=== PATIENT | male | born 1955 | race Caucasian/White ===

== ENCOUNTER → 2018-05-10 00:38 | Outpatient (CLI) | payer BC, SELFPAY ==
[2018-05-10 07:35] LABS: Abs Immature Grans 0.06 k/cumm (0.0-0.09); Absolute Basophil Count 0.02 k/cumm (0.0-0.2); Absolute Eosinophil Count 0.17 k/cumm (0.0-0.7); Basophils % 0.3; Eosinophils % 2.6; HCT 32.6 % (40.0-50.0); HGB 9.6 g/dL (13.5-17.5); Immature Grans % 0.9; Lymphocytes % 9.2; Mean Corp. HGB Concentration 29.4 g/dL (32.0-36.0); Mean Corpuscular Hemoglobin 27.4 pg (27.0-33.0); Mean Corpuscular Volume 92.9 fL (80-95); Mean Platelet Volume 8.2 fL (8.0-11.0); Monocytes % 7.6; Neutrophils % 79.4; Platelet Count 242 x1000/uL (130-400); RBC 3.51 m/cumm (4.50-6.00); RBC Distribution Width 19.6 % (11.8-14.1); White Blood Cell Count 6.55 k/cumm (4.4-10.8)
== END ==
PROVIDERS: PCP Nurse Practitioner; Visit Provider Nurse Practitioner
DX: D46.9 Myelodysplastic syndrome, unspecified (principal); D64.9 Anemia, unspecified; Z94.81 Bone marrow transplant status; Z51.81 Encounter for therapeutic drug level monitoring
CPT/HCPCS: 36415; 80053; 80195; 85025

== ENCOUNTER 2018-06-28 00:59 | Outpatient (CLI) | payer BC, SELFPAY ==
[2018-06-28 07:17] LABS: Abs Immature Grans 0.03 k/cumm (0.0-0.09); Absolute Basophil Count 0.03 k/cumm (0.0-0.2); Absolute Lymphocyte Count 0.87 k/cumm (1.2-3.4); Absolute Monocyte Count 0.65 k/cumm (0.11-0.7); Absolute Neutrophil Count 1.01 k/cumm (1.2-6.7); Basophils % 1.1; Eosinophils % 7.2; HCT 33.5 % (40.0-50.0); HGB 10.2 g/dL (13.5-17.5); Immature Grans % 1.1; Lymphocytes % 31.2; Mean Corp. HGB Concentration 30.4 g/dL (32.0-36.0); Mean Corpuscular Hemoglobin 28.3 pg (27.0-33.0); Mean Corpuscular Volume 92.8 fL (80-95); Monocytes % 23.3; Neutrophils % 36.1; Platelet Count 212 x1000/uL (130-400); RBC 3.61 m/cumm (4.50-6.00); RBC Distribution Width 16.7 % (11.8-14.1); White Blood Cell Count 2.79 k/cumm (4.4-10.8)
[2018-06-28 08:46] LABS: Cholesterol 280 mg/dL (50-200); HDL Cholesterol 51 mg/dL (40-60); LDL CHOLESTEROL 183 mg/dL (<100); TSH (W/Ref FT4) 5.08 uIU/mL (0.358-3.74); Triglyceride 211 mg/dL (30-150)
[2018-06-28 09:06] LABS: FREE T4 0.74 ng/dL (0.76-1.46)
== END 2018-06-28 01:19 ==
PROVIDERS: PCP Nurse Practitioner; Visit Provider Nurse Practitioner
DX: D46.9 Myelodysplastic syndrome, unspecified (principal); D64.9 Anemia, unspecified; Z94.81 Bone marrow transplant status; M06.9 Rheumatoid arthritis, unspecified; D46.C Myelodysplastic syndrome with isolated del(5q) chromosomal abnormality
CPT/HCPCS: 36415; 80061; 83721; 84439; 84443; 85025

== ENCOUNTER 2018-08-02 02:19 | Outpatient (CLI) | payer BC, SELFPAY ==
[2018-08-02 07:12] LABS: Abs Immature Grans 0.04 k/cumm (0.0-0.09); Absolute Basophil Count 0.04 k/cumm (0.0-0.2); Absolute Eosinophil Count 0.23 k/cumm (0.0-0.7); Absolute Lymphocyte Count 0.76 k/cumm (1.2-3.4); Absolute Monocyte Count 0.64 k/cumm (0.11-0.7); Absolute Neutrophil Count 3.63 k/cumm (1.2-6.7); Basophils % 0.7; Eosinophils % 4.3; HCT 36.9 % (40.0-50.0); HGB 11.4 g/dL (13.5-17.5); Immature Grans % 0.7; Lymphocytes % 14.2; Mean Corp. HGB Concentration 30.9 g/dL (32.0-36.0); Mean Corpuscular Volume 93.9 fL (80-95); Mean Platelet Volume 8.6 fL (8.0-11.0); Neutrophils % 68.1; Platelet Count 208 x1000/uL (130-400); RBC 3.93 m/cumm (4.50-6.00); RBC Distribution Width 15.6 % (11.8-14.1); White Blood Cell Count 5.34 k/cumm (4.4-10.8)
== END 2018-08-02 02:39 ==
PROVIDERS: PCP Nurse Practitioner; Visit Provider Nurse Practitioner
DX: D46.9 Myelodysplastic syndrome, unspecified (principal); D64.9 Anemia, unspecified; Z94.81 Bone marrow transplant status
CPT/HCPCS: 36415; 80195; 85025

== ENCOUNTER 2018-08-30 01:16 | Outpatient (CLI) | payer BC, SELFPAY ==
[2018-08-30 08:12] LABS: Abs Immature Grans 0.02 k/cumm (0.0-0.09); Absolute Basophil Count 0.02 k/cumm (0.0-0.2); Absolute Eosinophil Count 0.27 k/cumm (0.0-0.7); Absolute Lymphocyte Count 0.71 k/cumm (1.2-3.4); Absolute Monocyte Count 0.69 k/cumm (0.11-0.7); Absolute Neutrophil Count 4.12 k/cumm (1.2-6.7); Basophils % 0.3; Eosinophils % 4.6; HCT 40.7 % (40.0-50.0); HGB 12.5 g/dL (13.5-17.5); Immature Grans % 0.3; Lymphocytes % 12.2; Mean Corp. HGB Concentration 30.7 g/dL (32.0-36.0); Mean Corpuscular Hemoglobin 28.9 pg (27.0-33.0); Mean Corpuscular Volume 94.2 fL (80-95); Mean Platelet Volume 8.5 fL (8.0-11.0); Monocytes % 11.8; Neutrophils % 70.8; Platelet Count 213 x1000/uL (130-400); RBC 4.32 m/cumm (4.50-6.00); RBC Distribution Width 15.8 % (11.8-14.1); White Blood Cell Count 5.83 k/cumm (4.4-10.8)
== END 2018-08-30 01:36 ==
PROVIDERS: PCP Nurse Practitioner; Visit Provider Nurse Practitioner
DX: D46.9 Myelodysplastic syndrome, unspecified (principal); D64.9 Anemia, unspecified; Z94.81 Bone marrow transplant status
CPT/HCPCS: 36415; 85025

== ENCOUNTER 2018-09-27 06:52 | Outpatient (CLI) | payer BC, SELFPAY ==
[2018-09-27 07:29] LABS: Abs Immature Grans 0.01 k/cumm (0.0-0.09); Absolute Basophil Count 0.02 k/cumm (0.0-0.2); Absolute Eosinophil Count 0.26 k/cumm (0.0-0.7); Absolute Lymphocyte Count 0.61 k/cumm (1.2-3.4); Absolute Monocyte Count 0.43 k/cumm (0.11-0.7); Absolute Neutrophil Count 2.52 k/cumm (1.2-6.7); Basophils % 0.5; Eosinophils % 6.8; HCT 36.6 % (40.0-50.0); HGB 11.7 g/dL (13.5-17.5); Immature Grans % 0.3; Lymphocytes % 15.8; Mean Corpuscular Volume 90.8 fL (80-95); Monocytes % 11.2; Neutrophils % 65.4; Platelet Count 210 x1000/uL (130-400); RBC 4.03 m/cumm (4.50-6.00); RBC Distribution Width 14.8 % (11.8-14.1); White Blood Cell Count 3.85 k/cumm (4.4-10.8)
== END 2018-09-27 07:12 ==
PROVIDERS: PCP Nurse Practitioner; Visit Provider Internal Medicine
DX: D46.9 Myelodysplastic syndrome, unspecified (principal); D64.9 Anemia, unspecified; Z94.81 Bone marrow transplant status
CPT/HCPCS: 36415; 85025

== ENCOUNTER 2018-10-07 06:53 | Emergency (ER) | payer BC, SELFPAY ==
[2018-10-07 06:59] VITALS: BP 125/79; PULSE 84; RESP 14; TEMP 36.9; O2SAT 94
--- NOTE | 2018-10-07 07:36 | ED.GENADUL_ITS ---
Discharge Plan Disposition Patient Disposition: HOME Discharge Details Chief Complaint: RespSymp Clinical Impression: Influenza, Pneumonia Primary Care Provider: Berta Pritchard ED Provider: Roxanne Thomas Home Meds and New Rx's Prescriptions: Continued montelukast [Singulair] 4 MG tablet,chewable 4 mg PO HS RF: 0 sulfamethoxazole-trimethoprim [Bactrim DS] 1 EACH tablet 1 tab-cap PO as directed RF: 0 Flovent HFA 10.6 GM HFA aerosol inhaler 1 puff Inhalation BID RF: 0 omeprazole 20 MG capsule,delayed release(DR/EC) 20 mg PO DAILY RF: 0 sirolimus 1 MG tablet 1 mg PO BID RF: 0 prednisone 10 mg tablet 2.5 mg PO DAILY RF: 0 No Action azithromycin 250 mg Tablet 250 mg PO DIRECTED RF: 0 albuterol sulfate 90 mcg/actuation Hfa Aerosol Inhaler 2 puff Inhalation Q6H PRN PRN (Reason: Shortness Of Breath) RF: 0 Discharge Instructions Instructions: Influenza (ED), Pneumonia (ED) Additional Instructions: Please return immediately to the emergency department if you develop any new or worsening symptoms or if you become otherwise concerned. It is extremely important that you make an appointment to be seen in follow-up for this visit by your primary care doctor within 1 week and also by your oncologist as scheduled. Referrals: Berta Pritchard, [employer] [Primary Care Provider] - Discharge Data Discharge Date/Time-TO BE ENTERED AT DEPARTURE: 10/07/18 15:40 Medical Decision Making Patrice Bro is a 63-year-old man with a history of myelodysplastic syndrome with stem cell transplant in 2017 chronically taking Bactrim, erythromycin, prednisone, and sirolimus presenting to the emergency department with 4-5 days of cough, dyspnea on exertion, and decreased appetite. On exam patient is well and nontoxic appearing. He does have frequent dry cough. Breath sounds are coarse throughout with expiratory wheeze. There is no peripheral edema or posterior calf tenderness. Concern for pneumonia, opportunistic pulmonary infection, influenza,, mild dehydration, doubt ACS/PE. Exam/history not cons istent with sepsis, acute aortic pathology, meningitis, other non-pulmonary infection. Plan for EKG, chest x-ray, screening labs, IV fluid hydration, DuoNeb. Will monitor and reassess. Pt reports feeling much better after the event. Lungs clear to auscultation on repeat examination. Patient walking about emergency department without issue. Influenza positive. D-dimer elevated, chest x-ray negative. Doubt PE at this time, however I do have concern for occult pneumonia given patient is immunosuppressed. Plan for CT chest. CT chest per radiology shows small multifocal infiltrates that could be pneumonia. I discussed patient presentation and results with Dr. Lennon of infectious disease at [facility]. He reviewed patient's medical records at [facility]. Patient is taking azithromycin and Bactrim 3 times a week at baseline. Dr. Lennon recommends no further antibiotic treatment at this time, continue azithromycin and Bactrim as it is currently prescribed, and add Tamiflu. On reassessment after IV fluids, patient reports that he feels very well and essentially at baseline. On reexamination his lungs remain clear to auscultation bilaterally. He has normal work of breathing. His O2 saturations and other vital signs are normal . He would like to go home. I had a lengthy discussion with the patient regarding return to emergency department precautions and importance of outpatient follow-up with his PCP and his oncologist. He verbalizes understanding of the plan and is amenable. Medical Records Medical records reviewed: Yes I reviewed the patient's medical records. Imaging Data Radiologic Study: Attestation: I personally reviewed and interpreted this imaging study as follows: Radiologist's impression: PA AND LATERAL CHEST: Comparison is made with [id number]. The heart size is normal. The aorta is tortuous. There are mild fibrotic changes. No superimposed acute infiltrate, effusion or pulmonary edema is seen. There are mild to moderate mid thoracic compression fractures. IMPRESSION: No acute abnormality. CHEST CT FOR PULMONARY EMBOLISM: CT angiography was performed with multi slice acquisition and multi planar and 3D reconstruction. The exam is limited by respiratory motion. No pulmonary artery filling defects or aortic dissection is seen. There are scattered patchy densities in both upper and lower lobes, as well as in the right middle lobe, which could represent multifocal pneumonitis. There is no evidence of consolidation, pleural or pericardial effusions. There are moderate compression fractures of T6 and T8. Scoliosis is also present. IMPRESSION: Exam is limited by respiratory motion. No pulmonary emboli are identified. There are patchy areas of airspace density, which could represent a multifocal pneumonitis. Lab Data Lab results reviewed: Yes I reviewed the patient's lab results. ECG Data Attestation: I personally reviewed and interpreted this ECG (s) as follows: Interpretation: EKG shows normal sinus rhythm at 79 with right bundle branch block and left anterior fascicular block seen on prior, no acute ischemic changes, no STEMI. Nondiagnostic EKG HPI General Mode of arrival: ambulatory . Date/Time Provider Initiated Documentation: 10/07/18 06:55 . Limitations to Documentation: no limitations . Information obtained by: patient, RN notes reviewed and old records reviewed . HPI Narrative: Patrice Bro is a 63-year-old man with history of myelodysplastic syndrome status post stem cell transplant 2017 presenting to the emergency department with several days of cough. Patient reports that he has had nasal congestion and mild cough for approximately 1 month. He had improvement for several days approximately 1 week ago, and then 4-5 days ago developed severe cough. He has also had shortness of breath during exertion over the past few days. No shortness of breath at rest. He has had no pain. He reports some decreased appetite, and has lost 7 pounds since 10/01. No swelling of his lower extremities. No recent travel. Patient takes erythromycin, Bactrim, and prednisone along with sirolimus chronically. Related Data Home Medications Medication Instructions Recorded Confirmed Flovent HFA 1 puff INHALATION BID inhaler 11/02/17 10/12/18 montelukast [Singulair] 4 mg PO HS tab.chew 11/02/17 10/12/18 omeprazole 20 mg PO DAILY tab-cap 11/02/17 10/12/18 sulfamethoxazole-trimethoprim 1 tab-cap PO as directed tab-cap 11/02/17 10/12/18 [Bactrim DS] sirolimus 1 mg PO BID 03/01/18 10/12/18 prednisone 10 mg tablet 2.5 mg PO DAILY tab-cap 09/24/18 10/13/18 albuterol sulfate 2 puff INHALATION Q6H PRN PRN 10/12/18 10/12/18 azithromycin 250 mg PO DIRECTED 10/12/18 10/12/18 Allergies Allergy/AdvReac Type Severity Reaction Status Date / Time methotrexate AdvReac Severe Myelodysplastic Unverified 10/07/18 07:13 Syndrome General Stated Complaint: RespSymp AFIA: 3 Review of Systems Review of Systems Constitutional: denies fevers Eyes: denies eye pain ENT: denies facial pain, dental pain, sore throat Cardiovascular: denies chest pain, edema Respiratory: reports SOB with exertion, cough, denies SOB at rest GI: denies abdominal pain, vomiting, reports one day of diarrhea 3 days ago : denies flank pain MSK: denies back pain, neck pain, arthralgias, myalgias Skin: denies rash Neuro: denies headaches, lightheadedness, focal weakness, reports mild generalized weakness [facility] Social History Smoking/Tobacco Use Status: Former Tobacco Use Exam Narrative Exam Narrative: Constitutional: well and [id number], pleasant, conversing normally HENT: head atraumatic, normocephalic normal inspection, mucous membranes moist Eyes: conjunctiva normal, sclera normal, pupils 3mm b/l Neck: no stridor, normal ROM, trachea midline Chest: normal inspection Resp: normal work of breathing, coarse breath sounds throughout, mild exp wheeze throughout, frequent dry cough Cardio: normal rate, normal rhythm, no murmur appreciated GI: abdomen soft, non-tender, non-distended Back: normal inspection, no rash Skin: warm, dry, normal color, no rash Neuro: alert, not altered, grossly non-focal, normal tone Ext: no edema, no post calf TTP Psych: normal mood, normal affect, normal behavior Course Vital Signs Temperature 36.9 C 10/07/18 06:59 Pulse 84 10/07/18 06:59 Respiratory Rate 14 10/07/18 06:59 Blood Pressure 125/79 10/07/18 06:59 Pulse Oximetry 94 L 10/07/18 06:59 Temperature 36.9 C 10/07/18 06:59 Temperature Source Temporal Artery Scan 10/07/18 06:59 Pulse 84 10/07/18 06:59 Respiratory Rate 14 10/07/18 06:59 Respiratory Effort Non-Labored 10/07/18 07:11 Respiratory Depth Normal 10/07/18 07:11 Blood Pressure 125/79 10/07/18 06:59 Blood Pressure Position Sitting 10/07/18 06:59 Pulse Oximetry 94 L 10/07/18 06:59 Oxygen Delivery Method Room Air 10/07/18 06:59 Oxygen Flow Rate 0 12/31/18 06:59 Pain Level 0 10/07/18 06:59
--- NOTE | 2018-10-07 07:45 | DI.RAD_ITS ---
SYMPTOMS/DIAGNOSIS: COUGH PA AND LATERAL CHEST: Comparison is made with [id number]. The heart size is normal. The aorta is tortuous. There are mild fibrotic changes. No superimposed acute infiltrate, effusion or pulmonary edema is seen. There are mild to moderate mid thoracic compression fractures. IMPRESSION: No acute abnormality.
[2018-10-07 08:01] VITALS: PULSE 84; RESP 14; RESP 4; O2SAT 94
[2018-10-07] MEDS: Albuterol/Ipratropium 3 ML UPD VIAL UPD (08:01)
[2018-10-07] MEDS: Normal Saline 500 ML IV (08:01)
[2018-10-07 08:10] LABS: Lactate-non-spesis 2.2 mmol/L (0.6-1.4)
[2018-10-07 08:18] LABS: Absolute Basophil Count 0.01 k/cumm (0.0-0.2); Absolute Lymphocyte Count 0.34 k/cumm (1.2-3.4); Absolute Monocyte Count 0.34 k/cumm (0.11-0.7); Absolute Neutrophil Count 2.62 k/cumm (1.2-6.7); Basophils % 0.3; HCT 39.7 % (40.0-50.0); HGB 12.8 g/dL (13.5-17.5); Lymphocytes % 10.3; Mean Corp. HGB Concentration 32.2 g/dL (32.0-36.0); Mean Corpuscular Volume 89.8 fL (80-95); Mean Platelet Volume 9.3 fL (8.0-11.0); Monocytes % 10.3; Neutrophils % 79.1; Platelet Count 135 x1000/uL (130-400); RBC 4.42 m/cumm (4.50-6.00); RBC Distribution Width 14.8 % (11.8-14.1); White Blood Cell Count 3.31 k/cumm (4.4-10.8)
[2018-10-07 08:29] LABS: ALT 54 U/L (12-78); AST 45 U/L (15-37); Albumin 3.8 g/dL (3.4-5.0); Alkaline Phosphatase 94 U/L (46-116); Anion Gap 11.7 mmol/L (3-11); BUN 22 mg/dL (7-18); Bilirubin, Total 0.2 mg/dL (0.2-1.0); CO2 26.3 mmol/L (21.0-32.0); CREATININE 1.13 mg/dL (0.70-1.30); Calcium 8.4 mg/dL (8.5-10.1); Chloride 103 mmol/L (98-107); Glucose 120 mg/dL (70-100); Potassium 3.5 mmol/L (3.5-5.1); Sodium 141 mmol/L (136-145); Troponin I 0.02 ng/mL (0.00-0.06)
[2018-10-07 08:54] LABS: D-Dimer 759 ng/mlFEU (<500)
[2018-10-07] MEDS: Normal Saline 1,000 ML 1000 ML IV (10:16)
--- NOTE | 2018-10-07 11:43 | NUR.NOTE ---
Nursing Note: On ambulation patients SPO2 was between 93 and 95 % on RA. He didn't report any increased SOB that increased with exertion.
--- NOTE | 2018-10-07 12:04 | DI.CT_ITS ---
SYMPTOMS/DIAGNOSIS: SHORTNESS OF BREATH, COUGH, IMMUNOSUPPRESSED, H/O MDS, FLU CHEST CT FOR PULMONARY EMBOLISM: CT angiography was performed with multi slice acquisition and multi planar and 3D reconstruction. The exam is limited by respiratory motion. No pulmonary artery filling defects or aortic dissection is seen. There are scattered patchy densities in both upper and lower lobes, as well as in the right middle lobe, which could represent multifocal pneumonitis. There is no evidence of consolidation, pleural or pericardial effusions. There are moderate compression fractures of T6 and T8. Scoliosis is also present. IMPRESSION: Exam is limited by respiratory motion. No pulmonary emboli are identified. There are patchy areas of airspace density, which could represent a multifocal pneumonitis.
[2018-10-07] MEDS: Omnipaque 350 MG/ML 100 ML BTL IJ (13:35)
[2018-10-07 14:18] VITALS: BP 120/79; PULSE 75; RESP 14; O2SAT 95
[2018-10-07] MEDS: Oseltamivir 75 MG CAP PO (14:57)
[2018-10-07 15:02] VITALS: BP 120/79; PULSE 75; RESP 14; TEMP 36.8; O2SAT 95
== END 2018-10-07 15:40 | disposition home or self-care (01) ==
PROVIDERS: Emergency Provider Student in an Organized Health Care Education/Training Program; PCP Nurse Practitioner
DX: J10.1 Influenza due to other identified influenza virus with other respiratory manifestations (principal); D46.9 Myelodysplastic syndrome, unspecified; Z79.2 Long term (current) use of antibiotics; Z79.52 Long term (current) use of systemic steroids
CPT/HCPCS: 36415; 71275; 80053; 87449; 93005; 94640; 96360; 96361; 99285; 71046; 83605; 84484; 85025; 85379; 93010; 99284; J3490; J7620

== ENCOUNTER 2018-10-12 10:37 | Inpatient (IN) | payer BC, SELFPAY ==
[2018-10-12] VITALS (8 sets, daily range): BP systolic 112–132; BP diastolic 57–81; PULSE 63–95; RESP 16–26; TEMP 36.7–37; O2SAT 89–96
--- NOTE | 2018-10-12 11:14 | ED.GENADUL_ITS ---
Discharge Plan Disposition Patient Disposition: [facility] INPATIENT Condition: Stable Discharge Details Chief Complaint: RespSymp Clinical Impression: Influenza, Pneumonia, Hypoxemia Primary Care Provider: Berta Pritchard ED Provider: Inder Alcantara Home Meds and New Rx's Prescriptions: No Action naproxen sodium [Aleve] 220 MG capsule 220 mg PO PRN PRNRF: 0 montelukast [Singulair] 4 MG tablet,chewable 4 mg PO HS RF: 0 sulfamethoxazole-trimethoprim [Bactrim DS] 1 EACH tablet PO as directed RF: 0 Flovent HFA 10.6 GM HFA aerosol inhaler 44 mcg Inhalation BID RF: 0 omeprazole 20 MG capsule,delayed release(DR/EC) 20 mg PO DAILY RF: 0 Loratadine 10 MG TAB.RAPDIS 10 mg PO DAILY RF: 0 sirolimus 1 MG tablet 1 mg PO BID RF: 0 Aranesp (in polysorbate) 500 MCG/1 ML syringe 400 mcg Sub-Q as directed RF: 0 prednisone 10 mg tablet 2.5 mg PO DAILY RF: 0 Medical Decision Making This is a 63-year-old male who is a stem cell transplant recipient due to a history of myelodysplastic syndromechronically taking Bactrim, erythromycin, prednisone, and sirolimus. He had a CT angiogram last week which showed evidence of pneumonitis, he tested influenza A positive, and was started on Tamiflu. Since then he has had consistent chills, myalgias, congestion however starting last night he demonstrated notable difficulty breathing, with associated exertional fatigue, and some mild chest pressure. Physical exam demonstrates notable rhonchi and wheezes in his right lung estes as well as his left. He is mildly hypoxic at 89% on room air, tachypneic and tachycardic. He has no history of lung disease and does not normally use oxygen. I have concern for a superimposed bacterial pneumonia. With the patient's chronic immunosuppression, I do feel that he is at high risk for this, and would benefit from inpatient admission. 12:18 PM The patient is 87% on room air. Chest x-ray is notably worse than previous and shows worsening pneumonia. We will start the patient on broad-spectrum antibiotics of vancomycin and Zosyn. I will add doxycycline for atypical coverage secondary to his slightly prolonged QT. With his hypoxemia, and immunosuppression in spite of outpatient therapy I do feel that he would benefit from admission. 12:30 PM I discussed the case with the hospitalist Dr. Rice, and she has requested we contact [facility] for potential transfer as she is not able to get an acute sirolimus. I contacted [facility] and they have no beds whatsoever. I contacted at [facility], and they do not feel that this patient is sick enough for appropriate for transfer at this time. Additionally they do not have any beds available the [facility]. They think that they may have an open bed in the next 2-3 days ago. I also did discuss this with the patient in [facility] and he would prefer to stay here and very drip then be transferred. 1:[address] Rice again and discussed the case with her including the modifying factors of [facility] and [facility] being currently for. She agrees with the current assessment and plan and does agree to accept the patient for admission. I have extensively reviewed the treatment plan with the patient. I have addressed all patient concerns at this time. I have also discussed the plan with the admitting physician and they agree with the current assessment and plan and have agreed to assume responsibility for the patient. All parties demonstrate verbal understanding and agreement with our assessment and plan at this time. EKG 11: 07 Rate 90, MT 154, QTc 489, QRS 139, right bundle branch block with no significant ST elevations or depressions. Findings are consistent with prior EKG from 10/07/18 [facility] General Date/Time Provider Initiated Documentation: 10/12/18 10:52 . [facility] Narrative: Patrice Bro is a 63-year-old man with a history of myelodysplastic syndrome with stem cell transplant in 2017 chronically taking Bactrim, erythromycin, prednisone, and sirolimus. The patient was here 1 week ago seen and assessed. He was flu positive at that time, he had a CT angiogram which showed evidence of pneumonitis but no PE. His vital signs were stable and reassuring, he was discharged home on Tamiflu. Since then the patient has noticed continued cough, chills, productive white sputum, muscle achiness throughout, and no improvement of his symptoms. Concerningly, last night the patient noticed significant shortness of breath with some associated mild chest pressure. Pain is worse with coughing. Patient has noticed that since then including today he has had notable shortness of breath with exertion, as well as worsening symptoms of fatigue. He feels that he is notably worsened in his symptomatology. Patient denies any aggravating or modifying factors. He has no history of COPD. He does not use home oxygen. He has not smoked since 1985. He denies any recent surgeries except for stem cell transplant. He denies any IV or illicit drug use or pertinent family history. Related Data Home Medications Medication Instructions Recorded Confirmed naproxen sodium [Aleve] 220 mg PO PRN PRN 01/12/15 10/12/18 Flovent HFA 44 mcg INHALATION BID inhaler 11/02/17 10/12/18 Loratadine 10 mg PO DAILY tab-cap 11/02/17 10/12/18 montelukast [Singulair] 4 mg PO HS tab.chew 11/02/17 10/12/18 omeprazole 20 mg PO DAILY tab-cap 11/02/17 10/12/18 sulfamethoxazole-trimethoprim 0 tab-cap PO as directed tab-cap 11/02/17 10/12/18 [Bactrim DS] sirolimus 1 mg PO BID 03/01/18 10/12/18 Aranesp (in polysorbate) 400 mcg SUB-Q as directed 05/24/18 10/12/18 prednisone 10 mg tablet 2.5 mg PO DAILY tab-cap 09/24/18 10/12/18 Allergies Allergy/AdvReac Type Severity Reaction Status Date / Time methotrexate AdvReac Severe Myelodysplastic Unverified 10/07/18 07:13 Syndrome General Stated Complaint: RespSymp AFIA: 3 Review of Systems Review of Systems All systems reviewed & are unremarkable except as noted in HPI and below PFSH Surgical History Stem Cell Transplant (10/18/16) Social History Smoking/Tobacco Use Status: Former Tobacco Use Exam Narrative Exam Narrative: 1.Const: Well-nourished, Well-developed, appearing stated age 2.Eyes: PERRL, no conjunctival injection, and symmetrical lids. 3.ENT: Atraumatic external nose and ears. Moist MM. Neck: Symmetric, trachea midline, No thyromegaly. Patient demonstrates good movement of cervical neck. There is no nuchal rigidity, no nuchal tenderness. Patient is able to flex the neck without any difficulty or significant pain. Negative Kernig's and Brudzinski sign. 4.CVS: +S1/S2, No murmurs or gallops. Peripheral pulses 2+ and equal in all extremities. Brisk capillary refill in all extremities. Radial pulses +2 bilaterally 5.RESP: Mild tachypnea. Notable crackles and wheezes in the right lung estes. Mild rhonchi. 6.GI: Soft, Nontender/Nondistended, No hepatosplenomegaly. No guarding or rebound. 7.MSK: Normocephalic/Atraumatic, Extremities w/o deformity or ttp No cyanosis or clubbing, Normal movement of all extremities 8.Skin: Warm, Dry. No rashes or lesions. 9.Neuro: clinical nurse leader II-XII grossly intact. Sensation grossly intact, no focal neurologic deficits. 10.Psych: (AAO) x3. Appropriate mood and affect Course Vital Signs Temperature 36.7 C 10/12/18 10:51 Pulse 95 H 10/12/18 10:51 Respiratory Rate 16 10/12/18 10:51 Blood Pressure 132/77 10/12/18 10:51 Pulse Oximetry 89 L 10/12/18 10:51 Temperature 36.7 C 10/12/18 10:51 Temperature Source Temporal Artery Scan 10/12/18 10:51 Pulse 90 10/12/18 11:08 Respiratory Rate 26 H 10/12/18 11:08 Respiratory Effort Non-Labored 10/12/18 11:02 Blood Pressure 132/77 10/12/18 10:51 Blood Pressure Position Sitting 10/12/18 10:51 Pulse Oximetry 94 L 10/12/18 11:08 Oxygen Delivery Method Nasal Cannula 10/12/18 11:08 Oxygen Flow Rate 2 10/12/18 11:08 Pain Level 0 10/12/18 10:51 Lab/Test Results Lab/Test Results: 10/12/18 11:06 Blood Blood Culture - Pending 10/12/18 11:06 Blood Blood Culture - Pending
[2018-10-12] MEDS: Albuterol/Ipratropium 3 ML UPD VIAL UPD (11:22)
[2018-10-12 11:28] LABS: Lactate-non-spesis 1.6 mmol/L (0.6-1.4)
[2018-10-12 11:30] LABS: Abs Immature Grans 0.03 k/cumm (0.0-0.09); Absolute Basophil Count 0.01 k/cumm (0.0-0.2); Absolute Eosinophil Count 0.08 k/cumm (0.0-0.7); Absolute Lymphocyte Count 0.37 k/cumm (1.2-3.4); Absolute Monocyte Count 0.57 k/cumm (0.11-0.7); Absolute Neutrophil Count 5.94 k/cumm (1.2-6.7); Basophils % 0.1; Eosinophils % 1.1; HCT 37.3 % (40.0-50.0); HGB 12.2 g/dL (13.5-17.5); Immature Grans % 0.4; Lymphocytes % 5.3; Mean Corp. HGB Concentration 32.7 g/dL (32.0-36.0); Mean Corpuscular Hemoglobin 29.2 pg (27.0-33.0); Mean Corpuscular Volume 89.2 fL (80-95); Mean Platelet Volume 9.4 fL (8.0-11.0); Monocytes % 8.1; Platelet Count 189 x1000/uL (130-400); RBC 4.18 m/cumm (4.50-6.00); RBC Distribution Width 14.5 % (11.8-14.1)
[2018-10-12 11:48] LABS: ALT 35 U/L (12-78); AST 27 U/L (15-37); Albumin 3.2 g/dL (3.4-5.0); Alkaline Phosphatase 84 U/L (46-116); BUN 20 mg/dL (7-18); Bilirubin, Total 0.4 mg/dL (0.2-1.0); CREATININE 1.51 mg/dL (0.70-1.30); Calcium 8.7 mg/dL (8.5-10.1); Chloride 101 mmol/L (98-107); Estimated GFR 46.76 (mL/min/1.73m2); Glucose 190 mg/dL (70-100); Potassium 3.7 mmol/L (3.5-5.1); Sodium 139 mmol/L (136-145); Total Protein 7.4 g/dL (6.4-8.2)
[2018-10-12 11:52] LABS: Troponin I < 0.02 ng/mL (0.00-0.06)
--- NOTE | 2018-10-12 12:10 | DI.RAD_ITS ---
SYMPTOM/DIAGNOSIS: COUGH, ? PNEUMONIA FRONTAL AND LATERAL CHEST: Comparison is made with 10/07/18. Heart size and pulmonary vasculature are within normal limits. There is a new infiltrate in the left perihilar region suspicious for pneumonia. Scarring is seen in the lungs which appear unchanged. No other infiltrates, effusions or pneumothoraces are identified. The bones are intact. There are old compression deformities seen in the thoracic spine. IMPRESSION: New left perihilar infiltrate suspicious for pneumonia.
[2018-10-12] MEDS: Normal Saline 1,000 ML 1000 ML IV (12:15)
[2018-10-12] MEDS: PIPERACILLIN/TAZO 3.375 GM in Normal Saline 50 ML IVPB ×3 (12:16→23:40)
--- NOTE | 2018-10-12 12:35 | DI.VRAD_ITS ---
EXAM: XR Chest, 2 Views EXAM DATE/TIME: 10/12/2018 12:12 PM CLINICAL HISTORY: 63 years old, male; Signs and symptoms; Cough TECHNIQUE: XR of the chest, 2 views. COMPARISON: CR XR CHEST 2V PA LATERAL 10/07/2018 8:18 AM FINDINGS: Lungs: New left perihilar patchy opacity, worrisome for pneumonia. Recommend followup to resolution. Right lung remains clear. Pleural space: Unremarkable. No pleural effusion. No pneumothorax. Heart/Mediastinum: Unremarkable. No cardiomegaly. Bones/joints: Unremarkable. IMPRESSION: New left perihilar patchy opacity, worrisome for pneumonia. Recommend followup to resolution. Dictated and Authenticated by: Rhiannon Craft MD. Ordering:SANTY Loving MD
[2018-10-12] MEDS: VANCOMYCIN 2,000 MG in Normal Saline 500 ML 250 MG IVPB (12:36)
[2018-10-12] MEDS: DOXYCYCLINE 100 MG in Normal Saline 100 ML IVPB (12:59)
--- NOTE | 2018-10-12 13:40 | NUR.NOTE ---
Nursing Note: Awaiting bed placement. resting in bed, no acute changes. 94-95% on 2L NC.
[2018-10-12] MEDS: Enoxaparin 40 MG/0.4 ML SYR SC (15:41)
[2018-10-12] MEDS: Normal Saline Flush 10 ML SYR IVP (15:42)
[2018-10-12] MEDS: methylPREDNISolone SUCC 125 MG VIAL 60 MG IVP ×2 (15:42→22:18)
[2018-10-12] MEDS: Normal Saline 1,000 ML 125 ML IV (15:43)
--- NOTE | 2018-10-12 19:43 | HPE_ITS ---
Date of service: 10/12/18 Time of Service: 17:00 Assessment and Plan (1) CAP (community acquired pneumonia): Current visit: Yes Status: Acute With a component of bronchospasm, Likely post-inluenza. Continue doxycycline, vancomycin, zosyn initiated in ED as the patient is on immunosuppression. Will contact transplant ID for recommendations re tayloring therapy. Sputum sample obtained. Finish treatment for the flu tonight. Patient was initiated on IV steroids. (2) Myelodysplastic syndrome with 5q deletion: Current visit: No Status: Chronic Continue sirolimus. Monitoring levels becomes difficult at a community hospital level. Will discuss with transplant ID. 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 Continue immunosuppression. (4) Rheumatoid arthritis: Current visit: No Status: Chronic Continue steroids. (5) Renal insufficiency: Current visit: No Status: Chronic Monitor Cr. History of Present Illness Chief Complaint: It was hard to breathe Narrative: Mr Bro is a 63 year old male with PMHx of MDS s/p bone marrow transplant, on sirolimus and prednisone therapy, RA, recent diagnosis of influenza A, as well as h/o qkatt-ol-jwsd disease who presented to [facility] today complaining of shortness of breath. He was taking his tamiflu at home as prescribed, but felt very short of breath this morning. He also felt a lot of muscular chest wall pressure from coughing. His cough has been productive of white sputum. He denies fevers at home. In the ER, he was found to be hypoxic to 87% on RA in the ED and required 2 L of O2 to saturate in low 90's. He was felt to be quite wheezy on the exam as well. His ER workup revealed a new superimposed L perihilar opacity concerning for pneumonia. He was initiated on vancomycin, zosyn, and doxycycline, and we were asked to admit the patient for further care. While the preference would have been for the patient to be at a facility with transplant ID available, [facility] [place], and neither did [facility]. The patient follows evette Man (?sp) [place] [facility] [place]. Review of Systems Review of Systems 12 systems reviewed. Pertinent positives and negatives are as per HPI. [facility] Medical History Influenza A (Acute) CKD (chronic kidney disease) (Chronic) Dlsfd-mfsmwj-ffhq disease (Chronic) Hyperlipidemia (Chronic) MDS (myelodysplastic syndrome) (Chronic) Osteoporosis (Chronic) Rheumatoid arthritis (Chronic) Surgical History History of bone marrow transplant (Chronic) History of tonsillectomy (Chronic) S/P emergency tracheotomy for assistance in breathing (Resolved) Stem Cell Transplant (10/18/16) Family History Maternal Grandfather Stroke Mother Diabetes Colon cancer Father Diabetes Social History Smoking/Tobacco Use Status: Former Tobacco Use Meds Home Medications Medication Instructions Recorded Confirmed Type Flovent HFA 44 mcg INHALATION BID inhaler 11/02/17 10/12/18 History montelukast [Singulair] 4 mg PO HS tab.chew 11/02/17 10/12/18 History omeprazole 20 mg PO DAILY tab-cap 11/02/17 10/12/18 History sulfamethoxazole-trimethoprim 0 tab-cap PO as directed tab-cap 11/02/17 10/12/18 History [Bactrim DS] sirolimus 1 mg PO BID 03/01/18 10/12/18 History prednisone 10 mg tablet 2.5 mg PO DAILY tab-cap 09/24/18 10/12/18 History albuterol sulfate 2 puff INHALATION Q6H PRN PRN 10/12/18 10/12/18 History azithromycin 250 mg PO DIRECTED 10/12/18 10/12/18 History Allergies Allergy/AdvReac Type Severity Reaction Status Date / Time methotrexate AdvReac Severe Myelodysplastic Unverified 10/07/18 07:13 Syndrome Exam Narrative Exam Narrative: General: A&Ox3, very pleasant, sitting up in bed, not in acute distress HEENT: EOMI, MMM Heart: RRR, no m/r/g Lungs; Wheezing bilaterally on expiration GI: abdomen soft, nontender, nondistended Extremities: no edema, clubbing, or cyanosis. Results Imaging Additional studies: CXR: New left perihilar patchy opacity, worrisome for pneumonia. Recommend followup to resolution. EKG: HR 90, RBBB (Old) Labs : 10/12/18 11:20 10/12/18 11:20 Laboratory Results - last 24 hr 10/12/18 10/12/18 10/12/18 11:20 11:20 11:20 WBC 7.00 RBC 4.18 L Hgb 12.2 L Hct 37.3 L MCV 89.2 MCH 29.2 MCHC 32.7 RDW 14.5 H Plt Count 189 MPV 9.4 Immature Gran % 0.4 Neutrophils % 85.0 Lymphocytes % 5.3 Monocytes % 8.1 Eosinophils % 1.1 Basophils % 0.1 Absolute Neutrophils 5.94 Absolute Lymphocytes 0.37 L Absolute Monocytes 0.57 Absolute Eosinophils 0.08 Absolute Basophils 0.01 Sodium 139 Potassium 3.7 Chloride 101 Carbon Dioxide 27.0 Anion Gap 11.0 BUN 20 H Creatinine 1.51 H Estimated GFR/1.73 m2 46.76 Glucose 190 H Lactate 1.6 H Calcium 8.7 Total Bilirubin 0.4 AST 27 ALT 35 Alkaline Phosphatase 84 Troponin I < 0.02 Total Protein 7.4 Albumin 3.2 L Last Vital Signs Temp 36.9 C 10/12/18 16:07 Pulse 79 10/12/18 16:07 Resp 20 10/12/18 16:07 BP 125/76 10/12/18 16:07 Pulse Ox 94 L 10/12/18 16:07
[2018-10-12] MEDS: Oseltamivir 75 MG CAP PO (20:27)
[2018-10-13] VITALS (7 sets, daily range): BP systolic 113–131; BP diastolic 68–82; PULSE 61–80; RESP 16–20; TEMP 36.5–37.3; O2SAT 93–95
[2018-10-13] MEDS: Normal Saline 1,000 ML 125 ML IV ×2 (00:40→10:25)
[2018-10-13] MEDS: VANCOMYCIN 1,000 MG in Normal Saline 250 ML 250 MG IV ×2 (00:44→12:12)
[2018-10-13] MEDS: DOXYCYCLINE 100 MG in Normal Saline 100 ML IVPB ×2 (02:29→14:53)
[2018-10-13] MEDS: PIPERACILLIN/TAZO 3.375 GM in Normal Saline 50 ML IVPB ×2 (06:02→11:33)
[2018-10-13] MEDS: methylPREDNISolone SUCC 125 MG VIAL 60 MG IVP ×3 (06:03→22:43)
[2018-10-13 06:12] LABS: Abs Immature Grans 0.01 k/cumm (0.0-0.09); Absolute Basophil Count 0.01 k/cumm (0.0-0.2); Absolute Lymphocyte Count 0.25 k/cumm (1.2-3.4); Absolute Monocyte Count 0.08 k/cumm (0.11-0.7); Absolute Neutrophil Count 3.87 k/cumm (1.2-6.7); Basophils % 0.2; HCT 33.3 % (40.0-50.0); HGB 10.8 g/dL (13.5-17.5); Immature Grans % 0.2; Lymphocytes % 5.9; Mean Corp. HGB Concentration 32.4 g/dL (32.0-36.0); Mean Corpuscular Volume 89.5 fL (80-95); Monocytes % 1.9; Neutrophils % 91.8; Platelet Count 175 x1000/uL (130-400); RBC 3.72 m/cumm (4.50-6.00); RBC Distribution Width 14.5 % (11.8-14.1); White Blood Cell Count 4.22 k/cumm (4.4-10.8)
[2018-10-13 06:24] LABS: Anion Gap 12.9 mmol/L (3-11); BUN 12 mg/dL (7-18); CO2 23.1 mmol/L (21.0-32.0); CREATININE 1.22 mg/dL (0.70-1.30); Calcium 7.8 mg/dL (8.5-10.1); Chloride 103 mmol/L (98-107); Glucose 163 mg/dL (70-100); Magnesium 1.8 mg/dL (1.8-2.4); Sodium 139 mmol/L (136-145)
[2018-10-13] MEDS: Benzonatate 100 MG CAP PO ×3 (08:43→19:55)
[2018-10-13] MEDS: Pantoprazole 40 MG TABCR PO (08:43)
[2018-10-13] MEDS: guaiFENesin 600 MG TABCR PO ×2 (08:43→19:55)
[2018-10-13] MEDS: Mometasone 220 MCG 14 DOSE INHALER 1 PUFF IH (10:13)
[2018-10-13] MEDS: Normal Saline Flush 10 ML SYR IVP ×5 (10:24→22:43)
[2018-10-13 10:40] LABS: Lactate-non-spesis 1.6 mmol/L (0.6-1.4)
[2018-10-13] MEDS: Enoxaparin 40 MG/0.4 ML SYR SC (14:53)
--- NOTE | 2018-10-13 15:24 | PDOC.CMIN ---
- If Service Date Differs Date of service: 10/13/18 Time of Service: 15:24 Care Management Initial Assess REASON FOR HOSPITALIZATION:: CAP with Hypoxia PAST MEDICAL HISTORY/PAST SURGICAL HISTORY:: Influenza A (Acute). CKD (chronic kidney disease) (Chronic). Xqgnu-meekvm-iaiy disease (Chronic). Hyperlipidemia (Chronic). MDS (myelodysplastic syndrome) (Chronic). Osteoporosis (Chronic). Rheumatoid arthritis (Chronic). History of bone marrow transplant (Chronic). History of tonsillectomy (Chronic). S/P emergency tracheotomy for assistance in breathing (Resolved). Stem Cell Transplant (10/18/16) PREVIOUS FUNCTIONAL STATUS/SOCIAL/FAMILY SUPPORTS:: Patrice resides with his Elaine in [place]. He states that they have been for 23 years, and reports that he has two step children whom are supportive. 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 Patrice is independent at baseline, he drives, and manages ADL's CURRENT FUNCTIONAL STATUS:: Sitting up in bed, pleasant and receptive to discussion. ADVANCE DIRECTIVES:: None on file Has patient been provided with information about the portal?: Yes Did the patient sign up for the portal?: No (already signed up) CODE STATUS:: Full Code INSURANCE COVERAGE / FINANCIAL ISSUES:: [employer]BS CURRENT HOME/COMMUNITY SERVICES/EQUIPMENT:: currently Patrice has no services or medical equipment in the community. PRIMARY CARE PHYSICIAN:: Berta Pritchard POTENTIAL DISCHARGE NEEDS:: F/U appointment with PCP PATIENT/FAMILY EDUCATION NEEDS:: Review DC instructions, any limitations, and ongoing DC planning discussion. Discuss 'Ask Me Three' ANTICIPATED BARRIERS TO DISCHARGE:: None identified at this time. TRANSPORTATION:: Via private vehicle with Elaine PLAN:: Patrice will return home with no anticipated services. He will F/U with PCP and plan of care as prescribed. Patrice's Elaine to transport when ready.
--- NOTE | 2018-10-13 16:42 | W.PM.PROGNOT ---
Date of Service Date of service: 10/13/18 Time of Service: 16:42 Assessment and Plan (1) CAP (community acquired pneumonia): Current visit: Yes Status: Acute With a component of bronchospasm, Likely post-inluenza. Improving. Discussed with ID (Dr Tellez) at [facility] [place] she recommends to d/c prophylactic azythromycin. Continue doxycycline. D/C vancomycin/zosyn, start rocephin, continue prophylactic bactrim. Discussed with Dr Currie of hemotology at [facility] [place] - recommends a lengthy steroid taper and continuing sirolimus at home dose. He recognizes we can't measure levels here with rapid turn around and that the patient likely missed a couple of doses as the hospital doesn't carry the medication. He also warned us that the patient has a history of hzrpd-bp-yrgy in his lung, so if the patient is having a protracted respiratory course/not getting better, this needs to be considered. (2) Myelodysplastic syndrome with 5q deletion: Current visit: No Status: Chronic Continue sirolimus and higher dose of steroids. (3) Lolij-xutaht-plqt disease: Current visit: No Status: Chronic Monitor for signs thereof. Continue immunosuppression. (4) Rheumatoid arthritis: Current visit: No Status: Chronic Continue steroids. (5) Renal insufficiency: Current visit: No Status: Chronic Monitor Cr. Subjective Interval history since last seen: Denies dizziness, chest pain, nausea,vomiting. Had a couple of coughing spells, but overall feels better. Exam Narrative Exam Narrative: General: A&Ox3, very pleasant, sitting up in bed, not in acute distress HEENT: EOMI, MMM Heart: RRR, no m/r/g Lungs; Wheezing bilaterally on expiration, quiet rales also heard GI: abdomen soft, nontender, nondistended Extremities: no edema, clubbing, or cyanosis. Objective Objective Clinical Data: Abnormal lab results 10/13/18 10/13/18 10/13/18 Range/Units 06:00 06:00 10:32 WBC 4.22 L D (4.4-10.8) k/cumm RBC 3.72 L (4.50-6.00) m/cumm Hgb 10.8 L (13.5-17.5) g/dL Hct 33.3 L (40.0-50.0) % RDW 14.5 H (11.8-14.1) % Absolute Lymphocytes 0.25 L (1.2-3.4) k/cumm Absolute Monocytes 0.08 L (0.11-0.7) k/cumm Anion Gap 12.9 H (3-11) mmol/L Glucose 163 H (70-100) mg/dL Lactate 1.6 H (0.6-1.4) mmol/L Calcium 7.8 L (8.5-10.1) mg/dL Vital Signs Temperature 37.3 C 10/13/18 15:32 Temperature Source Tympanic 10/13/18 15:32 Pulse 77 10/13/18 15:32 Pulse Rhythm Regular 10/12/18 19:40 Respiratory Rate 20 10/13/18 15:32 Respiratory Effort Non-Labored 10/12/18 19:40 Respiratory Depth Normal 10/12/18 19:40 Respiratory Pattern Normal 10/12/18 19:40 Blood Pressure 131/82 10/13/18 15:32 Blood Pressure Position Sitting 10/12/18 10:51 Pulse Oximetry 95 10/13/18 15:32 Oxygen Delivery Method Nasal Cannula 10/13/18 15:32 Oxygen Flow Rate 2 10/13/18 15:32 Pain Level 0 10/13/18 07:44 Comment 10/12/18 14:33 Intake & Output 10/12/18 10/13/18 10/13/18 23:59 11:59 23:59 Intake Total 2981.25 / 3750.00 3520.417 / 4389.167 868.75 / 4389.167 Output Total 600 / 600 1500 / 2200 700 / 2200 Balance 2381.25 / 3150.00 2020.417 / 2189.167 168.75 / 2189.167 Weight 78.471 kg Intake: IV 1951.25 / 2720.00 2370.417 / 2689.167 318.75 / 2689.167 Oral 1030 / 1030 1150 / 1700 550 / 1700 Output: Urine 600 / 600 1500 / 2200 700 / 2200 Other: Urine Color Straw Yellow Yellow Urine Appearance Clear Clear Clear Urine Odor None Normal Normal Comment Void x1 in the toilet. Void x1 in the toilet. Void x1 in the toilet. Stool Size Moderate Stool Characteristics Soft Voiding Methods Toilet Toilet Toilet Laboratory Results WBC 4.22 k/cumm (4.4-10.8) L D 10/13/18 06:00 RBC 3.72 m/cumm (4.50-6.00) L 10/13/18 06:00 Hgb 10.8 g/dL (13.5-17.5) L 10/13/18 06:00 Hct 33.3 % (40.0-50.0) L 10/13/18 06:00 MCV 89.5 fL (80-95) 10/13/18 06:00 MCH 29.0 pg (27.0-33.0) 10/13/18 06:00 MCHC 32.4 g/dL (32.0-36.0) 10/13/18 06:00 RDW 14.5 % (11.8-14.1) H 10/13/18 06:00 Plt Count 175 x1000/uL (130-400) 10/13/18 06:00 MPV 9.0 fL (8.0-11.0) 10/13/18 06:00 Immature Gran % 0.2 10/13/18 06:00 Neutrophils % 91.8 10/13/18 06:00 Lymphocytes % 5.9 10/13/18 06:00 Monocytes % 1.9 10/13/18 06:00 Eosinophils % 0.0 10/13/18 06:00 Basophils % 0.2 10/13/18 06:00 Absolute Neutrophils 3.87 k/cumm (1.2-6.7) 10/13/18 06:00 Absolute Lymphocytes 0.25 k/cumm (1.2-3.4) L 10/13/18 06:00 Absolute Monocytes 0.08 k/cumm (0.11-0.7) L 10/13/18 06:00 Absolute Eosinophils 0.00 k/cumm (0.0-0.7) 10/13/18 06:00 Absolute Basophils 0.01 k/cumm (0.0-0.2) 10/13/18 06:00 Sodium 139 mmol/L (136-145) 10/13/18 06:00 Potassium 4.0 mmol/L (3.5-5.1) 10/13/18 06:00 Chloride 103 mmol/L (98-107) 10/13/18 06:00 Carbon Dioxide 23.1 mmol/L (21.0-32.0) 10/13/18 06:00 Anion Gap 12.9 mmol/L (3-11) H 10/13/18 06:00 BUN 12 mg/dL (7-18) D 10/13/18 06:00 Creatinine 1.22 mg/dL (0.70-1.30) 10/13/18 06:00 Estimated GFR/1.73 m2 59.80 (mL/min/1.73m2) 10/13/18 06:00 Glucose 163 mg/dL (70-100) H 10/13/18 06:00 Lactate 1.6 mmol/L (0.6-1.4) H 10/13/18 10:32 Calcium 7.8 mg/dL (8.5-10.1) L 10/13/18 06:00 Magnesium 1.8 mg/dL (1.8-2.4) 10/13/18 06:00 Total Bilirubin 0.4 mg/dL (0.2-1.0) 10/12/18 11:20 AST 27 U/L (15-37) 10/12/18 11:20 ALT 35 U/L (12-78) 10/12/18 11:20 Alkaline Phosphatase 84 U/L (46-116) 10/12/18 11:20 Troponin I < 0.02 ng/mL (0.00-0.06) 10/12/18 11:20 Total Protein 7.4 g/dL (6.4-8.2) 10/12/18 11:20 Albumin 3.2 g/dL (3.4-5.0) L 10/12/18 11:20
--- NOTE | 2018-10-13 16:45 | PGE_ITS ---
Date of Service Date of service: 10/13/18 Time of Service: 16:42 Assessment and Plan (1) CAP (community acquired pneumonia): Current visit: Yes Status: Acute With a component of bronchospasm, Likely post-inluenza. Improving. Discussed with ID (Dr Tellez) [place] [facility] [place] she recommends to d/c prophylactic azythromycin. Continue doxycycline. D/C vancomycin/zosyn, start rocephin, continue prophylactic bactrim. Discussed with Dr Currie of hemotology at [facility] [place] - recommends a lengthy steroid taper and continuing sirolimus at home dose. He recognizes we can't measure levels here with rapid turn around and that the patient likely missed a couple of doses as the hospital doesn't carry the medication. He also warned us that the patient has a history of hhneh-sw-rhgb in his lung, so if the patient is having a protracted respiratory course/not getting better, this needs to be considered. (2) Myelodysplastic syndrome with 5q deletion: Current visit: No Status: Chronic Continue sirolimus and higher dose of steroids. (3) Xgdgg-mgayda-qsve disease: Current visit: No Status: Chronic Monitor for signs thereof. Continue immunosuppression. (4) Rheumatoid arthritis: Current visit: No Status: Chronic Continue steroids. (5) Renal insufficiency: Current visit: No Status: Chronic Monitor Cr. Subjective Interval history since last seen: Denies dizziness, chest pain, nausea,vomiting. Had a couple of coughing spells, but overall feels better. Exam Narrative Exam Narrative: General: A&Ox3, very pleasant, sitting up in bed, not in acute distress HEENT: EOMI, MMM Heart: RRR, no m/r/g Lungs; Wheezing bilaterally on expiration, quiet rales also heard GI: abdomen soft, nontender, nondistended Extremities: no edema, clubbing, or cyanosis. Objective Objective Clinical Data: Abnormal lab results 10/13/18 10/13/18 10/13/18 Range/Units 06:00 06:00 10:32 WBC 4.22 L D (4.4-10.8) k/cumm RBC 3.72 L (4.50-6.00) m/cumm Hgb 10.8 L (13.5-17.5) g/dL Hct 33.3 L (40.0-50.0) % RDW 14.5 H (11.8-14.1) % Absolute Lymphocytes 0.25 L (1.2-3.4) k/cumm Absolute Monocytes 0.08 L (0.11-0.7) k/cumm Anion Gap 12.9 H (3-11) mmol/L Glucose 163 H (70-100) mg/dL Lactate 1.6 H (0.6-1.4) mmol/L Calcium 7.8 L (8.5-10.1) mg/dL Vital Signs Temperature 37.3 C 10/13/18 15:32 Temperature Source Tympanic 10/13/18 15:32 Pulse 77 10/13/18 15:32 Pulse Rhythm Regular 10/12/18 19:40 Respiratory Rate 20 10/13/18 15:32 Respiratory Effort Non-Labored 10/12/18 19:40 Respiratory Depth Normal 10/12/18 19:40 Respiratory Pattern Normal 10/12/18 19:40 Blood Pressure 131/82 10/13/18 15:32 Blood Pressure Position Sitting 10/12/18 10:51 Pulse Oximetry 95 10/13/18 15:32 Oxygen Delivery Method Nasal Cannula 10/13/18 15:32 Oxygen Flow Rate 2 10/13/18 15:32 Pain Level 0 10/13/18 07:44 Comment 10/12/18 14:33 Intake & Output 10/12/18 10/13/18 10/13/18 23:59 11:59 23:59 Intake Total 2981.25 / 3750.00 3520.417 / 4389.167 868.75 / 4389.167 Output Total 600 / 600 1500 / 2200 700 / 2200 Balance 2381.25 / 3150.00 2020.417 / 2189.167 168.75 / 2189.167 Weight 78.471 kg Intake: IV 1951.25 / 2720.00 2370.417 / 2689.167 318.75 / 2689.167 Oral 1030 / 1030 1150 / 1700 550 / 1700 Output: Urine 600 / 600 1500 / 2200 700 / 2200 Other: Urine Color Straw Yellow Yellow Urine Appearance Clear Clear Clear Urine Odor None Normal Normal Comment Void x1 in the toilet. Void x1 in the toilet. Void x1 in the toilet. Stool Size Moderate Stool Characteristics Soft Voiding Methods Toilet Toilet Toilet Laboratory Results WBC 4.22 k/cumm (4.4-10.8) L D 10/13/18 06:00 RBC 3.72 m/cumm (4.50-6.00) L 10/13/18 06:00 Hgb 10.8 g/dL (13.5-17.5) L 10/13/18 06:00 Hct 33.3 % (40.0-50.0) L 10/13/18 06:00 MCV 89.5 fL (80-95) 10/13/18 06:00 MCH 29.0 pg (27.0-33.0) 10/13/18 06:00 MCHC 32.4 g/dL (32.0-36.0) 10/13/18 06:00 RDW 14.5 % (11.8-14.1) H 10/13/18 06:00 Plt Count 175 x1000/uL (130-400) 10/13/18 06:00 MPV 9.0 fL (8.0-11.0) 10/13/18 06:00 Immature Gran % 0.2 10/13/18 06:00 Neutrophils % 91.8 10/13/18 06:00 Lymphocytes % 5.9 10/13/18 06:00 Monocytes % 1.9 10/13/18 06:00 Eosinophils % 0.0 10/13/18 06:00 Basophils % 0.2 10/13/18 06:00 Absolute Neutrophils 3.87 k/cumm (1.2-6.7) 10/13/18 06:00 Absolute Lymphocytes 0.25 k/cumm (1.2-3.4) L 10/13/18 06:00 Absolute Monocytes 0.08 k/cumm (0.11-0.7) L 10/13/18 06:00 Absolute Eosinophils 0.00 k/cumm (0.0-0.7) 10/13/18 06:00 Absolute Basophils 0.01 k/cumm (0.0-0.2) 10/13/18 06:00 Sodium 139 mmol/L (136-145) 10/13/18 06:00 Potassium 4.0 mmol/L (3.5-5.1) 10/13/18 06:00 Chloride 103 mmol/L (98-107) 10/13/18 06:00 Carbon Dioxide 23.1 mmol/L (21.0-32.0) 10/13/18 06:00 Anion Gap 12.9 mmol/L (3-11) H 10/13/18 06:00 BUN 12 mg/dL (7-18) D 10/13/18 06:00 Creatinine 1.22 mg/dL (0.70-1.30) 10/13/18 06:00 Estimated GFR/1.73 m2 59.80 (mL/min/1.73m2) 10/13/18 06:00 Glucose 163 mg/dL (70-100) H 10/13/18 06:00 Lactate 1.6 mmol/L (0.6-1.4) H 10/13/18 10:32 Calcium 7.8 mg/dL (8.5-10.1) L 10/13/18 06:00 Magnesium 1.8 mg/dL (1.8-2.4) 10/13/18 06:00 Total Bilirubin 0.4 mg/dL (0.2-1.0) 10/12/18 11:20 AST 27 U/L (15-37) 10/12/18 11:20 ALT 35 U/L (12-78) 10/12/18 11:20 Alkaline Phosphatase 84 U/L (46-116) 10/12/18 11:20 Troponin I < 0.02 ng/mL (0.00-0.06) 10/12/18 11:20 Total Protein 7.4 g/dL (6.4-8.2) 10/12/18 11:20 Albumin 3.2 g/dL (3.4-5.0) L 10/12/18 11:20
[2018-10-13] MEDS: Furosemide 20 MG/2 ML VIAL IVP (17:44)
[2018-10-14] MEDS: Normal Saline 500 ML 100 ML IV (02:11)
[2018-10-14] MEDS: DOXYCYCLINE 100 MG in Normal Saline 100 ML IVPB ×2 (02:12→14:17)
[2018-10-14 03:36] VITALS: BP 119/71; PULSE 82; RESP 17; TEMP 36.4; O2SAT 94
[2018-10-14] MEDS: methylPREDNISolone SUCC 125 MG VIAL 60 MG IVP ×2 (07:00→14:19)
[2018-10-14] MEDS: Normal Saline Flush 10 ML SYR IVP ×4 (07:00→22:46)
[2018-10-14 07:17] LABS: Abs Immature Grans 0.02 k/cumm (0.0-0.09); Absolute Lymphocyte Count 0.34 k/cumm (1.2-3.4); Absolute Monocyte Count 0.27 k/cumm (0.11-0.7); HGB 10.1 g/dL (13.5-17.5); Immature Grans % 0.2; Lymphocytes % 3.4; Mean Corp. HGB Concentration 31.6 g/dL (32.0-36.0); Mean Corpuscular Hemoglobin 28.4 pg (27.0-33.0); Mean Corpuscular Volume 89.9 fL (80-95); Mean Platelet Volume 9.9 fL (8.0-11.0); Monocytes % 2.7; Neutrophils % 93.7; Platelet Count 186 x1000/uL (130-400); RBC 3.56 m/cumm (4.50-6.00); RBC Distribution Width 14.2 % (11.8-14.1); White Blood Cell Count 9.89 k/cumm (4.4-10.8)
[2018-10-14 07:18] LABS: Absolute Neutrophil Count 9.27 k/cumm (1.2-6.7)
[2018-10-14 07:27] LABS: Anion Gap 10.1 mmol/L (3-11); BUN 17 mg/dL (7-18); CO2 25.9 mmol/L (21.0-32.0); CREATININE 1.06 mg/dL (0.70-1.30); Calcium 7.8 mg/dL (8.5-10.1); Chloride 105 mmol/L (98-107); Glucose 157 mg/dL (70-100); Magnesium 1.9 mg/dL (1.8-2.4); Potassium 3.7 mmol/L (3.5-5.1); Sodium 141 mmol/L (136-145)
[2018-10-14 07:40] VITALS: BP 128/76; PULSE 75; RESP 18; TEMP 37.8; O2SAT 94
[2018-10-14] MEDS: guaiFENesin 600 MG TABCR PO ×2 (08:15→20:43)
[2018-10-14] MEDS: Benzonatate 100 MG CAP PO ×3 (08:15→20:43)
[2018-10-14] MEDS: Pantoprazole 40 MG TABCR PO (08:16)
[2018-10-14] MEDS: Sulfameth/Trimeth DS TAB 1 TAB PO (08:16)
--- NOTE | 2018-10-14 10:09 | PDOC.CMPRO ---
- If Service Date Differs Date of service: 10/14/18 Time of Service: 10:09 Care Management Progress Note S/O: Patrice is doing well this morning, he is up sitting in his chair. Patrice will have a chest xray today, as well as a chest CT. Patrice remains on oxygen at this time, as well as IV antibiotics. Reviewed CM role and DC plan. A: 63 y/o male admitted 10/12/18 for CAP with Hypoxia P: Patrice will return home with no anticipated services. He will F/U with PCP and plan of care as prescribed. Patrice's Elaine will transport when ready.
[2018-10-14 11:20] VITALS: BP 117/71; PULSE 80; RESP 18; TEMP 36.5; O2SAT 92
[2018-10-14 11:48] LABS: Vancomycin, Trough 7.2 ug/mL (10.0-20.0)
--- NOTE | 2018-10-14 12:00 | DI.RAD_ITS ---
SYMPTOMS/DIAGNOSIS: CAP WITH HYPOXIA, F/U PNEUMONIA CHEST X-RAY, PORTABLE AP: Comparison is 10/12/18. There is a persistent left perihilar infiltrate, grossly unchanged compared to the prior examination. No new infiltrates, effusions or pneumothoraces are identified. The heart size is within normal limits. The pulmonary vasculature is stable. IMPRESSION: Persistent left perihilar pneumonia.
--- NOTE | 2018-10-14 12:50 | DI.CT_ITS ---
SYMPTOMS/DIAGNOSIS: CAP WITH HYPOXIA, H/O [id number] DISEASE, ? RECURRENCE CT SCAN OF THE CHEST: CT scan of the chest was performed without intravenous contrast material. There are no priors for comparison. The thoracic aorta shows atherosclerosis. No aneurysmal dilatation. Heart size is within normal limits. No significant pericardial effusion is seen. No significant thoracic adenopathy is present. Scattered, predominantly peripheral ground-glass opacities are seen in the lungs. A reticulonodular infiltrate is seen in the left upper lobe and lingula. The tracheobronchial tree is unremarkable. No pneumothorax is seen. There is pleural thickening seen in the left lung. No gross effusions are seen. There is patient motion artifact. Old compression deformities are again seen in the thoracic spine. No acute fractures are present. IMPRESSION: Bilateral ground-glass opacities. Reticulonodular infiltrate involving the left upper and left lingula. The findings are suspicious for an infectious process. Inflammatory process, pulmonary edema or hemorrhage should also be considered.
[2018-10-14] MEDS: Acetaminophen 325 MG TAB PO (13:03)
[2018-10-14] MEDS: Enoxaparin 40 MG/0.4 ML SYR SC (14:17)
[2018-10-14 16:53] VITALS: BP 132/84; PULSE 80; RESP 18; TEMP 36.6; O2SAT 95
--- NOTE | 2018-10-14 17:00 | PHARADMIT ---
Admission Pharmacy Clinical Review CAP with hypoxia Code Status Full Code Current Weight 80.1 kg Renally Cleared and Narrow Therapeutic Index Meds Crcl ~79.00 mL/min current meds okay QTc Value / Action Taken QTc 489 BP Control, Fever BP 132/84 afebrile Electrolytes reviewed within normal limits DVT Prophylaxis enoxaparin Opiate Usage / Scheduled Bowel Regimen Ordered no/prn Plt/SCr for Heparin / Enoxaparin plt 186 SCr 1.06 INR for Warfarin n/a H/H stable, WBC/Bands h/h 10.1/32.0 wbc 9.89 Antibiotic appropriateness doxycycline, bactrim DS, ceftriaxone per [facility] [place] recommendations Cultures and Sensitivities blood cultures no growth @ 48 hours one sputum culture grew normal berta, the other is pending Surgical ABX d/c within 24 hr n/a DM control / Insulin Dosing BG 157 none Heart Failure (Check EF%) (DOMENIC's, B-Block, Diuretics) none IV to PO Switch n/a Home Meds Reviewed yes Home Meds Not Ordered azithromycin(has other abx ordered), fluticasone(has mometasone ordered) montelukast, omeprazole(has pantoprazole ordered), prednisone(has IV steroid ordered) Comments 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
[2018-10-14] MEDS: Furosemide 20 MG/2 ML VIAL IVP (18:24)
--- NOTE | 2018-10-14 20:11 | W.PM.PROGNOT ---
Date of Service Date of service: 10/14/18 Time of Service: 16:15 Assessment and Plan (1) CAP (community acquired pneumonia): Current visit: Yes Status: Acute With a component of bronchospasm, Likely post-inluenza. Improving clinically. CT of the chest images have now been pushed [place] [facility] [place] for review. 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 (5) Renal insufficiency: Current visit: No Status: Chronic Monitor Cr. (6) Discharge planning issues: Current visit: Yes Status: Acute Full code (7) DVT prophylaxis: Current visit: Yes Status: Acute lovenox Subjective Interval history since last seen: Mr Bro states he feels a little bit better today. He states the cough is minimally productive, and the sputum is clear. Denies dizziness, chest pain, shortness of breath, nausea, vomiting. Case was discussed with patient's outpatient relay assembler (Dr Bennett), who recommended we obtain a noncontrast CT of the chest to rule out [id number] recurrence. Exam Narrative Exam Narrative: General: A&Ox3, very pleasant, sitting up, not in acute distress HEENT: EOMI, MMM Heart: RRR, no m/r/g Lungs; Wheezing bilaterally on expiration, quiet rales, both improving GI: abdomen soft, nontender, nondistended Extremities: no edema, clubbing, or cyanosis. Objective Objective Clinical Data: Abnormal lab results 10/14/18 10/14/18 10/14/18 Range/Units 06:05 06:05 11:05 RBC 3.56 L (4.50-6.00) m/cumm Hgb 10.1 L (13.5-17.5) g/dL Hct 32.0 L (40.0-50.0) % MCHC 31.6 L (32.0-36.0) g/dL RDW 14.2 H (11.8-14.1) % Absolute Neutrophils 9.27 H (1.2-6.7) k/cumm Absolute Lymphocytes 0.34 L (1.2-3.4) k/cumm Glucose 157 H (70-100) mg/dL Calcium 7.8 L (8.5-10.1) mg/dL Vancomycin Trough 7.2 L (10.0-20.0) ug/mL Vital Signs Temperature 36.6 C 10/14/18 16:53 Temperature Source Tympanic 10/14/18 16:53 Pulse 80 10/14/18 16:53 Pulse Rhythm Regular 10/14/18 15:30 Respiratory Rate 18 10/14/18 16:53 Respiratory Effort 10/14/18 15:30 Respiratory Depth Normal 10/14/18 15:30 Respiratory Pattern Normal 10/14/18 15:30 Blood Pressure 132/84 10/14/18 16:53 Blood Pressure Position Sitting 10/12/18 10:51 Pulse Oximetry 95 10/14/18 16:53 Oxygen Delivery Method Nasal Cannula 10/14/18 11:20 Oxygen Flow Rate 2 10/14/18 11:20 Fraction of Inspired Oxygen (FIO2) 2 10/14/18 07:40 Pain Level 5 10/14/18 13:03 Comment 10/12/18 14:33 Intake & Output 10/13/18 10/14/18 10/14/18 23:59 11:59 23:59 Intake Total 2090.834 / 5611.251 798.333 / 1278.333 480 / 1278.333 Output Total 2200 / 3700 300 / 1000 700 / 1000 Balance -109.166 / 1911.251 498.333 / 278.333 -220 / 278.333 Weight 80.1 kg Intake: IV 820.834 / 3191.251 133.333 / 133.333 Oral 1270 / 2420 665 / 1145 480 / 1145 Output: Urine 2200 / 3700 300 / 1000 700 / 1000 Other: Urine Color Yellow Yellow Yellow Urine Appearance Clear Clear Clear Urine Odor Normal Comment Void x1 in the toilet. Stool Size Moderate Small Stool Characteristics Soft Soft Liquid Liquid Brown Voiding Methods Toilet Toilet Toilet Laboratory Results WBC 9.89 k/cumm (4.4-10.8) D 10/14/18 06:05 RBC 3.56 m/cumm (4.50-6.00) L 10/14/18 06:05 Hgb 10.1 g/dL (13.5-17.5) L 10/14/18 06:05 Hct 32.0 % (40.0-50.0) L 10/14/18 06:05 MCV 89.9 fL (80-95) 10/14/18 06:05 MCH 28.4 pg (27.0-33.0) 10/14/18 06:05 MCHC 31.6 g/dL (32.0-36.0) L 10/14/18 06:05 RDW 14.2 % (11.8-14.1) H 10/14/18 06:05 Plt Count 186 x1000/uL (130-400) 10/14/18 06:05 MPV 9.9 fL (8.0-11.0) 10/14/18 06:05 Immature Gran % 0.2 10/14/18 06:05 Neutrophils % 93.7 10/14/18 06:05 Lymphocytes % 3.4 10/14/18 06:05 Monocytes % 2.7 10/14/18 06:05 Eosinophils % 0.0 10/14/18 06:05 Basophils % 0.0 10/14/18 06:05 Absolute Neutrophils 9.27 k/cumm (1.2-6.7) H 10/14/18 06:05 Absolute Lymphocytes 0.34 k/cumm (1.2-3.4) L 10/14/18 06:05 Absolute Monocytes 0.27 k/cumm (0.11-0.7) 10/14/18 06:05 Absolute Eosinophils 0.00 k/cumm (0.0-0.7) 10/14/18 06:05 Absolute Basophils 0.00 k/cumm (0.0-0.2) 10/14/18 06:05 Sodium 141 mmol/L (136-145) 10/14/18 06:05 Potassium 3.7 mmol/L (3.5-5.1) 10/14/18 06:05 Chloride 105 mmol/L (98-107) 10/14/18 06:05 Carbon Dioxide 25.9 mmol/L (21.0-32.0) 10/14/18 06:05 Anion Gap 10.1 mmol/L (3-11) 10/14/18 06:05 BUN 17 mg/dL (7-18) 10/14/18 06:05 Creatinine 1.06 mg/dL (0.70-1.30) 10/14/18 06:05 Estimated GFR/1.73 m2 >= 60.00 (mL/min/1.73m2) 10/14/18 06:05 Glucose 157 mg/dL (70-100) H 10/14/18 06:05 Lactate 1.6 mmol/L (0.6-1.4) H 10/13/18 10:32 Calcium 7.8 mg/dL (8.5-10.1) L 10/14/18 06:05 Magnesium 1.9 mg/dL (1.8-2.4) 10/14/18 06:05 Total Bilirubin 0.4 mg/dL (0.2-1.0) 10/12/18 11:20 AST 27 U/L (15-37) 10/12/18 11:20 ALT 35 U/L (12-78) 10/12/18 11:20 Alkaline Phosphatase 84 U/L (46-116) 10/12/18 11:20 Troponin I < 0.02 ng/mL (0.00-0.06) 10/12/18 11:20 Total Protein 7.4 g/dL (6.4-8.2) 10/12/18 11:20 Albumin 3.2 g/dL (3.4-5.0) L 10/12/18 11:20 Vancomycin Trough 7.2 ug/mL (10.0-20.0) L 10/14/18 11:05 CXR: Persistent left perihilar pneumonia. CT chest without contrast: Bilateral ground-glass opacities. Reticulonodular infiltrate involving the left upper and left lingula. The findings are suspicious for an infectious process. Inflammatory process, pulmonary edema or hemorrhage should also be considered.
--- NOTE | 2018-10-14 20:18 | PGE_ITS ---
Date of Service Date of service: 10/14/18 Time of Service: 16:15 Assessment and Plan (1) CAP (community acquired pneumonia): Current visit: Yes Status: Acute With a component of bronchospasm, Likely post-inluenza. Improving clinically. CT of the chest images have now been pushed to [facility] [place] for [place]. Continue doxycycline, rocephin, prophylactic bactrim, per ID at [facility] Continue sirolimus, ok to start tapering steroids (2) Myelodysplastic syndrome with 5q deletion: Current visit: No Status: Chronic Continue sirolimus; steroids will require a long taper (3) Yhuuh-zgjprd-nczz disease: Current visit: No Status: Chronic CT chest obtained - images to be reviewed by hemotology at [facility] (4) Rheumatoid arthritis: Current visit: No Status: Chronic Continue steroids. (5) Renal insufficiency: Current visit: No Status: Chronic Monitor Cr. (6) Discharge planning issues: Current visit: Yes Status: Acute Full code (7) DVT prophylaxis: Current visit: Yes Status: Acute lovenox Subjective Interval history since last seen: Mr Bro states he feels a little bit better today. He states the cough is minimally productive, and the sputum is clear. Denies dizziness, chest pain, shortness of breath, nausea, vomiting. Case was discussed with patient's outpatient locomotive lubricating systems clerk (Dr Bennett), who recommended we obtain a noncontrast CT of the chest to rule out [id number] recurrence. Exam Narrative Exam Narrative: General: A&Ox3, very pleasant, sitting up, not in acute distress HEENT: EOMI, MMM Heart: RRR, no m/r/g Lungs; Wheezing bilaterally on expiration, quiet rales, both improving GI: abdomen soft, nontender, nondistended Extremities: no edema, clubbing, or cyanosis. Objective Objective Clinical Data: Abnormal lab results 10/14/18 10/14/18 10/14/18 Range/Units 06:05 06:05 11:05 RBC 3.56 L (4.50-6.00) m/cumm Hgb 10.1 L (13.5-17.5) g/dL Hct 32.0 L (40.0-50.0) % MCHC 31.6 L (32.0-36.0) g/dL RDW 14.2 H (11.8-14.1) % Absolute Neutrophils 9.27 H (1.2-6.7) k/cumm Absolute Lymphocytes 0.34 L (1.2-3.4) k/cumm Glucose 157 H (70-100) mg/dL Calcium 7.8 L (8.5-10.1) mg/dL Vancomycin Trough 7.2 L (10.0-20.0) ug/mL Vital Signs Temperature 36.6 C 10/14/18 16:53 Temperature Source Tympanic 10/14/18 16:53 Pulse 80 10/14/18 16:53 Pulse Rhythm Regular 10/14/18 15:30 Respiratory Rate 18 10/14/18 16:53 Respiratory Effort 10/14/18 15:30 Respiratory Depth Normal 10/14/18 15:30 Respiratory Pattern Normal 10/14/18 15:30 Blood Pressure 132/84 10/14/18 16:53 Blood Pressure Position Sitting 10/12/18 10:51 Pulse Oximetry 95 10/14/18 16:53 Oxygen Delivery Method Nasal Cannula 10/14/18 11:20 Oxygen Flow Rate 2 10/14/18 11:20 Fraction of Inspired Oxygen (FIO2) 2 10/14/18 07:40 Pain Level 5 10/14/18 13:03 Comment 10/12/18 14:33 Intake & Output 10/13/18 10/14/18 10/14/18 23:59 11:59 23:59 Intake Total 2090.834 / 5611.251 798.333 / 1278.333 480 / 1278.333 Output Total 2200 / 3700 300 / 1000 700 / 1000 Balance -109.166 / 1911.251 498.333 / 278.333 -220 / 278.333 Weight 80.1 kg Intake: IV 820.834 / 3191.251 133.333 / 133.333 Oral 1270 / 2420 665 / 1145 480 / 1145 Output: Urine 2200 / 3700 300 / 1000 700 / 1000 Other: Urine Color Yellow Yellow Yellow Urine Appearance Clear Clear Clear Urine Odor Normal Comment Void x1 in the toilet. Stool Size Moderate Small Stool Characteristics Soft Soft Liquid Liquid Brown Voiding Methods Toilet Toilet Toilet Laboratory Results WBC 9.89 k/cumm (4.4-10.8) D 10/14/18 06:05 RBC 3.56 m/cumm (4.50-6.00) L 10/14/18 06:05 Hgb 10.1 g/dL (13.5-17.5) L 10/14/18 06:05 Hct 32.0 % (40.0-50.0) L 10/14/18 06:05 MCV 89.9 fL (80-95) 10/14/18 06:05 MCH 28.4 pg (27.0-33.0) 10/14/18 06:05 MCHC 31.6 g/dL (32.0-36.0) L 10/14/18 06:05 RDW 14.2 % (11.8-14.1) H 10/14/18 06:05 Plt Count 186 x1000/uL (130-400) 10/14/18 06:05 MPV 9.9 fL (8.0-11.0) 10/14/18 06:05 Immature Gran % 0.2 10/14/18 06:05 Neutrophils % 93.7 10/14/18 06:05 Lymphocytes % 3.4 10/14/18 06:05 Monocytes % 2.7 10/14/18 06:05 Eosinophils % 0.0 10/14/18 06:05 Basophils % 0.0 10/14/18 06:05 Absolute Neutrophils 9.27 k/cumm (1.2-6.7) H 10/14/18 06:05 Absolute Lymphocytes 0.34 k/cumm (1.2-3.4) L 10/14/18 06:05 Absolute Monocytes 0.27 k/cumm (0.11-0.7) 10/14/18 06:05 Absolute Eosinophils 0.00 k/cumm (0.0-0.7) 10/14/18 06:05 Absolute Basophils 0.00 k/cumm (0.0-0.2) 10/14/18 06:05 Sodium 141 mmol/L (136-145) 10/14/18 06:05 Potassium 3.7 mmol/L (3.5-5.1) 10/14/18 06:05 Chloride 105 mmol/L (98-107) 10/14/18 06:05 Carbon Dioxide 25.9 mmol/L (21.0-32.0) 10/14/18 06:05 Anion Gap 10.1 mmol/L (3-11) 10/14/18 06:05 BUN 17 mg/dL (7-18) 10/14/18 06:05 Creatinine 1.06 mg/dL (0.70-1.30) 10/14/18 06:05 Estimated GFR/1.73 m2 >= 60.00 (mL/min/1.73m2) 10/14/18 06:05 Glucose 157 mg/dL (70-100) H 10/14/18 06:05 Lactate 1.6 mmol/L (0.6-1.4) H 10/13/18 10:32 Calcium 7.8 mg/dL (8.5-10.1) L 10/14/18 06:05 Magnesium 1.9 mg/dL (1.8-2.4) 10/14/18 06:05 Total Bilirubin 0.4 mg/dL (0.2-1.0) 10/12/18 11:20 AST 27 U/L (15-37) 10/12/18 11:20 ALT 35 U/L (12-78) 10/12/18 11:20 Alkaline Phosphatase 84 U/L (46-116) 10/12/18 11:20 Troponin I < 0.02 ng/mL (0.00-0.06) 10/12/18 11:20 Total Protein 7.4 g/dL (6.4-8.2) 10/12/18 11:20 Albumin 3.2 g/dL (3.4-5.0) L 10/12/18 11:20 Vancomycin Trough 7.2 ug/mL (10.0-20.0) L 10/14/18 11:05 CXR: Persistent left perihilar pneumonia. CT chest without contrast: Bilateral ground-glass opacities. Reticulonodular infiltrate involving the left upper and left lingula. The findings are suspicious for an infectious process. Inflammatory process, pulmonary edema or hemorrhage should also be considered.
[2018-10-14] MEDS: Mometasone 220 MCG 14 DOSE INHALER 1 PUFF IH (20:44)
[2018-10-14 21:22] VITALS: BP 128/77; PULSE 82; RESP 18; TEMP 36.3; O2SAT 94
[2018-10-14] MEDS: methylPREDNISolone SUCC 125 MG VIAL 40 MG IVP (22:45)
[2018-10-14 23:35] VITALS: BP 97/57; PULSE 60; RESP 18; TEMP 36.7; O2SAT 95
[2018-10-15] VITALS (7 sets, daily range): BP systolic 118–139; BP diastolic 72–85; PULSE 70–79; RESP 16–18; TEMP 36.3–36.8; O2SAT 88–97
[2018-10-15] MEDS: Normal Saline Flush 10 ML SYR IVP ×5 (01:17→22:18)
[2018-10-15] MEDS: DOXYCYCLINE 100 MG in Normal Saline 100 ML IVPB ×2 (01:19→15:03)
[2018-10-15] MEDS: Acetaminophen 325 MG TAB PO ×2 (02:49→22:17)
[2018-10-15] MEDS: methylPREDNISolone SUCC 125 MG VIAL 40 MG IVP ×3 (06:41→22:16)
[2018-10-15 07:21] LABS: Abs Immature Grans 0.02 k/cumm (0.0-0.09); Absolute Lymphocyte Count 0.34 k/cumm (1.2-3.4); Absolute Neutrophil Count 9.93 k/cumm (1.2-6.7); HCT 32.7 % (40.0-50.0); HGB 10.5 g/dL (13.5-17.5); Immature Grans % 0.2; Lymphocytes % 3.2; Mean Corp. HGB Concentration 32.1 g/dL (32.0-36.0); Mean Corpuscular Hemoglobin 28.8 pg (27.0-33.0); Mean Corpuscular Volume 89.8 fL (80-95); Mean Platelet Volume 9.2 fL (8.0-11.0); Monocytes % 2.8; Neutrophils % 93.8; Platelet Count 198 x1000/uL (130-400); RBC 3.64 m/cumm (4.50-6.00); RBC Distribution Width 14.2 % (11.8-14.1); White Blood Cell Count 10.59 k/cumm (4.4-10.8)
[2018-10-15 07:37] LABS: Anion Gap 10.4 mmol/L (3-11); BUN 28 mg/dL (7-18); CO2 26.6 mmol/L (21.0-32.0); CREATININE 1.21 mg/dL (0.70-1.30); Calcium 7.9 mg/dL (8.5-10.1); Chloride 104 mmol/L (98-107); Glucose 148 mg/dL (70-100); Potassium 3.9 mmol/L (3.5-5.1); Sodium 141 mmol/L (136-145)
[2018-10-15] MEDS: Pantoprazole 40 MG TABCR PO (08:36)
[2018-10-15] MEDS: Benzonatate 100 MG CAP PO ×3 (08:36→21:09)
[2018-10-15] MEDS: guaiFENesin 600 MG TABCR PO ×2 (08:36→21:09)
[2018-10-15] MEDS: Enoxaparin 40 MG/0.4 ML SYR SC (15:01)
--- NOTE | 2018-10-15 15:10 | CHAPLAIN ---
Patrice was sitting up in his chair when I visited. He was pleasant and easily engaged in a coversation, telling me about his transplant in [facility], with cells from his brother,two years ago. He had graph-host disease a few months later, but has been doing ok for the most part. He is waiting for a call from [facility] to see if he needs to be transferred there. Patrice is closely followed by [facility]. He works at [employer] for [employer] and has been there many years. He said his employer has been very understanding through all this. 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 His visits after work, and a nephew is planning on visiting [facility], Patrice said.
--- NOTE | 2018-10-15 17:16 | PDOC.CMPRO ---
Care Management Progress Note S/O: Patrice is lying in bed when CM meets with him. He is fully engaged in conversation and forthcoming with information. He reports anticipating direct acute transfer to [facility] at this time. He speaks in length about his support system, current illness and PPE he uses in the community to avoid becoming sick. He reports his employer is quite supportive during this time of illness as well. He reports going out to eat and not wearing his mask and questions if this is when he became sick. He reports wearing his mask around his three grand kids. Patrice questions having an AD document at [facility]. CM searched on [facility] without result. Patrice remains on oxygen at this time, as well as IV antibiotics. CM will continue to follow and support discharge planning considerations. A: 63 y/o male admitted 10/12/18 for CAP with Hypoxia P: Patrice will transfer to [id number] with no anticipated services. Transportation TBD by disposition.
--- NOTE | 2018-10-15 17:41 | CMPROGNOTE_ITS ---
Care Management Progress Note S/O: Patrice is lying in bed when CM meets with him. He is fully engaged in conversation and forthcoming with information. He reports anticipating direct acute transfer [place] [facility] at this time. He speaks in length about his support system, current illness and PPE he uses in the community to avoid becoming sick. He reports his employer is quite supportive during this time of illness as well. He reports going out to eat and not wearing his mask and questions if this is when he became sick. He reports wearing his mask around his three grand kids. Patrice questions having an AD document at [facility]. CM searched on [facility] without result. Patrice remains on oxygen at this time, as well as IV antibiotics. CM will continue to follow and support discharge planning considerations. A: 63 y/o male admitted 10/12/18 for CAP with Hypoxia P: Patrice will transfer to [id number] with no anticipated services. Transportation TBD by disposition.
--- NOTE | 2018-10-15 19:09 | W.PM.PROGNOT ---
Date of Service Date of service: 10/15/18 Time of Service: 16:50 Assessment and Plan (1) CAP (community acquired pneumonia): Current visit: Yes Status: Acute With a component of bronchospasm, Likely post-inluenza. Improving steadily CT of the chest reviewed with [facility] Dr Bennett (hem/onc following patient post bone-marrow). He felt that the images were not consistent with [id number] but, rather, reflected pneumonia. Continue doxycycline, rocephin, prophylactic bactrim, per ID at [facility] Continue sirolimus. Continue steroid taper. 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 (4) Rheumatoid arthritis: Current visit: No Status: Chronic Continue steroids. (5) Renal insufficiency: Current visit: No Status: Chronic Monitor Cr. (6) Discharge planning issues: Current visit: Yes Status: Acute Full code (7) DVT prophylaxis: Current visit: Yes Status: Acute lovenox Subjective Interval history since last seen: Feels better. Denies dizziness, chest pain, shortness of breath, nausea, vomiting. Wondering when he can get off of oxygen. Exam Narrative Exam Narrative: General: A&Ox3, very pleasant, seen walking in the hallway in no distress and then comfortably conversing fluently HEENT: EOMI, MMM Heart: RRR, no m/r/g Lungs: very minimal rhonchi today GI: abdomen soft, nontender, nondistended Extremities: no edema, clubbing, or cyanosis. Objective Objective Clinical Data: Abnormal lab results 10/15/18 10/15/18 Range/Units 06:18 06:18 RBC 3.64 L (4.50-6.00) m/cumm Hgb 10.5 L (13.5-17.5) g/dL Hct 32.7 L (40.0-50.0) % RDW 14.2 H (11.8-14.1) % Absolute Neutrophils 9.93 H (1.2-6.7) k/cumm Absolute Lymphocytes 0.34 L (1.2-3.4) k/cumm BUN 28 H D (7-18) mg/dL Glucose 148 H (70-100) mg/dL Calcium 7.9 L (8.5-10.1) mg/dL Vital Signs Temperature 36.4 C L 10/15/18 15:25 Temperature Source Tympanic 10/15/18 15:25 Pulse 77 10/15/18 15:25 Pulse Rhythm Regular 10/15/18 08:20 Respiratory Rate 18 10/15/18 15:25 Respiratory Effort 10/15/18 08:20 Respiratory Depth Normal 10/15/18 08:20 Respiratory Pattern Normal 10/15/18 08:20 Blood Pressure 135/85 10/15/18 15:25 Blood Pressure Position Sitting 10/12/18 10:51 Pulse Oximetry 95 10/15/18 15:25 Oxygen Delivery Method Nasal Cannula 10/15/18 15:25 Oxygen Flow Rate 2 10/15/18 15:25 Fraction of Inspired Oxygen (FIO2) 2 10/14/18 07:40 Pain Level 2 10/15/18 03:49 Comment 10/12/18 14:33 Intake & Output 10/14/18 10/15/18 10/15/18 23:59 11:59 23:59 Intake Total 630 / 1428.333 383.333 / 383.333 Output Total 1900 / 2200 Balance -1270 / -771.667 383.333 / 383.333 Weight 82 kg Intake: IV 150 / 283.333 133.333 / 133.333 Oral 480 / 1145 250 / 250 Output: Urine 1900 / 2200 Other: Urine Color Yellow Urine Appearance Clear Clear Urine Odor Normal Comment Paitent voides independently Voiding Methods Urinal Toilet Laboratory Results WBC 10.59 k/cumm (4.4-10.8) 10/15/18 06:18 RBC 3.64 m/cumm (4.50-6.00) L 10/15/18 06:18 Hgb 10.5 g/dL (13.5-17.5) L 10/15/18 06:18 Hct 32.7 % (40.0-50.0) L 10/15/18 06:18 MCV 89.8 fL (80-95) 10/15/18 06:18 MCH 28.8 pg (27.0-33.0) 10/15/18 06:18 MCHC 32.1 g/dL (32.0-36.0) 10/15/18 06:18 RDW 14.2 % (11.8-14.1) H 10/15/18 06:18 Plt Count 198 x1000/uL (130-400) 10/15/18 06:18 MPV 9.2 fL (8.0-11.0) 10/15/18 06:18 Immature Gran % 0.2 10/15/18 06:18 Neutrophils % 93.8 10/15/18 06:18 Lymphocytes % 3.2 10/15/18 06:18 Monocytes % 2.8 10/15/18 06:18 Eosinophils % 0.0 10/15/18 06:18 Basophils % 0.0 10/15/18 06:18 Absolute Neutrophils 9.93 k/cumm (1.2-6.7) H 10/15/18 06:18 Absolute Lymphocytes 0.34 k/cumm (1.2-3.4) L 10/15/18 06:18 Absolute Monocytes 0.30 k/cumm (0.11-0.7) 10/15/18 06:18 Absolute Eosinophils 0.00 k/cumm (0.0-0.7) 10/15/18 06:18 Absolute Basophils 0.00 k/cumm (0.0-0.2) 10/15/18 06:18 Sodium 141 mmol/L (136-145) 10/15/18 06:18 Potassium 3.9 mmol/L (3.5-5.1) 10/15/18 06:18 Chloride 104 mmol/L (98-107) 10/15/18 06:18 Carbon Dioxide 26.6 mmol/L (21.0-32.0) 10/15/18 06:18 Anion Gap 10.4 mmol/L (3-11) 10/15/18 06:18 BUN 28 mg/dL (7-18) H D 10/15/18 06:18 Creatinine 1.21 mg/dL (0.70-1.30) 10/15/18 06:18 Estimated GFR/1.73 m2 >= 60.00 (mL/min/1.73m2) 10/15/18 06:18 Glucose 148 mg/dL (70-100) H 10/15/18 06:18 Lactate 1.6 mmol/L (0.6-1.4) H 10/13/18 10:32 Calcium 7.9 mg/dL (8.5-10.1) L 10/15/18 06:18 Magnesium 1.9 mg/dL (1.8-2.4) 10/14/18 06:05 Total Bilirubin 0.4 mg/dL (0.2-1.0) 10/12/18 11:20 AST 27 U/L (15-37) 10/12/18 11:20 ALT 35 U/L (12-78) 10/12/18 11:20 Alkaline Phosphatase 84 U/L (46-116) 10/12/18 11:20 Troponin I < 0.02 ng/mL (0.00-0.06) 10/12/18 11:20 Total Protein 7.4 g/dL (6.4-8.2) 10/12/18 11:20 Albumin 3.2 g/dL (3.4-5.0) L 10/12/18 11:20 Vancomycin Trough 7.2 ug/mL (10.0-20.0) L 10/14/18 11:05
--- NOTE | 2018-10-15 19:15 | PGE_ITS ---
Date of Service Date of service: 10/15/18 Time of Service: 16:50 Assessment and Plan (1) CAP (community acquired pneumonia): Current visit: Yes Status: Acute With a component of bronchospasm, Likely post-inluenza. Improving steadily CT of the chest reviewed with [facility] Dr Bennett (hem/onc following patient post bone-marrow). He felt that the images were not consistent with vbyqs-b-rinv but, rather, reflected pneumonia. Continue doxycycline, rocephin, prophylactic bactrim, per ID at [facility] Continue sirolimus. Continue steroid taper. (2) Myelodysplastic syndrome with 5q deletion: Current visit: No Status: Chronic Continue sirolimus; steroids will require a long taper (3) Gvfhv-wrkfdu-qbmd disease: Current visit: No Status: Chronic No evidence thereof at this time. (4) Rheumatoid arthritis: Current visit: No Status: Chronic Continue steroids. (5) Renal insufficiency: Current visit: No Status: Chronic Monitor Cr. (6) Discharge planning issues: Current visit: Yes Status: Acute Full code (7) DVT prophylaxis: Current visit: Yes Status: Acute lovenox Subjective Interval history since last seen: Feels better. Denies dizziness, chest pain, s hortness of breath, nausea, vomiting. Wondering when he can get off of oxygen. Exam Narrative Exam Narrative: General: A&Ox3, very pleasant, seen walking in the hallway in no distress and then comfortably conversing fluently HEENT: EOMI, MMM Heart: RRR, no m/r/g Lungs: very minimal rhonchi today GI: abdomen soft, nontender, nondistended Extremities: no edema, clubbing, or cyanosis. Objective Objective Clinical Data: Abnormal lab results 10/15/18 10/15/18 Range/Units 06:18 06:18 RBC 3.64 L (4.50-6.00) m/cumm Hgb 10.5 L (13.5-17.5) g/dL Hct 32.7 L (40.0-50.0) % RDW 14.2 H (11.8-14.1) % Absolute Neutrophils 9.93 H (1.2-6.7) k/cumm Absolute Lymphocytes 0.34 L (1.2-3.4) k/cumm BUN 28 H D (7-18) mg/dL Glucose 148 H (70-100) mg/dL Calcium 7.9 L (8.5-10.1) mg/dL Vital Signs Temperature 36.4 C L 10/15/18 15:25 Temperature Source Tympanic 10/15/18 15:25 Pulse 77 10/15/18 15:25 Pulse Rhythm Regular 10/15/18 08:20 Respiratory Rate 18 10/15/18 15:25 Respiratory Effort 10/15/18 08:20 Respiratory Depth Normal 10/15/18 08:20 Respiratory Pattern Normal 10/15/18 08:20 Blood Pressure 135/85 10/15/18 15:25 Blood Pressure Position Sitting 10/12/18 10:51 Pulse Oximetry 95 10/15/18 15:25 Oxygen Delivery Method Nasal Cannula 10/15/18 15:25 Oxygen Flow Rate 2 10/15/18 15:25 Fraction of Inspired Oxygen (FIO2) 2 10/14/18 07:40 Pain Level 2 10/15/18 03:49 Comment 10/12/18 14:33 Intake & Output 10/14/18 10/15/18 10/15/18 23:59 11:59 23:59 Intake Total 630 / 1428.333 383.333 / 383.333 Output Total 1900 / 2200 Balance -1270 / -771.667 383.333 / 383.333 Weight 82 kg Intake: IV 150 / 283.333 133.333 / 133.333 Oral 480 / 1145 250 / 250 Output: Urine 1900 / 2200 Other: Urine Color Yellow Urine Appearance Clear Clear Urine Odor Normal Comment Paitent voides independently Voiding Methods Urinal Toilet Laboratory Results WBC 10.59 k/cumm (4.4-10.8) 10/15/18 06:18 RBC 3.64 m/cumm (4.50-6.00) L 10/15/18 06:18 Hgb 10.5 g/dL (13.5-17.5) L 10/15/18 06:18 Hct 32.7 % (40.0-50.0) L 10/15/18 06:18 MCV 89.8 fL (80-95) 10/15/18 06:18 MCH 28.8 pg (27.0-33.0) 10/15/18 06:18 MCHC 32.1 g/dL (32.0-36.0) 10/15/18 06:18 RDW 14.2 % (11.8-14.1) H 10/15/18 06:18 Plt Count 198 x1000/uL (130-400) 10/15/18 06:18 MPV 9.2 fL (8.0-11.0) 10/15/18 06:18 Immature Gran % 0.2 10/15/18 06:18 Neutrophils % 93.8 10/15/18 06:18 Lymphocytes % 3.2 10/15/18 06:18 Monocytes % 2.8 10/15/18 06:18 Eosinophils % 0.0 10/15/18 06:18 Basophils % 0.0 10/15/18 06:18 Absolute Neutrophils 9.93 k/cumm (1.2-6.7) H 10/15/18 06:18 Absolute Lymphocytes 0.34 k/cumm (1.2-3.4) L 10/15/18 06:18 Absolute Monocytes 0.30 k/cumm (0.11-0.7) 10/15/18 06:18 Absolute Eosinophils 0.00 k/cumm (0.0-0.7) 10/15/18 06:18 Absolute Basophils 0.00 k/cumm (0.0-0.2) 10/15/18 06:18 Sodium 141 mmol/L (136-145) 10/15/18 06:18 Potassium 3.9 mmol/L (3.5-5.1) 10/15/18 06:18 Chloride 104 mmol/L (98-107) 10/15/18 06:18 Carbon Dioxide 26.6 mmol/L (21.0-32.0) 10/15/18 06:18 Anion Gap 10.4 mmol/L (3-11) 10/15/18 06:18 BUN 28 mg/dL (7-18) H D 10/15/18 06:18 Creatinine 1.21 mg/dL (0.70-1.30) 10/15/18 06:18 Estimated GFR/1.73 m2 >= 60.00 (mL/min/1.73m2) 10/15/18 06:18 Glucose 148 mg/dL (70-100) H 10/15/18 06:18 Lactate 1.6 mmol/L (0.6-1.4) H 10/13/18 10:32 Calcium 7.9 mg/dL (8.5-10.1) L 10/15/18 06:18 Magnesium 1.9 mg/dL (1.8-2.4) 10/14/18 06:05 Total Bilirubin 0.4 mg/dL (0.2-1.0) 10/12/18 11:20 AST 27 U/L (15-37) 10/12/18 11:20 ALT 35 U/L (12-78) 10/12/18 11:20 Alkaline Phosphatase 84 U/L (46-116) 10/12/18 11:20 Troponin I < 0.02 ng/mL (0.00-0.06) 10/12/18 11:20 Total Protein 7.4 g/dL (6.4-8.2) 10/12/18 11:20 Albumin 3.2 g/dL (3.4-5.0) L 10/12/18 11:20 Vancomycin Trough 7.2 ug/mL (10.0-20.0) L 10/14/18 11:05
[2018-10-15] MEDS: Mometasone 220 MCG 14 DOSE INHALER 1 PUFF IH (21:09)
[2018-10-16] MEDS: Normal Saline Flush 10 ML SYR IVP ×2 (02:08→10:23)
[2018-10-16] MEDS: DOXYCYCLINE 100 MG in Normal Saline 100 ML IVPB (02:09)
[2018-10-16] MEDS: Normal Saline 500 ML 100 ML IV (02:09)
[2018-10-16 02:45] VITALS: BP 111/61; PULSE 56; RESP 17; TEMP 36.1; O2SAT 97
[2018-10-16 07:13] LABS: Abs Immature Grans 0.04 k/cumm (0.0-0.09); Absolute Lymphocyte Count 0.43 k/cumm (1.2-3.4); Absolute Monocyte Count 0.32 k/cumm (0.11-0.7); Absolute Neutrophil Count 6.81 k/cumm (1.2-6.7); HCT 34.4 % (40.0-50.0); HGB 11.1 g/dL (13.5-17.5); Immature Grans % 0.5; Lymphocytes % 5.7; Mean Corp. HGB Concentration 32.3 g/dL (32.0-36.0); Mean Corpuscular Hemoglobin 28.7 pg (27.0-33.0); Mean Corpuscular Volume 88.9 fL (80-95); Mean Platelet Volume 9.6 fL (8.0-11.0); Monocytes % 4.2; Neutrophils % 89.6; Platelet Count 208 x1000/uL (130-400); RBC 3.87 m/cumm (4.50-6.00); RBC Distribution Width 14.2 % (11.8-14.1)
[2018-10-16 07:22] LABS: Anion Gap 10.7 mmol/L (3-11); BUN 29 mg/dL (7-18); CO2 26.3 mmol/L (21.0-32.0); CREATININE 1.06 mg/dL (0.70-1.30); Calcium 7.9 mg/dL (8.5-10.1); Chloride 103 mmol/L (98-107); Glucose 129 mg/dL (70-100); Magnesium 2.2 mg/dL (1.8-2.4); Potassium 3.7 mmol/L (3.5-5.1); Sodium 140 mmol/L (136-145)
[2018-10-16] MEDS: Acetaminophen 325 MG TAB PO (07:29)
[2018-10-16 08:10] VITALS: BP 134/85; PULSE 72; RESP 18; TEMP 35.6; O2SAT 93
[2018-10-16] MEDS: Pantoprazole 40 MG TABCR PO (08:15)
[2018-10-16] MEDS: Benzonatate 100 MG CAP PO (08:15)
[2018-10-16] MEDS: guaiFENesin 600 MG TABCR PO (08:15)
[2018-10-16] MEDS: Sulfameth/Trimeth DS TAB 1 TAB PO (08:15)
[2018-10-16 10:20] VITALS: O2SAT 93
[2018-10-16] MEDS: methylPREDNISolone SUCC 125 MG VIAL 40 MG IVP (10:22)
[2018-10-16 10:58] VITALS: O2SAT 93
--- NOTE | 2018-10-16 11:41 | PDOC.CMDIS ---
- If Service Date Differs Date of service: 10/16/18 Time of Service: 11:41 LACE Index Scoring Tool - Questions: Length of Stay (in days): 4 - 6 Acuity (Admit via E.D.?): Yes Comorbidities: Liver or Renal Disease E.D. Visits: 4 - Answers: Total Score: 16 Risk of Readmission: High Risk Care Management Discharge Reason for Hospitalization: CAP with Hypoxia Discharge Plan: Patrice will return home today with no services. He will F/U with PCP and plan of care as prescribed. Patrice's Elaine will transport home when ready. Patrice is in need of a refill of his Sirolimus prescription, which MCKAY spoke with Celestine [employer] in [place] about. Celestine Ramírez, states that Rice copay for the prescription will be greater than $800 for a months supply. CM spoke with Patrice and explained that he has not met his deductible for 2018 which is why he has a copay. Patrice has contacted his as well as his dental financial coordinator in regards to the copay and will have them connect with [employer] in regards to the cost of the prescription. Patient/Family Education Needs: Review DC instructions, any limitations and discuss Ask Me Three
--- NOTE | 2018-10-16 12:46 | CMDISCH_ITS ---
- If Service Date Differs Date of service: 10/16/18 Time of Service: 11:41 LACE Index Scoring Tool - Questions: Length of Stay (in days): 4 - 6 Acuity (Admit via E.D.?): Yes Comorbidities: Liver or Renal Disease E.D. Visits: 4 - Answers: Total Score: 16 Risk of Readmission: High Risk Care Management Discharge Reason for Hospitalization: CAP with Hypoxia Discharge Plan: Patrice will return home today with no services. He will F/U with PCP and plan of care as prescribed. Patrice's Elaine will transport home when ready. Patrice is in need of a refill of his Sirolimus prescription, which MCKAY spoke with Celestine [employer] in [place] about. Celestine Ramírez, states that Rice copay for the prescription will be greater than $800 for a months supply. CM spoke with Patrice and explained that he has not met his deductible for 2018 which is why he has a copay. Patrice has contacted his as well as his international guest coordinator in regards to the copay and will have them connect with [employer] in regards to the cost of the prescription. Patient/Family Education Needs: Review DC instructions, any limitations and discuss Ask Me Three
[2018-10-16 12:58] LABS: Sirolimus 7.4 ng/mL
[2018-10-16 13:00] VITALS: PULSE 101; PULSE 103; PULSE 108; RESP 20; RESP 24; O2SAT 91; O2SAT 92; O2SAT 95
[2018-10-16 13:45] VITALS: BP 133/81; PULSE 96; RESP 22; TEMP 36.7; O2SAT 92
--- NOTE | 2018-10-16 14:09 | W.PM.DS.N ---
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 (3) Fsbjn-zpuwqf-wxjb disease: Status: Chronic (4) Rheumatoid arthritis: Status: Chronic (5) Renal insufficiency: Status: Chronic (6) Bronchospasm: Status: Acute Discharge Plan Disposition Patient Disposition: HOME Condition: Stable Discharge Details Reason For Visit: CAP WITH HYPOXIA Admit Date/Time: 10/12/18 13:14 Admit Provider: Deedee Rice Attending Provider: Deedee Rice Primary Care Provider: Berta Pritchard Hospital Course Hospital Course: Mr Bro is a 63 year old male with PMHx of MDS s/p bone marrow transplant who was admitted to [facility] on 10/12/18 for a community acquired pneumonia which likely occured on top of the background influenza A infection for which he was getting treated as outpatient. He presented with significant bronchospasm and desaturating to 87% on room air, requiring supplemental oxygen. He was admitted to medical surgical floor, treated with the guidance of both [facility] [place] [place] [facility] and his bone marrow transplant doctor, Dr Bennett. The recommended antibiotics per [facility] [place] [place] [facility] were doxycycline and rocephin. He was recommended to remain on bactrim prophylactically, but his azithromycin prophylaxis was recommended to be held. He also required high dose systemic steroids to treat his bronchospasm in addition to nebulizer treatments. His blood cultures done on admission remain negative to date; his sputum culture grew Lashell Albicans and otherwise normal berta. It is felt that it is unlikely that Lashell was a true pathogen in this patient as he improved clinically without antifungal coverage. As the patient has a history of zjftj-xo-xmyj disease in the lung, CT scan of the chest was obtained, images forwarded to [facility] [place] [place] for review for any possibility of recurrence of the [id number]. Dr Bennett felt that likely the CT represented a pneumonia, not [id number]-[id number], and so we maintained the same therapeutic course with significant clinical improvement. On hospital day 5, the patient no longer requires oxygen, saturating in the 90's while walking on room air. He will need to complete a lengthy steroid taper as well as a total of 10 days of antibiotics for his pneumonia. He will need to follow up with his PCP and Dr Bennett's team at [facility] [place] [place]. We appreciate the help of our [facility] [place] [place] colleagues in managing this patient and wish him well. Home Meds and New Rx's Prescriptions: New benzonatate 100 mg Capsule 100 mg PO TID Qty: 30 RF: 0 pantoprazole 40 mg Tablet,Delayed Release (Dr/Ec) 40 mg PO DAILY@0730 Qty: 30 RF: 0 guaifenesin [Mucinex] 600 mg Tablet Extended Release 12hr 600 mg PO BID PRN PRN (Reason: cough) Qty: 30 RF: 0 doxycycline hyclate 100 mg capsule 100 mg PO BID Qty: 10 RF: 0 cefuroxime axetil 250 mg tablet 250 mg PO Q12H 5 Days Qty: 10 RF: 0 prednisone 20 mg tablet See Rx Instructions .ROUTE .COMPLEX Qty: 28 RF: 0 Continued montelukast [Singulair] 4 MG tablet,chewable 4 mg PO HS RF: 0 sulfamethoxazole-trimethoprim [Bactrim DS] 1 EACH tablet 1 tab-cap PO as directed RF: 0 Flovent HFA 10.6 GM HFA aerosol inhaler 1 puff Inhalation BID RF: 0 sirolimus 1 MG tablet 1 mg PO BID RF: 0 albuterol sulfate 90 mcg/actuation Hfa Aerosol Inhaler 2 puff Inhalation Q6H PRN PRN (Reason: Shortness Of Breath) RF: 0 Discontinued omeprazole 20 MG capsule,delayed release(DR/EC) 20 mg PO DAILY RF: 0 prednisone 10 mg tablet 2.5 mg PO DAILY RF: 0 azithromycin 250 mg Tablet 250 mg PO DIRECTED RF: 0 Discharge Instructions Instructions: Cefuroxime (By mouth), Doxycycline (By mouth), Prednisone (By mouth), Bacterial Pneumonia (DC) Additional Instructions: Finish your antibiotics and prednisone taper as prescribed. Resume your outpatient prednisone dose upon completion of the taper. Return to the hospital if you feel worse, develop a fever, bleeding, chest pain, or shortness of breath. Follow up with your PCP and transplant doctor in 1-2 weeks. Referrals: Berta Pritchard NP [Primary Care Provider] - Activity:: Activity as Tolerated Equipment/Supplies:: No Equipment Needed Diet:: As Tolerated Discharge Orders Discharge Orders: Discharge Order (Routine); Ordered 10/16/18 Ordered By: Deedee Rice Exam Narrative Exam Narrative: General: A&Ox3, very pleasant, seen walking in the hallway in no distress and then comfortably conversing fluently HEENT: EOMI, MMM Heart: RRR, no m/r/g Lungs: very minimal rhonchi today GI: abdomen soft, nontender, nondistended Extremities: no edema, clubbing, or cyanosis. DS: Data Vitals/I&O Vitals and I&O: Vital Signs Temperature 36.7 C 10/16/18 13:45 Temperature Source Tympanic 10/16/18 13:45 Pulse 96 H 10/16/18 13:45 Pulse Rhythm Regular 10/16/18 10:00 Respiratory Rate 22 10/16/18 13:45 Respiratory Effort Non-Labored 10/16/18 10:00 Respiratory Depth Normal 10/16/18 10:00 Respiratory Pattern Normal 10/16/18 10:00 Blood Pressure 133/81 10/16/18 13:45 Blood Pressure Position Sitting 10/12/18 10:51 Pulse Oximetry 92 L 10/16/18 13:45 Oxygen Delivery Method Room Air 10/16/18 13:45 Oxygen Flow Rate 0 10/16/18 13:45 Fraction of Inspired Oxygen (FIO2) 2 10/14/18 07:40 Pain Level 0 10/16/18 08:10 Comment 10/15/18 20:06 Intake & Output 10/15/18 10/16/18 10/16/18 23:59 11:59 23:59 Intake Total 1160 / 1543.333 408.334 / 408.334 Output Total 1000 / 1000 950 / 950 Balance 160 / 543.333 -541.666 / -541.666 Weight 82.1 kg Intake: IV 150 / 283.333 108.334 / 108.334 Oral 1010 / 1260 300 / 300 Output: Urine 1000 / 1000 950 / 950 Other: Urine Color Yellow Yellow Urine Appearance Clear Clear Urine Odor Normal None Comment Paitent voides independently Stool Size Moderate Stool Characteristics Soft Voiding Methods Toilet Toilet Completed studies during hospitalization [Text1]: CXR 10/12/18: New left perihilar infiltrate suspicious for pneumonia. CXR 10/14/18: Persistent left perihilar pneumonia. CT chest without contrast 10/14/18: Bilateral ground-glass opacities. Reticulonodular infiltrate involving the left upper and left lingula. The findings are suspicious for an infectious process. Inflammatory process, pulmonary edema or hemorrhage should also be considered. Labs on day of discharge: Labs from last 24 hours 10/16/18 10/16/18 06:25 06:25 WBC 7.60 RBC 3.87 L Hgb 11.1 L Hct 34.4 L MCV 88.9 MCH 28.7 MCHC 32.3 RDW 14.2 H Plt Count 208 MPV 9.6 Immature Gran % 0.5 Neutrophils % 89.6 Lymphocytes % 5.7 Monocytes % 4.2 Eosinophils % 0.0 Basophils % 0.0 Absolute Neutrophils 6.81 H Absolute Lymphocytes 0.43 L Absolute Monocytes 0.32 Absolute Eosinophils 0.00 Absolute Basophils 0.00 Sodium 140 Potassium 3.7 Chloride 103 Carbon Dioxide 26.3 Anion Gap 10.7 BUN 29 H Creatinine 1.06 Estimated GFR/1.73 m2 >= 60.00 Glucose 129 H Calcium 7.9 L Magnesium 2.2 Preliminary micro results at discharge 10/12/18 11:55 Blood Culture - Preliminary Blood NO GROWTH 96 HOURS 10/12/18 11:20 Blood Culture - Preliminary Blood NO GROWTH 96 HOURS 10/14/18 12:22 Sputum Culture - Preliminary Sputum Lashell Albicans Normal Berta [facility] Medical History Influenza A (Acute) CKD (chronic kidney disease) (Chronic) Dplex-nmoffi-yvlb disease (Chronic) Hyperlipidemia (Chronic) MDS (myelodysplastic syndrome) (Chronic) Osteoporosis (Chronic) Rheumatoid arthritis (Chronic) Surgical History History of bone marrow transplant (Chronic) History of tonsillectomy (Chronic) S/P emergency tracheotomy for assistance in breathing (Resolved) Stem Cell Transplant (10/18/16) Family History Maternal Grandfather Stroke Mother Diabetes Colon cancer Father Diabetes Social History Smoking/Tobacco Use Status: Former Tobacco Use
--- NOTE | 2018-10-16 14:20 | DSE_ITS ---
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 (3) Ypqot-sgurwa-cxre disease: Status: Chronic (4) Rheumatoid arthritis: Status: Chronic (5) Renal insufficiency: Status: Chronic (6) Bronchospasm: Status: Acute Discharge Plan Disposition Patient Disposition: HOME Condition: Stable Discharge Details Reason For Visit: CAP WITH HYPOXIA Admit Date/Time: 10/12/18 13:14 Admit Provider: Deedee Rice Attending Provider: Deedee Rice Primary Care Provider: Berta Pritchard Hospital Course Hospital Course: Mr Bro is a 63 year old male with PMHx of MDS s/p bone marrow transplant who was admitted to [facility] on 10/12/18 for a community acquired pneumonia which likely occured on top of the background influenza A infection for which he was getting treated as outpatient. He presented with significant bronchospasm and desaturating to 87% on room air, requiring supplemental oxygen. He was admitted to medical surgical floor, treated with the guidance of both [facility] and his [facility] marrow transplant doctor, Dr Bennett. The recommended antibiotics per [facility] were doxycycline and rocephin. He was recommended to remain on bactrim prophylactically, but his azithromycin prophylaxis was recommended to be held. He also required high dose systemic steroids to treat his bronchospasm in addition to nebulizer treatments. His blood cultures done on admission remain negative to date; his sputum culture grew Lashell Albicans and otherwise normal berta. It is felt that it is unlikely that Lashell was a true pathogen in this patient as he improved clinically without antifungal coverage. As the patient has a history of sznoz-eo-lafs disease in the lung, CT scan of the chest was obtained, images forwarded to [facility] for review for any possibility of recurrence of the [id number]. Dr Bennett felt that likely the CT represented a pneumonia, not mlomc-[id number], and so we maintained the same therapeutic course with significant clinical improvement. On hospital day 5, the patient no longer requires oxygen, saturating in the 90's while walking on room air. He will need to complete a lengthy steroid taper as well as a total of 10 days of antibiotics for his pneumonia. He will need to follow up with his PCP and Dr Bennett's team at [facility]. We appreciate the help of our [facility] colleagues in managing this patient and wish him well. Home Meds and New Rx's Prescriptions: New benzonatate 100 mg Capsule 100 mg PO TID Qty: 30 RF: 0 pantoprazole 40 mg Tablet,Delayed Release (Dr/Ec) 40 mg PO DAILY@0730 Qty: 30 RF: 0 guaifenesin [Mucinex] 600 mg Tablet Extended Release 12hr 600 mg PO BID PRN PRN (Reason: cough) Qty: 30 RF: 0 doxycycline hyclate 100 mg capsule 100 mg PO BID Qty: 10 RF: 0 cefuroxime axetil 250 mg tablet 250 mg PO Q12H 5 Days Qty: 10 RF: 0 prednisone 20 mg tablet See Rx Instructions .ROUTE .COMPLEX Qty: 28 RF: 0 Continued montelukast [Singulair] 4 MG tablet,chewable 4 mg PO HS RF: 0 sulfamethoxazole-trimethoprim [Bactrim DS] 1 EACH tablet 1 tab-cap PO as directed RF: 0 Flovent HFA 10.6 GM HFA aerosol inhaler 1 puff Inhalation BID RF: 0 sirolimus 1 MG tablet 1 mg PO BID RF: 0 albuterol sulfate 90 mcg/actuation Hfa Aerosol Inhaler 2 puff Inhalation Q6H PRN PRN (Reason: Shortness Of Breath) RF: 0 Discontinued omeprazole 20 MG capsule,delayed release(DR/EC) 20 mg PO DAILY RF: 0 prednisone 10 mg tablet 2.5 mg PO DAILY RF: 0 azithromycin 250 mg Tablet 250 mg PO DIRECTED RF: 0 Discharge Instructions Instructions: Cefuroxime (By mouth), Doxycycline (By mouth), Prednisone (By mouth), Bacterial Pneumonia (DC) Additional Instructions: Finish your antibiotics and prednisone taper as prescribed. Resume your outpatient prednisone dose upon completion of the taper. Return to the hospital if you feel worse, develop a fever, bleeding, chest pain, or shortness of breath. Follow up with your PCP and transplant doctor in 1-2 weeks. Referrals: Berta Pritchard NP [Primary Care Provider] - Activity:: Activity as Tolerated Equipment/Supplies:: No Equipment Needed Diet:: As Tolerated Discharge Orders Discharge Orders: Discharge Order (Routine); Ordered 10/16/18 Ordered By: Deedee Rice Exam Narrative Exam Narrative: General: A&Ox3, very pleasant, seen walking in the hallway in no distress and then comfortably conversing fluently HEENT: EOMI, MMM Heart: RRR, no m/r/g Lungs: very minimal rhonchi today GI: abdomen soft, nontender, nondistended Extremities: no edema, clubbing, or cyanosis. DS: Data Vitals/I&O Vitals and I&O: Vital Signs Temperature 36.7 C 10/16/18 13:45 Temperature Source Tympanic 10/16/18 13:45 Pulse 96 H 10/16/18 13:45 Pulse Rhythm Regular 10/16/18 10:00 Respiratory Rate 22 10/16/18 13:45 Respiratory Effort Non-Labored 10/16/18 10:00 Respiratory Depth Normal 10/16/18 10:00 Respiratory Pattern Normal 10/16/18 10:00 Blood Pressure 133/81 10/16/18 13:45 Blood Pressure Position Sitting 10/12/18 10:51 Pulse Oximetry 92 L 10/16/18 13:45 Oxygen Delivery Method Room Air 10/16/18 13:45 Oxygen Flow Rate 0 10/16/18 13:45 Fraction of Inspired Oxygen (FIO2) 2 10/14/18 07:40 Pain Level 0 10/16/18 08:10 Comment 10/15/18 20:06 Intake & Output 10/15/18 10/16/18 10/16/18 23:59 11:59 23:59 Intake Total 1160 / 1543.333 408.334 / 408.334 Output Total 1000 / 1000 950 / 950 Balance 160 / 543.333 -541.666 / -541.666 Weight 82.1 kg Intake: IV 150 / 283.333 108.334 / 108.334 Oral 1010 / 1260 300 / 300 Output: Urine 1000 / 1000 950 / 950 Other: Urine Color Yellow Yellow Urine Appearance Clear Clear Urine Odor Normal None Comment Paitent voides independently Stool Size Moderate Stool Characteristics Soft Voiding Methods Toilet Toilet Completed studies during hospitalization [Text1]: CXR 10/12/18: New left perihilar infiltrate suspicious for pneumonia. CXR 10/14/18: Persistent left perihilar pneumonia. CT chest without contrast 10/14/18: Bilateral ground-glass opacities. Reticulonodular infiltrate involving the left upper and left lingula. The fin dings are suspicious for an infectious process. Inflammatory process, pulmonary edema or hemorrhage should also be considered. Labs on day of discharge: Labs from last 24 hours 10/16/18 10/16/18 06:25 06:25 WBC 7.60 RBC 3.87 L Hgb 11.1 L Hct 34.4 L MCV 88.9 MCH 28.7 MCHC 32.3 RDW 14.2 H Plt Count 208 MPV 9.6 Immature Gran % 0.5 Neutrophils % 89.6 Lymphocytes % 5.7 Monocytes % 4.2 Eosinophils % 0.0 Basophils % 0.0 Absolute Neutrophils 6.81 H Absolute Lymphocytes 0.43 L Absolute Monocytes 0.32 Absolute Eosinophils 0.00 Absolute Basophils 0.00 Sodium 140 Potassium 3.7 Chloride 103 Carbon Dioxide 26.3 Anion Gap 10.7 BUN 29 H Creatinine 1.06 Estimated GFR/1.73 m2 >= 60.00 Glucose 129 H Calcium 7.9 L Magnesium 2.2 Preliminary micro results at discharge 10/12/18 11:55 Blood Culture - Preliminary Blood NO GROWTH 96 HOURS 10/12/18 11:20 Blood Culture - Preliminary Blood NO GROWTH 96 HOURS 10/14/18 12:22 Sputum Culture - Preliminary Sputum Lashell Albicans Normal Berta [facility] Medical History Influenza A (Acute) CKD (chronic kidney disease) (Chronic) Lqfgi-qrcigf-lglj disease (Chronic) Hyperlipidemia (Chronic) MDS (myelodysplastic syndrome) (Chronic) Osteoporosis (Chronic) Rheumatoid arthritis (Chronic) Surgical History History of bone marrow transplant (Chronic) History of tonsillectomy (Chronic) S/P emergency tracheotomy for assistance in breathing (Resolved) Stem Cell Transplant (10/18/16) Family History Maternal Grandfather Stroke Mother Diabetes Colon cancer Father Diabetes Social History Smoking/Tobacco Use Status: Former Tobacco Use
== END 2018-10-16 15:53 | disposition home or self-care (01) | DRG 194 ==
LOC: ER 13:49 → MS 14:25
PROVIDERS: Admitting Provider Internal Medicine; Emergency Provider Student in an Organized Health Care Education/Training Program; PCP Nurse Practitioner; Visit Provider Internal Medicine
DX: J18.9 Pneumonia, unspecified organism (principal); D46.C Myelodysplastic syndrome with isolated del(5q) chromosomal abnormality; Z94.81 Bone marrow transplant status; R09.02 Hypoxemia; J98.01 Acute bronchospasm; Z86.2 Personal history of diseases of the blood and blood-forming organs and certain disorders involving the immune mechanism; M06.9 Rheumatoid arthritis, unspecified; Z79.52 Long term (current) use of systemic steroids; N18.9 Chronic kidney disease, unspecified; Z79.899 Other long term (current) drug therapy
CPT/HCPCS: 36415; 71250; 80048; 80053; 87040; 87077; 93005; 94618; 94640; 96361; 96365; 96367; 96368; 99223; 99232; 99233; 99239; 99285; J1650; 71045; 71046; 80195; 80202; 83605; 83735; 84484; 85025; 87070; 87205; 93010; J0696; J1941; J2543; J2930; J7620

== ENCOUNTER 2018-11-01 01:09 | Outpatient (CLI) | payer BC, SELFPAY ==
[2018-11-01 07:38] LABS: Abs Immature Grans 0.04 k/cumm (0.0-0.09); Absolute Basophil Count 0.01 k/cumm (0.0-0.2); Absolute Eosinophil Count 0.15 k/cumm (0.0-0.7); Absolute Lymphocyte Count 0.63 k/cumm (1.2-3.4); Absolute Monocyte Count 0.53 k/cumm (0.11-0.7); Basophils % 0.2; Eosinophils % 2.7; HCT 33.2 % (40.0-50.0); HGB 10.3 g/dL (13.5-17.5); Immature Grans % 0.7; Lymphocytes % 11.1; Mean Corpuscular Hemoglobin 29.1 pg (27.0-33.0); Mean Corpuscular Volume 93.8 fL (80-95); Mean Platelet Volume 9.1 fL (8.0-11.0); Monocytes % 9.4; Neutrophils % 75.9; Platelet Count 149 x1000/uL (130-400); RBC 3.54 m/cumm (4.50-6.00); RBC Distribution Width 16.1 % (11.8-14.1); White Blood Cell Count 5.66 k/cumm (4.4-10.8)
== END 2018-11-01 01:29 ==
PROVIDERS: PCP Nurse Practitioner; Visit Provider Nurse Practitioner
DX: D46.9 Myelodysplastic syndrome, unspecified (principal)
CPT/HCPCS: 36415; 85025

== ENCOUNTER 2018-11-29 01:09 | Outpatient (CLI) | payer BC, SELFPAY ==
[2018-11-29 07:49] LABS: Abs Immature Grans 0.01 k/cumm (0.0-0.09); Absolute Basophil Count 0.01 k/cumm (0.0-0.2); Absolute Eosinophil Count 0.04 k/cumm (0.0-0.7); Absolute Lymphocyte Count 0.54 k/cumm (1.2-3.4); Absolute Monocyte Count 0.64 k/cumm (0.11-0.7); Absolute Neutrophil Count 1.57 k/cumm (1.2-6.7); Basophils % 0.4; Eosinophils % 1.4; HCT 34.6 % (40.0-50.0); Immature Grans % 0.4; Lymphocytes % 19.2; Mean Corp. HGB Concentration 31.8 g/dL (32.0-36.0); Mean Corpuscular Hemoglobin 29.4 pg (27.0-33.0); Mean Corpuscular Volume 92.5 fL (80-95); Mean Platelet Volume 9.1 fL (8.0-11.0); Monocytes % 22.8; Neutrophils % 55.8; Platelet Count 171 x1000/uL (130-400); RBC 3.74 m/cumm (4.50-6.00); RBC Distribution Width 16.4 % (11.8-14.1); White Blood Cell Count 2.81 k/cumm (4.4-10.8)
== END 2018-11-29 01:29 ==
PROVIDERS: PCP Nurse Practitioner; Visit Provider Nurse Practitioner
DX: D46.9 Myelodysplastic syndrome, unspecified (principal)
CPT/HCPCS: 36415; 85025

== ENCOUNTER 2018-12-04 00:30 | Outpatient (RCR) | payer BC, SELFPAY ==
[2018-11-20] VITALS (7 sets, daily range): BP systolic 109–144; BP diastolic 63–81; PULSE 65–93; RESP 18–20; TEMP 36.4–36.6; O2SAT 95–98
[2018-11-20] MEDS: methylPREDNISolone SUCC 125 MG VIAL 100 MG IVP (07:18)
[2018-11-20] MEDS: diphenhydrAMINE 25 MG CAP PO (07:19)
[2018-11-20] MEDS: Normal Saline Flush 10 ML SYR IVP (07:19)
[2018-12-04 07:17] VITALS: BP 111/67; PULSE 71; RESP 18; TEMP 36; O2SAT 98
[2018-12-04] MEDS: diphenhydrAMINE 25 MG CAP PO (07:22)
[2018-12-04] MEDS: Normal Saline Flush 10 ML SYR IVP (07:44)
[2018-12-04 07:45] VITALS: BP 103/68; PULSE 71; RESP 18; TEMP 36.5; O2SAT 99
[2018-12-04 08:15] VITALS: BP 126/71; PULSE 66; RESP 18; TEMP 36.3; O2SAT 95
[2018-12-04 08:48] VITALS: BP 107/67; PULSE 60; RESP 18; TEMP 36; O2SAT 98
[2018-12-04 09:15] VITALS: BP 119/71; PULSE 65; RESP 18; TEMP 36.5; O2SAT 99
== END 2018-12-05 23:59 | disposition home or self-care (01) ==
LOC: INF 00:30
PROVIDERS: PCP Nurse Practitioner; Visit Provider Family Medicine
DX: M06.9 Rheumatoid arthritis, unspecified (principal)
CPT/HCPCS: 96365; 96366; J2930; J9310

== ENCOUNTER 2019-01-03 01:56 | Outpatient (CLI) | payer BC, SELFPAY ==
[2019-01-03 07:33] LABS: Abs Immature Grans 0.01 k/cumm (0.0-0.09); Absolute Basophil Count 0.02 k/cumm (0.0-0.2); Absolute Eosinophil Count 0.19 k/cumm (0.0-0.7); Absolute Lymphocyte Count 0.68 k/cumm (1.2-3.4); Absolute Monocyte Count 0.45 k/cumm (0.11-0.7); Absolute Neutrophil Count 2.35 k/cumm (1.2-6.7); Basophils % 0.5; Eosinophils % 5.1; HCT 36.2 % (40.0-50.0); HGB 11.5 g/dL (13.5-17.5); Immature Grans % 0.3; Lymphocytes % 18.4; Mean Corp. HGB Concentration 31.8 g/dL (32.0-36.0); Mean Corpuscular Hemoglobin 30.3 pg (27.0-33.0); Mean Corpuscular Volume 95.5 fL (80-95); Mean Platelet Volume 8.7 fL (8.0-11.0); Monocytes % 12.2; Neutrophils % 63.5; Platelet Count 176 x1000/uL (130-400); RBC 3.79 m/cumm (4.50-6.00); RBC Distribution Width 15.7 % (11.8-14.1)
== END 2019-01-03 02:16 ==
PROVIDERS: PCP Nurse Practitioner; Visit Provider Nurse Practitioner
DX: D46.9 Myelodysplastic syndrome, unspecified (principal)
CPT/HCPCS: 36415; 85025

== ENCOUNTER 2019-02-02 19:47 | Emergency (ER) | payer BC, SELFPAY ==
[2019-02-02 19:52] VITALS: BP 142/85; PULSE 104; RESP 15; TEMP 38.6; O2SAT 95
--- NOTE | 2019-02-02 20:13 | W.ED.GENAD ---
Discharge Plan Disposition Patient Disposition: HOME Discharge Details Chief Complaint: RespSymp Clinical Impression: Conjunctivitis of both eyes, Upper respiratory infection, Bronchitis Primary Care Provider: Berta Pritchard ED Provider: Papo Cortez Home Meds and New Rx's Prescriptions: New levofloxacin 750 mg tablet 750 mg PO DAILY 5 Days Qty: 5 RF: 0 erythromycin 5 mg/gram (0.5 %) ointment 0.5 inch OP QID Qty: 3.5 RF: 0 Continued sirolimus 1 mg tablet 1 mg PO BID RF: 0 montelukast [Singulair] 4 MG tablet,chewable 4 mg PO HS RF: 0 Flovent HFA 10.6 GM HFA aerosol inhaler 1 puff Inhalation BID RF: 0 Aranesp (in polysorbate) 200 mcg/mL solution 400 mcg SC ONCE PRNRF: 0 albuterol sulfate 90 mcg/actuation Hfa Aerosol Inhaler 2 puff Inhalation Q6H PRN PRN (Reason: Shortness Of Breath) RF: 0 guaifenesin [Mucinex] 600 mg Tablet Extended Release 12hr 600 mg PO BID PRN PRN (Reason: cough) Qty: 30 RF: 0 ibuprofen 200 mg Tablet RF: 0 Discontinued sulfamethoxazole-trimethoprim [Bactrim DS] 800-160 mg tablet 1 tab PO .3x/week RF: 0 prednisone 5 mg tablet 7.5 mg PO DAILY RF: 0 Discharge Instructions Instructions: Acute Bronchitis (ED) Additional Instructions: You have been evaluated in the emergency department today for an apparent upper respiratory infection. There is no evidence of pneumonia on chest x-ray today. I have discussed your case with infectious disease at [facility] who recommends antibiotic therapy. It is very important that you take this medication for its full course and follow-up with hematology tomorrow. Return to the emergency department should your symptoms worsen or you develop shortness of breath, fever, vomiting. Call should you have any questions or concerns Referrals: Berta Pritchard, SCHOOL CHILDCARE ATTENDANT [Primary Care Provider] - 5 days Medical Decision Making Mr. Bro is a 63-year-old nontoxic-appearing gentleman presented to the emergency department for URI symptoms and fever over the course of several days. Vitals show a slight tachycardia at 100 bpm with a temperature of 38.3 degrees C. Fever has defervesced status post antipyretics. White blood cell count within normal limits. Slight elevation in CRP. Chest x-ray shows no acute pathology. Negative ACS work-up. EKG unchanged from prior. Patient is high risk for opportunistic infection secondary to immunosuppression therefore case discussed with [facility] [place] Waters. Her recommendations at this time would be to initiate Levaquin 750 mg p.o. daily x5 days. Patient is otherwise well-appearing and I do not feel admission is necessary at this time. He also has what appears to be bilateral exudative conjunctivitis. Erythromycin ointment given. He will follow-up with hematology tomorrow. Strict return precautions provided. He is stable for discharge at the [facility] Results - last 24 hr 02/02/19 02/02/19 02/02/19 20:43 20:43 20:43 WBC 6.97 RBC 4.01 L Hgb 11.9 L Hct 36.8 L MCV 91.8 MCH 29.7 MCHC 32.3 RDW 13.9 Plt Count 207 MPV 9.2 Immature Gran % 0.1 Neutrophils % 81.4 Lymphocytes % 5.6 Monocytes % 10.6 Eosinophils % 2.2 Basophils % 0.1 Absolute Neutrophils 5.67 Absolute Lymphocytes 0.39 L Absolute Monocytes 0.74 H Absolute Eosinophils 0.15 Absolute Basophils 0.01 VBG pH VBG pCO2 VBG pO2 VBG HCO3 VBG Total CO2 VBG O2 Saturation VBG Base Excess Sodium 138 Potassium 4.2 Chloride 102 Carbon Dioxide 26.4 Anion Gap 9.6 BUN 16 Creatinine 1.27 Estimated GFR/1.73 m2 57.10 Glucose 116 H Lactate 0.9 Calcium 8.5 Total Bilirubin 0.2 AST 19 ALT 22 Alkaline Phosphatase 79 Troponin I C-Reactive Protein Total Protein 7.1 Albumin 3.5 Urine Color Urine Clarity Urine pH Ur Specific [place] Urine Protein Urine Ketones Urine Blood Urine Nitrite Urine Bilirubin Urine Urobilinogen Ur Leukocyte Esterase Urine RBC Urine WBC Ur Epithelial Cells Urine Crystals Urine Bacteria Urine Casts Urine Mucus Urine Other Ur Culture Indicated? Urine Glucose 02/02/19 02/02/19 02/02/19 20:43 20:43 20:43 WBC RBC Hgb Hct MCV MCH MCHC RDW Plt Count MPV Immature Gran % Neutrophils % Lymphocytes % Monocytes % Eosinophils % Basophils % Absolute Neutrophils Absolute Lymphocytes Absolute Monocytes Absolute Eosinophils Absolute Basophils VBG pH 7.41 VBG pCO2 44 VBG pO2 36 VBG HCO3 28 VBG Total CO2 25 VBG O2 Saturation 68 L VBG Base Excess 2.9 Sodium Potassium Chloride Carbon Dioxide Anion Gap BUN Creatinine Estimated GFR/1.73 m2 Glucose Lactate Calcium Total Bilirubin AST ALT Alkaline Phosphatase Troponin I < 0.02 C-Reactive Protein 7.93 H Total Protein Albumin Urine Color Urine Clarity Urine pH Ur Specific [place] Urine Protein Urine Ketones Urine Blood Urine Nitrite Urine Bilirubin Urine Urobilinogen Ur Leukocyte Esterase Urine RBC Urine WBC Ur Epithelial Cells Urine Crystals Urine Bacteria Urine Casts Urine Mucus Urine Other Ur Culture Indicated? Urine Glucose 02/02/19 21:55 WBC RBC Hgb Hct MCV MCH MCHC RDW Plt Count MPV Immature Gran % Neutrophils % Lymphocytes % Monocytes % Eosinophils % Basophils % Absolute Neutrophils Absolute Lymphocytes Absolute Monocytes Absolute Eosinophils Absolute Basophils VBG pH VBG pCO2 VBG pO2 VBG HCO3 VBG Total CO2 VBG O2 Saturation VBG Base Excess Sodium Potassium Chloride Carbon Dioxide Anion Gap BUN Creatinine Estimated GFR/1.73 m2 Glucose Lactate Calcium Total Bilirubin AST ALT Alkaline Phosphatase Troponin I C-Reactive Protein Total Protein Albumin Urine Color Yellow Urine Clarity Clear Urine pH 5.5 Ur Specific [place] 1.020 Urine Protein Trace H Urine Ketones Negative Urine Blood Trace-lysed H Urine Nitrite Negative Urine Bilirubin Negative Urine Urobilinogen 0.2 Ur Leukocyte Esterase Negative Urine RBC 0-2 Urine WBC Negative Ur Epithelial Cells Negative Urine Crystals Negative Urine Bacteria Rare Urine Casts Negative Urine Mucus Negative Urine Other Negative Ur Culture Indicated? No Urine Glucose Negative ECG Data Interpretation: Sinus rhythm right bundle branch block unchanged from previous. Negative for ST elevation [place] HPI General Date/Time Provider Initiated Documentation: 02/02/19 19:53. HPI Narrative: Patient is a 63-year-old male with significant past medical history of myelodysplastic syndrome, graft versus host disease, chronic kidney disease and rheumatoid arthritis who presents with roughly 1 week of cough, weakness, sore throat, nausea and diarrhea. He has been taking ibuprofen for fever. He presents today with fever of 38.6 ?C. She denies any chest pain or heaviness. She is currently on immunosuppressive therapy. He admits to being on Bactrim roughly 16 days ago. Related Data Home Medications Medication Instructions Recorded Confirmed Flovent HFA 1 puff INHALATION BID inhaler 11/02/17 02/02/19 montelukast [Singulair] 4 mg PO HS tab.chew 11/02/17 02/02/19 albuterol sulfate 2 puff INHALATION Q6H PRN PRN 10/12/18 02/02/19 guaifenesin [Mucinex] 600 mg PO BID PRN PRN #30 tab 10/16/18 02/02/19 sirolimus 1 mg tablet 1 mg PO BID 10/22/18 02/02/19 darbepoetin edilma 200 mcg/mL in 400 mcg SC ONCE PRN ml 12/16/18 polysorbate injection erythromycin 0.5 inch OP QID #3.5 gm 02/02/19 ibuprofen 02/02/19 levofloxacin 750 mg PO DAILY 5 Days #5 tab 02/02/19 Previous Rx's Medication Instructions Recorded guaifenesin [Mucinex] 600 mg PO BID PRN PRN #30 tab 10/16/18 erythromycin 0.5 inch OP QID #3.5 gm 02/02/19 levofloxacin 750 mg PO DAILY 5 Days #5 tab 02/02/19 Allergies Allergy/AdvReac Type Severity Reaction Status Date / Time methotrexate AdvReac Severe Myelodysplastic Verified 02/02/19 19:56 Syndrome General Stated Complaint: RespSymp AFIA: 3 Review of Systems Constitutional Denies anorexia, Denies body ache(s), Reports chills, Denies difficulty sleeping, Reports fever(s), Reports headache(s), Denies increased appetite, Reports lethargy, Reports weakness and Denies weight loss Eyes Denies eye discharge ENT Denies dizziness, Reports headache(s), Reports sinus pressure and Reports sore throat Cardiovascular Denies chest pain, Denies syncope, Denies pedal edema, Denies edema, Denies irregular heart rhythm, Denies dyspnea, Reports dyspnea on exertion and Denies orthopnea Respiratory Reports chest congestion, Reports cough, Denies dyspnea and Reports dyspnea on exertion Gastrointestinal Denies abdominal pain, Denies diarrhea, Reports nausea and Reports vomiting Genitourinary Denies dysuria Musculoskeletal Denies myalgias and Denies joint swelling Integumentary/Breasts Denies new lesions and Denies rash Neurologic Denies dizziness, Denies syncope, Reports headache(s) and Reports weakness Hematologic/Lymphatic Denies easy bleeding and Denies easy bruising [facility] Medical History Influenza A (Acute) CKD (chronic kidney disease) (Chronic) Vowch-kaohlh-jseb disease (Chronic) Hyperlipidemia (Chronic) MDS (myelodysplastic syndrome) (Chronic) Osteoporosis (Chronic) Rheumatoid arthritis (Chronic) Surgical History History of bone marrow transplant (Chronic) History of tonsillectomy (Chronic) S/P emergency tracheotomy for assistance in breathing (Resolved) Stem Cell Transplant (10/18/16) Family History Maternal Grandfather Stroke Mother Diabetes Colon cancer Father Diabetes Social History Smoking/Tobacco Use Status: Former Tobacco Use Drug use: Never Do you feel safe in your relationship?: Yes Exam Const General: cooperative, comfortable and no acute distress Orientation: alert and awake HENMT Head: normal to inspection Ears: hearing grossly normal bilaterally, external ears normal and TM's normal bilaterally General nose exam: external nose normal Face and sinus: normal facial exam Mouth: oral mucosae normal Teeth and gingiva: dentition normal Throat: posterior oropharynx normal, tonsils normal and uvula midline Eyes Periorbital: periorbital findings normal Conjunctivae: conjunctival abnormality bilaterally conjunctival injection and discharge Sclera: scleral abnormality bilaterally scleral injection Neck Neck: normal visual inspection, full ROM, no lymphadenopathy and no meningeal signs Chest Chest: normal inspection of the chest Resp Effort & Inspection: normal respiratory effort and able to speak in complete sentences Auscultation: clear to auscultation bilaterally Cardio Jugular venous pressure: no JVD Rate: tachycardic Rhythm: regular rhythm Heart Sounds: S1 normal and S2 normal Pulses: normal peripheral pulses GI Inspection: normal to inspection Palpation: soft and no hepatosplenomegaly Back/Spine/Pelvis Back: no CVA tenderness Cervical Spine: normal cervical lordosis Thoracic/Lumbar Spine: thoracic and lumbar spine normal to inspection Skin General skin exam: no rashes or lesions noted Neuro General: alert, awake and oriented x3 Course Vital Signs Temperature 38.6 C H 02/02/19 19:52 Pulse 104 H 02/02/19 19:52 Respiratory Rate 15 02/02/19 19:52 Blood Pressure 142/85 H 02/02/19 19:52 Pulse Oximetry 95 02/02/19 19:52 Temperature 38.6 C H 02/02/19 19:52 Temperature Source Temporal Artery Scan 02/02/19 19:52 Pulse 104 H 02/02/19 19:52 Respiratory Rate 15 02/02/19 19:52 Respiratory Effort 02/02/19 20:05 Blood Pressure 142/85 H 02/02/19 19:52 Pulse Oximetry 95 02/02/19 19:52 Oxygen Delivery Method Room Air 02/02/19 19:52 Oxygen Flow Rate 0 02/02/19 19:52
--- NOTE | 2019-02-02 20:21 | ED.GENADUL_ITS ---
Discharge Plan Disposition Patient Disposition: HOME Discharge Details Chief Complaint: RespSymp Clinical Impression: Conjunctivitis of both eyes, Upper respiratory infection, Bronchitis Primary Care Provider: Berta Pritchard ED Provider: Papo Cortez Home Meds and New Rx's Prescriptions: New levofloxacin 750 mg tablet 750 mg PO DAILY 5 Days Qty: 5 RF: 0 erythromycin 5 mg/gram (0.5 %) ointment 0.5 inch OP QID Qty: 3.5 RF: 0 Continued sirolimus 1 mg tablet 1 mg PO BID RF: 0 montelukast [Singulair] 4 MG tablet,chewable 4 mg PO HS RF: 0 Flovent HFA 10.6 GM HFA aerosol inhaler 1 puff Inhalation BID RF: 0 Aranesp (in polysorbate) 200 mcg/mL solution 400 mcg SC ONCE PRNRF: 0 albuterol sulfate 90 mcg/actuation Hfa Aerosol Inhaler 2 puff Inhalation Q6H PRN PRN (Reason: Shortness Of Breath) RF: 0 guaifenesin [Mucinex] 600 mg Tablet Extended Release 12hr 600 mg PO BID PRN PRN (Reason: cough) Qty: 30 RF: 0 ibuprofen 200 mg Tablet RF: 0 Discontinued sulfamethoxazole-trimethoprim [Bactrim DS] 800-160 mg tablet 1 tab PO .3x/week RF: 0 prednisone 5 mg tablet 7.5 mg PO DAILY RF: 0 Discharge Instructions Instructions: Acute Bronchitis (ED) Additional Instructions: You have been evaluated in the emergency department today for an apparent upper respiratory infection. There is no evidence of pneumonia on chest x-ray today. I have discussed your case with infectious disease at [facility] who recommends antibiotic therapy. It is very important that you take this medication for its full course and follow-up with hematology tomorrow. Return to the emergency department should your symptoms worsen or you develop shortness of breath, fever, vomiting. Call should you have any questions or concerns Referrals: Berta Pritchard, SCREW MACHINE OPERATOR [Primary Care Provider] - 5 days Medical Decision Making Mr. Bro is a 63-year-old nontoxic-appearing gentleman presented to the emergency department for URI symptoms and fever over the course of several days. Vitals show a slight tachycardia at 100 bpm with a temperature of 38.3 degrees C. Fever has defervesced status post antipyretics. White blood cell count within normal limits. Slight elevation in CRP. Chest x-ray shows no acute pathology. Negative ACS work-up. EKG unchanged from prior. Patient is high risk for opportunistic infection secondary to immunosuppression therefore case discussed with [facility] infectious disease Dr. Waters. Her recommendations at this time would be to initiate Levaquin 750 mg p.o. daily x5 days. Patient is otherwise well-appearing and I do not feel admission is necessary at this time. He also has what appears to be bilateral exudative conjunctivitis. Erythromycin oi ntment given. He will follow-up with hematology tomorrow. Strict return precautions provided. He is stable for discharge at the [facility] Results - last 24 hr 02/02/19 02/02/19 02/02/19 20:43 20:43 20:43 WBC 6.97 RBC 4.01 L Hgb 11.9 L Hct 36.8 L MCV 91.8 MCH 29.7 MCHC 32.3 RDW 13.9 Plt Count 207 MPV 9.2 Immature Gran % 0.1 Neutrophils % 81.4 Lymphocytes % 5.6 Monocytes % 10.6 Eosinophils % 2.2 Basophils % 0.1 Absolute Neutrophils 5.67 Absolute Lymphocytes 0.39 L Absolute Monocytes 0.74 H Absolute Eosinophils 0.15 Absolute Basophils 0.01 VBG pH VBG pCO2 VBG pO2 VBG HCO3 VBG Total CO2 VBG O2 Saturation VBG Base Excess Sodium 138 Potassium 4.2 Chloride 102 Carbon Dioxide 26.4 Anion Gap 9.6 BUN 16 Creatinine 1.27 Estimated GFR/1.73 m2 57.10 Glucose 116 H Lactate 0.9 Calcium 8.5 Total Bilirubin 0.2 AST 19 ALT 22 Alkaline Phosphatase 79 Troponin I C-Reactive Protein Total Protein 7.1 Albumin 3.5 Urine Color Urine Clarity Urine pH Ur Specific [place] Urine Protein Urine Ketones Urine Blood Urine Nitrite Urine Bilirubin Urine Urobilinogen Ur Leukocyte Esterase Urine RBC Urine WBC Ur Epithelial Cells Urine Crystals Urine Bacteria Urine Casts Urine Mucus Urine Other Ur Culture Indicated? Urine Glucose 02/02/19 02/02/19 02/02/19 20:43 20:43 20:43 WBC RBC Hgb Hct MCV MCH MCHC RDW Plt Count MPV Immature Gran % Neutrophils % Lymphocytes % Monocytes % Eosinophils % Basophils % Absolute Neutrophils Absolute Lymphocytes Absolute Monocytes Absolute Eosinophils Absolute Basophils VBG pH 7.41 VBG pCO2 44 VBG pO2 36 VBG HCO3 28 VBG Total CO2 25 VBG O2 Saturation 68 L VBG Base Excess 2.9 Sodium Potassium Chloride Carbon Dioxide Anion Gap BUN Creatinine Estimated GFR/1.73 m2 Glucose Lactate Calcium Total Bilirubin AST ALT Alkaline Phosphatase Troponin I < 0.02 C-Reactive Protein 7.93 H Total Protein Albumin Urine Color Urine Clarity Urine pH Ur Specific [place] Urine Protein Urine Ketones Urine Blood Urine Nitrite Urine Bilirubin Urine Urobilinogen Ur Leukocyte Esterase Urine RBC Urine WBC Ur Epithelial Cells Urine Crystals Urine Bacteria Urine Casts Urine Mucus Urine Other Ur Culture Indicated? Urine Glucose 02/02/19 21:55 WBC RBC Hgb Hct MCV MCH MCHC RDW Plt Count MPV Immature Gran % Neutrophils % Lymphocytes % Monocytes % Eosinophils % Basophils % Absolute Neutrophils Absolute Lymphocytes Absolute Monocytes Absolute Eosinophils Absolute Basophils VBG pH VBG pCO2 VBG pO2 VBG HCO3 VBG Total CO2 VBG O2 Saturation VBG Base Excess Sodium Potassium Chloride Carbon Dioxide Anion Gap BUN Creatinine Estimated GFR/1.73 m2 Glucose Lactate Calcium Total Bilirubin AST ALT Alkaline Phosphatase Troponin I C-Reactive Protein Total Protein Albumin Urine Color Yellow Urine Clarity Clear Urine pH 5.5 Ur Specific [place] 1.020 Urine Protein Trace H Urine Ketones Negative Urine Blood Trace-lysed H Urine Nitrite Negative Urine Bilirubin Negative Urine Urobilinogen 0.2 Ur Leukocyte Esterase Negative Urine RBC 0-2 Urine WBC Negative Ur Epithelial Cells Negative Urine Crystals Negative Urine Bacteria Rare Urine Casts Negative Urine Mucus Negative Urine Other Negative Ur Culture Indicated? No Urine Glucose Negative ECG Data Interpretation: Sinus rhythm right bundle branch block unchanged from previous. Negative for ST elevation [place] HPI General Date/Time Provider Initiated Documentation: 02/02/19 19:53 . HPI Narrative: Patient is a 63-year-old male with significant past medical history of myelodysplastic syndrome, graft versus host disease, chronic kidney disease and rheumatoid arthritis who presents with roughly 1 week of cough, weakness, sore throat, nausea and diarrhea. He has been taking ibuprofen for fever. He presents today with fever of 38.6 ?C. She denies any chest pain or heaviness. She is currently on immunosuppressive therapy. He admits to being on Bactrim roughly 16 days ago. Related Data Home Medications Medication Instructions Recorded Confirmed Flovent HFA 1 puff INHALATION BID inhaler 11/02/17 02/02/19 montelukast [Singulair] 4 mg PO HS tab.chew 11/02/17 02/02/19 albuterol sulfate 2 puff INHALATION Q6H PRN PRN 10/12/18 02/02/19 guaifenesin [Mucinex] 600 mg PO BID PRN PRN #30 tab 10/16/18 02/02/19 sirolimus 1 mg tablet 1 mg PO BID 10/22/18 02/02/19 darbepoetin edilma 200 mcg/mL in 400 mcg SC ONCE PRN ml 12/16/18 polysorbate injection erythromycin 0.5 inch OP QID #3.5 gm 02/02/19 ibuprofen 02/02/19 levofloxacin 750 mg PO DAILY 5 Days #5 tab 02/02/19 Previous Rx's Medication Instructions Recorded guaifenesin [Mucinex] 600 mg PO BID PRN PRN #30 tab 10/16/18 erythromycin 0.5 inch OP QID #3.5 gm 02/02/19 levofloxacin 750 mg PO DAILY 5 Days #5 tab 02/02/19 Allergies Allergy/AdvReac Type Severity Reaction Status Date / Time methotrexate AdvReac Severe Myelodysplastic Verified 02/02/19 19:56 Syndrome General Stated Complaint: RespSymp AFIA: 3 Review of Systems Constitutional Denies anorexia, Denies body ache(s), Reports chills, Denies difficulty sleeping, Reports fever(s), Reports headache(s), Denies increased appetite, Reports lethargy, Reports weakness and Denies weight loss Eyes Denies eye discharge ENT Denies dizziness, Reports headache(s), Reports sinus pressure and Reports sore throat Cardiovascular Denies chest pain, Denies syncope, Denies pedal edema, Denies edema, Denies irregular heart rhythm, Denies dyspnea, Reports dyspnea on exertion and Denies orthopnea Respiratory Reports chest congestion, Reports cough, Denies dyspnea and Reports dyspnea on exertion Gastrointestinal Denies abdominal pain, Denies diarrhea, Reports nausea and Reports vomiting Genitourinary Denies dysuria Musculoskeletal Denies myalgias and Denies joint swelling Integumentary/Breasts Denies new lesions and Denies rash Neurologic Denies dizziness, Denies syncope, Reports headache(s) and Reports weakness Hematologic/Lymphatic Denies easy bleeding and Denies easy bruising [facility] Medical History Influenza A (Acute) CKD (chronic kidney disease) (Chronic) Ydzia-qfvsng-dnhm disease (Chronic) Hyperlipidemia (Chronic) MDS (myelodysplastic syndrome) (Chronic) Osteoporosis (Chronic) Rheumatoid arthritis (Chronic) Surgical History History of bone marrow transplant (Chronic) History of tonsillectomy (Chronic) S/P emergency tracheotomy for assistance in breathing (Resolved) Stem Cell Transplant (10/18/16) Family History Maternal Grandfather Stroke Mother Diabetes Colon cancer Father Diabetes Social History Smoking/Tobacco Use Status: Former Tobacco Use Drug use: Never Do you feel safe in your relationship?: Yes Exam Const General: cooperative, comfortable and no acute distress Orientation: alert and awake HENMT Head: normal to inspection Ears: hearing grossly normal bilaterally, external ears normal and TM's normal bilaterally General nose exam: external nose normal Face and sinus: normal facial exam Mouth: oral mucosae normal Teeth and gingiva: dentition normal Throat: posterior oropharynx normal, tonsils normal and uvula midline Eyes Periorbital: periorbital findings normal Conjunctivae: conjunctival abnormality bilaterally conjunctival injection and discharge Sclera: scleral abnormality bilaterally scleral injection Neck Neck: normal visual inspection, full ROM, no lymphadenopathy and no meningeal signs Chest Chest: normal inspection of the chest Resp Effort & Inspection: normal respiratory effort and able to speak in complete sentences Auscultation: clear to auscultation bilaterally Cardio Jugular venous pressure: no JVD Rate: tachycardic Rhythm: regular rhythm Heart Sounds: S1 normal and S2 normal Pulses: normal peripheral pulses GI Inspection: normal to inspection Palpation: soft and no hepatosplenomegaly Back/Spine/Pelvis Back: no CVA tenderness Cervical Spine: normal cervical lordosis Thoracic/Lumbar Spine: thoracic and lumbar spine normal to inspection Skin General skin exam: no rashes or lesions noted Neuro General: alert, awake and oriented x3 Course Vital Signs Temperature 38.6 C H 02/02/19 19:52 Pulse 104 H 02/02/19 19:52 Respiratory Rate 15 02/02/19 19:52 Blood Pressure 142/85 H 02/02/19 19:52 Pulse Oximetry 95 02/02/19 19:52 Temperature 38.6 C H 02/02/19 19:52 Temperature Source Temporal Artery Scan 02/02/19 19:52 Pulse 104 H 02/02/19 19:52 Respiratory Rate 15 02/02/19 19:52 Respiratory Effort 02/02/19 20:05 Blood Pressure 142/85 H 02/02/19 19:52 Pulse Oximetry 95 02/02/19 19:52 Oxygen Delivery Method Room Air 02/02/19 19:52 Oxygen Flow Rate 0 02/02/19 19:52
[2019-02-02 20:48] LABS: Abs Immature Grans 0.01 k/cumm (0.0-0.09); Absolute Basophil Count 0.01 k/cumm (0.0-0.2); Absolute Eosinophil Count 0.15 k/cumm (0.0-0.7); Absolute Lymphocyte Count 0.39 k/cumm (1.2-3.4); Absolute Monocyte Count 0.74 k/cumm (0.11-0.7); Absolute Neutrophil Count 5.67 k/cumm (1.2-6.7); Basophils % 0.1; Eosinophils % 2.2; HCT 36.8 % (40.0-50.0); HGB 11.9 g/dL (13.5-17.5); Immature Grans % 0.1; Lymphocytes % 5.6; Mean Corp. HGB Concentration 32.3 g/dL (32.0-36.0); Mean Corpuscular Hemoglobin 29.7 pg (27.0-33.0); Mean Corpuscular Volume 91.8 fL (80-95); Mean Platelet Volume 9.2 fL (8.0-11.0); Monocytes % 10.6; Neutrophils % 81.4; Platelet Count 207 x1000/uL (130-400); RBC 4.01 m/cumm (4.50-6.00); RBC Distribution Width 13.9 % (11.8-14.1); White Blood Cell Count 6.97 k/cumm (4.4-10.8)
[2019-02-02 20:49] LABS: BE (Venous) 2.9 mmol/L (-3-3); HCO3 (Venous) 28 mmol/L (22-28); O2 Sat (Venous) 68 % (70-80); TCO2 (Venous) 25 mmol/L (22-29); pCO2 (Venous) 44 mm/Hg (34-47); pH (Venous) 7.41 (7.32-7.43); pO2 (Venous) 36 mm/Hg (28-44)
--- NOTE | 2019-02-02 20:50 | DI.RAD_ITS ---
SYMPTOMS/DIAGNOSIS: COUGH, SHORTNESS OF BREATH, FATIGUE CHEST X-RAY, FRONTAL AND LATERAL VIEWS: Comparison is 10/14/18. The heart size and pulmonary vasculature are within normal limits. There are no focal consolidating infiltrates, effusions or pneumothoraces present. There are old thoracic spine fractures noted. IMPRESSION: No acute pulmonary process.
[2019-02-02 20:54] LABS: Lactate-non-spesis 0.9 mmol/l (0.6-1.4)
[2019-02-02] MEDS: Acetaminophen 325 MG TAB 650 MG PO (20:56)
[2019-02-02 20:57] VITALS: RESP 3; RESP 7
[2019-02-02] MEDS: Normal Saline 1,000 ML 1000 ML IV (20:57)
[2019-02-02] MEDS: Albuterol/Ipratropium 3 ML UPD VIAL UPD (20:57)
[2019-02-02 21:06] LABS: ALT 22 U/L (12-78); AST 19 U/L (15-37); Albumin 3.5 g/dL (3.4-5.0); Alkaline Phosphatase 79 U/L (46-116); Anion Gap 9.6 mmol/L (3-11); BUN 16 mg/dL (7-18); Bilirubin, Total 0.2 mg/dL (0.2-1.0); CO2 26.4 mmol/L (21.0-32.0); CREATININE 1.27 mg/dL (0.70-1.30); Calcium 8.5 mg/dL (8.5-10.1); Chloride 102 mmol/L (98-107); Glucose 116 mg/dL (70-100); Potassium 4.2 mmol/L (3.5-5.1); Sodium 138 mmol/L (136-145); Total Protein 7.1 g/dL (6.4-8.2)
[2019-02-02 21:08] VITALS: BP 136/75; PULSE 101; RESP 19; TEMP 38.3; O2SAT 94
--- NOTE | 2019-02-02 21:13 | DI.VRAD_ITS ---
EXAM: XR Chest, 2 Views EXAM DATE/TIME: 02/02/2019 8:14 PM CLINICAL HISTORY: 63 years old, male; Signs and symptoms; Patient HX: Cough and fever for 1 week TECHNIQUE: Imaging protocol: XR of the chest, 2 views. COMPARISON: CR XR PORTABLE CHEST AP 10/14/2018 11:55 AM FINDINGS: Lungs: No airspace consolidation. Pleural space: No pleural effusion. No pneumothorax. Heart/Mediastinum: No cardiomegaly. Bones/joints: No acute fracture. IMPRESSION: No acute cardiopulmonary pathology. Dictated and Authenticated by: Alicia Christianson MD. Ordering:LARISSA Barros MD
[2019-02-02 21:30] LABS: C-Reactive Protein 7.93 mg/dL (0.0-0.3)
[2019-02-02 21:58] LABS: Bilirubin Negative (Negative); Blood Trace-lysed (Negative); Clarity Clear; Glucose Negative (Negative); Ketones Negative (Negative); Leukocyte Esterase Negative (Negative); Nitrite Negative (Negative); Urobilinogen 0.2 EU/dL (Up TO 0.2); pH 5.5 (5-8)
[2019-02-02 22:07] LABS: Bacteria Rare HPF (Negative); Crystals Negative HPF (Negative); Epithelial Cells Negative HPF (Negative); Mucus Negative (Negative); Other Cells Negative (Negative); RBC 0-2 (0-2); WBC Negative HPF (0-5)
[2019-02-02 22:08] LABS: C & S Indicated? No; Casts Negative LPF (Negative)
[2019-02-02 22:24] LABS: Troponin I < 0.02 ng/mL (0.00-0.06)
[2019-02-02] MEDS: levoFLOXacin 250 MG TAB (22:25)
[2019-02-02] MEDS: levoFLOXacin 500 MG TAB (22:25)
[2019-02-02] MEDS: Erythromycin Ophth Oint 3.5 GM TUBE (22:25)
[2019-02-02 22:42] VITALS: TEMP 37.7
== END 2019-02-02 22:44 | disposition home or self-care (01) ==
PROVIDERS: Emergency Provider Physician Assistant; PCP Nurse Practitioner
DX: H10.33 Unspecified acute conjunctivitis, bilateral (principal); J06.9 Acute upper respiratory infection, unspecified; J20.9 Acute bronchitis, unspecified; R00.0 Tachycardia, unspecified; Z87.891 Personal history of nicotine dependence
CPT/HCPCS: 36415; 80053; 82805; 87040; 93005; 94640; 96360; 99285; 71046; 81003; 81015; 83605; 84484; 85025; 86140; 93010; J7620

== ENCOUNTER 2019-02-07 02:05 | Outpatient (CLI) | payer BC, SELFPAY ==
[2019-02-07 07:52] LABS: Abs Immature Grans 0.01 k/cumm (0.0-0.09); Absolute Basophil Count 0.01 k/cumm (0.0-0.2); Absolute Eosinophil Count 0.14 k/cumm (0.0-0.7); Absolute Lymphocyte Count 0.63 k/cumm (1.2-3.4); Absolute Monocyte Count 0.55 k/cumm (0.11-0.7); Absolute Neutrophil Count 3.71 k/cumm (1.2-6.7); Basophils % 0.2; Eosinophils % 2.8; HCT 37.4 % (40.0-50.0); HGB 11.9 g/dL (13.5-17.5); Immature Grans % 0.2; Lymphocytes % 12.5; Mean Corp. HGB Concentration 31.8 g/dL (32.0-36.0); Mean Corpuscular Hemoglobin 28.9 pg (27.0-33.0); Mean Corpuscular Volume 90.8 fL (80-95); Mean Platelet Volume 8.7 fL (8.0-11.0); Monocytes % 10.9; Neutrophils % 73.4; Platelet Count 248 x1000/uL (130-400); RBC 4.12 m/cumm (4.50-6.00); RBC Distribution Width 13.7 % (11.8-14.1); White Blood Cell Count 5.05 k/cumm (4.4-10.8)
== END 2019-02-07 02:25 ==
PROVIDERS: PCP Nurse Practitioner; Visit Provider Nurse Practitioner
DX: D46.9 Myelodysplastic syndrome, unspecified (principal)
CPT/HCPCS: 36415; 85025

== ENCOUNTER 2019-03-07 13:27 | Outpatient (CLI) | payer BC, SELFPAY ==
[2019-03-07 15:23] LABS: Absolute Basophil Count 0.01 k/cumm (0.0-0.2); Absolute Eosinophil Count 0.01 k/cumm (0.0-0.7); Absolute Lymphocyte Count 0.52 k/cumm (1.2-3.4); Absolute Monocyte Count 0.88 k/cumm (0.11-0.7); Absolute Neutrophil Count 4.56 k/cumm (1.2-6.7); Basophils % 0.2; Eosinophils % 0.2; HCT 34.5 % (40.0-50.0); Lymphocytes % 8.7; Mean Corp. HGB Concentration 31.9 g/dL (32.0-36.0); Mean Platelet Volume 8.6 fL (8.0-11.0); Monocytes % 14.7; Neutrophils % 76.2; Platelet Count 189 x1000/uL (130-400); RBC 3.79 m/cumm (4.50-6.00); RBC Distribution Width 14.6 % (11.8-14.1); White Blood Cell Count 5.98 k/cumm (4.4-10.8)
== END 2019-03-07 13:47 ==
PROVIDERS: PCP Nurse Practitioner; Visit Provider Nurse Practitioner
DX: D46.9 Myelodysplastic syndrome, unspecified (principal)
CPT/HCPCS: 36415; 85025

== ENCOUNTER 2019-03-11 10:59 | Inpatient (IN) | payer BC, SELFPAY ==
[2019-03-11] VITALS (59 sets, daily range): BP systolic 104–144; BP diastolic 51–101; PULSE 63–110; RESP 14–34; TEMP 36.8–38.4; O2SAT 93–100
--- NOTE | 2019-03-11 11:17 | DI.RAD_ITS ---
SYMPTOMS/DIAGNOSIS: FATIGUE, COUGH, ON IMMUNOSUPPRESSION PA AND LATERAL CHEST: The heart is not enlarged. The lungs are predominantly clear but there is an area of apparent focal patchy consolidation involving portions of the left upper lobe posteriorly. Note is made of a nipple shadow on the right also seen on previous examination of 01/12/15. No pleural effusion seen. Cardiac size within normal limits. CONCLUSION: Findings consistent with left upper lobe pneumonia.
[2019-03-11 11:34] LABS: Bilirubin Negative (Negative); Blood Small (Negative); Clarity Clear; Glucose Negative (Negative); Ketones Negative (Negative); Leukocyte Esterase Negative (Negative); Nitrite Negative (Negative); Urobilinogen 0.2 EU/dL (Up TO 0.2)
--- NOTE | 2019-03-11 11:39 | W.ED.GENAD ---
Discharge Plan Disposition Patient Disposition: [facility] INPATIENT Condition: Improving Discharge Details Chief Complaint: GenMedical Clinical Impression: Community acquired pneumonia, Myelodysplastic disease, Fatigue Primary Care Provider: Berta Pritchard ED Provider: Inder Alcantara Home Meds and New Rx's Prescriptions: No Action sirolimus 1 mg tablet 1 mg PO BID RF: 0 montelukast [Singulair] 4 MG tablet,chewable 4 mg PO HS RF: 0 Flovent HFA 10.6 GM HFA aerosol inhaler 1 puff Inhalation BID RF: 0 albuterol sulfate 90 mcg/actuation Hfa Aerosol Inhaler 2 puff Inhalation Q6H PRN PRN (Reason: Shortness Of Breath) RF: 0 guaifenesin [Mucinex] 600 mg Tablet Extended Release 12hr 600 mg PO BID PRN PRN (Reason: cough) Qty: 30 RF: 0 ibuprofen 200 mg Tablet RF: 0 Medical Decision Making This is a very pleasant 63-year-old male with past medical history of myelodysplastic syndrome and subsequent bone marrow transplant 2016 who is now currently on sirolimus. He presents for 2 to 3 days of weakness, and fatigue in conjunction with a mild dry cough. He denies any current fever but did admit to chills 4 days ago. He denies any bowel or bladder complaints. Exam demonstrates no significant abnormality, unremarkable vital signs. The patient is certainly at risk with his immunosuppression, we will evaluate for potential infectious etiology, thyroid cause, and cardiac cause of his symptoms. Clinically with no chest symptoms of shortness of breath, chest pain, or pleuritic chest pain I do not think that pulmonary embolism is unlikely. We will get a chest x-ray to evaluate for pneumonia 4:16 PM The patient laboratory work-up has returned, no significant white count, no ramesh neutropenia. Hemoglobin is 10.4, electrolytes stable, renal function stable, TSH, troponin and proBNP are all normal. Urinalysis is negative for infection. Chest x-ray shows evidence of left upper lobe infiltrate per radiology. Patient has not been admitted within the last 90 days. We will start Rocephin and doxycycline. I did contact [facility] and discussed the case with her oncologist, they do not feel that him being 28 months out from his initial transplant put him at risk for any atypical opportunistic infections. They agree with the current antibiotics of Rocephin and doxycycline. They have no additional recommendations. Additionally they do not feel that this is secondary to rejection. I discussed the case with Dr. Benjamin, she agrees with the assessment and plan. I have extensively reviewed the treatment plan with the patient. I have addressed all patient concerns at this time. I have also discussed the plan with the admitting physician and they agree with the current assessment and plan and have agreed to assume responsibility for the patient. All parties demonstrate verbal understanding and agreement with our assessment and plan at this time. EKG 11: 23 Rate 66, intervals benign, sinus rhythm, questionable mild right bundle branch block with left axis bifascicular block. Inverted T wave is present in V1 and lead III, no significant ST elevations or depressions, no large Q waves. Review of previous EKG from 10/12/2018 demonstrates identical findings. Exam(s) a RAD:XR chest 2V PA & lateral SYMPTOMS/DIAGNOSIS: FATIGUE, COUGH, ON IMMUNOSUPPRESSION PA AND LATERAL CHEST: The heart is not enlarged. The lungs are predominantly clear but there is an area of apparent focal patchy consolidation involving portions of the left upper lobe posteriorly. Note is made of a nipple shadow on the right also seen on previous examination of 01/12/15. No pleural effusion seen. Cardiac size within normal limits. CONCLUSION: Findings consistent with left upper lobe pneumonia. Ordered By: Inder Alcantara DO [facility] General Date/Time Provider Initiated Documentation: 03/11/19 11:01. HPI Narrative: This is a 63-year-old male with a past medical history of myelodysplastic syndrome with a stem cell transplant 2017 currently on sirolimus who presents today for evaluation of fatigue. Patient states that for the last few days he has felt notably fatigued, he does admit to a dry cough with no productivity. He denies any chest pain or shortness of breath, bandlike sensation in his chest or arm or neck pain. He denies any vomiting or diarrhea, melena, hematochezia, or acholic stool. He denies any fever, but did have chills 4 days ago. He denies any change in his medication, or any other sick contacts. He denies any dysuria. He has no other complaints at this time. No other modifying factors. He denies having felt like this in the past. He is regularly seen at [facility] for oncology. He has not had any recent chemotherapy or radiation for the last 2 years. The patient also does note a 10 pound weight loss in the last week to week and a half. Related Data Home Medications Medication Instructions Recorded Confirmed Flovent HFA 1 puff INHALATION BID inhaler 11/02/17 03/11/19 montelukast [Singulair] 4 mg PO HS tab.chew 11/02/17 03/11/19 albuterol sulfate 2 puff INHALATION Q6H PRN PRN 10/12/18 03/11/19 guaifenesin [Mucinex] 600 mg PO BID PRN PRN #30 tab 10/16/18 03/11/19 sirolimus 1 mg tablet 1 mg PO BID 10/22/18 03/11/19 ibuprofen 02/02/19 02/07/19 Previous Rx's Medication Instructions Recorded guaifenesin [Mucinex] 600 mg PO BID PRN PRN #30 tab 10/16/18 Allergies Allergy/AdvReac Type Severity Reaction Status Date / Time methotrexate AdvReac Severe Myelodysplastic Verified 02/07/19 08:22 Syndrome General Stated Complaint: GenMedical AFIA: 3 Review of Systems Review of Systems All systems reviewed & are unremarkable except as noted in HPI and below PFSH Social History Smoking/Tobacco Use Status: Former Tobacco Use Alcohol Intake: current Alcohol Intake frequency: a few times a week Drug use: Never Substance use type: does not use Caregiver/Support person: No Household members: spouse Communication Needs: None Education Level: high school Current gender identity: male What type of physical activity do you participate in: regular exercise and other Details: bowling Frequency: daily Seatbelt use: always Helmet use: No Drive intox 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 3.ENT: Atraumatic external nose and ears. Moist MM. Neck: Symmetric, trachea midline, No thyromegaly. 4.CVS: +S1/S2, No murmurs or gallops. Peripheral pulses 2+ and equal in all extremities. Brisk capillary refill in all extremities. 5.RESP: Unlabored respiratory effort. Clear to auscultation bilaterally. No wheezes rales or rhonchi 6.GI: Soft, Nontender/Nondistended, No hepatosplenomegaly. No guarding or rebound. 7.MSK: Normocephalic/Atraumatic, Extremities w/o deformity or ttp No cyanosis or clubbing, Normal movement of all extremities 8.Skin: Warm, Dry. No rashes or lesions. 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 Sensation grossly intact, no focal neurologic deficits. 10.Psych: (AAO) x3. Appropriate mood and affect Course Vital Signs Temperature 37.2 C 03/11/19 11:05 Pulse 79 03/11/19 11:05 Respiratory Rate 18 03/11/19 11:05 Blood Pressure 140/80 03/11/19 11:05 Pulse Oximetry 99 03/11/19 11:05 Temperature 37.2 C 03/11/19 11:05 Pulse 79 03/11/19 11:05 Respiratory Rate 18 03/11/19 11:05 Respiratory Effort Non-Labored 03/11/19 11:09 Blood Pressure 140/80 03/11/19 11:05 Blood Pressure Position Sitting 03/11/19 11:05 Pulse Oximetry 99 03/11/19 11:05 Oxygen Delivery Method Room Air 03/11/19 11:05 Oxygen Flow Rate 0 03/11/19 11:05 Pain Level 0 03/11/19 11:05 Lab/Test Results Lab/Test Results: 03/11/19 11:17 Blood Blood Culture - Pending 03/11/19 11:17 Blood Blood Culture - Pending Laboratory Tests Range/Units 03/11/19 11:22 Urine Color (Yellow) Yellow Urine Clarity Clear Urine pH (5-8) 5.0 Ur Specific [place] (1.005-1.025) 1.020 Urine Protein (Negative) mg/dL Negative Urine Ketones (Negative) mg/dL Negative Urine Blood (Negative) Small H Urine Nitrite (Negative) Negative Urine Bilirubin (Negative) Negative Urine Urobilinogen (Up TO 0.2) EU/dL 0.2 Ur Leukocyte Esterase (Negative) Negative Urine Glucose (Negative) mg/dL Negative
[2019-03-11] MEDS: Normal Saline 1,000 ML 1000 ML IV (11:40)
--- NOTE | 2019-03-11 11:44 | ED.GENADUL_ITS ---
Discharge Plan Disposition Patient Disposition: [facility] INPATIENT Condition: Improving Discharge Details Chief Complaint: GenMedical Clinical Impression: Community acquired pneumonia, Myelodysplastic disease, Fatigue Primary Care Provider: Berta Pritchard ED Provider: Inder Alcantara Home Meds and New Rx's Prescriptions: No Action sirolimus 1 mg tablet 1 mg PO BID RF: 0 montelukast [Singulair] 4 MG tablet,chewable 4 mg PO HS RF: 0 Flovent HFA 10.6 GM HFA aerosol inhaler 1 puff Inhalation BID RF: 0 albuterol sulfate 90 mcg/actuation Hfa Aerosol Inhaler 2 puff Inhalation Q6H PRN PRN (Reason: Shortness Of Breath) RF: 0 guaifenesin [Mucinex] 600 mg Tablet Extended Release 12hr 600 mg PO BID PRN PRN (Reason: cough) Qty: 30 RF: 0 ibuprofen 200 mg Tablet RF: 0 Medical Decision Making This is a very pleasant 63-year-old male with past medical history of myelodysplastic syndrome and subsequent bone marrow transplant 2016 who is now currently on sirolimus. He presents for 2 to 3 days of weakness, and fatigue in conjunction with a mild dry cough. He denies any current fever but did admit to chills 4 days ago. He denies any bowel or bladder complaints. Exam demonstrates no significant abnormality, unremarkable vital signs. The patient is certainly at risk with his immunosuppression, we will evaluate for potential infectious etiology, thyroid cause, and cardiac cause of his symptoms. Clinically with no chest symptoms of shortness of breath, chest pain, or pleuritic chest pain I do not think that pulmonary embolism is unlikely. We will get a chest x-ray to evaluate for pneumonia 4:16 PM The patient laboratory work-up has returned, no significant white count, no ramesh neutropenia. Hemoglobin is 10.4, electrolytes stable, renal function stable, TSH, troponin and proBNP are all normal. Urinalysis is negative for infection. Chest x-ray shows evidence of left upper lobe infiltrate per radiology. Patient has not been admitted within the last 90 days. We will start Rocephin and doxycycline. I did contact [facility] and discussed the case with her oncologist, they do not feel that him being 28 months out from his initial transplant put him at risk for any atypical opportunistic infections. They agree with the current antibiotics of Rocephin and doxycycline. They have no additional recommendations. Additionally they do not feel that this is secondary to rejection. I discussed the case with Dr. Benjamin, she agrees with the assessment and plan. I have extensively reviewed the treatment plan with the patient. I have addressed all patient concerns at this time. I have also discussed the plan with the admitting physician and they agree with the current assessment and plan and have agreed to assume responsibility for the patient. All parties demonstrate verbal understanding and agreement with our assessment and plan at this time. EKG 11: 23 Rate 66, intervals benign, sinus rhythm, questionable mild right bundle branch block with left axis bifascicular block. Inverted T wave is present in V1 and lead III, no significant ST elevations or depressions, no large Q waves. Review of previous EKG from 10/12/2018 demonstrates identical findings. Exam(s) a RAD:XR chest 2V PA & lateral SYMPTOMS/DIAGNOSIS: FATIGUE, COUGH, ON IMMUNOSUPPRESSION PA AND LATERAL CHEST: The heart is not enlarged. The lungs are predominantly clear but there is an area of apparent focal patchy consolidation involving portions of the left upper lobe posteriorly. Note is made of a nipple shadow on the right also seen on previous examination of 01/12/15. No pleural effusion seen. Cardiac size within normal limits. CONCLUSION: Findings consistent with left upper lobe pneumonia. Ordered By: Inder Alcantara DO [facility] General Date/Time Provider Initiated Documentation: 03/11/19 11:01 . HPI Narrative: This is a 63-year-old male with a past medical history of myelodysplastic syndrome with a stem cell transplant 2017 currently on sirolimus who presents today for evaluation of fatigue. Patient states that for the last few days he has felt notably fatigued, he does admit to a dry cough with no productivity. He denies any chest pain or shortness of breath, bandlike sensation in his chest or arm or neck pain. He denies any vomiting or diarrhea, melena, hematochezia, or acholic stool. He denies any fever, but did have chills 4 days ago. He denies any change in his medication, or any other sick co ntacts. He denies any dysuria. He has no other complaints at this time. No other modifying factors. He denies having felt like this in the past. He is regularly seen at [facility] for oncology. He has not had any recent chemotherapy or radiation for the last 2 years. The patient also does note a 10 pound weight loss in the last week to week and a half. Related Data Home Medications Medication Instructions Recorded Confirmed Flovent HFA 1 puff INHALATION BID inhaler 11/02/17 03/11/19 montelukast [Singulair] 4 mg PO HS tab.chew 11/02/17 03/11/19 albuterol sulfate 2 puff INHALATION Q6H PRN PRN 10/12/18 03/11/19 guaifenesin [Mucinex] 600 mg PO BID PRN PRN #30 tab 10/16/18 03/11/19 sirolimus 1 mg tablet 1 mg PO BID 10/22/18 03/11/19 ibuprofen 02/02/19 02/07/19 Previous Rx's Medication Instructions Recorded guaifenesin [Mucinex] 600 mg PO BID PRN PRN #30 tab 10/16/18 Allergies Allergy/AdvReac Type Severity Reaction Status Date / Time methotrexate AdvReac Severe Myelodysplastic Verified 02/07/19 08:22 Syndrome General Stated Complaint: GenMedical AFIA: 3 Review of Systems Review of Systems All systems reviewed & are unremarkable except as noted in HPI and below PFSH Social History Smoking/Tobacco Use Status: Former Tobacco Use Alcohol Intake: current Alcohol Intake frequency: a few times a week Drug use: Never Substance use type: does not use Caregiver/Support person: No Household members: spouse Communication Needs: None Education Level: high school Current gender identity: male What type of physical activity do you participate in: regular exercise and other Details: bowling Frequency: daily Seatbelt use: always Helmet use: No Drive intox or ride w/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 3.ENT: Atraumatic external nose and ears. Moist MM. Neck: Symmetric, trachea midline, No thyromegaly. 4.CVS: +S1/S2, No murmurs or gallops. Peripheral pulses 2+ and equal in all extremities. Brisk capillary refill in all extremities. 5.RESP: Unlabored respiratory effort. Clear to auscultation bilaterally. No wheezes rales or rhonchi 6.GI: Soft, Nontender/Nondistended, No hepatosplenomegaly. No guarding or rebound. 7.MSK: Normocephalic/Atraumatic, Extremities w/o deformity or ttp No cyanosis or clubbing, Normal movement of all extremities 8.Skin: Warm, Dry. No rashes or lesions. 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 Sensation grossly intact, no focal neurologic deficits. 10.Psych: (AAO) x3. Appropriate mood and affect Course Vital Signs Temperature 37.2 C 03/11/19 11:05 Pulse 79 03/11/19 11:05 Respiratory Rate 18 03/11/19 11:05 Blood Pressure 140/80 03/11/19 11:05 Pulse Oximetry 99 03/11/19 11:05 Temperature 37.2 C 03/11/19 11:05 Pulse 79 03/11/19 11:05 Respiratory Rate 18 03/11/19 11:05 Respiratory Effort Non-Labored 03/11/19 11:09 Blood Pressure 140/80 03/11/19 11:05 Blood Pressure Position Sitting 03/11/19 11:05 Pulse Oximetry 99 03/11/19 11:05 Oxygen Delivery Method Room Air 03/11/19 11:05 Oxygen Flow Rate 0 03/11/19 11:05 Pain Level 0 03/11/19 11:05 Lab/Test Results Lab/Test Results: 03/11/19 11:17 Blood Blood Culture - Pending 03/11/19 11:17 Blood Blood Culture - Pending Laboratory Tests Range/Units 03/11/19 11:22 Urine Color (Yellow) Yellow Urine Clarity Clear Urine pH (5-8) 5.0 Ur Specific [place] (1.005-1.025) 1.020 Urine Protein (Negative) mg/dL Negative Urine Ketones (Negative) mg/dL Negative Urine Blood (Negative) Small H Urine Nitrite (Negative) Negative Urine Bilirubin (Negative) Negative Urine Urobilinogen (Up TO 0.2) EU/dL 0.2 Ur Leukocyte Esterase (Negative) Negative Urine Glucose (Negative) mg/dL Negative
[2019-03-11 11:49] LABS: Epithelial Cells Negative HPF (Negative); RBC 0-2 (0-2); WBC 0-2 HPF (0-5)
[2019-03-11 11:50] LABS: Bacteria Few HPF (Negative); C & S Indicated? No; Casts 0-2 Hyaline LPF (Negative); Crystals Negative HPF (Negative); Mucus Negative (Negative); Other Cells Negative (Negative)
[2019-03-11 12:08] LABS: Lactate-non-spesis 0.7 mmol/l (0.6-1.4)
[2019-03-11 12:10] LABS: Absolute Basophil Count 0.01 k/cumm (0.0-0.2); Absolute Eosinophil Count 0.06 k/cumm (0.0-0.7); Absolute Lymphocyte Count 0.74 k/cumm (1.2-3.4); Absolute Monocyte Count 0.68 k/cumm (0.11-0.7); Absolute Neutrophil Count 2.81 k/cumm (1.2-6.7); Basophils % 0.2; Eosinophils % 1.4; HCT 32.3 % (40.0-50.0); HGB 10.4 g/dL (13.5-17.5); Lymphocytes % 17.2; Mean Corp. HGB Concentration 32.2 g/dL (32.0-36.0); Mean Corpuscular Hemoglobin 28.8 pg (27.0-33.0); Mean Corpuscular Volume 89.5 fL (80-95); Mean Platelet Volume 8.6 fL (8.0-11.0); Monocytes % 15.8; Neutrophils % 65.4; Platelet Count 171 x1000/uL (130-400); RBC 3.61 m/cumm (4.50-6.00); RBC Distribution Width 13.9 % (11.8-14.1)
[2019-03-11 12:21] LABS: INR 1.3 (0.9-1.1); PTT Activated 26.7 sec (21.0-31.4); Prothrombin Time 12.6 sec (9.3-11.0)
[2019-03-11 12:35] LABS: ALT 24 U/L (12-78); AST 18 U/L (15-37); Albumin 3.1 g/dL (3.4-5.0); Alkaline Phosphatase 57 U/L (46-116); Anion Gap 8.1 mmol/L (3-11); BUN 18 mg/dL (7-18); Bilirubin, Total 0.2 mg/dL (0.2-1.0); CO2 25.9 mmol/L (21.0-32.0); CREATININE 1.06 mg/dL (0.70-1.30); Calcium 8.5 mg/dL (8.5-10.1); Chloride 100 mmol/L (98-107); Glucose 105 mg/dL (70-100); NT-proBNP 244 pg/mL; Potassium 4.1 mmol/L (3.5-5.1); Sodium 134 mmol/L (136-145); TSH (W/Ref FT4) 2.55 uIU/mL (0.358-3.74); Total Protein 6.5 g/dL (6.4-8.2); Troponin I < 0.02 ng/mL (0.00-0.06)
[2019-03-11] MEDS: cefTRIAXone 2 GM/50 ML BAG IVPB (14:40)
[2019-03-11] MEDS: DOXYCYCLINE 100 MG in Normal Saline 100 ML IVPB ×2 (14:53→23:47)
--- NOTE | 2019-03-11 17:18 | W.PM.HP.N ---
Date of service: 03/11/19 Time of Service: 17:18 Assessment and Plan (1) CAP (community acquired pneumonia): Current visit: Yes Status: Acute GONZALES per CXR. Continue rocephin/doxycycline initiated in the ED. May require steroids depending on status of bronchospasm tomorrow. For now, provide nebs. (2) Bronchospasm: Current visit: No Status: Acute As above (3) Rheumatoid arthritis: Current visit: No Status: Chronic Not on therapy as outpatient - prn tylenol (4) Myelodysplastic syndrome with 5q deletion: Current visit: No Status: Chronic s/p bone marrow transplant, on sirolimus therapy. sirolimus level pending - continue home doses for now. (5) Nocturia: Current visit: Yes Status: Acute Check PVR's to r/o urinary retention (6) Discharge planning issues: Current visit: No Status: Acute Full code (7) DVT prophylaxis: Current visit: No Status: Acute lovenox History of Present Illness Chief Complaint: I guess I have pneumonia Narrative: Mr hardin is a 63 year old male with PMHx of MDS s/p bone marrow transplant who has had a nonproductive cough for 2 weeks accompanied by chills, nasal congestion and sore throat at home. He also had diarrhea last week and things tasted poorly to him for several days last week, but this has now resolved. He also found himself getting short of breath with exertion (activities such as carrying boxes helping his get ready for a yard sale). He also describes increased urinary frequency and feeling thirsty, so he increased his PO water intake. He has been urinating 5 times a night. He feels he is emptying his bladder fully. In the ED, he was found to have GONZALES PNA. The findings were discussed with [facility] oncology - they do not feel this is [id number] disease, and there is little concern about rare pathogens. We were recommended to treat him with doxycycline and rocephin. He is being admitted for inpatient therapy due to his immunosuppression. Review of Systems Review of Systems 12 systems reviewed. 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 Water heater temp set <120 deg: Yes Working smoke detector in home: Yes Fire extinguisher in home: Yes Carbon monox detector in home: Yes Firearms in home: Yes Firearms unloaded and locked: Yes Do you feel safe at home: Yes Do you feel safe in your relationship?: Yes Meds Home Medications Medication Instructions Recorded Confirmed Type Flovent HFA 1 puff INHALATION BID inhaler 11/02/17 03/11/19 History albuterol sulfate 2 puff INHALATION Q6H PRN PRN 10/12/18 03/11/19 History sirolimus 1 mg tablet 1 mg PO BID 10/22/18 03/11/19 History fluticasone propionate [Flonase 1 spray INTRANASAL DAILY 03/11/19 03/11/19 History Allergy Relief] montelukast [Singulair] 4 mg PO HS 03/11/19 03/11/19 History Allergies Allergy/AdvReac Type Severity Reaction Status Date / Time methotrexate AdvReac Severe Myelodysplastic Verified 02/07/19 08:22 Syndrome Exam Narrative Exam Narrative: General: Very pleasant middle-aged male, sitting up in bed, A&Ox3, not in acute distress Neurological: A&Ox3, no focal deficits Psychiatric: appropriate speech pattern/content Skin: intact HEENT: Atraumatic, normocephalic, EOMI, dry MM, clear oropharynx, no submandibular or cervical lymphadenopathy, no goiter or JVD Cardiovascular: RRR, no m/r/g Lungs: Rhonchi L lung only - auscultated throughout the L lung field Gastrointestinal: abdomen is soft, nontender, nondistended Extremities: no e/c/c BLE's Results Imaging Additional studies: CXR: Findings consistent with left upper lobe pneumonia. Labs : 03/11/19 11:55 03/11/19 11:55 Laboratory Results - last 24 hr 03/11/19 03/11/19 03/11/19 11:22 11:55 11:55 WBC 4.30 L RBC 3.61 L Hgb 10.4 L Hct 32.3 L MCV 89.5 MCH 28.8 MCHC 32.2 RDW 13.9 Plt Count 171 MPV 8.6 Immature Gran % 0.0 Neutrophils % 65.4 Lymphocytes % 17.2 Monocytes % 15.8 Eosinophils % 1.4 Basophils % 0.2 Absolute Neutrophils 2.81 Absolute Lymphocytes 0.74 L Absolute Monocytes 0.68 Absolute Eosinophils 0.06 Absolute Basophils 0.01 PT INR APTT Sodium 134 L Potassium 4.1 Chloride 100 Carbon Dioxide 25.9 Anion Gap 8.1 BUN 18 Creatinine 1.06 Estimated GFR/1.73 m2 >= 60.00 Glucose 105 H Lactate Calcium 8.5 Total Bilirubin 0.2 AST 18 ALT 24 Alkaline Phosphatase 57 Troponin I < 0.02 NT-Pro-B Natriuret Pep 244 Total Protein 6.5 Albumin 3.1 L TSH 2.55 Urine Color Yellow Urine Clarity Clear Urine pH 5.0 Ur Specific [place] 1.020 Urine Protein Negative Urine Ketones Negative Urine Blood Small H Urine Nitrite Negative Urine Bilirubin Negative Urine Urobilinogen 0.2 Ur Leukocyte Esterase Negative Urine RBC 0-2 Urine WBC 0-2 Ur Epithelial Cells Negative Urine Crystals Negative Urine Bacteria Few Urine Casts 0-2 hyaline Urine Mucus Negative Urine Other Negative Ur Culture Indicated? No Urine Glucose Negative 03/11/19 03/11/19 11:55 11:55 WBC RBC Hgb Hct MCV MCH MCHC RDW Plt Count MPV Immature Gran % Neutrophils % Lymphocytes % Monocytes % Eosinophils % Basophils % Absolute Neutrophils Absolute Lymphocytes Absolute Monocytes Absolute Eosinophils Absolute Basophils PT 12.6 H INR 1.3 H APTT 26.7 Sodium Potassium Chloride Carbon Dioxide Anion Gap BUN Creatinine Estimated GFR/1.73 m2 Glucose Lactate 0.7 Calcium Total Bilirubin AST ALT Alkaline Phosphatase Troponin I NT-Pro-B Natriuret Pep Total Protein Albumin TSH Urine Color Urine Clarity Urine pH Ur Specific [place] Urine Protein Urine Ketones Urine Blood Urine Nitrite Urine Bilirubin Urine Urobilinogen Ur Leukocyte Esterase Urine RBC Urine WBC Ur Epithelial Cells Urine Crystals Urine Bacteria Urine Casts Urine Mucus Urine Other Ur Culture Indicated? Urine Glucose Last Vital Signs Temp 36.8 C 03/11/19 17:14 Pulse 72 03/11/19 17:14 Resp 18 03/11/19 17:14 BP 127/73 03/11/19 17:14 Pulse Ox 98 03/11/19 17:14
--- NOTE | 2019-03-11 17:21 | HPE_ITS ---
Date of service: 03/11/19 Time of Service: 17:18 Assessment and Plan (1) CAP (community acquired pneumonia): Current visit: Yes Status: Acute GONZALES per CXR. Continue rocephin/doxycycline initiated in the ED. May require steroids depending on status of bronchospasm tomorrow. For now, provide nebs. (2) Bronchospasm: Current visit: No Status: Acute As above (3) Rheumatoid arthritis: Current visit: No Status: Chronic Not on therapy as outpatient - prn tylenol (4) Myelodysplastic syndrome with 5q deletion: Current visit: No Status: Chronic s/p bone marrow transplant, on sirolimus therapy. sirolimus level pending - continue home doses for now. (5) Nocturia: Current visit: Yes Status: Acute Check PVR's to r/o urinary retention (6) Discharge planning issues: Current visit: No Status: Acute Full code (7) DVT prophylaxis: Current visit: No Status: Acute lovenox History of Present Illness Chief Complaint: I guess I have pneumonia Narrative: Mr hardin is a 63 year old male with PMHx of MDS s/p bone marrow transplant who has had a nonproductive cough for 2 weeks accompanied by chills, nasal congestion and sore throat at home. He also had diarrhea last week and things tasted poorly to him for several days last week, but this has now resolved. He also found himself getting short of breath with exertion (activities such as carrying boxes helping his get ready for a yard sale). He also describes increased urinary frequency and feeling thirsty, so he increased his PO water intake. He has been urinating 5 times a night. He feels he is emptying his bladder fully. In the ED, he was found to have GONZALES PNA. The findings were discussed with [facility] oncology - they do not feel this is [id number] disease, and there is little concern about rare pathogens. We were recommended to treat him with doxycycline and rocephin. He is being admitted for inpatient therapy due to his immunosuppression. Review of Systems Review of Systems 12 systems reviewed. Pertinent positives and negatives are as per HPI [facility] Social History Smoking/Tobacco Use Status: Former Tobacco Use Alcohol Intake: current Alcohol Intake frequency: a few times a week Drug use: Never Substance use type: does not use Caregiver/Support person: No Household members: spouse Communication Needs: None Education Level: high school Current gender identity: male What type of physical activity do you participate in: regular exercise and other Details: bowling Frequency: daily Seatbelt use: always Helmet use: No Drive intox or ride w/intox over the road driver: No Water heater temp set <120 deg: Yes Working smoke detector in home: Yes Fire extinguisher in home: Yes Carbon monox detector in home: Yes Firearms in home: Yes Firearms unloaded and locked: Yes Do you feel safe at home: Yes Do you feel safe in your relationship?: Yes Meds Home Medications Medication Instructions Recorded Confirmed Type Flovent HFA 1 puff INHALATION BID inhaler 11/02/17 03/11/19 History albuterol sulfate 2 puff INHALATION Q6H PRN PRN 10/12/18 03/11/19 History sirolimus 1 mg tablet 1 mg PO BID 10/22/18 03/11/19 History fluticasone propionate [Flonase 1 spray INTRANASAL DAILY 03/11/19 03/11/19 History Allergy Relief] montelukast [Singulair] 4 mg PO HS 03/11/19 03/11/19 History Allergies Allergy/AdvReac Type Severity Reaction Status Date / Time methotrexate AdvReac Severe Myelodysplastic Verified 02/07/19 08:22 Syndrome Exam Narrative Exam Narrative: General: Very pleasant middle-aged male, sitting up in bed, A&Ox3, not in acute distress Neurological: A&Ox3, no focal deficits Psychiatric: appropriate speech pattern/content Skin: intact HEENT: Atraumatic, normocephalic, EOMI, dry MM, clear oropharynx, no submandibular or cervical lymphadenopathy, no goiter or JVD Cardiovascular: RRR, no m/r/g Lungs: Rhonchi L lung only - auscultated throughout the L lung field Gastrointestinal: abdomen is soft, nontender, nondistended Extremities: no e/c/c BLE's Results Imaging Additional studies: CXR: Findings consistent with left upper lobe pneumonia. Labs : 03/11/19 11:55 03/11/19 11:55 Laboratory Results - last 24 hr 03/11/19 03/11/19 03/11/19 11:22 11:55 11:55 WBC 4.30 L RBC 3.61 L Hgb 10.4 L Hct 32.3 L MCV 89.5 MCH 28.8 MCHC 32.2 RDW 13.9 Plt Count 171 MPV 8.6 Immature Gran % 0.0 Neutrophils % 65.4 Lymphocytes % 17.2 Monocytes % 15.8 Eosinophils % 1.4 Basophils % 0.2 Absolute Neutrophils 2.81 Absolute Lymphocytes 0.74 L Absolute Monocytes 0.68 Absolute Eosinophils 0.06 Absolute Basophils 0.01 PT INR APTT Sodium 134 L Potassium 4.1 Chloride 100 Carbon Dioxide 25.9 Anion Gap 8.1 BUN 18 Creatinine 1.06 Estimated GFR/1.73 m2 >= 60.00 Glucose 105 H Lactate Calcium 8.5 Total Bilirubin 0.2 AST 18 ALT 24 Alkaline Phosphatase 57 Troponin I < 0.02 NT-Pro-B Natriuret Pep 244 Total Protein 6.5 Albumin 3.1 L TSH 2.55 Urine Color Yellow Urine Clarity Clear Urine pH 5.0 Ur Specific [place] 1.020 Urine Protein Negative Urine Ketones Negative Urine Blood Small H Urine Nitrite Negative Urine Bilirubin Negative Urine Urobilinogen 0.2 Ur Leukocyte Esterase Negative Urine RBC 0-2 Urine WBC 0-2 Ur Epithelial Cells Negative Urine Crystals Negative Urine Bacteria Few Urine Casts 0-2 hyaline Urine Mucus Negative Urine Other Negative Ur Culture Indicated? No Urine Glucose Negative 03/11/19 03/11/19 11:55 11:55 WBC RBC Hgb Hct MCV MCH MCHC RDW Plt Count MPV Immature Gran % Neutrophils % Lymphocytes % Monocytes % Eosinophils % Basophils % Absolute Neutrophils Absolute Lymphocytes Absolute Monocytes Absolute Eosinophils Absolute Basophils PT 12.6 H INR 1.3 H APTT 26.7 Sodium Potassium Chloride Carbon Dioxide Anion Gap BUN Creatinine Estimated GFR/1.73 m2 Glucose Lactate 0.7 Calcium Total Bilirubin AST ALT Alkaline Phosphatase Troponin I NT-Pro-B Natriuret Pep Total Protein Albumin TSH Urine Color Urine Clarity Urine pH Ur Specific [place] Urine Protein Urine Ketones Urine Blood Urine Nitrite Urine Bilirubin Urine Urobilinogen Ur Leukocyte Esterase Urine RBC Urine WBC Ur Epithelial Cells Urine Crystals Urine Bacteria Urine Casts Urine Mucus Urine Other Ur Culture Indicated? Urine Glucose Last Vital Signs Temp 36.8 C 03/11/19 17:14 Pulse 72 03/11/19 17:14 Resp 18 03/11/19 17:14 BP 127/73 03/11/19 17:14 Pulse Ox 98 03/11/19 17:14
[2019-03-11] MEDS: Enoxaparin 40 MG/0.4 ML SYR SC (17:35)
[2019-03-11] MEDS: Normal Saline 1,000 ML 125 ML IV (18:10)
[2019-03-11] MEDS: Mometasone 220 MCG 14 DOSE INHALER 1 PUFF IH (19:26)
[2019-03-11] MEDS: Acetaminophen 325 MG TAB PO (19:27)
[2019-03-12] VITALS (9 sets, daily range): BP systolic 106–134; BP diastolic 61–72; PULSE 67–88; RESP 1–20; TEMP 37.1–38.4; O2SAT 95–97
[2019-03-12] MEDS: Normal Saline 1,000 ML 125 ML IV ×2 (03:01→11:13)
[2019-03-12 06:55] LABS: Absolute Basophil Count 0.02 k/cumm (0.0-0.2); Absolute Eosinophil Count 0.08 k/cumm (0.0-0.7); Absolute Lymphocyte Count 0.49 k/cumm (1.2-3.4); Absolute Monocyte Count 0.67 k/cumm (0.11-0.7); Absolute Neutrophil Count 2.56 k/cumm (1.2-6.7); Basophils % 0.5; Eosinophils % 2.1; HCT 30.4 % (40.0-50.0); HGB 9.8 g/dL (13.5-17.5); Lymphocytes % 12.8; Mean Corp. HGB Concentration 32.2 g/dL (32.0-36.0); Mean Corpuscular Hemoglobin 28.7 pg (27.0-33.0); Mean Corpuscular Volume 89.1 fL (80-95); Mean Platelet Volume 9.1 fL (8.0-11.0); Monocytes % 17.5; Neutrophils % 67.1; Platelet Count 174 x1000/uL (130-400); RBC 3.41 m/cumm (4.50-6.00); White Blood Cell Count 3.82 k/cumm (4.4-10.8)
[2019-03-12 07:01] LABS: BUN 12 mg/dL (7-18); CREATININE 0.93 mg/dL (0.70-1.30); Calcium 8.4 mg/dL (8.5-10.1); Chloride 105 mmol/L (98-107); Glucose 95 mg/dL (70-100); Potassium 3.8 mmol/L (3.5-5.1); Sodium 137 mmol/L (136-145)
[2019-03-12] MEDS: Fluticasone NASAL SPRAY 16 GM BTL NS (09:38)
--- NOTE | 2019-03-12 10:45 | PHARADMIT ---
Admission Pharmacy Clinical Review Code Status Full Code Current Weight 72.6 kg Renally Cleared and Narrow Therapeutic Index Meds CRcL ~82; meds ok QTc Value / Action Taken NA BP Control, Fever 121/72; afebrile as of 03/12 Electrolytes reviewed ALL WNL DVT Prophylaxis Enoxaparin 40mg Opiate Usage / Scheduled Bowel Regimen Ordered None Plt/SCr for Heparin / Enoxaparin 174/.093 INR for Warfarin NA H/H stable, WBC/Bands h/h 9.8/30.4 wbc 3.82 (on sirolimus - hx of bone marrow transplant) Antibiotic appropriateness rocephin and doxy IV Cultures and Sensitivities sputum and blood cultures pending Surgical ABX d/c within 24 hr n/a DM control / Insulin Dosing BG 95 Heart Failure (Check EF%) (DOMENIC's, B-Block, Diuretics) None IV to PO Switch no Home Meds Reviewed Yes - No interactions Home Meds Not Ordered Montelukast Comments -improving per morning report, continue ABX and may start steroids today, cultures pending
[2019-03-12] MEDS: DOXYCYCLINE 100 MG in Normal Saline 100 ML IVPB ×2 (11:13→23:16)
[2019-03-12 12:08] LABS: Sirolimus 5.2 ng/mL
[2019-03-12] MEDS: Albuterol/Ipratropium 3 ML UPD VIAL UPD ×3 (12:24→23:24)
[2019-03-12] MEDS: cefTRIAXone 1 GM/50 ML BAG IVPB (13:57)
--- NOTE | 2019-03-12 14:19 | W.PM.PROGNOT ---
Date of Service Date of service: 03/12/19 Time of Service: 14:19 Assessment and Plan (1) CAP (community acquired pneumonia): Current visit: Yes Status: Acute GONZALES per CXR. Blood cultures negative at 24 hours. Continue rocephin/doxycycline (day 2). Add antitussives and prednisone. Continue nebsNo N (2) Bronchospasm: Current visit: No Status: Acute As above (3) Rheumatoid arthritis: Current visit: No Status: Chronic Not on therapy as outpatient - prn tylenol (4) Myelodysplastic syndrome with 5q deletion: Current visit: No Status: Chronic s/p bone marrow transplant, on sirolimus therapy. sirolimus level pending - continue home doses for now. (5) Nocturia: Current visit: Yes Status: Acute No urinary retention overnight. Consider starting flomax if sx persist. (6) Discharge planning issues: Current visit: No Status: Acute Full code (7) DVT prophylaxis: Current visit: No Status: Acute lovenox Subjective Interval history since last seen: Mr Bro states his cough is really bothering him today. It's not any better. Neither is his shortness of breath on exertion - but everything else is. Denies dizziness, chest pain, nausea, vomiting. Febrile overnight. Exam Narrative Exam Narrative: General: Very pleasant middle-aged male, observed walking in the hallway with no visible dyspnea, A&Ox3 HEENT: EOMI, MMM Cardiovascular: RRR, no m/r/g Lungs: Rhonchi heard most in the L lung - better, but I also hear rhonchi on the R today Gastrointestinal: abdomen is soft, nontender, nondistended Extremities: no e/c/c BLE's Objective Objective Clinical Data: Abnormal lab results 03/12/19 03/12/19 Range/Units 06:25 06:25 WBC 3.82 L (4.4-10.8) k/cumm RBC 3.41 L (4.50-6.00) m/cumm Hgb 9.8 L (13.5-17.5) g/dL Hct 30.4 L (40.0-50.0) % Absolute Lymphocytes 0.49 L (1.2-3.4) k/cumm Calcium 8.4 L (8.5-10.1) mg/dL Vital Signs Temperature 37.5 C 03/12/19 07:10 Temperature Source Tympanic 03/12/19 07:10 Pulse 73 03/12/19 07:10 Pulse Rhythm Regular 03/12/19 10:35 Pulse 78 03/11/19 16:50 Respiratory Rate 16 03/12/19 07:10 Respiratory Effort 03/12/19 10:35 Respiratory Depth Normal 03/12/19 10:35 Respiratory Pattern Normal 03/12/19 10:35 Blood Pressure 121/72 03/12/19 07:10 Blood Pressure Mean 105 03/11/19 16:48 Blood Pressure Position Sitting 03/11/19 11:05 Pulse Oximetry 97 03/12/19 07:10 Oxygen Delivery Method Room Air 03/12/19 07:10 Oxygen Flow Rate 0 03/12/19 07:10 Pain Level 0 03/12/19 07:10 Comment 03/12/19 02:50 Intake & Output 03/11/19 03/12/19 03/12/19 23:59 11:59 23:59 Intake Total 1250 / 1250 1462.083 / 1916.666 454.583 / 1916.666 Output Total 300 / 300 1920 / 1920 Balance 950 / 950 -457.917 / -3.334 454.583 / -3.334 Weight 74.843 kg 72.6 kg Intake: IV 1150 / 1150 1102.083 / 1316.666 214.583 / 1316.666 Oral 100 / 100 360 / 600 240 / 600 Output: Urine 300 / 300 1900 / 1900 Post Void Residual 20 / 20 Other: Urine Color Yellow Yellow Urine Appearance Clear Clear Urine Odor Normal Voiding Methods Toilet Urinal Laboratory Results WBC 3.82 k/cumm (4.4-10.8) L 03/12/19 06:25 RBC 3.41 m/cumm (4.50-6.00) L 03/12/19 06:25 Hgb 9.8 g/dL (13.5-17.5) L 03/12/19 06:25 Hct 30.4 % (40.0-50.0) L 03/12/19 06:25 MCV 89.1 fL (80-95) 03/12/19 06:25 MCH 28.7 pg (27.0-33.0) 03/12/19 06:25 MCHC 32.2 g/dL (32.0-36.0) 03/12/19 06:25 RDW 14.0 % (11.8-14.1) 03/12/19 06:25 Plt Count 174 x1000/uL (130-400) 03/12/19 06:25 MPV 9.1 fL (8.0-11.0) 03/12/19 06:25 Immature Gran % 0.0 03/12/19 06:25 Neutrophils % 67.1 03/12/19 06:25 Lymphocytes % 12.8 03/12/19 06:25 Monocytes % 17.5 03/12/19 06:25 Eosinophils % 2.1 03/12/19 06:25 Basophils % 0.5 03/12/19 06:25 Absolute Neutrophils 2.56 k/cumm (1.2-6.7) 03/12/19 06:25 Absolute Lymphocytes 0.49 k/cumm (1.2-3.4) L 03/12/19 06:25 Absolute Monocytes 0.67 k/cumm (0.11-0.7) 03/12/19 06:25 Absolute Eosinophils 0.08 k/cumm (0.0-0.7) 03/12/19 06:25 Absolute Basophils 0.02 k/cumm (0.0-0.2) 03/12/19 06:25 PT 12.6 sec (9.3-11.0) H 03/11/19 11:55 INR 1.3 (0.9-1.1) H 03/11/19 11:55 APTT 26.7 sec (21.0-31.4) 03/11/19 11:55 Sodium 137 mmol/L (136-145) 03/12/19 06:25 Potassium 3.8 mmol/L (3.5-5.1) 03/12/19 06:25 Chloride 105 mmol/L (98-107) 03/12/19 06:25 Carbon Dioxide 23.0 mmol/L (21.0-32.0) 03/12/19 06:25 Anion Gap 9.0 mmol/L (3-11) 03/12/19 06:25 BUN 12 mg/dL (7-18) D 03/12/19 06:25 Creatinine 0.93 mg/dL (0.70-1.30) 03/12/19 06:25 Estimated GFR/1.73 m2 >= 60.00 (mL/min/1.73m2) 03/12/19 06:25 Glucose 95 mg/dL (70-100) 03/12/19 06:25 Lactate 0.7 mmol/l (0.6-1.4) 03/11/19 11:55 Calcium 8.4 mg/dL (8.5-10.1) L 03/12/19 06:25 Magnesium 2.0 mg/dL (1.8-2.4) 03/12/19 06:25 Total Bilirubin 0.2 mg/dL (0.2-1.0) 03/11/19 11:55 AST 18 U/L (15-37) 03/11/19 11:55 ALT 24 U/L (12-78) 03/11/19 11:55 Alkaline Phosphatase 57 U/L (46-116) 03/11/19 11:55 Troponin I < 0.02 ng/mL (0.00-0.06) 03/11/19 11:55 NT-Pro-B Natriuret Pep 244 pg/mL (-299) 03/11/19 11:55 Total Protein 6.5 g/dL (6.4-8.2) 03/11/19 11:55 Albumin 3.1 g/dL (3.4-5.0) L 03/11/19 11:55 TSH 2.55 uIU/mL (0.358-3.74) 03/11/19 11:55 Urine Color Yellow (Yellow) 03/11/19 11:22 Urine Clarity Clear 03/11/19 11:22 Urine pH 5.0 (5-8) 03/11/19 11:22 Ur Specific [place] 1.020 (1.005-1.025) 03/11/19 11:22 Urine Protein Negative mg/dL (Negative) 03/11/19 11:22 Urine Ketones Negative mg/dL (Negative) 03/11/19 11:22 Urine Blood Small (Negative) H 03/11/19 11:22 Urine Nitrite Negative (Negative) 03/11/19 11:22 Urine Bilirubin Negative (Negative) 03/11/19 11:22 Urine Urobilinogen 0.2 EU/dL (Up TO 0.2) 03/11/19 11:22 Ur Leukocyte Esterase Negative (Negative) 03/11/19 11:22 Urine RBC 0-2 (0-2) 03/11/19 11:22 Urine WBC 0-2 HPF (0-5) 03/11/19 11:22 Ur Epithelial Cells Negative HPF (Negative) 03/11/19 11:22 Urine Crystals Negative HPF (Negative) 03/11/19 11:22 Urine Bacteria Few HPF (Negative) 03/11/19 11:22 Urine Casts 0-2 hyaline LPF (Negative) 03/11/19 11:22 Urine Mucus Negative (Negative) 03/11/19 11:22 Urine Other Negative (Negative) 03/11/19 11:22 Ur Culture Indicated? No 03/11/19 11:22 Urine Glucose Negative mg/dL (Negative) 03/11/19 11:22
[2019-03-12] MEDS: guaiFENesin 600 MG TABCR PO ×2 (14:35→19:49)
[2019-03-12] MEDS: predniSONE 20 MG TAB 40 MG PO (14:36)
[2019-03-12] MEDS: Acetaminophen 325 MG TAB PO (14:49)
--- NOTE | 2019-03-12 16:30 | PDOC.CMIN ---
- If Service Date Differs Date of service: 03/12/19 Time of Service: 16:30 Care Management Initial Assess REASON FOR HOSPITALIZATION:: Community acquired pneumonia PAST MEDICAL HISTORY/PAST SURGICAL HISTORY:: Influenza A (Acute). CKD (chronic kidney disease) (Chronic). Pzthe-jwhdzq-gmzk disease (Chronic). Hyperlipidemia (Chronic). MDS (myelodysplastic syndrome) (Chronic). Osteoporosis (Chronic). Rheumatoid arthritis (Chronic). History of bone marrow transplant (Chronic). History of tonsillectomy (Chronic). S/P emergency tracheotomy for assistance in breathing (Resolved). Stem Cell Transplant (10/18/16) PREVIOUS FUNCTIONAL STATUS/SOCIAL/FAMILY SUPPORTS:: Patrice resides with his Elaine in [place]. He states that they have been for 23 years, and reports that he has two step children whom are supportive. 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 Patrice is independent at baseline, he drives, and manages ADL's CURRENT FUNCTIONAL STATUS:: Patrice is pleasant during CM assessment. He states he is feeling better since admission. He has been able to ambulate outside his room today. He reports that he has a good relationship with his hematolgist/oncologist at [facility] . He states he meets with provider and the team once a month. Patrice declines any needs at time of discharge. he states he is able to afford his medications and has no other concerns r/t healthcare navigation. ADVANCE DIRECTIVES:: None on file - will offer packet to complete Has patient been provided with information about the portal?: Yes Did the patient sign up for the portal?: No (enrolled) CODE STATUS:: Full Code INSURANCE COVERAGE / FINANCIAL ISSUES:: BCBS CURRENT HOME/COMMUNITY SERVICES/EQUIPMENT:: Primary care provider, no other services at this time PRIMARY CARE PHYSICIAN:: Berta Pritchard POTENTIAL DISCHARGE NEEDS:: Follow up appointment [facility] primary care provider scheduled prior to discharge. PATIENT/FAMILY EDUCATION NEEDS:: Discharge education, limitations and follow up plan of care, ask me three and self management. ANTICIPATED BARRIERS TO DISCHARGE:: None TRANSPORTATION:: Via private car with family at time of discharge. PLAN:: Patrice is inpatient at this time he is receiving IV antibioitcs, inlcluding steroids. He will be discharged home when medically ready. Patrice remains febrile, blood and sputum cultures are pending. CM to continue to provide support to patient and family discharge planning and disposition.
--- NOTE | 2019-03-12 16:45 | INITIAL_ITS ---
- If Service Date Differs Date of service: 03/12/19 Time of Service: 16:30 Care Management Initial Assess REASON FOR HOSPITALIZATION:: Community acquired pneumonia PAST MEDICAL HISTORY/PAST SURGICAL HISTORY:: Influenza A (Acute). CKD (chronic kidney disease) (Chronic). Bbjdq-zcvqho-sddv disease (Chronic). Hyperlipidemia (Chronic). MDS (myelodysplastic syndrome) (Chronic). Osteoporosis (Chronic). Rheumatoid arthritis (Chronic). History of bone marrow transplant (Chronic). History of tonsillectomy (Chronic). S/P emergency tracheotomy for assistance in breathing (Resolved). Stem Cell Transplant (10/18/16) PREVIOUS FUNCTIONAL STATUS/SOCIAL/FAMILY SUPPORTS:: Patrice resides with his Elaine in [place]. He states that they have been for 23 years, and reports that he has two step children whom are supportive. 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 Patrice is independent at baseline, he drives, and manages ADL's CURRENT FUNCTIONAL STATUS:: Patrice is pleasant during CM assessment. He states he is feeling better since admission. He has been able to ambulate outside his room today. He reports that he has a good relationship with his hematolgist/oncologist at [facility] . He states he meets with provider and the team once a month. Patrice declines any needs at time of discharge. he states he is able to afford his medications and has no other concerns r/t healthcare navigation. ADVANCE DIRECTIVES:: None on file - will offer packet to complete Has patient been provided with information about the portal?: Yes Did the patient sign up for the portal?: No (enrolled) CODE STATUS:: Full Code INSURANCE COVERAGE / FINANCIAL ISSUES:: BCBS CURRENT HOME/COMMUNITY SERVICES/EQUIPMENT:: Primary care provider, no other services at this time PRIMARY CARE PHYSICIAN:: Berta Pritchard POTENTIAL DISCHARGE NEEDS:: Follow up appointment [facility] primary care provider scheduled prior to discharge. PATIENT/FAMILY EDUCATION NEEDS:: Discharge education, limitations and follow up plan of care, ask me three and self management. ANTICIPATED BARRIERS TO DISCHARGE:: None TRANSPORTATION:: Via private car with family at time of discharge. PLAN:: Patrice is inpatient at this time he is receiving IV antibioitcs, inlcluding steroids. He will be discharged home when medically ready. Patrice remains febrile, blood and sputum cultures are pending. CM to continue to provide support to patient and family discharge planning and disposition.
[2019-03-12] MEDS: Enoxaparin 40 MG/0.4 ML SYR SC (17:16)
[2019-03-12] MEDS: Benzonatate 100 MG CAP 200 MG PO (19:48)
[2019-03-12] MEDS: Mometasone 220 MCG 14 DOSE INHALER 1 PUFF IH (19:48)
[2019-03-13 00:02] VITALS: BP 116/63; PULSE 69; RESP 18; TEMP 36.6; O2SAT 97
[2019-03-13 05:00] VITALS: BP 117/70; PULSE 75; RESP 18; TEMP 37; O2SAT 96
[2019-03-13 05:57] VITALS: RESP 18; RESP 2; O2SAT 96
[2019-03-13] MEDS: Albuterol/Ipratropium 3 ML UPD VIAL UPD (05:57)
[2019-03-13 06:53] LABS: Absolute Eosinophil Count 0.01 k/cumm (0.0-0.7); Absolute Lymphocyte Count 0.48 k/cumm (1.2-3.4); Absolute Monocyte Count 0.48 k/cumm (0.11-0.7); Eosinophils % 0.3; HCT 30.6 % (40.0-50.0); HGB 9.9 g/dL (13.5-17.5); Lymphocytes % 16.7; Mean Corp. HGB Concentration 32.4 g/dL (32.0-36.0); Mean Corpuscular Hemoglobin 28.7 pg (27.0-33.0); Mean Corpuscular Volume 88.7 fL (80-95); Mean Platelet Volume 8.5 fL (8.0-11.0); Monocytes % 16.7; Neutrophils % 66.3; Platelet Count 175 x1000/uL (130-400); RBC 3.45 m/cumm (4.50-6.00); RBC Distribution Width 13.9 % (11.8-14.1); White Blood Cell Count 2.87 k/cumm (4.4-10.8)
[2019-03-13 07:03] LABS: Anion Gap 14.4 mmol/L (3-11); BUN 16 mg/dL (7-18); CO2 21.6 mmol/L (21.0-32.0); CREATININE 1.12 mg/dL (0.70-1.30); Calcium 8.8 mg/dL (8.5-10.1); Chloride 104 mmol/L (98-107); Glucose 125 mg/dL (70-100); Magnesium 2.1 mg/dL (1.8-2.4); Potassium 3.4 mmol/L (3.5-5.1); Sodium 140 mmol/L (136-145)
[2019-03-13 07:05] VITALS: BP 114/55; PULSE 65; RESP 16; TEMP 36.7; O2SAT 95
[2019-03-13] MEDS: Normal Saline Flush 10 ML SYR ×2 (08:00→11:40)
[2019-03-13] MEDS: predniSONE 20 MG TAB 40 MG PO (08:34)
[2019-03-13] MEDS: Fluticasone NASAL SPRAY 16 GM BTL NS (08:34)
[2019-03-13] MEDS: Pantoprazole 40 MG TABCR PO (08:35)
[2019-03-13] MEDS: guaiFENesin 600 MG TABCR PO (08:35)
[2019-03-13] MEDS: Benzonatate 100 MG CAP 200 MG PO (09:47)
[2019-03-13] MEDS: Potassium Chloride 20 MEQ TABCR 40 MEQ PO (10:50)
--- NOTE | 2019-03-13 11:34 | W.PM.DS.N ---
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 He also had diarrhea last week and things tasted poorly to him for several days last week, but this has now resolved. He also found himself getting short of breath with exertion (activities such as carrying boxes helping his get ready for a yard sale). He also describes increased urinary frequency and feeling thirsty, so he increased his PO water intake. He has been urinating 5 times a night. He feels he is emptying his bladder fully. In the ED, he was found to have GONZALES PNA. The findings were discussed with [facility] oncology - they do not feel this is [id number] disease, and there is little concern about rare pathogens. We were recommended to treat him with doxycycline and rocephin. He is being admitted for inpatient therapy due to his immunosuppression. Today he is feeling much better, cough is improved. He is afebrile without leukocytosis, lung sounds are clear of wheezing, rales and crackles. He will be discharged home with a short course of steroids, and couple days of antibiotics to finish up his course. He should follow up with his PCP in 1-2 weeks. (1) CAP (community acquired pneumonia): GONZALES per CXR. Blood cultures negative at 24 hours. Continue rocephin/doxycycline (day 2). Add antitussives and prednisone. Continue nebsNo N (2) Bronchospasm: As above (3) Rheumatoid arthritis: Not on therapy as outpatient - prn tylenol (4) Myelodysplastic syndrome with 5q deletion: s/p bone marrow transplant, on sirolimus therapy. sirolimus level pending - continue home doses for now. (5) Nocturia: No urinary retention overnight. Consider starting flomax if sx persist. (6) Discharge planning issues: Full code (7) DVT prophylaxis: lovenox Home Meds and New Rx's Prescriptions: New prednisone 20 mg Tablet 40 mg PO DAILY Qty: 6 RF: 0 benzonatate 100 mg Capsule 200 mg PO TID Qty: 30 RF: 0 guaifenesin [Mucinex] 600 mg Tablet Extended Release 12hr 600 mg PO BID Qty: 10 RF: 0 doxycycline hyclate 100 mg capsule 100 mg PO BID Qty: 6 RF: 0 cefditoren pivoxil 200 mg tablet 200 mg PO ONCE Qty: 3 RF: 0 Continued sirolimus 1 mg tablet 1 mg PO DIRECTED RF: 0 Flovent HFA 10.6 GM HFA aerosol inhaler 1 puff Inhalation BID RF: 0 albuterol sulfate 90 mcg/actuation Hfa Aerosol Inhaler 2 puff Inhalation Q6H PRN PRN (Reason: Shortness Of Breath) RF: 0 fluticasone propionate [Flonase Allergy Relief] 50 mcg/actuation [place],Suspension 1 spray Intranasal DAILY RF: 0 montelukast [Singulair] 4 mg Tablet,Chewable 4 mg PO HS RF: 0 Discharge Instructions Instructions: Antibiotic Resistant Bacteria (GEN), Community Acquired Pneumonia (GEN), Acute Cough (GEN) Additional Instructions: Follow up with your Primary in 1-2 weeks Take all medications as prescribed Use your acapella at home several times through out the day. Finish all antibiotics. Eat a yogurt twice a day for 1 month Seek medical treatment immediately if you have fever, chills, chest pain, shortness of breath Activity:: Activity as Tolerated Equipment/Supplies:: No Equipment Needed Diet:: As Tolerated Discharge Orders Discharge Orders: Discharge Order (Routine); Ordered 03/13/19 Ordered By: Jacqui Collado Exam Narrative Exam Narrative: General: Very pleasant middle-aged male, observed walking in the hallway with no visible dyspnea, A&Ox3 HEENT: EOMI, MMM Cardiovascular: RRR, no m/r/g Lungs: Lung sounds clear of wheezing, crackles, rales, breathing without difficulty. Gastrointestinal: abdomen is soft, nontender, nondistended Extremities: no e/c/c BLE's DS: Data Vitals/I&O Vitals and I&O: Vital Signs Temperature 36.7 C 03/13/19 07:05 Temperature Source Tympanic 03/13/19 07:05 Pulse 65 03/13/19 07:05 Pulse Rhythm Regular 03/13/19 08:44 Pulse 78 03/11/19 16:50 Respiratory Rate 16 03/13/19 07:05 Respiratory Effort 03/13/19 08:44 Respiratory Depth Normal 03/13/19 08:44 Respiratory Pattern Normal 03/13/19 08:44 Blood Pressure 114/55 L 03/13/19 07:05 Blood Pressure Mean 105 03/11/19 16:48 Blood Pressure Position Sitting 03/11/19 11:05 Pulse Oximetry 95 03/13/19 07:05 Oxygen Delivery Method Room Air 03/13/19 07:05 Oxygen Flow Rate 0 03/13/19 07:05 Pain Level 0 03/13/19 07:05 Comment 03/12/19 02:50 Intake & Output 03/12/19 03/12/19 03/13/19 11:59 23:59 11:59 Intake Total 1462.083 / 2426.666 964.583 / 2426.666 710 / 710 Output Total 1920 / 2720 800 / 2720 1100 / 1100 Balance -457.917 / -293.334 164.583 / -293.334 -390 / -390 Weight 72.6 kg 71.9 kg Intake: IV 1102.083 / 1466.666 364.583 / 1466.666 110 / 110 Oral 360 / 960 600 / 960 600 / 600 Output: Urine 1900 / 2700 800 / 2700 1100 / 1100 Post Void Residual 20 / 20 Other: Urine Color Yellow Yellow Yellow Urine Appearance Clear Clear Clear Urine Odor Normal Normal Voiding Methods Urinal Urinal Urinal Completed studies during hospitalization [Text1]: Exam(s) a RAD:XR chest 2V PA & lateral SYMPTOMS/DIAGNOSIS: FATIGUE, COUGH, ON IMMUNOSUPPRESSION PA AND LATERAL CHEST: The heart is not enlarged. The lungs are predominantly clear but there is an area of apparent focal patchy consolidation involving portions of the left upper lobe posteriorly. Note is made of a nipple shadow on the right also seen on previous examination of 01/12/15. No pleural effusion seen. Cardiac size within normal limits. CONCLUSION: Findings consistent with left upper lobe pneumonia. Labs on day of discharge: Labs from last 24 hours 03/13/19 03/13/19 03/13/19 07:24 06:39 06:39 WBC 2.87 L RBC 3.45 L Hgb 9.9 L Hct 30.6 L MCV 88.7 MCH 28.7 MCHC 32.4 RDW 13.9 Plt Count 175 MPV 8.5 Immature Gran % 0.0 Neutrophils % 66.3 Lymphocytes % 16.7 Monocytes % 16.7 Eosinophils % 0.3 Basophils % 0.0 Absolute Neutrophils 1.90 Absolute Lymphocytes 0.48 L Absolute Monocytes 0.48 Absolute Eosinophils 0.01 Absolute Basophils 0.00 Sodium 140 Potassium 3.4 L Chloride 104 Carbon Dioxide 21.6 Anion Gap 14.4 H BUN 16 Creatinine 1.12 Estimated GFR/1.73 m2 >= 60.00 Glucose 125 H Calcium 8.8 Magnesium 2.1 Sirolimus Legionella Source Legionella Reprt Status Legionella Final Result M. pneumoniae Source Pending M. pneumoniae (PCR) Pending Ur Strep pneumoniae Ag 03/12/19 03/12/19 03/11/19 10:05 10:05 11:55 WBC RBC Hgb Hct MCV MCH MCHC RDW Plt Count MPV Immature Gran % Neutrophils % Lymphocytes % Monocytes % Eosinophils % Basophils % Absolute Neutrophils Absolute Lymphocytes Absolute Monocytes Absolute Eosinophils Absolute Basophils Sodium Potassium Chloride Carbon Dioxide Anion Gap BUN Creatinine Estimated GFR/1.73 m2 Glucose Calcium Magnesium Sirolimus 5.2 Legionella Source (see note) Legionella Reprt Status (see note) Legionella Final Result (see note) M. pneumoniae Source M. pneumoniae (PCR) Ur Strep pneumoniae Ag Pending 03/12/19 07:59 Sputum Sputum Culture - Pending Preliminary micro results at discharge 03/11/19 12:08 Blood Culture - Preliminary Blood NO GROWTH 24 HOURS 03/11/19 11:55 Blood Culture - Preliminary Blood NO GROWTH 24 HOURS 03/12/19 07:59 Sputum Culture - Pending Sputum [facility] Medical History Influenza A (Acute) CKD (chronic kidney disease) (Chronic) Dmusk-ecfacb-cqqb disease (Chronic) Hyperlipidemia (Chronic) MDS (myelodysplastic syndrome) (Chronic) Osteoporosis (Chronic) Rheumatoid arthritis (Chronic) Surgical History History of bone marrow transplant (Chronic) History of tonsillectomy (Chronic) S/P emergency tracheotomy for assistance in breathing (Resolved) Stem Cell Transplant (10/18/16) Family History Maternal Grandfather Stroke Mother Diabetes Colon cancer Father Diabetes Social History Smoking/Tobacco Use Status: Former Tobacco Use Alcohol Intake: current Alcohol Intake frequency: a few times a week Drug use: Never Substance use type: does not use Caregiver/Support person: No Household members: spouse Communication Needs: None Education Level: high school Current gender identity: male What type of physical activity do you participate in: regular exercise and other Details: bowling Frequency: daily Seatbelt use: always Helmet use: No Drive intox or ride w/intox 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
--- NOTE | 2019-03-13 11:38 | DSE_ITS ---
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 He also had diarrhea last week and things tasted poorly to him for several days last week, but this has now resolved. He also found himself getting short of breath with exertion (activities such as carrying boxes helping his get ready for a yard sale). He also describes increased urinary frequency and feeling thirsty, so he increased his PO water intake. He has been urinating 5 times a night. He feels he is emptying his bladder fully. In the ED, he was found to have GONZALES PNA. The findings were discussed with [facility] oncology - they do not feel this is agule-lu-bklg disease, and there is little concern about rare pathogens. We were recommended to treat him with doxycycline and rocephin. He is being admitted for inpatient therapy due to his immunosuppression. Today he is feeling much better, cough is improved. He is afebrile without leukocytosis, lung sounds are clear of wheezing, rales and crackles. He will be discharged home with a short course of steroids, and couple days of antibiotics to finish up his course. He should follow up with his PCP in 1-2 weeks. (1) CAP (community acquired pneumonia): GONZALES per CXR. Blood cultures negative at 24 hours. Continue rocephin/doxycycline (day 2). Add antitussives and prednisone. Continue nebsNo N (2) Bronchospasm: As above (3) Rheumatoid arthritis: Not on therapy as outpatient - prn tylenol (4) Myelodysplastic syndrome with 5q deletion: s/p bone marrow transplant, on sirolimus therapy. sirolimus level pending - continue home doses for now. (5) Nocturia: No urinary retention overnight. Consider starting flomax if sx persist. (6) Discharge planning issues: Full code (7) DVT prophylaxis: lovenox Home Meds and New Rx's Prescriptions: New prednisone 20 mg Tablet 40 mg PO DAILY Qty: 6 RF: 0 benzonatate 100 mg Capsule 200 mg PO TID Qty: 30 RF: 0 guaifenesin [Mucinex] 600 mg Tablet Extended Release 12hr 600 mg PO BID Qty: 10 RF: 0 doxycycline hyclate 100 mg capsule 100 mg PO BID Qty: 6 RF: 0 cefditoren pivoxil 200 mg tablet 200 mg PO ONCE Qty: 3 RF: 0 Continued sirolimus 1 mg tablet 1 mg PO DIRECTED RF: 0 Flovent HFA 10.6 GM HFA aerosol inhaler 1 puff Inhalation BID RF: 0 albuterol sulfate 90 mcg/actuation Hfa Aerosol Inhaler 2 puff Inhalation Q6H PRN PRN (Reason: Shortness Of Breath) RF: 0 fluticasone propionate [Flonase Allergy Relief] 50 mcg/actuation [place],Suspension 1 spray Intranasal DAILY RF: 0 montelukast [Singulair] 4 mg Tablet,Chewable 4 mg PO HS RF: 0 Discharge Instructions Instructions: Antibiotic Resistant Bacteria (GEN), Community Acquired Pneumonia (GEN), Acute Cough (GEN) Additional Instructions: Follow up with your Primary in 1-2 weeks Take all medications as prescribed Use your acapella at home several times through out the day. Finish all antibiotics. Eat a yogurt twice a day for 1 month Seek medical treatment immediately if you have fever, chills, chest pain, milind rtness of breath Activity:: Activity as Tolerated Equipment/Supplies:: No Equipment Needed Diet:: As Tolerated Discharge Orders Discharge Orders: Discharge Order (Routine); Ordered 03/13/19 Ordered By: Jacqui Collado Exam Narrative Exam Narrative: General: Very pleasant middle-aged male, observed walking in the hallway with no visible dyspnea, A&Ox3 HEENT: EOMI, MMM Cardiovascular: RRR, no m/r/g Lungs: Lung sounds clear of wheezing, crackles, rales, breathing without difficulty. Gastrointestinal: abdomen is soft, nontender, nondistended Extremities: no e/c/c BLE's DS: Data Vitals/I&O Vitals and I&O: Vital Signs Temperature 36.7 C 03/13/19 07:05 Temperature Source Tympanic 03/13/19 07:05 Pulse 65 03/13/19 07:05 Pulse Rhythm Regular 03/13/19 08:44 Pulse 78 03/11/19 16:50 Respiratory Rate 16 03/13/19 07:05 Respiratory Effort 03/13/19 08:44 Respiratory Depth Normal 03/13/19 08:44 Respiratory Pattern Normal 03/13/19 08:44 Blood Pressure 114/55 L 03/13/19 07:05 Blood Pressure Mean 105 03/11/19 16:48 Blood Pressure Position Sitting 03/11/19 11:05 Pulse Oximetry 95 03/13/19 07:05 Oxygen Delivery Method Room Air 03/13/19 07:05 Oxygen Flow Rate 0 03/13/19 07:05 Pain Level 0 03/13/19 07:05 Comment 03/12/19 02:50 Intake & Output 03/12/19 03/12/19 03/13/19 11:59 23:59 11:59 Intake Total 1462.083 / 2426.666 964.583 / 2426.666 710 / 710 Output Total 1920 / 2720 800 / 2720 1100 / 1100 Balance -457.917 / -293.334 164.583 / -293.334 -390 / -390 Weight 72.6 kg 71.9 kg Intake: IV 1102.083 / 1466.666 364.583 / 1466.666 110 / 110 Oral 360 / 960 600 / 960 600 / 600 Output: Urine 1900 / 2700 800 / 2700 1100 / 1100 Post Void Residual 20 / 20 Other: Urine Color Yellow Yellow Yellow Urine Appearance Clear Clear Clear Urine Odor Normal Normal Voiding Methods Urinal Urinal Urinal Completed studies during hospitalization [Text1]: Exam(s) a RAD:XR chest 2V PA & lateral SYMPTOMS/DIAGNOSIS: FATIGUE, COUGH, ON IMMUNOSUPPRESSION PA AND LATERAL CHEST: The heart is not enlarged. The lungs are predominantly clear but there is an area of apparent focal patchy consolidation involving portions of the left upper lobe posteriorly. Note is made of a nipple shadow on the right also seen on previous examination of 01/12/15. No pleural effusion seen. Cardiac size within normal limits. CONCLUSION: Findings consistent with left upper lobe pneumonia. Labs on day of discharge: Labs from last 24 hours 03/13/19 03/13/19 03/13/19 07:24 06:39 06:39 WBC 2.87 L RBC 3.45 L Hgb 9.9 L Hct 30.6 L MCV 88.7 MCH 28.7 MCHC 32.4 RDW 13.9 Plt Count 175 MPV 8.5 Immature Gran % 0.0 Neutrophils % 66.3 Lymphocytes % 16.7 Monocytes % 16.7 Eosinophils % 0.3 Basophils % 0.0 Absolute Neutrophils 1.90 Absolute Lymphocytes 0.48 L Absolute Monocytes 0.48 Absolute Eosinophils 0.01 Absolute Basophils 0.00 Sodium 140 Potassium 3.4 L Chloride 104 Carbon Dioxide 21.6 Anion Gap 14.4 H BUN 16 Creatinine 1.12 Estimated GFR/1.73 m2 >= 60.00 Glucose 125 H Calcium 8.8 Magnesium 2.1 Sirolimus Legionella Source Legionella Reprt Status Legionella Final Result M. pneumoniae Source Pending M. pneumoniae (PCR) Pending Ur Strep pneumoniae Ag 03/12/19 03/12/19 03/11/19 10:05 10:05 11:55 WBC RBC Hgb Hct MCV MCH MCHC RDW Plt Count MPV Immature Gran % Neutrophils % Lymphocytes % Monocytes % Eosinophils % Basophils % Absolute Neutrophils Absolute Lymphocytes Absolute Monocytes Absolute Eosinophils Absolute Basophils Sodium Potassium Chloride Carbon Dioxide Anion Gap BUN Creatinine Estimated GFR/1.73 m2 Glucose Calcium Magnesium Sirolimus 5.2 Legionella Source (see note) Legionella Reprt Status (see note) Legionella Final Result (see note) M. pneumoniae Source M. pneumoniae (PCR) Ur Strep pneumoniae Ag Pending 03/12/19 07:59 Sputum Sputum Culture - Pending Preliminary micro results at discharge 03/11/19 12:08 Blood Culture - Preliminary Blood NO GROWTH 24 HOURS 03/11/19 11:55 Blood Culture - Preliminary Blood NO GROWTH 24 HOURS 03/12/19 07:59 Sputum Culture - Pending Sputum [facility] Medical History Influenza A (Acute) CKD (chronic kidney disease) (Chronic) Zillz-cvhxeq-htpt disease (Chronic) Hyperlipidemia (Chronic) MDS (myelodysplastic syndrome) (Chronic) Osteoporosis (Chronic) Rheumatoid arthritis (Chronic) Surgical History History of bone marrow transplant (Chronic) History of tonsillectomy (Chronic) S/P emergency tracheotomy for assistance in breathing (Resolved) Stem Cell Transplant (10/18/16) Family History Maternal Grandfather Stroke Mother Diabetes Colon cancer Father Diabetes Social History Smoking/Tobacco Use Status: Former Tobacco Use Alcohol Intake: current Alcohol Intake frequency: a few times a week Drug use: Never Substance use type: does not use Caregiver/Support person: No Household members: spouse Communication Needs: None Education Level: high school Current gender identity: male What type of physical activity do you participate in: regular exercise and other Details: bowling Frequency: daily Seatbelt use: always Helmet use: No Drive intox or ride w/intox rolloff driver: No Water heater temp set <120 deg: Yes Working smoke detector in home: Yes Fire extinguisher in home: Yes Carbon monox detector in home: Yes Firearms in home: Yes Firearms unloaded and locked: Yes Do you feel safe at home: Yes Do you feel safe in your relationship?: Yes
--- NOTE | 2019-03-13 16:26 | PDOC.CMDIS ---
- If Service Date Differs Date of service: 03/13/19 Time of Service: 16:26 LACE Index Scoring Tool - Questions: Length of Stay (in days): 3 Acuity (Admit via E.D.?): Yes Comorbidities: Any Tumor, Liver or Renal Disease E.D. Visits: 6 - Answers: Total Score: 15 Risk of Readmission: High Risk Care Management Discharge Reason for Hospitalization: Community acquired pneumonia Discharge Plan: Patrice is being discharged home today, with oral antibioitcs and continued follow up with [facility] [place]. Patrice declines any additional services at this time. Patrice will be transported home with his family private car at time of discharge. Patient/Family Education Needs: Discharge education, limitations and follow up plan of care including ask me three and self management
--- NOTE | 2019-03-13 16:31 | CMDISCH_ITS ---
- If Service Date Differs Date of service: 03/13/19 Time of Service: 16:26 LACE Index Scoring Tool - Questions: Length of Stay (in days): 3 Acuity (Admit via E.D.?): Yes Comorbidities: Any Tumor, Liver or Renal Disease E.D. Visits: 6 - Answers: Total Score: 15 Risk of Readmission: High Risk Care Management Discharge Reason for Hospitalization: Community acquired pneumonia Discharge Plan: Patrice is being discharged home today, with oral antibioitcs and continued follow up with [facility] Oncology team. Patrice declines any additional services at this time. Patrice will be transported home with his family private car at time of discharge. Patient/Family Education Needs: Discharge education, limitations and follow up plan of care including ask me three and self management
[2019-03-13 17:11] LABS: Streptococcus Pneumoniae Ag, U Negative (Negative)
[2019-03-15 00:23] LABS: Mycoplasma Pneumoniae PCR Negative; Specimen source SPUTUM
== END 2019-03-13 13:08 | disposition home or self-care (01) | DRG 194 ==
LOC: ER 16:59 → MS 17:05
PROVIDERS: Admitting Provider Internal Medicine; Emergency Provider Student in an Organized Health Care Education/Training Program; PCP Nurse Practitioner; Visit Provider Internal Medicine
DX: J18.9 Pneumonia, unspecified organism (principal); D46.C Myelodysplastic syndrome with isolated del(5q) chromosomal abnormality; D84.9 Immunodeficiency, unspecified; Z94.81 Bone marrow transplant status; J98.01 Acute bronchospasm; M06.9 Rheumatoid arthritis, unspecified; R05 Cough; R35.1 Nocturia; J02.9 Acute pharyngitis, unspecified; R09.81 Nasal congestion; Z87.891 Personal history of nicotine dependence
CPT/HCPCS: 36415; 80048; 80053; 87040; 87449; 93005; 96361; 96365; 96366; 96368; 99223; 99232; 99238; 99285; J1650; 71046; 80195; 81003; 81015; 83605; 83735; 83880; 84443; 84484; 85025; 85610; 85730; 87070; 87205; 87450; 87581; 93010; 94640; J0696; J7512; J7620

== ENCOUNTER 2019-03-18 06:41 | Emergency (ER) | payer BC, SELFPAY ==
[2019-03-18] VITALS (30 sets, daily range): BP systolic 100–144; BP diastolic 61–98; PULSE 76–101; RESP 16; TEMP 36.7; O2SAT 88–99
--- NOTE | 2019-03-18 07:01 | W.ED.GENAD ---
Discharge Plan Disposition Patient Disposition: HOME Condition: Improving Discharge Details Chief Complaint: RespSymp Clinical Impression: Bronchitis, Cardiac murmur Primary Care Provider: Berta Pritchard ED Provider: Josephine Silva Home Meds and New Rx's Prescriptions: New prednisone 10 mg tablet See Rx Instructions .ROUTE .COMPLEX Qty: 30 RF: 0 benzonatate [Tessalon Perles] 100 mg capsule 100 mg PO BID PRN (Reason: cough) Qty: 10 RF: 0 codeine-guaifenesin 10-100 mg/5 mL liquid 10 ml PO Q6H PRN (Reason: cough) Qty: 80 RF: 0 Continued sirolimus 1 mg tablet 1 mg PO DIRECTED RF: 0 Flovent HFA 10.6 GM HFA aerosol inhaler 1 puff Inhalation BID RF: 0 albuterol sulfate 90 mcg/actuation Hfa Aerosol Inhaler 2 puff Inhalation Q6H PRN PRN (Reason: Shortness Of Breath) RF: 0 fluticasone propionate [Flonase Allergy Relief] 50 mcg/actuation [place],Suspension 1 spray Intranasal DAILY RF: 0 montelukast [Singulair] 4 mg Tablet,Chewable 4 mg PO HS RF: 0 benzonatate 100 mg Capsule 200 mg PO TID Qty: 30 RF: 0 guaifenesin [Mucinex] 600 mg Tablet Extended Release 12hr 600 mg PO BID Qty: 10 RF: 0 cefditoren pivoxil 200 mg tablet 200 mg PO ONCE Qty: 3 RF: 0 Discharge Instructions Instructions: Acute Bronchitis (ED) Additional Instructions: Take the steroids as directed until finished. Use the albuterol inhaler as needed and directed for shortness of breath, coughing or wheezing. Use the Tessalon Perles as needed and directed for cough. Use the Robitussin with codeine as needed and directed for cough not relieved with Tessalon Perles. Follow-up with your scheduled appointment with Berta Pritchard tomorrow afternoon at 4:00pm. Return immediately to the emergency department if you develop any worsening or new concerning symptoms. Discharge Data Discharge Date/Time-TO BE ENTERED AT DEPARTURE: 03/18/19 11:35 Discharge Physician: Josephine Silva Medical Decision Making <Inder Alcantara DO - Last Filed: 03/19/19 10:50> This is a very pleasant 63-year-old male with a past medical history of myelodysplastic syndrome, who received bone marrow transplant 2 years ago, who takes sirolimus regularly. He was recently admitted for community-acquired pneumonia and then subsequently discharged on 03/13, completed a full course of IV antibiotics and subsequent doxycycline and is on his final day of cefditoren. Patient states that he was doing well, had notable improvement of his symptoms, and then just yesterday developed a return of his cough, chills, fatigue, and worsening of his symptoms and recurrence of his previous symptoms. Physical exam demonstrates mild crackles throughout, with mild rhonchi scattered. He also concerned only shows evidence of a mild cardiac murmur auscultated. With the patient's history of immunocompromise this is certainly concerning. Differential is broad, recurrent pneumonia could certainly be the case, however endocarditis, PE with infarction, atypical pneumonia certainly also on the differential. We will evaluate for these potential etiologies, with the patient's risk factors I do feel that he would be a good candidate for inpatient admission for echocardiogram and continued work-up. EKG 7: 15 Rate 78, AL 158, QTc 485, QRS 152, sinus rhythm, no significant ST elevations or depressions. Right bundle branch block is present. Negative for SCARBOSSA criterion. Unchanged from prior EKG on 10/12/2018 <Josephine Silva DO - Last Filed: 03/18/19 15:45> Please see Dr. Alcantara's note for initial presentation, exam and plan. 63-year-old male with a history of myelodysplastic syndrome with a history of bone marrow transplant 2 years ago who presents with sweats overnight and return of cough yesterday. Patient was admitted here last week for pneumonia and discharged with antibiotics and steroids. Patient completed a full course of IV antibiotics and was sent home with cefditoren of which she has 1 dose left and states that he finished his prednisone yesterday. He states he pushed himself over the weekend with a yard sale and then his cough returned. Per Dr. Alcantara's evaluation, patient noted to have a murmur which she did not appreciate last week. Hospitalist notes from admission did not appreciate a murmur either. A 2/6 murmur is noted on my exam as well. Patient denies any fever. He denies any chest pain or shortness of breath. He states his main complaint is fatigue and his cough. He denies any sputum production. Vitals within normal limits on arrival. Afebrile. Patient appears nontoxic. No signs of respiratory distress. EKG notes a rate of 78, right bundle branch block, left anterior fascicular block and no acute change from previous. Patient has coarse breath sounds with rhonchi and scattered wheezing throughout. Will give an albuterol neb treatment and p.o. steroids and reassess. Dr. Alcantara's recommended possible admission considering new murmur appreciated for echocardiogram and continued work-up on admission. Patient states he would rather go home if possible. His chest x-ray is negative. Labs reviewed and note a d-dimer of 830, will send for a CT chest to rule out PE. Lactate 1.5, normal white blood cell count, troponin negative, BNP 441. Urinalysis negative. 0930 --cough still present. Wheezing improved but still with some rhonchi. Will give another neb treatment and reassess. CT chest pending. 1015 --CT chest negative for PE and notes resolving pneumonia. Patient feels better and states he feels good to go home. Oxygen saturation 95% on room air. As patient appears nontoxic, normal white blood cell count, no fever, and resolving pneumonia on chest x-ray, I do not see an indication for admission and patient is agreeable. He states he would rather go home. We will schedule an outpatient echocardiogram to assess his murmur and will schedule appointment with his primary care doctor for evaluation tomorrow. Case discussed with Berta Pritchard his pcp -discussed that I do not see an indication for antibiotics at this time, but due to patient's immunosuppression, can consider adding antibiotics to his regimen if he is not improving or worse tomorrow. Discussed that patient may need prior authorization for his echocardiogram and she will follow-up on this. We will send patient home with albuterol inhaler, prescription for steroids, Tessalon Perles and robitussin w/ codeine. He is instructed to continue Mucinex. He is instructed to return here immediately with any worsening or new concerning symptoms. Medical Records Medical records reviewed: Yes I reviewed the patient's medical records. Lab Data Lab results reviewed: Yes I reviewed the patient's lab results. 03/18/19 07:49 Blood Blood Culture - Pending 03/18/19 07:56 Blood Blood Culture - Pending 03/18/19 07:20 Urine - Reflex from Ua Urine Culture - Pending Laboratory Tests Range/Units 03/18/19 03/18/19 03/18/19 07:20 07:49 07:49 WBC (4.4-10.8) k/cumm RBC (4.50-6.00) m/cumm Hgb (13.5-17.5) g/dL Hct (40.0-50.0) % MCV (80-95) fL MCH (27.0-33.0) pg MCHC (32.0-36.0) g/dL RDW (11.8-14.1) % Plt Count (130-400) x1000/uL MPV (8.0-11.0) fL Immature Gran % Neutrophils % Lymphocytes % Monocytes % Eosinophils % Basophils % Absolute Neutrophils (1.2-6.7) k/cumm Absolute Lymphocytes (1.2-3.4) k/cumm Absolute Monocytes (0.11-0.7) k/cumm Absolute Eosinophils (0.0-0.7) k/cumm Absolute Basophils (0.0-0.2) k/cumm PT (9.3-11.0) sec INR (0.9-1.1) APTT (21.0-31.4) sec D-Dimer (<500) ng/mlFEU VBG pH (7.32-7.43) VBG pCO2 (34-47) mm/Hg VBG pO2 (28-44) mm/Hg VBG HCO3 (22-28) mmol/L VBG Total CO2 (22-29) mmol/L VBG O2 Saturation (70-80) % VBG Base Excess (-3-3) mmol/L Sodium (136-145) mmol/L 136 Potassium (3.5-5.1) mmol/L 3.7 Chloride (98-107) mmol/L 101 Carbon Dioxide (21.0-32.0) mmol/L 25.4 Anion Gap (3-11) mmol/L 9.6 BUN (7-18) mg/dL 20 H Creatinine (0.70-1.30) mg/dL 1.23 Estimated GFR/1.73 m2 (mL/min/1.73m2) 59.24 Glucose (70-100) mg/dL 129 H Lactate (0.6-1.4) mmol/l 1.5 H Calcium (8.5-10.1) mg/dL 8.2 L Total Bilirubin (0.2-1.0) mg/dL 0.4 AST (15-37) U/L 18 ALT (12-78) U/L 30 Alkaline Phosphatase (46-116) U/L 59 Troponin I (0.00-0.06) ng/mL < 0.02 NT-Pro-B Natriuret Pep ( - 299) pg/mL 441 H Total Protein (6.4-8.2) g/dL 6.1 L Albumin (3.4-5.0) g/dL 3.2 L TSH (0.358-3.74) uIU/mL 3.09 Urine Color (Yellow) Yellow Urine Clarity Clear Urine pH (5-8) 5.5 Ur Specific [place] (1.005-1.025) 1.025 Urine Protein (Negative) mg/dL Trace H Urine Ketones (Negative) mg/dL Negative Urine Blood (Negative) Negative Urine Nitrite (Negative) Negative Urine Bilirubin (Negative) Negative Urine Urobilinogen (Up TO 0.2) EU/dL 0.2 Ur Leukocyte Esterase (Negative) Negative Urine RBC (0-2) 0-2 Urine WBC (0-5) HPF 0-2 Ur Epithelial Cells (Negative) HPF Rare Urine Crystals (Negative) HPF Few amorphous Urine Bacteria (Negative) HPF Moderate Urine Casts (Negative) LPF 3-5 hyaline Urine Mucus (Negative) Moderate Urine Other (Negative) Rare renal Ur Culture Indicated? Yes Urine Glucose (Negative) mg/dL Negative Range/Units 03/18/19 03/18/19 03/18/19 07:49 07:49 07:49 WBC (4.4-10.8) k/cumm 5.63 RBC (4.50-6.00) m/cumm 3.59 L Hgb (13.5-17.5) g/dL 10.3 L Hct (40.0-50.0) % 32.2 L MCV (80-95) fL 89.7 MCH (27.0-33.0) pg 28.7 MCHC (32.0-36.0) g/dL 32.0 RDW (11.8-14.1) % 14.6 H Plt Count (130-400) x1000/uL 233 MPV (8.0-11.0) fL 8.6 Immature Gran % 0.7 Neutrophils % 79.4 Lymphocytes % 5.9 Monocytes % 12.6 Eosinophils % 1.2 Basophils % 0.2 Absolute Neutrophils (1.2-6.7) k/cumm 4.47 Absolute Lymphocytes (1.2-3.4) k/cumm 0.33 L Absolute Monocytes (0.11-0.7) k/cumm 0.71 H Absolute Eosinophils (0.0-0.7) k/cumm 0.07 Absolute Basophils (0.0-0.2) k/cumm 0.01 PT (9.3-11.0) sec 13.1 H INR (0.9-1.1) 1.3 H APTT (21.0-31.4) sec 24.5 D-Dimer (<500) ng/mlFEU 830 H VBG pH (7.32-7.43) 7.43 VBG pCO2 (34-47) mm/Hg 38 VBG pO2 (28-44) mm/Hg 36 VBG HCO3 (22-28) mmol/L 25 VBG Total CO2 (22-29) mmol/L 23 VBG O2 Saturation (70-80) % 68 L VBG Base Excess (-3-3) mmol/L 0.6 Sodium (136-145) mmol/L Potassium (3.5-5.1) mmol/L Chloride (98-107) mmol/L Carbon Dioxide (21.0-32.0) mmol/L Anion Gap (3-11) mmol/L BUN (7-18) mg/dL Creatinine (0.70-1.30) mg/dL Estimated GFR/1.73 m2 (mL/min/1.73m2) Glucose (70-100) mg/dL Lactate (0.6-1.4) mmol/l Calcium (8.5-10.1) mg/dL Total Bilirubin (0.2-1.0) mg/dL AST (15-37) U/L ALT (12-78) U/L Alkaline Phosphatase (46-116) U/L Troponin I (0.00-0.06) ng/mL NT-Pro-B Natriuret Pep ( - 299) pg/mL Total Protein (6.4-8.2) g/dL Albumin (3.4-5.0) g/dL TSH (0.358-3.74) uIU/mL Urine Color (Yellow) Urine Clarity Urine pH (5-8) Ur Specific [place] (1.005-1.025) Urine Protein (Negative) mg/dL Urine Ketones (Negative) mg/dL Urine Blood (Negative) Urine Nitrite (Negative) Urine Bilirubin (Negative) Urine Urobilinogen (Up TO 0.2) EU/dL Ur Leukocyte Esterase (Negative) Urine RBC (0-2) Urine WBC (0-5) HPF Ur Epithelial Cells (Negative) HPF Urine Crystals (Negative) HPF Urine Bacteria (Negative) HPF Urine Casts (Negative) LPF Urine Mucus (Negative) Urine Other (Negative) Ur Culture Indicated? Urine Glucose (Negative) mg/dL ECG Data Attestation: I personally reviewed and interpreted this ECG (s) as follows: Interpretation: Rate of 78, sinus, right bundle branch block, left anterior fascicular block, QTC 458, QRS 152. No acute change from previous. HPI <Inder Alcantara, - Last Filed: 03/19/19 10:50> General Date/Time Provider Initiated Documentation: 03/18/19 06:52. HPI Narrative: This is a pleasant 63-year-old male with a past medical history of myelodysplastic syndrome who had a bone marrow transplant 2 years ago who is on sirolimus presents today for cough and mild shortness of breath. He was recently admitted for community-acquired pneumonia and then subsequently discharged on 03/13. He was discharged with doxycycline and Cefditoren and recently completed the doxycycline and has 1 day left of the Ceftin. He states that after discharge she was actually doing very well, he had no more cough, and shortness of breath improved however yesterday he noticed that his cough came back, he began to get sweaty, and have notable productive white and yellow sputum. He denies fever but does admit to generalized chills. He has otherwise been taking his medications as directed. He denies any abdominal pain, dysuria, hematuria, chest pain, chest heaviness, chest tightness, pleuritic chest pain, arm neck or shoulder pain. He does admit to a single episode of loose stool yesterday, but the symptoms have completely resolved. He denies any other complaints at this time. No other modifying factors. He denies any history of cardiac disease. He denies any history of chronic lung disease. Related Data Home Medications Medication Instructions Recorded Confirmed Flovent HFA 1 puff INHALATION BID inhaler 11/02/17 03/18/19 albuterol sulfate 2 puff INHALATION Q6H PRN PRN 10/12/18 03/18/19 sirolimus 1 mg tablet 1 mg PO DIRECTED 10/22/18 03/18/19 fluticasone propionate [Flonase 1 spray INTRANASAL DAILY 03/11/19 03/18/19 Allergy Relief] montelukast [Singulair] 4 mg PO HS 03/11/19 03/18/19 benzonatate 200 mg PO TID #30 cap 03/13/19 03/18/19 cefditoren pivoxil 200 mg PO ONCE #3 tab 03/13/19 03/18/19 guaifenesin [Mucinex] 600 mg PO BID #10 tab 03/13/19 03/18/19 benzonatate [Tessalon Perles] 100 mg PO BID PRN #10 cap 03/18/19 codeine-guaifenesin 10 ml PO Q6H PRN #80 ml 03/18/19 prednisone See Rx Instructions .ROUTE 03/18/19 .COMPLEX #30 tab Previous Rx's Medication Instructions Recorded benzonatate 200 mg PO TID #30 cap 03/13/19 cefditoren pivoxil 200 mg PO ONCE #3 tab 03/13/19 guaifenesin [Mucinex] 600 mg PO BID #10 tab 03/13/19 benzonatate [Tessalon Perles] 100 mg PO BID PRN #10 cap 03/18/19 codeine-guaifenesin 10 ml PO Q6H PRN #80 ml 03/18/19 prednisone See Rx Instructions .ROUTE 03/18/19 .COMPLEX #30 tab Allergies Allergy/AdvReac Type Severity Reaction Status Date / Time methotrexate AdvReac Severe Myelodysplastic Verified 03/18/19 06:47 Syndrome General Stated Complaint: RespSymp AFIA: 3 Review of Systems <Inder Alcantara DO - Last Filed: 03/19/19 10:50> Review of Systems All systems reviewed & are unremarkable except as noted in HPI and below PFSH <Inder Alcantara DO - Last Filed: 03/19/19 10:50> Social History Smoking/Tobacco Use Status: Former Tobacco Use Alcohol Intake: current Alcohol Intake frequency: a few times a week Drug use: Never Substance use type: does not use Caregiver/Support person: No Household members: spouse Communication Needs: None Education Level: high school Current gender identity: male What type of physical activity do you participate in: regular exercise and other Details: bowling Frequency: daily Seatbelt use: always Helmet use: No Drive intox or ride w/intox school bus driver/custodian: No Water heater temp set <120 deg: Yes Working smoke detector in home: Yes Fire extinguisher in home: Yes Carbon monox detector in home: Yes Firearms in home: Yes Firearms unloaded and locked: Yes Do you feel safe at home: Yes Do you feel safe in your relationship?: Yes Exam <Inder Alcantara DO - Last Filed: 03/19/19 10:50> Narrative Exam Narrative: 1.Const: Well-nourished, Well-developed, appearing stated age 2.Eyes: PERRL, no conjunctival injection, and symmetrical lids. 3.ENT: Atraumatic external nose and ears. Moist MM. Neck: Symmetric, trachea midline, No thyromegaly. 4.CVS: +S1/S2, mild grade 2 systolic murmur auscultated throughout. Peripheral pulses 2+ and equal in all extremities. Brisk capillary refill in all extremities. 5.RESP: Unlabored respiratory effort. Rhonchi throughout, crackles at the bases. Minimal wheeze. 6.GI: Soft, Nontender/Nondistended, No hepatosplenomegaly. No guarding or rebound. 7.MSK: Normocephalic/Atraumatic, Extremities w/o deformity or ttp No cyanosis or clubbing, Normal movement of all extremities 8.Skin: Warm, Dry. Mild bruises on the forearms bilaterally. 9.Neuro: bookkeeping assistant II-XII grossly intact. Sensation grossly intact, no focal neurologic deficits. 10.Psych: (AAO) x3. Appropriate mood and affect Neck Course <Inder Alcantara DO - Last Filed: 03/19/19 10:50> Vital Signs Temperature 36.7 C 03/18/19 06:44 Pulse 89 03/18/19 06:44 Respiratory Rate 16 03/18/19 06:44 Blood Pressure 144/82 H 03/18/19 06:44 Pulse Oximetry 99 03/18/19 06:44 Temperature 36.7 C 03/18/19 06:44 Temperature Source Temporal Artery Scan 03/18/19 06:44 Pulse 89 03/18/19 06:44 Respiratory Rate 16 03/18/19 06:44 Respiratory Effort 03/18/19 06:47 Respiratory Depth Normal 03/18/19 06:47 Blood Pressure 144/82 H 03/18/19 06:44 Blood Pressure Position Sitting 03/18/19 06:44 Pulse Oximetry 99 03/18/19 06:44 Oxygen Delivery Method Room Air 03/18/19 06:44 Oxygen Flow Rate 0 03/18/19 06:44 Sign Out <Inder Alcantara DO - Last Filed: 03/19/19 10:50> Sign Out Data: Sign Out Comment: Pending laboratory work-up, d-dimer, and imaging results. Suspect need for admission especially with new cardiac murmur. Last updated by Inder Alcantara DO at 03/18/19 07:42
--- NOTE | 2019-03-18 07:03 | DI.RAD_ITS ---
SYMPTOM/DIAGNOSIS: RHONCHI, RALES THROUGHOUT, RECENT PNEUMONIA. PA AND LATERAL CHEST: When compared with the previous study of 03/11/2019 there has been significant clearing of the left upper lobe. The remainder of the lung is unremarkable. There is no pleural effusion. The cardiovascular structures appear intact. SUMMARY: Significant interval clearing of the left upper lobe is demonstrated.
[2019-03-18 07:25] LABS: Bilirubin Negative (Negative); Blood Negative (Negative); Clarity Clear; Glucose Negative (Negative); Ketones Negative (Negative); Leukocyte Esterase Negative (Negative); Nitrite Negative (Negative); Specific Gravity 1.025 (1.005-1.025); Urobilinogen 0.2 EU/dL (Up TO 0.2); pH 5.5 (5-8)
[2019-03-18 07:43] LABS: Bacteria Moderate HPF (Negative); C & S Indicated? Yes; Casts 3-5 Hyaline LPF (Negative); Crystals Few Amorphous HPF (Negative); Epithelial Cells Rare HPF (Negative); Mucus Moderate (Negative); Other Cells Rare Renal (Negative); RBC 0-2 (0-2); WBC 0-2 HPF (0-5)
[2019-03-18 07:52] LABS: BE (Venous) 0.6 mmol/L (-3-3); HCO3 (Venous) 25 mmol/L (22-28); O2 Sat (Venous) 68 % (70-80); TCO2 (Venous) 23 mmol/L (22-29); pCO2 (Venous) 38 mm/Hg (34-47); pH (Venous) 7.43 (7.32-7.43); pO2 (Venous) 36 mm/Hg (28-44)
[2019-03-18 07:53] LABS: Lactate-non-spesis 1.5 mmol/l (0.6-1.4)
[2019-03-18 07:57] LABS: Abs Immature Grans 0.04 k/cumm (0.0-0.09); Absolute Basophil Count 0.01 k/cumm (0.0-0.2); Absolute Eosinophil Count 0.07 k/cumm (0.0-0.7); Absolute Lymphocyte Count 0.33 k/cumm (1.2-3.4); Absolute Monocyte Count 0.71 k/cumm (0.11-0.7); Absolute Neutrophil Count 4.47 k/cumm (1.2-6.7); Basophils % 0.2; Eosinophils % 1.2; HCT 32.2 % (40.0-50.0); HGB 10.3 g/dL (13.5-17.5); Immature Grans % 0.7; Lymphocytes % 5.9; Mean Corpuscular Hemoglobin 28.7 pg (27.0-33.0); Mean Corpuscular Volume 89.7 fL (80-95); Mean Platelet Volume 8.6 fL (8.0-11.0); Monocytes % 12.6; Neutrophils % 79.4; Platelet Count 233 x1000/uL (130-400); RBC 3.59 m/cumm (4.50-6.00); RBC Distribution Width 14.6 % (11.8-14.1); White Blood Cell Count 5.63 k/cumm (4.4-10.8)
[2019-03-18 08:14] LABS: ALT 30 U/L (12-78); AST 18 U/L (15-37); Albumin 3.2 g/dL (3.4-5.0); Alkaline Phosphatase 59 U/L (46-116); Anion Gap 9.6 mmol/L (3-11); BUN 20 mg/dL (7-18); Bilirubin, Total 0.4 mg/dL (0.2-1.0); CO2 25.4 mmol/L (21.0-32.0); CREATININE 1.23 mg/dL (0.70-1.30); Calcium 8.2 mg/dL (8.5-10.1); Chloride 101 mmol/L (98-107); Estimated GFR 59.24 (mL/min/1.73m2); Glucose 129 mg/dL (70-100); NT-proBNP 441 pg/mL; Potassium 3.7 mmol/L (3.5-5.1); Sodium 136 mmol/L (136-145); TSH (W/Ref FT4) 3.09 uIU/mL (0.358-3.74); Total Protein 6.1 g/dL (6.4-8.2)
[2019-03-18 08:15] LABS: Troponin I < 0.02 ng/mL (0.00-0.06)
[2019-03-18 08:16] LABS: INR 1.3 (0.9-1.1); PTT Activated 24.5 sec (21.0-31.4); Prothrombin Time 13.1 sec (9.3-11.0)
[2019-03-18 08:33] LABS: D-Dimer 830 ng/mlFEU (<500)
--- NOTE | 2019-03-18 08:38 | DI.CT_ITS ---
SYMPTOMS/DIAGNOSIS: SHORTNESS OF BREATH, ELEVATED D DIMER, ? PE PE CHEST CT: CT angiography was performed with multi slice acquisition and multi planar and 3D reconstruction. The study was carried out with an intravenous administration of 67 cc's of Omnipaque 350. There is no evidence of pulmonary embolic disease. There are some small patchy areas of infiltration involving the left upper lobe. Recent chest films revealed evidence of an acute pneumonitis. There has been substantial clearing. The remainder of the lung is unremarkable. There is no pleural effusion. The heart is not enlarged. There is no pericardial effusion. There is no evidence of an aortic aneurysm. SUMMARY: No evidence of PE. Small areas of left upper lobe infiltration in a patient with recent left upper lobe pneumonia greatly improved when compared with a follow up PA and lateral examination.
[2019-03-18] MEDS: predniSONE 20 MG TAB 60 MG PO (08:44)
[2019-03-18] MEDS: Albuterol/Ipratropium 3 ML UPD VIAL UPD (08:45)
[2019-03-18] MEDS: Omnipaque 350 MG/ML 100 ML BTL IJ (09:28)
[2019-03-18] MEDS: Albuterol 2.5 MG/3 ML INH SOLN VIAL UPD (09:54)
[2019-03-18] MEDS: Normal Saline 250 ML 500 ML IV (09:55)
--- NOTE | 2019-03-18 09:59 | NUR.NOTE ---
Nursing Note: Appt March 19Sunday @ 4pm for follow up. Caryl Krishna.
[2019-03-18] MEDS: Albuterol HFA 8 GM 60 PUFF INH IH (11:23)
[2019-03-19 12:28] LABS: Sirolimus 12.1 ng/mL
== END 2019-03-18 11:35 | disposition home or self-care (01) ==
PROVIDERS: Student in an Organized Health Care Education/Training Program; Emergency Provider Physician Assistant; PCP Nurse Practitioner
DX: J20.9 Acute bronchitis, unspecified (principal); R01.1 Cardiac murmur, unspecified; D46.C Myelodysplastic syndrome with isolated del(5q) chromosomal abnormality
CPT/HCPCS: 36415; 71275; 80053; 82805; 87040; 93005; 94640; 96360; 99285; 71046; 80195; 81003; 81015; 83605; 83880; 84443; 84484; 85025; 85379; 85610; 85730; 87086; 93010; J3490; J7512; J7613; J7620

== ENCOUNTER 2019-05-30 03:39 | Outpatient (CLI) | payer BC, SELFPAY ==
[2019-05-30 08:28] LABS: Abs Immature Grans 0.35 k/cumm (0.0-0.09); HCT 36.8 % (40.0-50.0); HGB 11.9 g/dL (13.5-17.5); Mean Corp. HGB Concentration 32.3 g/dL (32.0-36.0); Mean Corpuscular Hemoglobin 33.5 pg (27.0-33.0); Mean Corpuscular Volume 103.7 fL (80-95); Platelet Count 170 x1000/uL (130-400); RBC 3.55 m/cumm (4.50-6.00); RBC Distribution Width 25.1 % (11.8-14.1); White Blood Cell Count 7.15 k/cumm (4.4-10.8)
[2019-05-30 08:41] LABS: ALT 30 U/L (12-78); AST 16 U/L (15-37); Albumin 3.5 g/dL (3.4-5.0); Alkaline Phosphatase 48 U/L (46-116); Anion Gap 10.3 mmol/L (3-11); BUN 28 mg/dL (7-18); Bilirubin, Total 0.2 mg/dL (0.2-1.0); CO2 26.7 mmol/L (21.0-32.0); CREATININE 1.25 mg/dL (0.70-1.30); Calcium 8.4 mg/dL (8.5-10.1); Chloride 107 mmol/L (98-107); Estimated GFR 58.15 (mL/min/1.73m2); Glucose 93 mg/dL (70-100); Potassium 4.1 mmol/L (3.5-5.1); Sodium 144 mmol/L (136-145); Total Protein 6.5 g/dL (6.4-8.2)
[2019-05-30 09:14] LABS: Absolute Neutrophil Count 5.08 k/cumm (1.2-6.7)
[2019-05-30 09:15] LABS: Absolute Lymphocyte Count 1.14 k/cumm (1.2-3.4); Absolute Monocyte Count 0.72 k/cumm (0.11-0.7); Anisocytosis 2+; Diff Comment Manual Differential; Hypochromasia 1+; Polychromasia Present; Promyelocytes % 0 %
[2019-05-30 09:16] LABS: Poikilocytes 1+
== END 2019-05-30 03:59 ==
PROVIDERS: PCP Nurse Practitioner; Visit Provider Nurse Practitioner
DX: N28.9 Disorder of kidney and ureter, unspecified (principal); D46.9 Myelodysplastic syndrome, unspecified
CPT/HCPCS: 36415; 80053; 85025

== ENCOUNTER 2019-07-01 13:16 | Outpatient (CLI) | payer BC, SELFPAY ==
[2019-07-01 13:38] LABS: Abs Immature Grans 0.18 k/cumm (0.0-0.09); Absolute Basophil Count 0.01 k/cumm (0.0-0.2); Absolute Eosinophil Count 0.01 k/cumm (0.0-0.7); Absolute Lymphocyte Count 0.34 k/cumm (1.2-3.4); Absolute Monocyte Count 0.34 k/cumm (0.11-0.7); Absolute Neutrophil Count 8.07 k/cumm (1.2-6.7); Basophils % 0.1; Eosinophils % 0.1; HCT 37.4 % (40.0-50.0); HGB 12.3 g/dL (13.5-17.5); Lymphocytes % 3.8; Mean Corp. HGB Concentration 32.9 g/dL (32.0-36.0); Mean Corpuscular Hemoglobin 35.7 pg (27.0-33.0); Mean Corpuscular Volume 108.4 fL (80-95); Mean Platelet Volume 8.5 fL (8.0-11.0); Monocytes % 3.8; Neutrophils % 90.2; Platelet Count 179 x1000/uL (130-400); RBC 3.45 m/cumm (4.50-6.00); RBC Distribution Width 17.7 % (11.8-14.1); White Blood Cell Count 8.95 k/cumm (4.4-10.8)
[2019-07-01 14:05] LABS: Anisocytosis 2+; Diff Comment RBC Morph Reviewed; Polychromasia Present
[2019-07-01 14:16] LABS: ALT 33 U/L (16-63); AST 24 U/L (15-37); Albumin 4.1 g/dL (3.4-5.0); Alkaline Phosphatase 50 U/L (46-116); Anion Gap 10.9 mmol/L (3-11); BUN 29 mg/dL (7-18); Bilirubin, Total 0.4 mg/dL (0.2-1.0); CO2 24.1 mmol/L (21.0-32.0); CREATININE 1.44 mg/dL (0.70-1.30); Calcium 8.7 mg/dL (8.5-10.1); Chloride 104 mmol/L (98-107); Estimated GFR 49.39 (mL/min/1.73m2); Glucose 153 mg/dL (70-100); Potassium 4.8 mmol/L (3.5-5.1); Sodium 139 mmol/L (136-145); Total Protein 6.7 g/dL (6.4-8.2)
== END 2019-07-01 13:36 ==
PROVIDERS: PCP Nurse Practitioner; Visit Provider Nurse Practitioner
DX: D46.9 Myelodysplastic syndrome, unspecified (principal); N28.9 Disorder of kidney and ureter, unspecified
CPT/HCPCS: 36415; 80053; 85025

== ENCOUNTER 2019-09-22 12:04 | Day surgery (SDC) | payer BC, SELFPAY ==
--- NOTE | 2019-09-22 07:03 | COLE_ITS ---
Date of service: 09/22/19 Time of Service: 14:05 Colonoscopy Report Date of procedure: 09/22/19 Pre-op diagnosis general: Colon Cancer Screening and Family history of colon cancer Post-op diagnosis procedure note: other (Colorectal polyps x5, diverticulosis, internal hemorrhoids) Procedure: Colonoscopy with polypectomy by cold forceps and hot snare Surgeon: Lise Moy Anesthesia proc note operative: other (General/ ASA 3/Emerson Velásquez, JEFFERSON) Estimated blood loss (mL): 5 Pathology: other (cecal polyps x2, ascending polyp, descending polyp and sigmoid polyp at 20 cm) Complications: None Disposition: same day Indications: The patient is here for Colonoscopy pre-op. His last screening was in 2013, which was unremarkable. He reports a family history of colon cancer in his mother.He has not had any bowel habit changes. -Discussed colonoscopy bowel prep as well as the procedure. Discussed possible complications of the procedure to include bleeding, pain, perforation, missed small lesion/polyp, sore throat, aspiration and adverse reaction to the medications. Questions were answered to patient?s satisfaction. No guarantees were implied or given. Prep: Miralax/Dulcolax Procedure Start Time: 14:05 Procedure End Time: 14:32 Retraction Time: 21 minutes Findings: 4 small sessile polyps in the cecum x2, ascending colon x1 and descending colon x1. Large 1.5 cm pedunculated polyp at 20 cm Procedure Description: After informed consent was obtained the patient was taken to the procedure room and placed in a left decubitous position. Monitors were applied and a time out was done. The patients name, date of , p rocedure, allergies to medications and metal in their body was reviewed. The patient was then sedated. Once sedated and comfortable a rectal exam was done. External exam was normal. Internal exam revealed a normal sphincter tone and no palpable masses. The prostate felt smooth. The scope was then introduced and retro-flexed. Grade 1 internal hemorrhoids were identified. There were no polyps or masses on retro-flexion. The scope was then advanced to the cecum without difficulty. The TI and appendiceal orifice were identified. The prep was adequate. 2 polyps were removed with cold fo rceps in the cecum. The scope was then slowly retracted over 21 minutes back into the rectum. Polyps were removed with cold forceps in the ascending colon and descending colon. At 20 cm a larger approximately 1.5 cm pedunculated polyp was identified and removed with a hot snare. There was moderate diverticulosis of the sigmoid colon as well. The scope was removed and the patient was woken up and taken back to Same day surgery in stable condition. The patient tolerated the procedure well and there were no immediate complications. Follow up: Follow up will be determined by final pathology.
--- NOTE | 2019-09-22 07:04 | W.PM.DSUDISC ---
Discharge Plan Disposition Patient Disposition: HOME Condition: Good Discharge Details Reason For Visit: SCREENING;FM HX Attending Provider: Lise Moy Primary Care Provider: Berta Pritchard Home Meds and New Rx's Prescriptions: Continued cholecalciferol (vitamin D3) 1,000 unit capsule 1,000 unit PO DAILY RF: 0 Flovent HFA 10.6 GM HFA aerosol inhaler 1 puff Inhalation BID RF: 0 pantoprazole 40 mg tablet,delayed release (DR/EC) 40 mg PO DAILY RF: 0 acyclovir 800 mg tablet 400 mg PO BID RF: 0 sulfamethoxazole-trimethoprim [Bactrim DS] 800-160 mg tablet 1 tab PO .COMPLEX RF: 0 acetaminophen [Tylenol] 325 mg tablet 650 mg PO ONCE PRNRF: 0 prednisone [Deltasone] 20 mg tablet 20 mg PO DAILY RF: 0 albuterol sulfate 90 mcg/actuation Hfa Aerosol Inhaler 2 puff Inhalation Q6H PRN PRN (Reason: Shortness Of Breath) RF: 0 fluconazole 50 mg Tablet 50 mg PO DAILY RF: 0 montelukast [Singulair] 4 mg Tablet,Chewable 4 mg PO HS RF: 0 guaifenesin [Mucinex] 600 mg Tablet Extended Release 12hr 600 mg PO BID Qty: 10 RF: 0 Discontinued polyethylene glycol 3350 17 gram/dose powder 238 g PO ONCE Qty: 238 RF: 0 bisacodyl [Dulcolax (bisacodyl)] 5 mg tablet,delayed release (DR/EC) 5 mg PO ONCE Qty: 4 RF: 0 Discharge Instructions Instructions: Colonoscopy (DC), Diverticulosis (DC), Colorectal Polyps (DC), Hemorrhoids (DC) Additional Instructions: Findings: 5 polyps Diverticulosis Internal hemorrhoids Follow up: will depend on the final pathology results Please call if you develop: fevers >101.5 Nausea or Vomiting Abdominal pain that is not transient DAY SURGERY UNIT POST ENDOSCOPY INSTRUCTIONS 1. Because there will be medication in your system for the next 24 hours, you may feel a little sleepy. Your coordination will be affected. Therefore: a. Do not drive or operate dangerous equipment for 24 hours. b. Do not drink alcohol beverages for 24 hours (not even beer). c. Plan to go home and rest for the day. 2. Generally there are no restrictions on your activity after a day or so has gone by, but you may feel a bit fatigued for a few days. 3 After you arrive home you may have a light meal and return to a normal diet as you can tolerate it without feeling sick to your stomach. 4. After surgery, you may feel pain or discomfort. This should be only transient, but if it persists please contact your doctor. 5. If there are any questions regarding the findings of your procedure, please feel free to contact your doctor. 6. If you are unable to contact your doctor with a problem, contact the hospital at [phone]. 7. Continue all your regular medications unless directed otherwise. I understand the above instructions and have no questions. Signature of Patient or Responsible Adult Escort Date/Time Name of Responsible Adult Escort Signature of Nurse Date/Time Activity:: Activity as Tolerated Diet:: high fiber diet Discharge Orders Discharge Orders: Discharge Order (Routine); Ordered 09/22/19 Ordered By: Lise Moy DS: Diagnosis Discharge Diagnosis (1) S/P colonoscopy: Status: Acute (2) Diverticulosis large intestine w/o perforation or abscess w/o bleeding: Status: Acute (3) Colorectal polyps: Status: Acute
[2019-09-22 12:30] VITALS: BP 111/74; PULSE 78; RESP 20; TEMP 36.2; O2SAT 93
[2019-09-22] MEDS: Lactated Ringers 1,000 ML 80 ML IV (12:50)
--- NOTE | 2019-09-22 14:13 | BOWEL_PTH ---
PATIENT: Patrice Bro LOC: [facility] U#:[id number] AGE/SX: 64/M ROOM: RE09/22/[address]: Lise Moy MD : 1955 BED: DIS: 09/22/2019 SPEC #: [id number] RECD: 09/22/19 17:26 STATUS: ELLIOT RE #: [id number] XENIA: 09/22/19 14:[address]: Lise Moy DEPT: Surgical Specimen RECD BY: Theresa Bustillo ENTERED: 09/22/19 17:37 SP TYPE: Bowel OTHR DR: Berta Pritchard APRN Tissues: 1 - BIOPSY BOWEL 2 - BIOPSY BOWEL 3 - BIOPSY BOWEL 4 - BIOPSY BOWEL Procedures: GROSS AND MICRO LEVEL 4 Comments: [id number]
[2019-09-22 15:05] VITALS: BP 119/77; PULSE 68; RESP 18; TEMP 36.4; O2SAT 93
== END 2019-09-22 15:48 | disposition home or self-care (01) ==
LOC: SUR 12:05
PROVIDERS: PCP Nurse Practitioner; Visit Provider Surgery
PROC: 0DJD8ZZ Inspection of Lower Intestinal Tract, Via Natural or Artificial Opening Endoscopic (ICD-10-PCS; CPT 45378; principal; 2019-09-22 13:15)
DX: Z12.11 Encounter for screening for malignant neoplasm of colon (principal); D12.0 Benign neoplasm of cecum; D12.2 Benign neoplasm of ascending colon; D12.4 Benign neoplasm of descending colon; D12.5 Benign neoplasm of sigmoid colon; K57.30 Diverticulosis of large intestine without perforation or abscess without bleeding; K64.0 First degree hemorrhoids; Z80.0 Family history of malignant neoplasm of digestive organs
CPT/HCPCS: 45385; 45380; 88305; J2250

== ENCOUNTER 2020-02-17 01:34 | Outpatient (CLI) | payer BC, SELFPAY ==
[2020-02-17 15:53] LABS: ALT 28 U/L (16-63); AST 16 U/L (15-37); Albumin 4.1 g/dL (3.4-5.0); Alkaline Phosphatase 44 U/L (46-116); Anion Gap 8.8 mmol/L (3-11); BUN 22 mg/dL (7-18); Bilirubin, Total 0.3 mg/dL (0.2-1.0); CO2 27.2 mmol/L (21.0-32.0); CREATININE 1.65 mg/dL (0.70-1.30); Calcium 9.6 mg/dL (8.5-10.1); Chloride 105 mmol/L (98-107); Estimated GFR 42.08 (mL/min/1.73m2); Glucose 151 mg/dL (74-106); Potassium 4.5 mmol/L (3.5-5.1); Sodium 141 mmol/L (136-145); Total Protein 7.1 g/dL (6.4-8.2)
[2020-02-17 15:59] LABS: Abs Immature Grans 0.07 k/cumm (0.0-0.09); Absolute Basophil Count 0.01 k/cumm (0.0-0.2); Absolute Eosinophil Count 0.03 k/cumm (0.0-0.7); Absolute Lymphocyte Count 0.51 k/cumm (1.2-3.4); Absolute Neutrophil Count 7.27 k/cumm (1.2-6.7); Basophils % 0.1; Eosinophils % 0.4; HCT 40.9 % (40.0-50.0); HGB 13.2 g/dL (13.5-17.5); Immature Grans % 0.8 %; Lymphocytes % 6.1; Mean Corp. HGB Concentration 32.3 g/dL (32.0-36.0); Mean Corpuscular Hemoglobin 33.4 pg (27.0-33.0); Mean Corpuscular Volume 103.5 fL (80-95); Mean Platelet Volume 9.1 fL (8.0-11.0); Neutrophils % 86.6; Platelet Count 222 x1000/uL (130-400); RBC 3.95 m/cumm (4.50-6.00); RBC Distribution Width 13.6 % (11.8-14.1); White Blood Cell Count 8.39 k/cumm (4.4-10.8)
[2020-02-18 12:38] LABS: IgG 318 mg/dL (610-1,616)
== END 2020-02-17 01:54 ==
PROVIDERS: Internal Medicine; PCP Nurse Practitioner; Visit Provider Nurse Practitioner
DX: D89.811 Chronic graft-versus-host disease (principal); R06.09 Other forms of dyspnea; R05 Cough; D46.9 Myelodysplastic syndrome, unspecified; N28.9 Disorder of kidney and ureter, unspecified; Z86.39 Personal history of other endocrine, nutritional and metabolic disease; Z94.81 Bone marrow transplant status; T86.09 Other complications of bone marrow transplant
CPT/HCPCS: 36415; 80053; 82784; 85025

== ENCOUNTER 2020-08-25 01:34 | Outpatient (RCR) | payer BC, SELFPAY | END 2020-09-06 23:59 | disposition home or self-care (01) | LOC: INF 01:34 | PROVIDERS: PCP Nurse Practitioner; Visit Provider Internal Medicine ==

== ENCOUNTER 2020-08-25 01:42 | Outpatient (CLI) | payer BC, SELFPAY ==
[2020-08-25 07:53] LABS: ALT 21 U/L (16-63); AST 22 U/L (15-37); Albumin 4.1 g/dL (3.4-5.0); Alkaline Phosphatase 55 U/L (46-116); Anion Gap 8.4 mmol/L (3-11); BUN 22 mg/dL (7-18); Bilirubin, Total 0.5 mg/dL (0.2-1.0); CO2 25.6 mmol/L (21.0-32.0); CREATININE 1.18 mg/dL (0.70-1.30); Calcium 9.1 mg/dL (8.5-10.1); Chloride 104 mmol/L (98-107); Glucose 95 mg/dL (74-106); Sodium 138 mmol/L (136-145); Total Protein 7.3 g/dL (6.4-8.2)
[2020-08-25 07:59] LABS: Abs Immature Grans 0.02 10^3/uL (0.0-0.06); Absolute Basophil Count 0.03 10^3/uL (0.0-0.2); Absolute Eosinophil Count 0.19 10^3/uL (0.0-0.7); Absolute Lymphocyte Count 0.79 10^3/uL (1.2-3.4); Absolute Monocyte Count 0.51 10^3/uL (0.1-0.8); Absolute Neutrophil Count 3.75 10^3/uL (1.2-6.7); Basophils % 0.6; Eosinophils % 3.6; HCT 40.4 % (40.0-50.0); HGB 13.4 g/dL (13.5-17.5); Immature Grans % 0.4; Lymphocytes % 14.9; MCH 31.7 pg (27.0-33.0); MCHC 33.2 % (32.0-36.0); MCV 95.5 fL (80-95); MPV 9.6 fL (8.0-11.0); Monocytes % 9.6; Neutrophils % 70.9; Nucleated RBC 0 %; Platelet Count 186 10^3/uL (130-400); RBC 4.23 10^6/uL (4.36-5.78); RDW 13.2 % (11.8-14.1); RDW-SD 46.8 fL; WBC 5.29 10^3/uL (4.4-10.8)
[2020-08-31 14:17] LABS: IgG 511 mg/dL (767-1590)
== END 2020-08-25 02:02 ==
PROVIDERS: Internal Medicine; PCP Nurse Practitioner; Visit Provider Nurse Practitioner
DX: T86.09 Other complications of bone marrow transplant (principal); D89.811 Chronic graft-versus-host disease; R06.00 Dyspnea, unspecified; R05 Cough; D46.9 Myelodysplastic syndrome, unspecified; N28.9 Disorder of kidney and ureter, unspecified; Z86.39 Personal history of other endocrine, nutritional and metabolic disease; Z94.81 Bone marrow transplant status
CPT/HCPCS: 36415; 80053; 82784; 85025

== ENCOUNTER 2020-09-09 02:46 | Outpatient (CLI) | payer BC, SELFPAY ==
[2020-09-11 16:37] LABS: COVID-19 RT-PCR Result NEGATIVE (Negative)
== END 2020-09-09 03:06 ==
PROVIDERS: PCP Nurse Practitioner; Visit Provider Surgery
DX: Z11.59 Encounter for screening for other viral diseases (principal); Z01.818 Encounter for other preprocedural examination
CPT/HCPCS: U0003

== ENCOUNTER 2020-09-09 03:33 | Outpatient (CLI) | payer BC, SELFPAY ==
[2020-09-09 13:59] LABS: Abs Immature Grans 0.01 10^3/uL (0.0-0.06); Absolute Basophil Count 0.03 10^3/uL (0.0-0.2); Absolute Eosinophil Count 0.18 10^3/uL (0.0-0.7); Absolute Lymphocyte Count 0.71 10^3/uL (1.2-3.4); Basophils % 0.6; Eosinophils % 3.4; HCT 40.1 % (40.0-50.0); Immature Grans % 0.2; Lymphocytes % 13.3; MCH 31.4 pg (27.0-33.0); MCHC 32.4 % (32.0-36.0); MCV 96.9 fL (80-95); MPV 9.2 fL (8.0-11.0); Monocytes % 9.4; Neutrophils % 73.1; Nucleated RBC 0 %; Platelet Count 184 10^3/uL (130-400); RBC 4.14 10^6/uL (4.36-5.78); RDW-SD 46.4 fL; WBC 5.33 10^3/uL (4.4-10.8)
[2020-09-09 14:11] LABS: ALT 29 U/L (16-63); AST 22 U/L (15-37); Albumin 3.9 g/dL (3.4-5.0); Alkaline Phosphatase 70 U/L (46-116); Anion Gap 6.8 mmol/L (3-11); BUN 19 mg/dL (7-18); Bilirubin, Total 0.4 mg/dL (0.2-1.0); CO2 28.2 mmol/L (21.0-32.0); CREATININE 1.17 mg/dL (0.70-1.30); Calcium 8.7 mg/dL (8.5-10.1); Chloride 107 mmol/L (98-107); Glucose 96 mg/dL (74-106); Potassium 3.7 mmol/L (3.5-5.1); Sodium 142 mmol/L (136-145); Total Protein 6.9 g/dL (6.4-8.2)
[2020-09-10 09:11] LABS: IgG 390 mg/dL (610-1,616)
== END 2020-09-09 03:53 ==
PROVIDERS: PCP Nurse Practitioner; Visit Provider Internal Medicine
DX: T86.09 Other complications of bone marrow transplant (principal); Z94.81 Bone marrow transplant status; D89.811 Chronic graft-versus-host disease; R06.00 Dyspnea, unspecified; R05 Cough; N28.9 Disorder of kidney and ureter, unspecified; D46.9 Myelodysplastic syndrome, unspecified; Z86.39 Personal history of other endocrine, nutritional and metabolic disease
CPT/HCPCS: 36415; 80053; 82784; 85025

== ENCOUNTER 2020-09-13 13:18 | Observation (INO) | payer BC, SELFPAY ==
[2020-09-13] VITALS (16 sets, daily range): BP systolic 90–128; BP diastolic 60–78; PULSE 65–96; RESP 10–24; TEMP 35.9–38.4; O2SAT 91–96
--- NOTE | 2020-09-13 | DI.RAD_ITS ---
EXAM: XR PORTABLE CHEST AP CLINICAL HISTORY: suspected aspiration pneumonia TECHNIQUE: COMPARISON: No exams were available for comparison FINDINGS: Upright portable AP film at 1617 hours. In comparison with prior examination of March 2019, there are new apparent patchy areas of increased r adiodensity in the left lung base and perhaps in the perihilar regions bilaterally. No gross pleural effusion on this frontal film. Cardiac size within normal limits. IMPRESSION: Suspect left basilar pneumonia. Appropriate follow-up films requested. RADIATION DOSE DELIVERED: Total DLP Total DLP
--- NOTE | 2020-09-13 07:05 | COLE_ITS ---
Date of service: 09/13/20 Time of Service: : Colonoscopy Report Date of procedure: 09/13/20 Pre-op diagnosis general: Family history of colon cancer, screening Post-op diagnosis procedure note: same Procedure: Colonoscopy with polypectomy Surgeon: Lise Moy Anesthesia proc note operative: other (General/ASA 2/felipe Ferguson CRNA) Estimated blood loss (mL): 2 Pathology: other (ascending polyp, descending polyps x2) Complications: Other (while trying to clear the scope of debries he started to desaturate. I was able to get to the cecum and start retracting and then we had to terminate the colonoscopy) Disposition: same day Indications: The patient is here for Colonoscopy pre-op. His last screening was in 2019, which was remarkable for tubular adenoma x 4 and tubulovillious x1. He has a family history of colon cancer in his mother. He has not had any bowel habit changes. -Discussed colonoscopy bowel prep as well as the procedure. Discussed possible complications of the procedure to include bleeding, pain, perforation, missed small lesion/polyp, sore throat, aspiration and adverse reaction to the medications. Questions were answered to patient?s satisfaction. No guarantees were implied or given. Prep: Miralax/Dulcolax Procedure Start Time: : Procedure End Time: 10:46 Findings: 2 small adenomatous polyps Procedure Description: After informed consent was obtained the patient was taken to the procedure room and placed in a left decubitous position. Monitors were applied and a time out was done. The patients name, date of , procedure, allergies to medications and metal in their body was reviewed. The patient was then sedated. Once sedated and comfortable a rectal exam was done. External exam was normal. Internal exam revealed a normal sphincter tone and no palpable masses. The prostate felt slightly enlarged but smooth. The scope was then introduced and retro-flexed. Grade 1 internal hemorrhoids were identified. The scope was then advanced to the cecum without difficulty. The ileocecal valve and appendiceal orifice were identified. The prep was adequate. As I was trying to suction out some liquid stool the scope got clogged. The brush was utilized to try and clear the scope and get suction to wo rk. I was unable to get it working. As I continued to try and unclogg the scope the patient started to desaturate. He was placed on high flow oxygen and bagged. I started to pull the scope back and was able to remove an ascending colon polyp. At this point anesthesia was concerned and asked that we terminate the procedure. The scope was quickly removed. While advancing the scope to the cecum I did remove two descending colon polyps with cold forceps. The patient was placed on his back and he was sat up. His mouth was suctioned. He was taken to the PACU on Oxygen. Respiratory therapy was called to get the patient to use an incentive spirometer. He will be watched in PACU and SDS for a couple of hours. If his sats do not improve and there is concern for aspiration pneumonitis I will place him on a prednisone taper and augmentin if stable. If not stable then I will admit him for observation. Follow up: 6 mo to 1 year
--- NOTE | 2020-09-13 07:06 | W.PM.DSUDISC ---
Discharge Plan Disposition Patient Disposition: HOME Condition: Good Discharge Details Reason For Visit: Colon Cancer Screening Attending Provider: Lise Moy Primary Care Provider: Berta Pritchard Home Meds and New Rx's Prescriptions: Continued loratadine [Claritin] 10 mg tablet 10 mg PO DAILY PRNRF: 0 cholecalciferol (vitamin D3) 1,000 unit capsule 1,000 unit PO DAILY RF: 0 acetaminophen [Tylenol] 325 mg tablet 650 mg PO ONCE PRNRF: 0 IVIG IV QMONTH RF: 0 montelukast [Singulair] 4 mg Tablet,Chewable 4 mg PO HS RF: 0 Discontinued polyethylene glycol 3350 17 gram/dose powder 238 g PO ONCE Qty: 238 RF: 0 bisacodyl [Dulcolax (bisacodyl)] 5 mg tablet,delayed release (DR/EC) 5 mg PO ONCE Qty: 4 RF: 0 Discharge Instructions Additional Instructions: Findings: 3 polyps Follow up: 1 year. Unfortunately while doing the colonoscopy it looks like you aspirated some gastric juices . I had to terminate the procedure in order to be able to wake you up and get you breathing again. Please call if you develop: fevers >101.5 Nausea or Vomiting Abdominal pain that is not transient DAY SURGERY UNIT POST ENDOSCOPY INSTRUCTIONS 1. Because there will be medication in your system for the next 24 hours, you may feel a little sleepy. Your coordination will be affected. Therefore: a. Do not drive or operate dangerous equipment for 24 hours. b. Do not drink alcohol beverages for 24 hours (not even beer). c. Plan to go home and rest for the day. 2. Generally there are no restrictions on your activity after a day or so has gone by, but you may feel a bit fatigued for a few days. 3 After you arrive home you may have a light meal and return to a normal diet as you can tolerate it without feeling sick to your stomach. 4. After surgery, you may feel pain or discomfort. This should be only transient, but if it persists please contact your doctor. 5. If there are any questions regarding the findings of your procedure, please feel free to contact your doctor. 6. If you are unable to contact your doctor with a problem, contact the hospital at [phone]. 7. Continue all your regular medications unless directed otherwise. I understand the above instructions and have no questions. Signature of Patient or Responsible Adult Escort Date/Time Name of Responsible Adult Escort Signature of Nurse Date/Time Activity:: Activity as Tolerated Diet:: As Tolerated Discharge Orders Discharge Orders: Discharge Order (Routine); Ordered 09/13/20 Ordered By: Lise Moy
[2020-09-13] MEDS: Lactated Ringers 1,000 ML 80 ML IV ×2 (09:45→14:59)
--- NOTE | 2020-09-13 10:26 | BOWEL_PTH ---
PATIENT: Patrice Bro LOC: U#:[id number] AGE/SX: 65/M ROOM: 207 RE09/13/[address]: Lise Moy MD : 1955 BED: A DIS: 09/14/2020 SPEC #: [id number] RECD: 09/13/20 12:35 STATUS: ELLIOT REQ #: [id number] XENIA: 09/13/20 10:[address]: Lise Moy DEPT: Surgical Specimen RECD BY: Theresa Bustillo ENTERED: 09/13/20 12:35 SP TYPE: Bowel OTHR DR: Berta Pritchard APRN Tissues: 1 - BIOPSY BOWEL 2 - BIOPSY BOWEL Procedures: GROSS AND MICRO LEVEL 4 Comments: [id number]
[2020-09-13] MEDS: Albuterol 2.5 MG/3 ML INH SOLN VIAL UPD (11:29)
--- NOTE | 2020-09-13 13:23 | HPE_ITS ---
Date of service: 09/13/20 Time of Service: 13:56 Assessment and Plan Assessment and plan (1) Hypoxia: Status: Acute Assessment and plan: 65 year old status post colonoscopy. He developed hypoxia and tachypnea when I was about 1/2 way through the colonoscopy. I had to terminate the procedure early. Patient continued to be hypoxic in [facility] without oxygen. He was sating 91% on 2 L. Recommended admission for albuterol nebulizers, ICP use and prednisone. I discussed case with Dr. Rice. I appreciate her assistance with this gentlemans care. History of Present Illness History of Present Illness Chief Complaint: hypoxemia Narrative: Mr. Bro is a pleasant 65 year old male who underwent Colonoscopy today. In the middle of his colonoscopy he started to become hypoxic and started to cough. He never threw up and we never saw any bile. He did have a lot of clear secretions that anesthesia suctioned. Eventually I had to terminate the procedure as he continued to be hypoxic. I did remove 3 polyps. The patient was taken to PACU and given an albuterol nebulizer treatment and an incentive spirometer. He was then taken back to [facility]. He was comfortable and didn't feel short of breath but we could not get his saturations above 92% on 2 L of O2. He does have a history of lung issues. He was hospitalized at least 3 times with respiratory issues. He just recently tapered off Prednisone after 5 years of taking it. I discussed admission for observation. I also discussed a quick Prednisone taper and antibiotics. Review of Systems Constitutional Constitutional: Denies fever(s), Denies headache(s) and Denies weakness ENT Ears, Nose, Mouth, and Throat: Denies headache(s) Cardiovascular Cardiovascular: Denies chest pain, Denies irregular heart rhythm, Denies palpitations and Denies dyspnea Respiratory Respiratory: Reports as per HPI, Reports cough and Denies dyspnea Gastrointestinal Gastrointestinal: Reports system reviewed and no additional complaints, except as documented Neurologic Neurologic: Denies headache(s) and Denies weakness Endocrine Endocrine: Denies palpitations [facility] Medical History (Updated 09/13/20 @ 14:03 by Lise Moy MD) Actinic keratosis Anemia Due to low Epo, Aranaesp 200mcg q2w if HGB <11 [facility] [place]/28/19 Back pain 07/19/18 ov [place] [facility] [place] compression fx identified on xray CKD (chronic kidney disease) Colorectal polyps Diverticulosis large intestine w/o perforation or abscess w/o bleeding 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 Nocturia Osteoporosis (05/29/18) next Dexa due 07/2019, yearly Zometa per [facility] [place] last dose 07/24/19 Rheumatoid arthritis (10/04/12) [facility] [place] Rheum Sindy Jesse MTX use Seborrheic keratosis Senile purpura Surgical History History of bone marrow transplant History of tonsillectomy S/P colonoscopy (~09/22/19) S/P emergency tracheotomy for assistance in breathing 1963 Stem Cell Transplant (10/18/16) Allogenic Bone Marrow Transplant [facility] [place] for Myelodysplastic Syncrome and T-cell cutaneous lymphoma Family History Maternal Grandfather Stroke Mother Diabetes Colon cancer Father Diabetes Social History Smoking/Tobacco Use Status: Former Tobacco Use Quit Date: 10/08/85 Pack-years: 45 Tobacco: How many years used: 14 Smoking risk assessment performed?: Yes Alcohol Intake: current Alcohol Intake frequency: 0-2 drinks per day Alcohol type: hard liquor Drug use: Never Substance use type: does not use Details: alcohol: t-3, one drink Caregiver/Support person: No Household members: spouse Communication Needs: None Education Level: high school Current gender identity: male What type of physical activity do you participate in: regular exercise and other Details: bowling Frequency: daily Seatbelt use: always Helmet use: No Drive intox or ride w/intox 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 Water heater temp set <120 deg: Yes Working smoke detector in home: Yes Fire extinguisher in home: Yes Carbon monox detector in home: Yes Firearms in home: Yes Firearms unloaded and locked: Yes Do you feel safe at home: Yes Do you feel safe in your relationship?: Yes Meds Home Medications and Allergies Home Medications Medication Instructions Recorded Confirmed Type montelukast [Singulair] 4 mg PO HS 03/11/19 09/13/20 History acetaminophen 325 mg tablet 650 mg PO ONCE PRN tab 06/24/19 09/13/20 History cholecalciferol (vitamin D3) 25 1,000 unit PO DAILY 09/12/19 09/13/20 History mcg (1,000 unit) capsule IVIG IV QMONTH 12/04/19 08/27/20 History loratadine 10 mg tablet 10 mg PO DAILY PRN 07/08/20 09/13/20 History Allergies Allergy/AdvReac Type Severity Reaction Status Date / Time methotrexate AdvReac Severe Myelodysplastic Verified 09/09/20 11:29 Syndrome Exam Const General: cooperative, comfortable and no acute distress Orientation: alert and oriented x3 HENMT Head: normocephalic and atraumatic Resp Effort & Inspection: normal respiratory effort Auscultation: rhonchi left lower Results Last Vital Signs Temp 97.7 F 09/13/20 12:41 Pulse 83 09/13/20 12:41 Resp 22 09/13/20 12:41 BP 114/70 09/13/20 12:41 Pulse Ox 91 L 09/13/20 12:41 COVID-19 Screening Have you, or household traveled for leisure in last 14 days?: No Had IN PERSON contact w/suspected or confirmed C-19 person: No
[2020-09-13] MEDS: Normal Saline 500 ML 30 ML IV (14:13)
[2020-09-13] MEDS: methylPREDNISolone SUCC 125 MG VIAL IVP (14:14)
[2020-09-13] MEDS: PIPERACILLIN/TAZO 4.5 GM in Normal Saline 100 ML IVPB (14:14)
[2020-09-13] MEDS: Normal Saline Flush 10 ML SYR IV ×2 (14:15→16:10)
[2020-09-13 14:59] LABS: Abs Immature Grans 0.02 10^3/uL (0.0-0.06); Absolute Basophil Count 0.02 10^3/uL (0.0-0.2); Absolute Eosinophil Count 0.02 10^3/uL (0.0-0.7); Absolute Lymphocyte Count 0.43 10^3/uL (1.2-3.4); Absolute Monocyte Count 0.54 10^3/uL (0.1-0.8); Absolute Neutrophil Count 9.53 10^3/uL (1.2-6.7); Basophils % 0.2; Eosinophils % 0.2; HCT 40.7 % (40.0-50.0); HGB 13.3 g/dL (13.5-17.5); Immature Grans % 0.2; Lymphocytes % 4.1; MCH 31.4 pg (27.0-33.0); MCHC 32.7 % (32.0-36.0); MPV 8.9 fL (8.0-11.0); Monocytes % 5.1; Neutrophils % 90.2; Nucleated RBC 0 %; Platelet Count 179 10^3/uL (130-400); RBC 4.24 10^6/uL (4.36-5.78); RDW 12.8 % (11.8-14.1); RDW-SD 45.4 fL; WBC 10.56 10^3/uL (4.4-10.8)
--- NOTE | 2020-09-13 15:04 | MCONE_ITS ---
Date of service: 09/13/20 Time of Service: 15:04 Assessment and Plan Assessment and plan (1) Acute bronchospasm: Status: Acute Assessment and plan: S/p solumderol 125 IV x 1. Will write for methylprednisolone 40 mg IV Q6H. Will need a slow steroid taper. (just finished prednisone taper 1 week ago that he was on for bone marrow transplant since 2017) Writing for zosyn. (2) Aspiration pneumonitis: Status: Acute Assessment and plan: As above (3) Hypoxia: Status: Acute Assessment and plan: Wean O2 as tolerated. Assess ambulatory pulse ox prior to discharge. (4) Myelodysplastic syndrome, unspecified: Status: Chronic Assessment and plan: s/p bone marrow transplant. Per patient, he is off of all medications for it, including monteleukast and prednisone x 1 week, per his provider's order. No evidence of ggvit-py-feqd at this time. Will need a slow steroid taper. (5) Discharge planning issues: Status: Acute Assessment and plan: Full code I expect the patient will be able to be discharged home tomorrow History of Present Illness History of Present Illness Chief Complaint: Aspiration event during colonoscopy Narrative: Mr Bro is a 65 year old male with PMHx of MDS s/p bone marrow transplant, off of all medications including prednisone x 1 week (per his doctors orders; he does still take vitamin D3), who underwent a colonoscopy today, during which he appeared to have vomit clear secretions. Post-colonosco py, he was wheezing and requiring 2 L of oxygen. He is being monitored overnight, and hospitalist service was consulted for help in management of acute bronchospasm in setting of likely mild aspiration pneumonitis. The patient denies feeling short of breath and only coughs when taking a deep breath/working with incentive spirometry. He does not feel sick. He is not nauseated a this time. He did not have a cough prior to procedure today, has been quarantining at home following his COVID-19 test on 09/09/2020 (negative). 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 Nocturia Osteoporosis (05/29/18) next Dexa due 07/2019, yearly Zometa per [facility] [place] last dose 07/24/19 Rheumatoid arthritis (10/04/12) [facility] [place] Rheum Sindy Jesse MTX use Seborrheic keratosis Senile purpura Surgical History History of bone marrow transplant History of tonsillectomy S/P colonoscopy (~09/22/19) S/P emergency tracheotomy for assistance in breathing 1963 Stem Cell Transplant (10/18/16) Allogenic Bone Marrow Transplant [facility] [place] for Myelodysplastic Syncrome and T-cell cutaneous lymphoma Family History Maternal Grandfather Stroke Mother Diabetes Colon cancer Father Diabetes Social History Smoking/Tobacco Use Status: Former Tobacco Use Quit Date: 10/08/85 Pack-years: 45 Tobacco: How many years used: 14 Smoking risk assessment performed?: Yes Alcohol Intake: current Alcohol Intake frequency: 0-2 drinks per day Alcohol type: hard liquor Drug use: Never Substance use type: does not use Details: alcohol: t-3, one drink Caregiver/Support person: No Household members: spouse Communication Needs: None Education Level: high school Current gender identity: male What type of physical activity do you participate in: regular exercise and other Details: bowling Frequency: daily Seatbelt use: always Helmet use: No Drive intox or ride w/intox school 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: No Water heater temp set <120 deg: Yes Working smoke detector in home: Yes Fire extinguisher in home: Yes Carbon monox detector in home: Yes Firearms in home: Yes Firearms unloaded and locked: Yes Do you feel safe at home: Yes Do you feel safe in your relationship?: Yes Exam Narrative Exam Narrative: General: Very pleasant middle-aged male, who is sitting comfortably in bed, on 2L of O2, not dyspneic/tachypenic, seen coughing only once (after being made to take deep breaths for auscultation) Neurological: A&Ox3, no focal deficits Psychiatric: Appropriate speech pattern/content Skin: Visible skin intact HEENT: Atraumatic, normocephalic, EOMI, MMM, clear oropharynx, no submandibular or cervical lymphadenopathy, no goiter or JVD Cardiovascular: RRR, no m/r/g Lungs: CTAB Gastrointestinal: soft, nontender, nondistended Genitourinary: deferred Extremities: no edema BLE's Results Last Vital Signs Temp 36.6 C 09/13/20 14:10 Pulse 85 09/13/20 14:10 Resp 19 09/13/20 14:10 BP 125/73 09/13/20 14:10 Pulse Ox 95 09/13/20 14:10 Labs Result diagrams: 09/13/20 14:50 09/13/20 14:50 Imaging Chest x-ray: pending
[2020-09-13 15:06] LABS: Anion Gap 8.3 mmol/L (3-11); BUN 15 mg/dL (7-18); CO2 24.7 mmol/L (21.0-32.0); CREATININE 1.32 mg/dL (0.70-1.30); Calcium 9.2 mg/dL (8.5-10.1); Chloride 104 mmol/L (98-107); Estimated GFR 54.27 (mL/min/1.73m2); Glucose 128 mg/dL (74-106); Magnesium 1.8 mg/dL (1.8-2.4); Potassium 3.8 mmol/L (3.5-5.1); Sodium 137 mmol/L (136-145)
[2020-09-13] MEDS: Pantoprazole 40 MG VIAL IVP (16:09)
[2020-09-13] MEDS: Acetaminophen 325 MG TAB 650 MG PO (16:27)
--- NOTE | 2020-09-13 16:37 | DI.VRAD_ITS ---
PROCEDURE INFORMATION: Exam: XR Chest, 1 View Exam date and time: 09/13/2020 4:18 PM Age: 65 years old Clinical indication: Other: Suspected aspiration pneumonia; Prior surgery; Surgery date: Post-operative (0-2 days); Surgery type: S/P colonoscopy this am TECHNIQUE: Imaging protocol: XR of the chest Views: 1 view. COMPARISON: CR XR CHEST 2V PA LATERAL 03/18/2019 8:06 AM FINDINGS: Lungs: Overall low inspiratory effort. However, there is some new patchy lateral left lower lobe opacities and retrocardiac infiltrate suggestive of consolidation. Pleural space: Unremarkable. No pleural effusion. No pneumothorax. Heart/Mediastinum: Unremarkable. No cardiomegaly. Vasculature: Tortuous aorta. Bones/joints: Unremarkable. IMPRESSION: Left lower lobe consolidations suggestive of aspiration pneumonia. Dictated and Authenticated by: Eleazar Campos MD. Ordering:REDDY Mark MD
[2020-09-13] MEDS: PIPERACILLIN/TAZO 3.375 GM in Normal Saline 50 ML IVPB (20:35)
[2020-09-13] MEDS: methylPREDNISolone SUCC 40 MG VIAL IVP (20:36)
[2020-09-14] MEDS: Lactated Ringers 1,000 ML 125 ML IV (00:55)
[2020-09-14] MEDS: methylPREDNISolone SUCC 40 MG VIAL IVP ×2 (02:18→07:45)
[2020-09-14] MEDS: PIPERACILLIN/TAZO 3.375 GM in Normal Saline 50 ML IVPB ×2 (02:19→07:46)
[2020-09-14 05:49] VITALS: BP 111/67; PULSE 72; RESP 22; TEMP 36.5; O2SAT 95
[2020-09-14 06:39] LABS: Abs Immature Grans 0.05 10^3/uL (0.0-0.06); Absolute Lymphocyte Count 0.31 10^3/uL (1.2-3.4); Basophils % 0.2; HCT 34.4 % (40.0-50.0); HGB 12.2 g/dL (13.5-17.5); Immature Grans % 0.4; Lymphocytes % 2.4; MCH 32.9 pg (27.0-33.0); MCHC 35.5 % (32.0-36.0); MCV 92.7 fL (80-95); MPV 9.6 fL (8.0-11.0); Monocytes % 0.9; Neutrophils % 96.1; Nucleated RBC 0 %; Platelet Count 164 10^3/uL (130-400); RBC 3.71 10^6/uL (4.36-5.78); RDW 12.6 % (11.8-14.1); WBC 12.79 10^3/uL (4.4-10.8)
[2020-09-14 06:45] LABS: Anion Gap 8.9 mmol/L (3-11); BUN 18 mg/dL (7-18); CO2 23.1 mmol/L (21.0-32.0); CREATININE 1.28 mg/dL (0.70-1.30); Calcium 8.8 mg/dL (8.5-10.1); Chloride 105 mmol/L (98-107); Estimated GFR 56.23 (mL/min/1.73m2); Glucose 166 mg/dL (74-106); Magnesium 1.8 mg/dL (1.8-2.4); Potassium 4.1 mmol/L (3.5-5.1); Sodium 137 mmol/L (136-145)
[2020-09-14 06:50] LABS: Absolute Basophil Count 0.03 10^3/uL (0.0-0.2); Absolute Monocyte Count 0.12 10^3/uL (0.1-0.8); Absolute Neutrophil Count 12.29 10^3/uL (1.2-6.7)
--- NOTE | 2020-09-14 07:17 | W.PM.PROGNOT ---
Date of Service Date of service: 09/14/20 Time of Service: 07:00 Assessment and Plan Assessment and plan (1) Acute bronchospasm: Status: Acute Assessment and plan: Patient is doing well this morning. No difficulty breathing on RA. Sp02 95% earlier this morning. Continue use of incentive spirometer. D/C home later today, if respiratory status continues to be stable. Subjective Subjective Interval history since last seen: Patient reports he is feeling Well this morning. Denies any feelings of SOB. He is currently on RA without any difficulty breathing. He reports use of the incentive spirometer throughout the day yesterday. Exam Const General: cooperative, healthy appearing and comfortable Orientation: alert and oriented x3 Resp Effort & Inspection: normal respiratory effort, no audible wheezes and no cough Objective Last Vital Signs Temp 36.5 C 09/14/20 05:49 Pulse 72 09/14/20 05:49 Resp 22 09/14/20 05:49 BP 111/67 09/14/20 05:49 Pulse Ox 95 09/14/20 05:49 Laboratory Results - last 24 hr 09/13/20 09/13/20 09/14/20 14:50 14:50 06:02 WBC 10.56 RBC 4.24 L Hgb 13.3 L Hct 40.7 MCV 96.0 H MCH 31.4 MCHC 32.7 RDW 12.8 Plt Count 179 MPV 8.9 Immature Gran % 0.2 Neutrophils % 90.2 Lymphocytes % 4.1 Monocytes % 5.1 Eosinophils % 0.2 Basophils % 0.2 Nucleated RBC % 0 Absolute Neutrophils 9.53 H Absolute Lymphocytes 0.43 L Absolute Monocytes 0.54 Absolute Eosinophils 0.02 Absolute Basophils 0.02 Sodium 137 137 Potassium 3.8 4.1 Chloride 104 105 Carbon Dioxide 24.7 23.1 Anion Gap 8.3 8.9 BUN 15 18 Creatinine 1.32 H 1.28 Estimated GFR/1.73 m2 54.27 56.23 Glucose 128 H 166 H Calcium 9.2 8.8 Magnesium 1.8 1.8 09/14/20 06:02 WBC 12.79 H RBC 3.71 L Hgb 12.2 L Hct 34.4 L MCV 92.7 D MCH 32.9 MCHC 35.5 RDW 12.6 Plt Count 164 MPV 9.6 Immature Gran % 0.4 Neutrophils % 96.1 Lymphocytes % 2.4 Monocytes % 0.9 Eosinophils % 0.0 Basophils % 0.2 Nucleated RBC % 0 Absolute Neutrophils 12.29 H Absolute Lymphocytes 0.31 L Absolute Monocytes 0.12 Absolute Eosinophils 0.00 Absolute Basophils 0.03 Sodium Potassium Chloride Carbon Dioxide Anion Gap BUN Creatinine Estimated GFR/1.73 m2 Glucose Calcium Magnesium
[2020-09-14 07:34] VITALS: BP 122/64; PULSE 85; RESP 18; TEMP 37; O2SAT 93
[2020-09-14] MEDS: Normal Saline Flush 10 ML SYR IV (07:46)
[2020-09-14] MEDS: Normal Saline 50 ML 200 ML (07:46)
[2020-09-14 09:31] VITALS: PULSE 88; PULSE 90; RESP 16; O2SAT 92; O2SAT 97
[2020-09-14] MEDS: predniSONE 20 MG TAB 40 MG PO (10:42)
--- NOTE | 2020-09-14 11:01 | INITIAL_ITS ---
- If Service Date Differs Date of service: 09/14/20 Time of Service: 11:01 Care Management Initial Assess REASON FOR HOSPITALIZATION:: Hypoxemia PAST MEDICAL HISTORY/PAST SURGICAL HISTORY:: Medical History. Actinic keratosis. Anemia. Due to low Epo, Aranaesp 200mcg q2w if HGB <11 [facility] note dated 04/28/19. Back pain. 07/19/18 ov at [facility] - compression fx identified on xray. CKD (chronic kidney disease). Colorectal polyps. Diverticulosis large intestine w/o perforation or abscess w/o bleeding. 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 Hyperlipidemia (10/09/13). Hyperlipidemia. Influenza A. Multiple benign nevi. Myelodysplastic syndrome with 5q deletion (11/19/12). Dx'ed 2009 s/p MTX use for RA. Followed by Heme clinic at [facility] Dr. Srinivasa Schmidt. 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 Neulasta rx. Nocturia. Osteoporosis (05/29/18). next Dexa due 07/2019, yearly Zometa per [facility] last dose 07/24/19. Rheumatoid arthritis (10/04/12). [facility] Rheum Sindy Zbehlik. MTX use. Seborrheic keratosis. Senile purpura. Surgical History. History of bone marrow transplant. History of tonsillectomy. S/P colonoscopy (~09/22/19). S/P emergency tracheotomy for assistance in breathing. 1963. Stem Cell Transplant (10/18/16). 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 They have been for 24 years, and reports that he has two step children whom are supportive. 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 Patrice is independent at baseline, he drives, and manages ADL's CURRENT FUNCTIONAL STATUS:: Patrice was on the phone when CM attempted to meet with him. CM returned later, and discussed Patrice's discharge plan. Patrice was engaged and pleasant in conversation. He stated that he had not planned on remaining at [facility] after his routine procedure, but was comfortable staying. He stated that he feels that he may be discharged later today, and he will have a ride home from either his or father in law. He reported that although he is over 65, he has had BCBS as primary ins., but will be changing to [facility] at the first of the year, and he is already enrolled. CM will continue to follow. ADVANCE DIRECTIVES:: None on file - CM will offer packet to complete Has patient been provided with info about the portal/API?: Yes Did the patient sign up for the portal?: Yes (previously) CODE STATUS:: Full Code INSURANCE COVERAGE / FINANCIAL ISSUES:: BCBS CURRENT HOME/COMMUNITY SERVICES/EQUIPMENT:: No community services or equipment at this time. PRIMARY CARE PHYSICIAN:: Berta Pritchard POTENTIAL DISCHARGE NEEDS:: Follow up appointment [facility] primary care provider scheduled prior to discharge. PATIENT/FAMILY EDUCATION NEEDS:: Discharge education, limitations and follow up plan of care, ask me three and self management. ANTICIPATED BARRIERS TO DISCHARGE:: None identified at this time. TRANSPORTATION:: Via private car with family at time of discharge. PLAN:: Patrice will return home once medically cleared, possibly today. His will drive him home via private vehicle when ready. He will follow up with his PCP and discharge plan of care. CM will continue to follow.
--- NOTE | 2020-09-14 11:12 | PGE_ITS ---
Date of Service Date of service: 09/14/20 Time of Service: 11:12 Assessment and Plan Assessment and plan (1) Acute bronchospasm: Status: Acute Assessment and plan: Bronchospasm improved. No longer hypoxemic. Solu- Medrol changed to oral prednisone 40 mg daily. He does not required a slow taper as the patient just completed a taper off of prednisone over the past 3 years. Patient was down to 2.5 mg of prednisone every other day which was discontinued about 2 weeks ago by his oncologist. I would give him a short burst of prednisone 40 mg daily for 5 to 7 days and then refer him back to his oncologist to determine whether he needs ongoing steroids. I would treat him on a 7-day course of Augmentin. (2) Aspiration pneumonitis: Status: Acute Assessment and plan: Patient is afebrile this morning although he did have a temperature of 38.4 yesterday afternoon. WBCs are up to 12,000 but this is not unexpected given his high-dose Solu-Medrol. At this point his Solu-Medrol can be discontinued for short course of prednisone. IV Zosyn can be changed to oral Augmentin and the patient can be discharged if okay with surgery. I will get a follow-up PA and lateral chest x-ray today so we have a good baseline x- ray to monitor his progress. I would then do a follow-up x-ray in 2 weeks to make sure that his infiltrates have cleared. (3) Hypoxia: Status: Acute Assessment and plan: Patient is currently on room air and ambulatory pulse oximetry was checked and his saturation remained at 93% or greater. (4) Myelodysplastic syndrome, unspecified: Status: Chronic Assessment and plan: s/p bone marrow transplant. Per patient, he is off of all medications for it, including monteleukast and prednisone x 1 week, per his provider's order. No evidence of eimsk-zs-bypp at this time. I do not agree with my colleagues impression he needs a slow taper prednisone. Patient had a slow taper over 3-year. And was successfully weaned off of prednisone in the last couple weeks. I think a short burst of prednisone over the next 5 days should be adequate. At that point I would leave it up to his oncologist as to whether or not he needs continued prednisone therapy for his myelodysplastic syndrome. (5) Discharge planning issues: Status: Acute Assessment and plan: Full code Patient to be discharged later today after his follow-up chest x-ray. However I switch him over from Zosyn to Augmentin and switch to Solu-Medrol to prednisone. I do not anticipate any home health needs and he does not require outpatient oxygen supplementation. Subjective Subjective Interval history since last seen: Mr. Bro states that he is doing much better today. He denies any shortness of breath. He is coughing up minimal amount of clear phlegm but no purulent sputum. He is afebrile today although he did have a temperature of 38.4 yesterday afternoon. Patient underwent a C scope and shortly thereafter had an episode of nausea and vomiting and presumptively had an aspiration event. Portable chest x-ray showed left basilar infiltrate yesterday. This morning [id number] ultrasound of his lungs shows bilateral basilar B-lines no pleural effusion no lung consolidation. I will repeat his chest x-ray today getting a formal PA and lateral films. He is currently on prednisone Augmentin. Respiratory therapy ambulated today and his oxygen saturation remained at 93% or greater with no symptoms. Patient is pulling 3500 mL on his incentive spirometry this morning. I think clinically he could probably be discharged home with a 7-day course of Augmentin and a short burst of prednisone tapering over the next 5-7 days. Exam Narrative Exam Narrative: Middle-age male sitting up in his chair alert and oriented person place time circumstance. Lungs with bibasilar rales no rhonchi no wheezes. Heart regular rate and rhythm. Objective Last Vital Signs Temp 37.0 C 09/14/20 07:34 Pulse 85 09/14/20 07:34 Resp 18 09/14/20 07:34 BP 122/64 09/14/20 07:34 Pulse Ox 93 09/14/20 07:34 Laboratory Results - last 24 hr 09/13/20 09/13/20 09/14/20 14:50 14:50 06:02 WBC 10.56 RBC 4.24 L Hgb 13.3 L Hct 40.7 MCV 96.0 H MCH 31.4 MCHC 32.7 RDW 12.8 Plt Count 179 MPV 8.9 Immature Gran % 0.2 Neutrophils % 90.2 Lymphocytes % 4.1 Monocytes % 5.1 Eosinophils % 0.2 Basophils % 0.2 Nucleated RBC % 0 Absolute Neutrophils 9.53 H Absolute Lymphocytes 0.43 L Absolute Monocytes 0.54 Absolute Eosinophils 0.02 Absolute Basophils 0.02 Sodium 137 137 Potassium 3.8 4.1 Chloride 104 105 Carbon Dioxide 24.7 23.1 Anion Gap 8.3 8.9 BUN 15 18 Creatinine 1.32 H 1.28 Estimated GFR/1.73 m2 54.27 56.23 Glucose 128 H 166 H Calcium 9.2 8.8 Magnesium 1.8 1.8 09/14/20 06:02 WBC 12.79 H RBC 3.71 L Hgb 12.2 L Hct 34.4 L MCV 92.7 D MCH 32.9 MCHC 35.5 RDW 12.6 Plt Count 164 MPV 9.6 Immature Gran % 0.4 Neutrophils % 96.1 Lymphocytes % 2.4 Monocytes % 0.9 Eosinophils % 0.0 Basophils % 0.2 Nucleated RBC % 0 Absolute Neutrophils 12.29 H Absolute Lymphocytes 0.31 L Absolute Monocytes 0.12 Absolute Eosinophils 0.00 Absolute Basophils 0.03 Sodium Potassium Chloride Carbon Dioxide Anion Gap BUN Creatinine Estimated GFR/1.73 m2 Glucose Calcium Magnesium
--- NOTE | 2020-09-14 11:30 | DI.RAD_ITS ---
EXAM: XR CHEST 2V PA LATERAL CLINICAL HISTORY: Follow-up aspiration pneumonitis TECHNIQUE: COMPARISON: CR XR CHEST 2V PA LATERAL from 02/02/2019 CR,XR XR PORTABLE CHEST AP from 09/13/2020 FINDINGS: PA and lateral chest, 1152 hours. Examination is compared with films obtained September 13. Suspect ed left basilar pulmonary infiltrate is not appreciated on this examination. The lungs appear genera lly clear except for changes of scarring. No pleural effusion seen. Cardiac size within normal limi ts. IMPRESSION: No evidence of acute process. Lower lobe infiltrate suspected on initial AP film is not confirmed on PA and lateral views. RADIATION DOSE DELIVERED: Total DLP Total DLP
--- NOTE | 2020-09-14 12:31 | DSE_ITS ---
DS: Diagnosis Discharge Diagnosis (1) Acute bronchospasm: Status: Acute (2) Aspiration pneumonitis: Status: Acute (3) Hypoxia: Status: Acute (4) Myelodysplastic syndrome, unspecified: Status: Chronic Discharge Plan Disposition Patient Disposition: HOME Condition: Good Discharge Details Reason For Visit: HYPOXEMIA Admit Date/Time: 09/13/20 13:18 Admit Provider: Lise Moy Attending Provider: Lise Moy Primary Care Provider: Berta Pritchard [facility] Course Hospital Course: Mr. Bro is doing well. He is not having an issue breathing. He is off Oxygen with his sats in the mid nineties. HIs cough is much improved. He has no chest pain and no sore throat. Appreciate Dr. Rice seeing patient. We will send the patient home on 5 days of Prednisone 40 mg daily and augmentin BID for 6 more days. He will unfortunately need another colonoscopy in 6 months or so. I was able to remove 3 polyps and send them to the pathologist. I will wait for results. I will fax reports and H&P to his oncologist at [facility]. I did try to call but it was busy. Home Meds and New Rx's Prescriptions: New prednisone 20 mg Tablet 40 mg PO DAILY Qty: 5 RF: 0 amoxicillin-pot clavulanate 875-125 mg Tablet 1 tab PO BID Qty: 12 RF: 0 Continued loratadine [Claritin] 10 mg tablet 10 mg PO DAILY PRNRF: 0 cholecalciferol (vitamin D3) 1,000 unit capsule 1,000 unit PO DAILY RF: 0 Discontinued polyethylene glycol 3350 17 gram/dose powder 238 g PO ONCE Qty: 238 RF: 0 bisacodyl [Dulcolax (bisacodyl)] 5 mg tablet,delayed release (DR/EC) 5 mg PO ONCE Qty: 4 RF: 0 Discharge Instructions Additional Instructions: Findings: 3 polyps Follow up: 1 year. Unfortunately while doing the colonoscopy it looks like you aspirated some gastric juices . I had to terminate the procedure in order to be able to wake you up and get you breathing again. Please call if you develop: fevers >101.5 Nausea or Vomiting Abdominal pain that is not transient DAY SURGERY UNIT POST ENDOSCOPY INSTRUCTIONS 1. Because there will be medication in your system for the next 24 hours, you may feel a little sleepy. Your coordination will be affected. Therefore: a. Do not drive or operate dangerous equipment for 24 hours. b. Do not drink alcohol beverages for 24 hours (not even beer). c. Plan to go home and rest for the day. 2. Generally there are no restrictions on your activity after a day or so has gone by, but you may feel a bit fatigued for a few days. 3 After you arrive home you may have a light meal and return to a normal diet as you can tolerate it without feeling sick to your stomach. 4. After surgery, you may feel pain or discomfort. This should be only transient, but if it persists please contact your doctor. 5. If there are any questions regarding the findings of your procedure, please feel free to contact your doctor. 6. If you are unable to contact your doctor with a problem, contact the hospital at [phone]. 7. Continue all your regular medications unless directed otherwise. I understand the above instructions and have no questions. Signature of Patient or Responsible Adult Escort Date/Time Name of Responsible Adult Escort Signature of Nurse Date/Time Stand Alone Forms: Alma Gillespie (DSU), Nursing Discharge Form Referrals: Lise Moy MD [ [facility] STAFF PHYSICIAN] - (1 week) Activity:: Activity as Tolerated Equipment/Supplies:: No Equipment Needed Diet:: As Tolerated DS: Summary Status at Discharge Functional status at discharge: independent ambulation Overall status at discharge: patient is progressing back to baseline Mental Status: mental status grossly normal Speech and Movement: speech and movement normal Mood: congruent mood Affect: normal affect Time Spent with Patient providing and/or coordinating discharge services: Less than 30 minutes Exam Resp Effort & Inspection: normal respiratory effort Cardio Rate: regular rate Rhythm: regular rhythm Psych Mental Status: mental status grossly normal Speech and Movement: speech and movement normal Mood: congruent mood Affect: normal affect DS: Data Vitals/I&O Vitals and I&O: Vital Signs Temperature 98.6 F 09/14/20 07:34 Temperature Source Temporal Artery Scan 09/14/20 07:34 Pulse 85 09/14/20 07:34 Pulse Rhythm Regular 09/14/20 10:26 Respiratory Rate 18 09/14/20 07:34 Respiratory Effort Non-Labored 09/14/20 10:26 Respiratory Depth Normal 09/14/20 10:26 Respiratory Pattern Normal 09/14/20 10:26 Blood Pressure 122/64 09/14/20 07:34 Pulse Oximetry 93 09/14/20 07:34 Respiratory End-tidal CO2 26 09/13/20 11:58 Oxygen Delivery Method Room Air 09/14/20 07:34 Oxygen Flow Rate 0 09/14/20 07:34 Pain Level 0 09/14/20 07:34 Comment 09/13/20 17:54 Intake & Output 09/13/20 09/14/20 09/14/20 23:59 11:59 23:59 Intake Total 2386.167 / 3186.167 1313.500 / 1313.500 Output Total 1000 / 1000 650 / 650 Balance 1386.167 / 2186.167 663.500 / 663.500 Weight 176 lb 5.917 oz Intake: IV 1426.167 / 2226.167 613.500 / 613.500 Oral 960 / 960 700 / 700 Output: Urine 1000 / 1000 650 / 650 Other: Urine Color Yellow Yellow Urine Appearance Clear Clear Urine Odor Normal Normal Comment Void x1 in the urinal. Stool Size Moderate Stool Characteristics Soft Brown Emesis Description None Voiding Methods Urinal Urinal Data Completed and Pending Labs on day of discharge: Labs from last 24 hours 09/14/20 09/14/20 09/13/20 06:02 06:02 14:50 WBC 12.79 H 10.56 RBC 3.71 L 4.24 L Hgb 12.2 L 13.3 L Hct 34.4 L 40.7 MCV 92.7 D 96.0 H MCH 32.9 31.4 MCHC 35.5 32.7 RDW 12.6 12.8 Plt Count 164 179 MPV 9.6 8.9 Immature Gran % 0.4 0.2 Neutrophils % 96.1 90.2 Lymphocytes % 2.4 4.1 Monocytes % 0.9 5.1 Eosinophils % 0.0 0.2 Basophils % 0.2 0.2 Nucleated RBC % 0 0 Absolute Neutrophils 12.29 H 9.53 H Absolute Lymphocytes 0.31 L 0.43 L Absolute Monocytes 0.12 0.54 Absolute Eosinophils 0.00 0.02 Absolute Basophils 0.03 0.02 Sodium 137 Potassium 4.1 Chloride 105 Carbon Dioxide 23.1 Anion Gap 8.9 BUN 18 Creatinine 1.28 Estimated GFR/1.73 m2 56.23 Glucose 166 H Calcium 8.8 Magnesium 1.8 09/13/20 14:50 WBC RBC Hgb Hct MCV MCH MCHC RDW Plt Count MPV Immature Gran % Neutrophils % Lymphocytes % Monocytes % Eosinophils % Basophils % Nucleated RBC % Absolute Neutrophils Absolute Lymphocytes Absolute Monocytes Absolute Eosinophils Absolute Basophils Sodium 137 Potassium 3.8 Chloride 104 Carbon Dioxide 24.7 Anion Gap 8.3 BUN 15 Creatinine 1.32 H Estimated GFR/1.73 m2 54.27 Glucose 128 H Calcium 9.2 Magnesium 1.8 PFSH Medical History (Updated 09/13/20 @ 15:31 by Deedee Rice MD) Actinic keratosis Anemia Due to low Epo, Aranaesp 200mcg q2w if HGB <11 [facility] note dated 04/28/19 Back pain 07/19/18 ov at [facility] - compression fx identified on xray CKD (chronic kidney disease) Colorectal polyps Diverticulosis large intestine w/o perforation or abscess w/o bleeding Mirgt-yrmbkf-yyaj disease (06/14/17) Hyperlipidemia (10/09/13) Hyperlipidemia Influenza A Multiple benign nevi Myelodysplastic syndrome with 5q deletion (11/19/12) Dx'ed 2009 s/p MTX use for RA Followed by Heme clinic at [facility] Dr. 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 Nocturia Osteoporosis (05/29/18) next Dexa due 07/2019, yearly Zometa per [facility] last dose 07/24/19 Rheumatoid arthritis (10/04/12) [facility] Rheum Sindy Jesse MTX use Seborrheic keratosis Senile purpura Surgical History History of bone marrow transplant History of tonsillectomy S/P colonoscopy (~09/22/19) S/P emergency tracheotomy for assistance in breathing 1963 Stem Cell Transplant (10/18/16) Allogenic Bone Marrow Transplant [facility] for Myelodysplastic Syncrome and T-cell cutaneous lymphoma Family History Maternal Grandfather Stroke Mother Diabetes Colon cancer Father Diabetes Social History Smoking/Tobacco Use Status: Former Tobacco Use Quit Date: 10/08/85 Pack-years: 45 Tobacco: How many years used: 14 Smoking risk assessment performed?: Yes Alcohol Intake: current Alcohol Intake frequency: 0-2 drinks per day Alcohol type: hard liquor Drug use: Never Substance use type: does not use Details: alcohol: t-3, one drink Caregiver/Support person: No Household members: spouse Communication Needs: None Education Level: high school Current gender identity: male What type of physical activity do you participate in: regular exercise and other Details: bowling Frequency: daily Seatbelt use: always Helmet use: No Drive intox or ride w/intox school bus driver/teacher assistant: No Water heater temp set <120 deg: Yes Working smoke detector in home: Yes Fire extinguisher in home: Yes Carbon monox detector in home: Yes Firearms in home: Yes Firearms unloaded and locked: Yes Do you feel safe at home: Yes Do you feel safe in your relationship?: Yes
[2020-09-14] MEDS: guaiFENesin 600 MG TABCR PO ×2 (12:53)
[2020-09-14] MEDS: Amoxicillin 875/Clav. 125 TAB PO (13:06)
--- NOTE | 2020-09-14 14:09 | PDOC.CMDIS ---
- If Service Date Differs Date of service: 09/14/20 Time of Service: 14:09 LACE Index Scoring Tool - Questions: Length of Stay (in days): 2 Acuity (Admit via E.D.?): No Comorbidities: Any Tumor E.D. Visits: 0 - Answers: Total Score: 4 Risk of Readmission: Low Risk Care Management Discharge Reason for Hospitalization: Hypoxemia Discharge Plan: Patrice will return home with no additional services at this time. He will be driven home via private vehicle by family. He will follow up with his PCP, and for a repeat Colonoscopy in six months, as stated in his discharge summary. He is happy to be returning home. Patient/Family Education Needs: Review discharge instructions regarding activity levels and medications, discussion of self care needs including ask me three.
== END 2020-09-14 13:32 | disposition home or self-care (01) ==
LOC: MS 13:47
PROVIDERS: Internal Medicine; Admitting Provider Surgery; PCP Nurse Practitioner; Visit Provider Surgery
PROC: 0DJD8ZZ Inspection of Lower Intestinal Tract, Via Natural or Artificial Opening Endoscopic (ICD-10-PCS; CPT 45378; principal; 2020-09-13 10:15)
DX: J69.0 Pneumonitis due to inhalation of food and vomit (principal); J98.01 Acute bronchospasm; Z12.11 Encounter for screening for malignant neoplasm of colon; Z86.010 Personal history of colon polyps; D46.C Myelodysplastic syndrome with isolated del(5q) chromosomal abnormality; Z80.0 Family history of malignant neoplasm of digestive organs; D12.2 Benign neoplasm of ascending colon; D12.4 Benign neoplasm of descending colon; K64.0 First degree hemorrhoids; R09.02 Hypoxemia; N18.9 Chronic kidney disease, unspecified; K57.30 Diverticulosis of large intestine without perforation or abscess without bleeding; E78.5 Hyperlipidemia, unspecified; Z94.81 Bone marrow transplant status
CPT/HCPCS: 45380; 36415; 80048; 88305; 99225; 99232; 99254; NC; 71045; 71046; 83735; 85025; 99222; G0378; J2001; J2543; J2930; J7512; J7613

== ENCOUNTER 2020-09-22 01:10 | Outpatient (RCR) | payer BC, SELFPAY | END 2020-10-07 23:59 | disposition home or self-care (01) | LOC: INF 01:10 | PROVIDERS: PCP Nurse Practitioner; Visit Provider Internal Medicine | DX: Z53.9 Procedure and treatment not carried out, unspecified reason (principal) ==

== ENCOUNTER 2020-10-11 03:57 | Outpatient (CLI) | payer MEDICARE, SELFPAY ==
[2020-10-11 11:07] LABS: Abs Immature Grans 0.02 10^3/uL (0.0-0.06); Absolute Basophil Count 0.03 10^3/uL (0.0-0.2); Absolute Eosinophil Count 0.15 10^3/uL (0.0-0.7); Absolute Lymphocyte Count 0.71 10^3/uL (1.2-3.4); Absolute Monocyte Count 0.47 10^3/uL (0.1-0.8); Absolute Neutrophil Count 3.06 10^3/uL (1.2-6.7); Basophils % 0.7; Eosinophils % 3.4; HCT 43.1 % (40.0-50.0); HGB 14.2 g/dL (13.5-17.5); Immature Grans % 0.5; MCH 31.6 pg (27.0-33.0); MCHC 32.9 % (32.0-36.0); MPV 8.8 fL (8.0-11.0); Monocytes % 10.6; Neutrophils % 68.8; Nucleated RBC 0 %; Platelet Count 206 10^3/uL (130-400); RBC 4.49 10^6/uL (4.36-5.78); RDW 12.3 % (11.8-14.1); RDW-SD 43.7 fL; WBC 4.44 10^3/uL (4.4-10.8)
[2020-10-11 11:20] LABS: ALT 21 U/L (16-63); AST 18 U/L (15-37); Albumin 4.2 g/dL (3.4-5.0); Alkaline Phosphatase 63 U/L (46-116); BUN 23 mg/dL (7-18); Bilirubin, Total 0.6 mg/dL (0.2-1.0); CREATININE 1.14 mg/dL (0.70-1.30); Chloride 104 mmol/L (98-107); Glucose 93 mg/dL (74-106); Potassium 4.2 mmol/L (3.5-5.1); Sodium 137 mmol/L (136-145); Total Protein 7.9 g/dL (6.4-8.2)
[2020-10-12 09:39] LABS: IgG 676 mg/dL (610-1,616)
== END 2020-10-11 04:17 ==
PROVIDERS: PCP Nurse Practitioner; Visit Provider Nurse Practitioner
DX: R06.00 Dyspnea, unspecified (principal); R05 Cough; D46.9 Myelodysplastic syndrome, unspecified; N28.9 Disorder of kidney and ureter, unspecified; Z94.81 Bone marrow transplant status; T86.09 Other complications of bone marrow transplant; D89.811 Chronic graft-versus-host disease; Z86.39 Personal history of other endocrine, nutritional and metabolic disease
CPT/HCPCS: 36415; 80053; 82784; 85025

== ENCOUNTER 2020-10-20 04:04 | Outpatient (RCR) | payer MEDICARE, SELFPAY | END 2020-11-07 23:59 | disposition home or self-care (01) | LOC: INF 04:04 | PROVIDERS: PCP Nurse Practitioner; Visit Provider Internal Medicine ==

== ENCOUNTER 2020-11-10 03:48 | Outpatient (CLI) | payer MEDICARE, SELFPAY ==
[2020-11-10 07:47] LABS: Abs Immature Grans 0.01 10^3/uL (0.0-0.06); Absolute Basophil Count 0.03 10^3/uL (0.0-0.2); Absolute Eosinophil Count 0.12 10^3/uL (0.0-0.7); Absolute Lymphocyte Count 0.66 10^3/uL (1.2-3.4); Absolute Monocyte Count 0.39 10^3/uL (0.1-0.8); Absolute Neutrophil Count 3.42 10^3/uL (1.2-6.7); Basophils % 0.6; Eosinophils % 2.6; HCT 40.7 % (40.0-50.0); HGB 13.2 g/dL (13.5-17.5); Immature Grans % 0.2; Lymphocytes % 14.3; MCH 31.5 pg (27.0-33.0); MCHC 32.4 % (32.0-36.0); MCV 97.1 fL (80-95); MPV 9.2 fL (8.0-11.0); Monocytes % 8.4; Neutrophils % 73.9; Nucleated RBC 0 %; Platelet Count 179 10^3/uL (130-400); RBC 4.19 10^6/uL (4.36-5.78); RDW 12.6 % (11.8-14.1); RDW-SD 44.8 fL; WBC 4.63 10^3/uL (4.4-10.8)
[2020-11-10 08:27] LABS: ALT 21 U/L (16-63); AST 20 U/L (15-37); Albumin 4.2 g/dL (3.4-5.0); Alkaline Phosphatase 52 U/L (46-116); Anion Gap 9.2 mmol/L (3-11); BUN 22 mg/dL (7-18); Bilirubin, Total 0.7 mg/dL (0.2-1.0); CO2 25.8 mmol/L (21.0-32.0); CREATININE 1.3 mg/dL (0.70-1.30); Calcium 8.9 mg/dL (8.5-10.1); Chloride 106 mmol/L (98-107); Estimated GFR 55.23 (mL/min/1.73m2); Glucose 90 mg/dL (74-106); Potassium 4.2 mmol/L (3.5-5.1); Sodium 141 mmol/L (136-145); Total Protein 6.9 g/dL (6.4-8.2)
[2020-11-11 09:07] LABS: IgG 496 mg/dL (610-1,616)
== END 2020-11-10 03:49 | disposition home or self-care (01) ==
LOC: LBO 03:48
PROVIDERS: Internal Medicine; PCP Nurse Practitioner; Visit Provider Nurse Practitioner
DX: D46.9 Myelodysplastic syndrome, unspecified (principal); N28.9 Disorder of kidney and ureter, unspecified; D89.811 Chronic graft-versus-host disease; R06.09 Other forms of dyspnea; R05 Cough; Z94.81 Bone marrow transplant status; Z86.39 Personal history of other endocrine, nutritional and metabolic disease
CPT/HCPCS: 36415; 80053; 82784; 85025

== ENCOUNTER 2020-12-06 04:25 | Outpatient (CLI) | payer MEDICARE, SELFPAY ==
[2020-12-06 12:51] LABS: Abs Immature Grans 0.01 10^3/uL (0.0-0.06); Absolute Basophil Count 0.03 10^3/uL (0.0-0.2); Absolute Eosinophil Count 0.15 10^3/uL (0.0-0.7); Absolute Lymphocyte Count 0.75 10^3/uL (1.2-3.4); Absolute Monocyte Count 0.63 10^3/uL (0.1-0.8); Basophils % 0.6; Eosinophils % 2.8; HCT 41.3 % (40.0-50.0); HGB 13.9 g/dL (13.5-17.5); Immature Grans % 0.2; Lymphocytes % 14.2; MCH 32.4 pg (27.0-33.0); MCHC 33.7 % (32.0-36.0); MCV 96.3 fL (80-95); MPV 8.7 fL (8.0-11.0); Neutrophils % 70.2; Nucleated RBC 0 %; Platelet Count 178 10^3/uL (130-400); RBC 4.29 10^6/uL (4.36-5.78); RDW 12.5 % (11.8-14.1); RDW-SD 43.8 fL; WBC 5.27 10^3/uL (4.4-10.8)
[2020-12-06 13:12] LABS: ALT 19 U/L (16-63); AST 13 U/L (15-37); Albumin 4.1 g/dL (3.4-5.0); Alkaline Phosphatase 49 U/L (46-116); Anion Gap 7.4 mmol/L (3-11); BUN 20 mg/dL (7-18); Bilirubin, Total 0.3 mg/dL (0.2-1.0); CO2 27.6 mmol/L (21.0-32.0); CREATININE 1.2 mg/dL (0.70-1.30); Calcium 9.1 mg/dL (8.5-10.1); Chloride 105 mmol/L (98-107); Glucose 112 mg/dL (74-106); Potassium 4.2 mmol/L (3.5-5.1); Sodium 140 mmol/L (136-145); Total Protein 7.2 g/dL (6.4-8.2)
[2020-12-07 10:45] LABS: IgG 415 mg/dL (610-1,616)
== END 2020-12-06 04:26 | disposition home or self-care (01) ==
PROVIDERS: PCP Nurse Practitioner; Visit Provider Internal Medicine
DX: R06.09 Other forms of dyspnea (principal); D46.9 Myelodysplastic syndrome, unspecified; N28.9 Disorder of kidney and ureter, unspecified; Z94.81 Bone marrow transplant status; T86.09 Other complications of bone marrow transplant; D89.811 Chronic graft-versus-host disease; Z86.39 Personal history of other endocrine, nutritional and metabolic disease; R05 Cough
CPT/HCPCS: 36415; 80053; 82784; 85025

== ENCOUNTER 2020-12-30 03:06 | Outpatient (CLI) | payer MEDICARE, OTHER, SELFPAY ==
[2020-12-30 16:22] LABS: Abs Immature Grans 0.01 10^3/uL (0.0-0.06); Absolute Basophil Count 0.04 10^3/uL (0.0-0.2); Absolute Eosinophil Count 0.25 10^3/uL (0.0-0.7); Absolute Lymphocyte Count 0.81 10^3/uL (1.2-3.4); Absolute Monocyte Count 0.58 10^3/uL (0.1-0.8); Absolute Neutrophil Count 3.03 10^3/uL (1.2-6.7); Basophils % 0.8; Eosinophils % 5.3; HCT 37.9 % (40.0-50.0); HGB 12.5 g/dL (13.5-17.5); Immature Grans % 0.2; Lymphocytes % 17.2; MCV 96.9 fL (80-95); Monocytes % 12.3; Neutrophils % 64.2; Nucleated RBC 0 %; RBC 3.91 10^6/uL (4.36-5.78); RDW 12.3 % (11.8-14.1); RDW-SD 43.8 fL; WBC 4.72 10^3/uL (4.4-10.8)
[2020-12-30 17:21] LABS: ALT 26 U/L (16-63); AST 21 U/L (15-37); Albumin 4.4 g/dL (3.4-5.0); Alkaline Phosphatase 54 U/L (46-116); Anion Gap 11.8 mmol/L (3-11); BUN 29 mg/dL (7-18); Bilirubin, Total 0.5 mg/dL (0.2-1.0); CO2 26.2 mmol/L (21.0-32.0); CREATININE 1.4 mg/dL (0.70-1.30); Calcium 9.2 mg/dL (8.5-10.1); Chloride 105 mmol/L (98-107); Glucose 88 mg/dL (74-106); Potassium 3.9 mmol/L (3.5-5.1); Sodium 143 mmol/L (136-145); Total Protein 6.9 g/dL (6.4-8.2)
[2020-12-30 17:39] LABS: Diff Comment PLT Morph Reviewed; RBC Morphology Normal
[2020-12-31 11:22] LABS: IgG 367 mg/dL (610-1,616)
== END 2020-12-30 03:07 | disposition home or self-care (01) ==
PROVIDERS: PCP Nurse Practitioner; Visit Provider Internal Medicine
DX: D46.9 Myelodysplastic syndrome, unspecified (principal); R06.00 Dyspnea, unspecified; D89.811 Chronic graft-versus-host disease; T86.09 Other complications of bone marrow transplant; Z94.81 Bone marrow transplant status; N28.9 Disorder of kidney and ureter, unspecified; Z86.39 Personal history of other endocrine, nutritional and metabolic disease
CPT/HCPCS: 36415; 80053; 82784; 85025

== ENCOUNTER 2021-04-01 18:10 | Outpatient (REF) | payer MEDICARE, OTHER, SELFPAY ==
[2021-04-03 13:08] LABS: COVID-19 RT-PCR UVMMC Result Negative (Negative)
== END 2021-04-01 18:11 | disposition home or self-care (01) ==
LOC: LBN 18:10
PROVIDERS: Nurse Practitioner Adult Health; PCP Nurse Practitioner; Visit Provider Nurse Practitioner
DX: Z20.822 Contact with and (suspected) exposure to COVID-19 (principal); R05 Cough; R09.82 Postnasal drip
CPT/HCPCS: U0003; U0005

== ENCOUNTER 2021-07-06 03:12 | Outpatient (CLI) | payer MEDICARE, OTHER, SELFPAY ==
[2021-07-06 12:29] LABS: Abs Immature Grans 0.02 10^3/uL (0.0-0.06); Absolute Basophil Count 0.04 10^3/uL (0.0-0.2); Absolute Eosinophil Count 0.18 10^3/uL (0.0-0.7); Absolute Lymphocyte Count 0.75 10^3/uL (1.2-3.4); Absolute Monocyte Count 0.76 10^3/uL (0.1-0.8); Absolute Neutrophil Count 3.35 10^3/uL (1.2-6.7); Basophils % 0.8; Eosinophils % 3.5; HCT 40.4 % (40.0-50.0); HGB 13.2 g/dL (13.5-17.5); Immature Grans % 0.4; Lymphocytes % 14.7; MCH 32.6 pg (27.0-33.0); MCHC 32.7 % (32.0-36.0); MCV 99.8 fL (80-95); MPV 9.3 fL (8.0-11.0); Monocytes % 14.9; Neutrophils % 65.7; Nucleated RBC 0 %; Platelet Count 170 10^3/uL (130-400); RBC 4.05 10^6/uL (4.36-5.78); RDW 12.1 % (11.8-14.1); RDW-SD 44.5 fL
[2021-07-07 09:22] LABS: IgG 374 mg/dL (610-1,616)
== END 2021-07-06 03:13 | disposition home or self-care (01) ==
LOC: LOS 03:12
PROVIDERS: Nurse Practitioner; PCP Nurse Practitioner; Visit Provider Internal Medicine
DX: D46.9 Myelodysplastic syndrome, unspecified (principal); Z94.81 Bone marrow transplant status; C84.A9 Cutaneous T-cell lymphoma, unspecified, extranodal and solid organ sites
CPT/HCPCS: 36415; 82784; 85025

== ENCOUNTER 2021-08-03 15:00 | Outpatient (REF) | payer MEDICARE, OTHER, SELFPAY ==
[2021-08-03 13:18] LABS: ALT 24 U/L (16-63); AST 19 U/L (15-37); Albumin 3.9 g/dL (3.4-5.0); Alkaline Phosphatase 51 U/L (46-116); BUN 21 mg/dL (7-18); Bilirubin, Total 0.3 mg/dL (0.2-1.0); CREATININE 1.2 mg/dL (0.70-1.30); Chloride 109 mmol/L (98-107); Glucose 105 mg/dL (74-106); Potassium 4.5 mmol/L (3.5-5.1); Sodium 143 mmol/L (136-145); Total Protein 6.5 g/dL (6.4-8.2)
== END 2021-08-03 15:01 | disposition home or self-care (01) ==
LOC: LBN 15:00
PROVIDERS: PCP Nurse Practitioner; Visit Provider Nurse Practitioner
DX: C84.A9 Cutaneous T-cell lymphoma, unspecified, extranodal and solid organ sites (principal); N18.9 Chronic kidney disease, unspecified; D63.1 Anemia in chronic kidney disease; D46.9 Myelodysplastic syndrome, unspecified; D84.9 Immunodeficiency, unspecified; D89.811 Chronic graft-versus-host disease; T86.09 Other complications of bone marrow transplant; Z94.81 Bone marrow transplant status
CPT/HCPCS: 80053

== ENCOUNTER 2021-09-07 02:43 | Outpatient (CLI) | payer MEDICARE, OTHER, SELFPAY ==
[2021-09-07 09:32] LABS: Abs Immature Grans 0.02 10^3/uL (0.0-0.06); Absolute Basophil Count 0.03 10^3/uL (0.0-0.2); Absolute Eosinophil Count 0.12 10^3/uL (0.0-0.7); Absolute Monocyte Count 0.48 10^3/uL (0.1-0.8); Absolute Neutrophil Count 3.55 10^3/uL (1.2-6.7); Basophils % 0.6; Eosinophils % 2.3; HCT 40.5 % (40.0-50.0); HGB 13.6 g/dL (13.5-17.5); Immature Grans % 0.4; Lymphocytes % 19.2; MCH 32.6 pg (27.0-33.0); MCHC 33.6 % (32.0-36.0); MCV 97.1 fL (80-95); MPV 9.2 fL (8.0-11.0); Monocytes % 9.2; Neutrophils % 68.3; Nucleated RBC 0 %; Platelet Count 166 10^3/uL (130-400); RBC 4.17 10^6/uL (4.36-5.78); RDW 12.4 % (11.8-14.1); RDW-SD 44.3 fL
[2021-09-08 09:55] LABS: IgG 604 mg/dL (610-1,616)
== END 2021-09-07 02:44 | disposition home or self-care (01) ==
LOC: LBO 02:43
PROVIDERS: PCP Nurse Practitioner; Visit Provider Internal Medicine
DX: D46.9 Myelodysplastic syndrome, unspecified (principal); C84.A9 Cutaneous T-cell lymphoma, unspecified, extranodal and solid organ sites; Z94.81 Bone marrow transplant status
CPT/HCPCS: 36415; 82784; 85025

== ENCOUNTER 2021-11-02 01:46 | Outpatient (CLI) | payer MEDICARE, OTHER, SELFPAY ==
[2021-11-02 07:49] LABS: Abs Immature Grans 0.04 10^3/uL (0.0-0.06); Absolute Basophil Count 0.03 10^3/uL (0.0-0.2); Absolute Eosinophil Count 0.25 10^3/uL (0.0-0.7); Absolute Lymphocyte Count 0.66 10^3/uL (1.2-3.4); Absolute Monocyte Count 0.57 10^3/uL (0.1-0.8); Absolute Neutrophil Count 4.14 10^3/uL (1.2-6.7); Basophils % 0.5; Eosinophils % 4.4; HGB 13.4 g/dL (13.5-17.5); Immature Grans % 0.7; Lymphocytes % 11.6; MCH 31.9 pg (27.0-33.0); MCHC 32.7 % (32.0-36.0); MCV 97.6 fL (80-95); MPV 8.9 fL (8.0-11.0); Neutrophils % 72.8; Nucleated RBC 0 %; Platelet Count 187 10^3/uL (130-400); RDW 11.9 % (11.8-14.1); RDW-SD 42.9 fL; WBC 5.69 10^3/uL (4.4-10.8)
[2021-11-03 09:54] LABS: IgG 412 mg/dL (610-1,616)
== END 2021-11-02 01:47 | disposition home or self-care (01) ==
LOC: LBO 01:46
PROVIDERS: PCP Nurse Practitioner; Visit Provider Nurse Practitioner
DX: D46.9 Myelodysplastic syndrome, unspecified (principal); Z94.81 Bone marrow transplant status; C84.A9 Cutaneous T-cell lymphoma, unspecified, extranodal and solid organ sites
CPT/HCPCS: 36415; 82784; 85025

== ENCOUNTER → 2021-11-28 09:17 | Outpatient (BNVA) | payer MEDICARE, OTHER, SELFPAY | PROVIDERS: PCP Nurse Practitioner; Referring Provider Nurse Practitioner; Visit Provider Surgery | DX: Z12.11 Encounter for screening for malignant neoplasm of colon (principal) | CPT/HCPCS: 99243 ==

== ENCOUNTER 2021-11-29 02:09 | Outpatient (CLI) | payer MEDICARE, OTHER, SELFPAY ==
--- NOTE | 2021-11-29 17:00 | DI.DEXA_ITS ---
Exam(s) XR DEXA BONE DENSITY W/WO YVAN EXAM: XR DEXA BONE DENSITY W/WO YVAN CLINICAL HISTORY: osteoporosis,M81.0 TECHNIQUE: Handpressions C densitometer COMPARISON: CR XR CHEST 2V PA LATERAL from 09/14/2020 FINDINGS: Lateral view of the thoracic and lumbar spine shows extends to a parsons of the normal kyphosis. Compre ssion fractures of the mid thoracic spine are noted on prior chest x-ray. Bone mineral density measurements of the lumbar spine correspond to a total T-score of -2.0, consist ent with osteopenia.. Bone mineral density measurements of the left hip correspond to a total T-score of -0.2. The femora l neck T-score is -1.0, at the low normal range.. The left forearm bone mineral density measurements correspond to a T-score of the distal 3rd of -1.1 , in the mildly osteopenic range.. IMPRESSION: Osteopenia of the lumbar spine and left forearm. Hip bone mineral density measurements at the are at the lower range of normal.
== END 2021-11-29 02:29 ==
PROVIDERS: PCP Nurse Practitioner; Visit Provider Nurse Practitioner
DX: M81.0 Age-related osteoporosis without current pathological fracture (principal); M85.88 Other specified disorders of bone density and structure, other site
CPT/HCPCS: 77080

== ENCOUNTER 2021-12-02 03:38 | Outpatient (CLI) | payer MEDICARE, OTHER, SELFPAY ==
[2021-12-02 22:36] LABS: COVID-19 RT-PCR UVMMC Result Negative (Negative)
== END 2021-12-02 03:39 | disposition home or self-care (01) ==
LOC: LBO 03:38
PROVIDERS: PCP Nurse Practitioner; Visit Provider Surgery
DX: Z20.822 Contact with and (suspected) exposure to COVID-19 (principal)
CPT/HCPCS: 87635; U0003; U0005

== ENCOUNTER 2021-12-05 09:03 | Day surgery (SDC) | payer MEDICARE, OTHER, SELFPAY ==
[2021-12-05] VITALS (7 sets, daily range): BP systolic 86–123; BP diastolic 52–85; PULSE 56–68; RESP 15–20; TEMP 36.3–36.6; O2SAT 93–98; BMI 24.5
--- NOTE | 2021-12-05 07:03 | W.COLOREPORT ---
Colonoscopy Report Date of procedure: 12/05/21 Pre-op diagnosis general: Hx of polyps, screening Post-op diagnosis procedure note: other (polyps) Procedure: Colonoscopy with polypectomy Surgeon: Lise Moy Anesthesia Type: General:No Airway Estimated blood loss (mL): 3 Pathology: other (Transverse polyp and sigmoid polyp) Complications: None Disposition: same day Indications: Mr. Bro is a pleasant 66 year old male with a history of colon polyps. He was seen in 2019 and had 2 polyps removed. The colonoscopy was incomplete because the patient aspirated during the proceedure. Risks, benefits and complications were reviewed in the office with him and he wished to proceed. No guarantees were given or implied.? Prep: Miralax/Dulcolax Procedure Start Time: 10:59 Procedure End Time: 11:25 Retraction Time: 16 minutes Findings: 2 small polyps Procedure Description: After informed consent was obtained the patient was taken to the procedure room and placed in a left decubitous position. Monitors were applied and a time out was done. The patients name, date of , procedure, allergies to medications and metal in their body was reviewed. The patient was then sedated. Once sedated and comfortable a rectal exam was done. External exam was normal. Internal exam revealed a normal sphincter tone and no palpable masses. The prostate felt smooth. The scope was then introduced and retro-flexed. No internal hemorrhoids, polyps or masses were identified on retro-flexion. The scope was then advanced to the cecum without difficulty. The ileocecal vlave and appendiceal orifice were identified. The prep was good. The scope was then slowly retracted over 16 minutes back into the rectum. Polyps were removed with cold forceps in the Transverse colon and sigmoid colon. There was no diverticulosis noted. The scope was removed and the patient was woken up and taken back to Same day surgery in stable condition. The patient tolerated the procedure well and there were no immediate complications. Follow up: The patient should follow up in5 years unless they develop changes in bowel habits or other new gastrointestinal complaints.
--- NOTE | 2021-12-05 07:06 | W.PM.DSUDISC ---
Discharge Plan Disposition Patient Disposition: HOME Condition: Good Discharge Details Reason For Visit: Colonoscopy Attending Provider: Lise Moy Primary Care Provider: Berta Pritchard Home Meds and New Rx's Prescriptions: Continued loratadine [Claritin] 10 mg tablet 10 mg PO DAILY PRN0RF Ac Carbamide PO ONCE 0RF cholecalciferol (vitamin D3) 1,000 unit capsule 1,000 unit PO DAILY 0RF IVIG See Rx Instructions IV QMONTH PRN0RF Rx Instructions: For level <400 during winter months. note dated 10/22/20 cyanocobalamin (vitamin B-12) 1,000 mcg capsule 1,000 mcg PO DAILY 0RF Discontinued polyethylene glycol 3350 17 gram/dose powder 238 g PO ONCE Qty: 238 0RF Rx Instructions: take per colonoscopy instructions bisacodyl [Dulcolax (bisacodyl)] 5 mg tablet,delayed release (DR/EC) 5 mg PO ONCE Qty: 4 0RF Rx Instructions: take per colonoscopy instructions Discharge Instructions Instructions: Colorectal Polyps (DC) Additional Instructions: Findings: 2 small polyps Follow up: 5 years more then likely Please call if you develop: fevers >101.5 Nausea or Vomiting Abdominal pain that is not transient Rectal bleeding that is more then a tbsp A hard abdomen and inability to pass gas DAY SURGERY UNIT POST ENDOSCOPY INSTRUCTIONS Instructions for everyone who is given Anesthesia: For your safety, please do the following for the next 24 Hours: a. Do not drive or operate dangerous equipment b. Do not drink alcohol beverages or use any recreational drugs for the first 24 hours or while taking pain medications. The medications in your body may have a reaction that can be dangerous. c. Do not make any important decisions or sign any important papers 1. Generally there are no restrictions on your activity after a day or so has gone by, but you may feel a bit fatigued for a few days. 2. After you arrive home you may have a light meal and return to a normal diet as you can tolerate it without feeling sick to your stomach. 3. After surgery, you may feel pain or discomfort. This should be only transient, but if it persists please contact your doctor. 4. If there are any questions regarding the findings of your procedure, please feel free to contact your doctor. 6. If you are unable to contact your doctor with a problem, contact the hospital at [phone]. 7. Continue all your regular medications unless directed otherwise. I understand the above instructions and have no questions. Signature of Patient or Responsible Adult Escort Date/Time Name of Responsible Adult Escort Signature of Nurse Date/Time Activity:: Activity as Tolerated Diet:: As Tolerated Discharge Orders Discharge Orders: Discharge Order (Routine); Ordered 12/05/21 Ordered By: Lise Moy
[2021-12-05] MEDS: Lactated Ringers 1,000 ML 80 ML IV (09:43)
--- NOTE | 2021-12-05 10:22 | ANES.PREOP_ITS ---
General Info Date of Service Date Performed: 12/05/21 Height: 6 ft Weight: 81.9 kg Body Mass Index (BMI): 24.5 Surgical Procedure: Operation Date: 12/05/21 10:35 Proposed Procedure Side Surgeon p Colonoscopy Lise Moy MD Meds Allergies and Home Medications Allergies Allergy/AdvReac Type Severity Reaction Status Date / Time methotrexate AdvReac Severe Myelodysplastic Verified 12/05/21 09:24 Syndrome Home Medication Medication Instructions Recorded cholecalciferol (vitamin D3) 25 1,000 unit PO DAILY 09/12/19 mcg (1,000 unit) capsule loratadine 10 mg tablet (Claritin) 10 mg PO DAILY PRN 07/08/20 IVIG See Rx Instructions IV QMONTH PRN 10/25/20 Ac Carbamide PO ONCE 11/02/21 cyanocobalamin (vitamin B-12) 1,000 mcg PO DAILY 11/11/21 1,000 mcg capsule bisacodyl 5 mg tablet,delayed 5 mg PO ONCE #4 tab 11/28/21 release (Dulcolax (bisacodyl)) polyethylene glycol 3350 17 238 g PO ONCE #238 g 11/28/21 gram/dose oral powder Current Visit Medications: Current Medications Generic Name Dose Route Start Last Admin Trade Name Freq PRN Reason Stop Dose Admin Hyoscyamine Sulfate 0.125 mg 12/05/21 07:06 Hyoscyamine 0.125 Mg Sl/Oral/Chew SL DIRECTED PRN Ringer's Solution 1,000 mls @ 80 mls/hr 12/05/21 06:00 12/05/21 09:43 IV 01/01/22 23:59 80 mls/hr INFUSION SUMMER Administration IV Miscellaneous Supplies 1 each 12/05/21 06:00 Iv Access IV 01/01/22 23:59 DIRECTED SUMMER Ondansetron HCl 4 mg 12/05/21 07:06 Ondansetron 4 Mg/2 Ml Vial IVP Q4H PRN PRN Nausea / Vomiting Sodium Chloride 0 ml 12/05/21 06:00 Normal Saline Flush 10 Ml Syr IV 01/01/22 23:59 PRN PRN Sodium Chloride 0 ml 12/05/21 06:00 Normal Saline 10 Ml Vial IJ 01/01/22 23:59 DIRECTED PRN Sterile Water 0 ml 12/05/21 06:00 Water,Injection,Sterile 10 Ml Vial IJ 01/01/22 23:59 DIRECTED PRN [facility] Active Problems Active Problems: Problem Status Onset Code Osteoporosis 05/29/18 M81.0 Anemia D64.9 S/P colonoscopy ~09/22/19 Z98.890 Diverticulosis large intestine w/o perforation or abscess w/o bleeding K57.30 Pre-op evaluation Z01.818 Bilateral cataracts H26.9 Immunodeficiency, unspecified D84.9 Myelodysplastic syndrome, 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 [place] [place] Dr. 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 Nocturia Rheumatoid arthritis (10/04/12) [facility] Rheum Sindydiana Molina MTX use Seborrheic keratosis Senile purpura Medical History Comments:: Hx of aspiration while under anes. Surgical History Surgical History History of bone marrow transplant History of tonsillectomy S/P emergency tracheotomy for assistance in breathing 1963 Stem Cell Transplant (10/18/16) Allogenic Bone Marrow Transplant [facility] [place] for Myelodysplastic Syndrome and T-cell cutaneous lymphoma Tobacco Smoking/Tobacco Use Status: Former Tobacco Use Passive smoking exposure: No Alcohol Alcohol Intake: current Alcohol intake frequency: 0-2 drinks per day Alcohol type: hard liquor Substance Use Substance use: Never Substance use type: does not use Vital Signs and Lab Results Vital Signs Most Recent Vital Signs in EMR: Most Recent Vital Signs Temp Pulse Resp BP Pulse Ox 36.3 C L 66 16 123/85 98 12/05/21 09:27 12/05/21 09:27 12/05/21 09:27 12/05/21 09:27 12/05/21 09:27 Lab Results Blood Type / Crossmatch: No Data to Display Complete Blood Count: No Data to Display Complete Metabolic Panel: No Data to Display Liver Function Panel: No Data to Display Coagulation Panel: No Data to Display Cardiac Panel: No Data to Display Arterial Blood Gas: No Data to Display Venous Blood Gas: No Data to Display Pancreas Panel: No Data to Display Thyroid Panel: No Data to Display Infectious Disease: Coronavirus (COVID-19)(PCR) Negative (Negative) 12/02/21 08:39 12/02/21 Blood Cultures: No Data to Display Toxicology Panel: No Data to Display Imaging and Studies Imaging and Studies Study information below may be from another EMR and interpreted by another provider. Please see original notes in EMR for more complete details. Stress Test Summary: 01/2015: PHYSICAL EXAMINATION: Heart sounds s1/2, II/ murmur 5th intercostal space, midclavicular line. Lung sounds posteriorly are clear to auscultation. RESTING 12-LEAD EKG: Sinus rhythm with right bundle branch block plus left anterior hemiblock at 64 beats Anesthesia Assessment and Plan Anesthesia History Personal History: Other Family History: No Family History of Anesthesia Complications Exercise Tolerance Exercise Tolerance: Metabolic Equivalents>4 Cardiac & Pulmonary Exam Cardiac Exam: Normal S1/S2 Heart Sounds Pulmonary Exam: Clear Bilateral Breath Sounds Implantable Cardiac Device Does patient have a Pacemaker or an ICD?: No Airway Exam Known Difficult Airway: No Previous Airway Comments:: Emergency tracheostomy when patient was 8 related to complications from croup. Patient reports he has not been intubated since surgical airway. Mallampati Class: 2 Mouth Opening: Normal (> 3cm) Thyromental Distance: Less than 3 cm Neck Range of Motion: Full ROM Neck Circumference: Normal Teeth Condition: Normal Dentition ASA Classification ASA Score: ASA 3 Emergency Case?: No NPO Status NPO Status: NPO Clears >2 hours, Solids >8 hours Anesthesia Plan Resuscitation Status: Full Code Anesthesia Technique: General Anesthesia Airway Planned: Endotracheal Tube Monitors Used: Standard Monitors Preoperative Comments:: Patient verbalizes understanding the need for GETA, agrees with anesthetic plan.
--- NOTE | 2021-12-05 11:09 | BOWEL_PTH ---
PATIENT: Patrice Bro LOC: [facility] U#:[id number] AGE/SX: 66/M ROOM: RE12/05/[address]: Lise Moy MD : [id number] BED: DIS: 12/05/2021 SPEC #: [id number] RECD: 12/05/21 12:59 STATUS: ELLIOT REQ #: [id number] XENIA: 12/05/21 11:[address]: Lise Moy DEPT: Surgical Specimen RECD BY: Theresa Bustillo ENTERED: 12/05/21 13:00 SP TYPE: Bowel OTHR DR: Berta Pritchard APRN Tissues: 1 - BIOPSY BOWEL 2 - BIOPSY BOWEL Procedures: GROSS AND MICRO LEVEL 4 Comments: [id number]
--- NOTE | 2021-12-05 12:15 | W.ANESPOSTOP ---
Postoperative Evaluation Date, Time and Location Date Performed: 12/05/21 Time Performed: 11:54 Patient Location: Day Surgery Unit Vital Signs Most Recent Imported Vital Signs: Most Recent Vital Signs Temp Pulse Resp BP Pulse Ox 36.6 C 56 L 20 100/68 93 12/05/21 11:54 12/05/21 11:54 12/05/21 11:54 12/05/21 11:54 12/05/21 11:54 Pain Score Most Recent Pain Score: Most Recent Pain Score Pain Level 0 12/05/21 11:54 Assessment Mental Status: Awake (Alert & Oriented to Patient Baseline) Airway and Respiratory Function: Patent airway with normal (patient baseline) respiratory exam Cardiovascular Function: Hemodynamically Stable Hydration Status: Adequately Hydrated Nausea & Vomiting: No Nausea or Vomiting Pain: Pt. Denies Any Pain Peripheral Nerve Block: Patient did not receive a nerve block
== END 2021-12-05 12:58 | disposition home or self-care (01) ==
LOC: SUR 09:03
PROVIDERS: PCP Nurse Practitioner; Visit Provider Surgery
PROC: 0DJD8ZZ Inspection of Lower Intestinal Tract, Via Natural or Artificial Opening Endoscopic (ICD-10-PCS; CPT 45378; principal; 2021-12-05 10:30)
DX: Z12.11 Encounter for screening for malignant neoplasm of colon (principal); Z86.010 Personal history of colon polyps; K63.5 Polyp of colon
CPT/HCPCS: 45380; 88305; J2001; J2704

== ENCOUNTER 2022-02-01 04:25 | Outpatient (CLI) | payer MEDICARE, OTHER, SELFPAY ==
[2022-02-01 12:42] LABS: Abs Immature Grans 0.03 10^3/uL (0.0-0.06); Absolute Basophil Count 0.02 10^3/uL (0.0-0.2); Absolute Eosinophil Count 0.09 10^3/uL (0.0-0.7); Absolute Lymphocyte Count 0.88 10^3/uL (1.2-3.4); Absolute Monocyte Count 0.37 10^3/uL (0.1-0.8); Absolute Neutrophil Count 3.28 10^3/uL (1.2-6.7); Basophils % 0.4; Eosinophils % 1.9; HCT 41.3 % (40.0-50.0); HGB 13.3 g/dL (13.5-17.5); Immature Grans % 0.6; Lymphocytes % 18.8; MCH 31.4 pg (27.0-33.0); MCHC 32.2 % (32.0-36.0); MCV 97.6 fL (80-95); MPV 9.4 fL (8.0-11.0); Monocytes % 7.9; Neutrophils % 70.4; Platelet Count 163 10^3/uL (130-400); RBC 4.23 10^6/uL (4.36-5.78); RDW 12.9 % (11.8-14.1); RDW-SD 46.5 fL; WBC 4.67 10^3/uL (4.4-10.8)
[2022-02-02 09:48] LABS: IgG 408 mg/dL (610-1,616)
== END 2022-02-01 04:26 | disposition home or self-care (01) ==
PROVIDERS: PCP Nurse Practitioner; Visit Provider Nurse Practitioner
DX: C84.A9 Cutaneous T-cell lymphoma, unspecified, extranodal and solid organ sites (principal); Z94.81 Bone marrow transplant status; D46.9 Myelodysplastic syndrome, unspecified
CPT/HCPCS: 36415; 82784; 85025

== ENCOUNTER 2022-06-05 04:34 | Outpatient (CLI) | payer MEDICARE, OTHER, SELFPAY ==
[2022-06-05 12:15] LABS: Abs Immature Grans 0.03 10^3/uL (0.0-0.06); Absolute Basophil Count 0.03 10^3/uL (0.0-0.2); Absolute Lymphocyte Count 0.94 10^3/uL (1.2-3.4); Absolute Monocyte Count 0.42 10^3/uL (0.1-0.8); Absolute Neutrophil Count 3.65 10^3/uL (1.2-6.7); Basophils % 0.6; Eosinophils % 1.9; HCT 38.4 % (40.0-50.0); HGB 12.8 g/dL (13.5-17.5); Immature Grans % 0.6; Lymphocytes % 18.2; MCH 32.3 pg (27.0-33.0); MCHC 33.3 % (32.0-36.0); MCV 97 fL (80-95); MPV 9.5 fL (8.0-11.0); Monocytes % 8.1; Neutrophils % 70.6; Platelet Count 178 10^3/uL (130-400); RBC 3.96 10^6/uL (4.36-5.78); RDW 13.2 % (11.8-14.1); RDW-SD 47.5 fL; WBC 5.17 10^3/uL (4.4-10.8)
[2022-06-05 12:27] LABS: Calculated LDL 168 mg/dL (<100); Cholesterol 243 mg/dL (<200); HDL Cholesterol 58 mg/dL (40-60); Triglyceride 88 mg/dL (<150)
[2022-06-05 14:13] LABS: ALT 21 U/L (16-63); AST 16 U/L (15-37); Alkaline Phosphatase 43 U/L (46-116); Anion Gap 9.3 mmol/L (3-11); BUN 20 mg/dL (7-18); Bilirubin, Total 0.5 mg/dL (0.2-1.0); CO2 27.7 mmol/L (21.0-32.0); CREATININE 1.1 mg/dL (0.70-1.30); Calcium 8.7 mg/dL (8.5-10.1); Chloride 105 mmol/L (98-107); Estimated GFR 73.58 (mL/min/1.73m2); Glucose 106 mg/dL (74-106); Potassium 4.3 mmol/L (3.5-5.1); Sodium 142 mmol/L (136-145); Total Protein 6.4 g/dL (6.4-8.2); Vitamin B12 821 pg/mL (193-986)
[2022-06-08 09:40] LABS: IgG 373 mg/dL (610-1,616)
== END 2022-06-05 04:35 | disposition home or self-care (01) ==
LOC: LOS 04:34
PROVIDERS: Nurse Practitioner; Nurse Practitioner Adult Health; PCP Nurse Practitioner; Visit Provider Nurse Practitioner
DX: E78.00 Pure hypercholesterolemia, unspecified (principal); M06.9 Rheumatoid arthritis, unspecified; D46.C Myelodysplastic syndrome with isolated del(5q) chromosomal abnormality; Z79.899 Other long term (current) drug therapy
CPT/HCPCS: 36415; 80053; 80061; 82784; 82607; 85025

== ENCOUNTER 2022-08-23 03:18 | Outpatient (CLI) | payer MEDICARE, SELFPAY ==
[2022-08-23 10:53] LABS: Abs Immature Grans 0.03 10^3/uL (0.0-0.06); Absolute Basophil Count 0.03 10^3/uL (0.0-0.2); Absolute Eosinophil Count 0.12 10^3/uL (0.0-0.7); Absolute Lymphocyte Count 0.99 10^3/uL (1.2-3.4); Absolute Monocyte Count 0.33 10^3/uL (0.1-0.8); Absolute Neutrophil Count 3.36 10^3/uL (1.2-6.7); Basophils % 0.6; Eosinophils % 2.5; HCT 39.2 % (40.0-50.0); HGB 13.4 g/dL (13.5-17.5); Immature Grans % 0.6; Lymphocytes % 20.4; MCH 33.2 pg (27.0-33.0); MCHC 34.2 % (32.0-36.0); MCV 97 fL (80-95); MPV 9.5 fL (8.0-11.0); Monocytes % 6.8; Neutrophils % 69.1; Platelet Count 152 10^3/uL (130-400); RBC 4.04 10^6/uL (4.36-5.78); RDW 12.3 % (11.8-14.1); RDW-SD 43.9 fL; WBC 4.86 10^3/uL (4.4-10.8)
[2022-08-24 08:50] LABS: IgG 319 mg/dL (610-1616)
== END 2022-08-23 03:19 | disposition home or self-care (01) ==
PROVIDERS: Nurse Practitioner; PCP Nurse Practitioner; Visit Provider Nurse Practitioner Adult Health
DX: D84.89 Other immunodeficiencies (principal); D51.8 Other vitamin B12 deficiency anemias; Z94.81 Bone marrow transplant status; D46.9 Myelodysplastic syndrome, unspecified
CPT/HCPCS: 36415; 82784; 85025

== ENCOUNTER 2022-09-19 15:59 | Outpatient (REF) | payer MEDICARE, SELFPAY ==
[2022-09-21 19:29] LABS: COVID-19 RT-PCR UVMMC Result Negative (Negative)
[2022-09-21 19:34] LABS: Influenza A RNA Result Negative (Negative); Influenza B RNA Result Negative (Negative); RSV RNA Result Positive (Negative)
== END 2022-09-19 16:00 | disposition home or self-care (01) ==
LOC: LBN 15:59
PROVIDERS: PCP Nurse Practitioner; Visit Provider Nurse Practitioner
DX: R05.9 Cough, unspecified (principal); R53.83 Other fatigue; Z20.822 Contact with and (suspected) exposure to COVID-19
CPT/HCPCS: 87631; U0003

== ENCOUNTER 2022-09-27 02:16 | Outpatient (CLI) | payer MEDICARE, SELFPAY ==
[2022-09-27 08:18] LABS: Abs Immature Grans 0.04 10^3/uL (0.0-0.06); Absolute Basophil Count 0.03 10^3/uL (0.0-0.2); Absolute Eosinophil Count 0.32 10^3/uL (0.0-0.7); Absolute Lymphocyte Count 0.87 10^3/uL (1.2-3.4); Absolute Monocyte Count 0.61 10^3/uL (0.1-0.8); Absolute Neutrophil Count 4.65 10^3/uL (1.2-6.7); Basophils % 0.5; Eosinophils % 4.9; HCT 40.3 % (40.0-50.0); HGB 13.2 g/dL (13.5-17.5); Immature Grans % 0.6; Lymphocytes % 13.3; MCH 32.1 pg (27.0-33.0); MCHC 32.8 % (32.0-36.0); MCV 98 fL (80-95); MPV 8.6 fL (8.0-11.0); Monocytes % 9.4; Neutrophils % 71.3; Platelet Count 259 10^3/uL (130-400); RBC 4.11 10^6/uL (4.36-5.78); RDW 11.8 % (11.8-14.1); RDW-SD 42.8 fL; WBC 6.52 10^3/uL (4.4-10.8)
[2022-09-27 08:39] LABS: ALT 19 U/L (16-63); AST 18 U/L (15-37); Alkaline Phosphatase 69 U/L (46-116); Anion Gap 9.1 mmol/L (3-11); BUN 18 mg/dL (7-18); Bilirubin, Total 0.7 mg/dL (0.2-1.0); CO2 27.9 mmol/L (21.0-32.0); CREATININE 1.4 mg/dL (0.70-1.30); Calcium 9.2 mg/dL (8.5-10.1); Chloride 103 mmol/L (98-107); Estimated GFR 54.75 (mL/min/1.73m2); Glucose 122 mg/dL (74-106); Potassium 4.2 mmol/L (3.5-5.1); Sodium 140 mmol/L (136-145); Total Protein 7.6 g/dL (6.4-8.2)
[2022-09-28 11:00] LABS: IgG 388 mg/dL (610-1616)
== END 2022-09-27 02:17 | disposition home or self-care (01) ==
PROVIDERS: PCP Nurse Practitioner; Visit Provider Nurse Practitioner
DX: D46.9 Myelodysplastic syndrome, unspecified (principal); D51.8 Other vitamin B12 deficiency anemias; Z94.81 Bone marrow transplant status; C84.A9 Cutaneous T-cell lymphoma, unspecified, extranodal and solid organ sites
CPT/HCPCS: 36415; 80053; 82784; 85025

== ENCOUNTER 2023-01-31 03:00 | Outpatient (CLI) | payer MEDICARE, SELFPAY ==
[2023-01-31 12:47] LABS: CREATININE 1.5 mg/dL (0.70-1.30)
[2023-02-01 09:29] LABS: IgG 569 mg/dL (610-1616)
== END 2023-01-31 03:01 | disposition home or self-care (01) ==
PROVIDERS: PCP Nurse Practitioner; Visit Provider Nurse Practitioner Adult Health
DX: D84.9 Immunodeficiency, unspecified (principal)
CPT/HCPCS: 36415; 82784; 82565

== ENCOUNTER 2023-02-06 06:56 | Emergency (ER) | payer MEDICARE, SELFPAY ==
[2023-02-06 07:13] VITALS: BP 118/73; PULSE 79; RESP 18; TEMP 37; O2SAT 96
--- NOTE | 2023-02-06 08:34 | ED.GENADUL_ITS ---
Discharge Plan Disposition Patient Disposition: Home Condition: Stable Discharge Details Clinical Impression: Allergic sinusitis Primary Care Provider: Berta Pritchard ED Provider: Tenzin Jacob Home Meds and New Rx's Prescriptions: New amoxicillin-pot clavulanate 875-125 mg tablet 1 tab PO Q12H Qty: 14 0RF Continued Ac Carbamide PO ONCE cholecalciferol (vitamin D3) 1,000 unit capsule 1,000 unit PO DAILY fluticasone propionate [Flonase Allergy Relief] 50 mcg/actuation spray,suspension 2 spray intranasal DAILY 30 Days Qty: 16 12RF Rx Instructions: administer into each nostril IVIG See Rx Instructions IV QMONTH PRN Rx Instructions: For level <400 during winter months. note dated 10/22/20 cyanocobalamin (vitamin B-12) 1,000 mcg capsule 1,000 mcg PO DAILY Held loratadine [Claritin] 10 mg tablet 10 mg PO DAILY PRN Hold Instructions: Please start Zyrtec daily to see if this helps Discharge Instructions Instructions: Sinusitis (ED) Additional Instructions: Please switch from Claritin to Zyrtec and continue your Flonase daily. At this time I do feel this is more allergen related. You have been given a prescription for antibiotic but it is recommended that you wait 24 to 48 hours before starting this to see if the switch and allergy medication helps your symptoms. Reasons to start the antibiotic is if you start running a fever, have significant worsening of your symptoms, or severe headaches. We will contact you with COVID results when they are available. If not improving in the next week please follow-up with your primary care provider for reassessment. Referrals: Berta Pritchard, KERVIN [Primary Care Provider] - 1 week (If not improving) Medical Decision Making Patient presenting to the emergency department for chief complaint of sinus pr essure and general malaise since . He does state some itchy and irritated eyes but otherwise denies all other symptoms. Patient states he has been taking DayQuil and NyQuil which has not provided much relief, does take Claritin and tried Flonase this morning. 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 Patient exam is unremarkable, vital signs stable, no hypoxia, no tachycardia, and patient is afebrile. Suspect allergic sinusitis. We will perform COVID swab but I suspect allergenic source and will have patient change from Claritin to Zyrtec and continue Flonase. Given patient's transplant history we will give patient pocket prescription for antibiotic but encourage patient to hold off on beginning antibiotic for the next 24 to 48 hours and monitor symptoms given symptoms of been only going on 5 days. After discussion of diagnosis and plan of care patient has no further needs, questions, or concerns and states clear understanding to return to the emergency department for any worsening symptoms. This documentation was generated using [employer]ation system, please disregard any oddities of phrase or misspellings. HPI General Mode of arrival: ambulatory . Date/Time Provider Initiated Documentation: 02/06/23 06:58 . Limitations to Documentation: no limitations . Information obtained by: patient . History of Present Illness 67 year old M presents to the emergency department with the chief complaint of Sinus congestion and pressure, described as moderate, with intensity rated at 6. Quality is described as aching, and is localized to the face. Patient started experiencing this day(s) (5) and it has been constant. No relieving factors improve symptom(s), No exacerbating factors reported . Patient notes no other symptoms.. Patient did receive the following treatments prior to arrival, other (Flonase) Related Data Home Medications Medication Instructions Recorded Confirmed cholecalciferol (vitamin D3) 25 1,000 unit PO DAILY 09/12/19 02/06/23 mcg (1,000 unit) capsule loratadine 10 mg tablet (Claritin) 10 mg PO DAILY PRN 07/08/20 02/06/23 IVIG See Rx Instructions IV QMONTH PRN 10/25/20 12/25/22 Ac Carbamide PO ONCE 11/02/21 12/25/22 cyanocobalamin (vitamin B-12) 1,000 mcg PO DAILY 11/11/21 02/06/23 1,000 mcg capsule fluticasone propionate 50 2 spray intranasal DAILY 30 days 12/25/22 02/06/23 mcg/actuation nasal #16 grams spray,suspension (Flonase Allergy Relief) amoxicillin 875 mg-potassium 1 tab PO Q12H #14 tabs 02/06/23 clavulanate 125 mg tablet Previous Rx's Medication Instructions Recorded fluticasone propionate 50 2 spray intranasal DAILY 30 days 12/25/22 mcg/actuation nasal #16 grams spray,suspension (Flonase Allergy Relief) amoxicillin 875 mg-potassium 1 tab PO Q12H #14 tabs 02/06/23 clavulanate 125 mg tablet Allergies Allergy/AdvReac Type Severity Reaction Status Date / Time methotrexate AdvReac Severe Myelodysplastic Verified 12/25/22 08:57 Syndrome General Stated Complaint: RespSymp AFIA: 4 Review of Systems Constitutional Constitutional: Denies body ache(s), Denies chills, Denies fever(s), Denies headache(s), Reports lethargy and Reports malaise Eyes Eyes: Denies eye discharge, Reports irritation and Reports itchy eyes ENT Ears, Nose, Mouth, and Throat: Reports as per HPI, Denies ear discharge, Denies otalgia, Denies headache(s), Reports nasal congestion, Reports nasal discharge, Denies neck pain, Reports sinus pressure, Denies sore throat and Denies throat swelling Cardiovascular Cardiovascular: Denies chest pain and Denies dyspnea Respiratory Respiratory: Denies cough and Denies dyspnea Musculoskeletal Musculoskeletal: Denies joint swelling and Denies neck pain Integumentary/Breasts Skin/Breast: Denies rash Neurologic Neurologic: Denies headache(s) Allergic/Immunologic Allergic/Immunologic: Reports itchy eyes and Denies throat swelling PFSH All Active Problems (Updated 02/06/23 @ 08:35 by Tenzin Jacob NP) Allergic sinusitis (Acute) Postnasal drip (Acute) Osteoporosis (Acute 05/29/18) next Dexa due 07/2019, yearly Zometa per [facility] last dose 07/24/19 Anemia (Chronic) Due to low Epo, Aranaesp 200mcg q2w if HGB <11 [facility] note dated 04/28/19 S/P colonoscopy (Acute ~09/22/19) Diverticulosis large intestine w/o perforation or abscess w/o bleeding (Acute) Pre-op evaluation (Acute) Bilateral cataracts (Acute) Immunodeficiency, unspecified (Acute) Dhmn Hem/Onc Myelodysplastic syndrome, unspecified (Chronic) [facility] [place]- stem cell transplant Cutaneous T-cell lymphoma, unspecified, 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 MACARIO (dyspnea on exertion) (Acute) Hypoxia (Acute) Acute bronchospasm (Acute) Aspiration pneumonitis (Acute) Discharge planning issues (Acute) Tubular adenoma of colon (Acute) Hyperplastic colon polyp (Acute) Tinnitus of both ears (Acute) Impaired hearing (Acute) Sensorineural hearing loss of both ears (Acute) Medical History (Updated 02/06/23 @ 08:35 by Tenzin Jacob NP) Actinic keratosis Back pain 07/19/18 ov at [facility] - compression fx identified on xray CKD (chronic kidney disease) Colorectal polyps Mgmhm-[id number]-cant disease (06/14/17) Hyperlipidemia (10/09/13) Hyperlipidemia Influenza A Multiple benign nevi 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 Nocturia Rheumatoid arthritis (10/04/12) [facility] Rheum Sindy Zbehlik MTX use Seborrheic keratosis Senile purpura Surgical History History of bone marrow transplant History of colonoscopy (~11/2021) History of tonsillectomy S/P emergency tracheotomy for assistance in breathing 1963 Stem Cell Transplant (10/18/16) Allogenic Bone Marrow Transplant [facility] for Myelodysplastic Syndrome and T-cell cutaneous lymphoma Family History Maternal Grandfather Stroke Mother Diabetes Colon cancer Father Diabetes Social History Smoking/Tobacco Use Status: Former Tobacco Use Quit Date: 10/08/85 Pack-years: 45 Tobacco: How many years used: 14 Smoking risk assessment performed?: Yes Alcohol Intake: current Alcohol Intake frequency: 0-2 drinks per day Alcohol type: hard liquor Counseling given: No Drug use: Never Substance use type: does not use Counseling given: No Caregiver/Support person: No Household members: spouse Housing: house Number of Children: 0 Communication Needs: None Education Level: high school 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 Current gender identity: male What is your relationship status?: How often do you talk on the phone with friends or family?: three or more times per week How often do you get together with friends or relatives?: three or more times per week Panel score (0-1 are the most socially isolated patients): 2 What type of physical activity do you participate in: regular exercise and other Details: bowling Frequency: daily Seatbelt use: always Helmet use: No Drive intox or ride w/intox driver medic: No Water heater temp set <120 deg: Yes Working smoke detector in home: Yes Fire extinguisher in home: Yes Carbon monox detector in home: Yes Firearms in home: Yes Firearms unloaded and locked: Yes Do you feel safe at home: Yes Do you feel safe in your relationship?: Yes Exam Const General: cooperative, comfortable and no acute distress Orientation: alert and awake [facility] Head: normal to inspection, normocephalic and atraumatic Ears: hearing grossly normal bilaterally, external ears normal and TM's normal bilaterally General nose exam: external nose normal and nares normal Face and sinus: normal facial exam, sinuses nontender, face symmetric and no erythema Mouth: oral mucosae normal, lip normal, tongue normal, no drooling, no muffled voice and no trismus Throat: posterior oropharynx normal, tonsils normal and uvula midline Neck Neck: normal visual inspection, full ROM, no lymphadenopathy, no meningeal signs, trachea midline and supple Resp Effort & Inspection: normal respiratory effort and able to speak in complete sentences Auscultation: clear to auscultation bilaterally Cardio Rate: regular rate Rhythm: regular rhythm Heart Sounds: S1 normal, S2 normal, normal S1 and S2, no click, no gallops, no murmurs and no rubs Skin General skin exam: no rashes or lesions noted and dry skin (warm) Neuro General: patient alert, patient awake, patient oriented x3, gait normal and moves all extremities Cognition: normal cognition Speech: speech normal Course Vital Signs Vital signs: Vital Signs Temperature 37.0 C 02/06/23 07:13 Pulse 79 02/06/23 07:13 Respiratory Rate 18 02/06/23 07:13 Blood Pressure 118/73 02/06/23 07:13 Pulse Oximetry 96 02/06/23 07:13 Temperature 37.0 C 02/06/23 07:13 Temperature Source Oral 02/06/23 07:13 Pulse 79 02/06/23 07:13 Respiratory Rate 18 02/06/23 07:13 Respiratory Effort Normal, Non-Labored 02/06/23 07:15 Blood Pressure 118/73 02/06/23 07:13 Pulse Oximetry 96 02/06/23 07:13 Oxygen Delivery Method Room Air 02/06/23 07:13 Oxygen Flow Rate 0 02/06/23 07:13 PAWSS Have you Been Recently Intoxicated or Drunk Within the Last 30 days?: No Have you Ever Experienced Previous Episodes of Alcohol Withdrawal?: No Have you ever Experienced Withdrawal Seizures?: No Have you ever Experienced Delirium Tremens(DT)s?: No Have you ever undergone Alcohol Rehabilitation Treatment (i.e, inpt ot outpatient treatment programs)?: No Have you ever Experienced Blackouts?: No Have you ever Combined Alcohol with other Downers within the last 90 days?: No Have you ever Combined Alcohol with any other Substance of Abuse during the last 90 days?: No Positive Blood Alcohol level on Presentation? [PCS.BAL]: No Evidence of Increased Autonomic Activity (i.e. HR>120, tremor, sweating, agitation, nausea)?: No Result: 0
[2023-02-06 08:50] VITALS: BP 132/80; PULSE 78; RESP 20; TEMP 37.1; O2SAT 99
[2023-02-06 09:05] LABS: Source Nasal/Nares
[2023-02-06 09:53] LABS: COVID-19 PCR Negative (Negative)
== END 2023-02-06 08:53 | disposition home or self-care (01) ==
PROVIDERS: Emergency Provider Nurse Practitioner Family; PCP Nurse Practitioner
DX: J30.9 Allergic rhinitis, unspecified (principal)
CPT/HCPCS: 87635; 99283

== ENCOUNTER 2023-02-14 12:24 | Outpatient (CLI) | payer MEDICARE, SELFPAY ==
--- NOTE | 2023-02-14 11:27 | DI.RAD_ITS ---
Exam(s) XR CHEST 2V PA LATERAL EXAM: XR CHEST 2V PA LATERAL CLINICAL HISTORY: Cough, R05.9; purulent sputum; SOB, R06.2 TECHNIQUE: 2D digital imaging was performed. COMPARISON: CT CT CHEST PE CTA from 03/18/2019 CR XR CHEST 2V PA LATERAL from 03/18/2019 CR XR CHEST 2V PA LATERAL from 09/14/2020 FINDINGS: HEART: Normal size. Aorta: Not dilated. PULMONARY VASCULATURE: Normal. LUNGS: Mildly increased interstitial markings which appear chronic. Superimposed increased patchy de nsities in the left lower lobe suspicious for acute infiltrate. PLEURAL SPACE: No pleural effusion or pneumothorax. BONE:Old left rib fractures. Stable mid thoracic compression fractures. IMPRESSION: Findings suspicious for left lower lobe pneumonia. DATA REPOSITORY: RADIATION DOSE DELIVERED:
== END 2023-02-14 12:44 ==
LOC: DI 12:25
PROVIDERS: PCP Nurse Practitioner; Visit Provider Nurse Practitioner
DX: R06.02 Shortness of breath (principal); R05.3 Chronic cough
CPT/HCPCS: 71046

== ENCOUNTER 2023-04-25 04:28 | Outpatient (CLI) | payer MEDICARE, SELFPAY ==
[2023-04-25 16:28] LABS: CREATININE 1.3 mg/dL (0.70-1.30); Estimated GFR 59.84 (mL/min/1.73m2)
[2023-04-26 09:58] LABS: IgG 511 mg/dL (610-1616)
== END 2023-04-25 04:29 | disposition home or self-care (01) ==
PROVIDERS: PCP Nurse Practitioner; Visit Provider Nurse Practitioner Adult Health
DX: D84.9 Immunodeficiency, unspecified (principal)
CPT/HCPCS: 36415; 82784; 82565

== ENCOUNTER → 2023-07-09 18:52 | Outpatient (CLI) | payer MEDICARE, SELFPAY ==
--- NOTE | 2023-07-09 15:07 | DI.RAD_ITS ---
Exam(s) XR CHEST 2V PA LATERAL EXAM: XR CHEST 2V PA LATERAL CLINICAL HISTORY: F/U 02/14/23 LLL PNA; r/o acute process also, cough, post nasal drip,. TECHNIQUE: 2D digital imaging was performed. COMPARISON: CR XR CHEST 2V PA LATERAL from 02/14/2023 FINDINGS: 2 views: Right lung is clear. There is mild increased markings in the mid left lung field which appear atelec tatic. No confluent infiltrates. No pleural effusions. No pulmonary edema. IMPRESSION: Atelectasis in the mid left lung field. No other pulmonary findings and there are no pleural effusio ns. DATA REPOSITORY: RADIATION DOSE DELIVERED:
== END ==
PROVIDERS: PCP Nurse Practitioner; Visit Provider Nurse Practitioner Adult Health
DX: J98.11 Atelectasis (principal); Z87.01 Personal history of pneumonia (recurrent)
CPT/HCPCS: 71046

== ENCOUNTER 2023-07-09 19:18 | Outpatient (REF) | payer MEDICARE, SELFPAY ==
[2023-07-09 19:14] LABS: Source Nasal/Nares
[2023-07-09 19:58] LABS: COVID-19 PCR Negative (Negative)
== END 2023-07-09 19:19 | disposition home or self-care (01) ==
LOC: LBN 19:18
PROVIDERS: PCP Nurse Practitioner; Visit Provider Nurse Practitioner Adult Health
DX: J98.01 Acute bronchospasm (principal); R05.8 Other specified cough; R09.82 Postnasal drip; Z87.01 Personal history of pneumonia (recurrent); Z20.822 Contact with and (suspected) exposure to COVID-19
CPT/HCPCS: 87635

== ENCOUNTER 2023-07-19 01:00 | Outpatient (CLI) | payer MEDICARE, SELFPAY ==
[2023-07-19 12:58] LABS: CREATININE 1.1 mg/dL (0.70-1.30); Estimated GFR 73.12 (mL/min/1.73m2)
[2023-07-20 08:59] LABS: IgG 590 mg/dL (610-1616)
== END 2023-07-19 01:01 | disposition home or self-care (01) ==
LOC: LOS 01:00
PROVIDERS: PCP Nurse Practitioner; Visit Provider Nurse Practitioner Adult Health
DX: D48.9 Neoplasm of uncertain behavior, unspecified (principal)
CPT/HCPCS: 36415; 82784; 82565

== ENCOUNTER → 2023-10-23 09:22 | Outpatient (BNVA) | payer MEDICARE, SELFPAY | PROVIDERS: PCP Nurse Practitioner; Referring Provider Nurse Practitioner; Visit Provider Student in an Organized Health Care Education/Training Program | DX: R05.3 Chronic cough (principal); J47.9 Bronchiectasis, uncomplicated; R09.82 Postnasal drip; D46.9 Myelodysplastic syndrome, unspecified; J98.4 Other disorders of lung | CPT/HCPCS: 99215 ==

== ENCOUNTER 2023-10-23 10:59 | Outpatient (REF) | payer MEDICARE, SELFPAY | END 2023-10-23 11:00 | disposition home or self-care (01) | LOC: LBN 10:59 | PROVIDERS: PCP Nurse Practitioner; Visit Provider Student in an Organized Health Care Education/Training Program | DX: J47.9 Bronchiectasis, uncomplicated (principal); R09.3 Abnormal sputum | CPT/HCPCS: 87070; 87205 ==

== ENCOUNTER 2023-11-10 04:32 | Emergency (ER) | payer MEDICARE, SELFPAY ==
[2023-11-10] VITALS (39 sets, daily range): BP systolic 112–159; BP diastolic 58–104; PULSE 55–80; RESP 15–33; TEMP 36.6; O2SAT 96–97
--- NOTE | 2023-11-10 04:30 | RT.EKG_ITS ---
APPROVED REPORT Exam: Resting ECG Reason for Exam: CHEST PAIN Patient Location: E HR:62 bpm ECG Measurements Heart Rate 62 AXIS PA 167 P 49 QRSd 149 QRS -57 QT 471 T 13 QTc 480 Conclusion Sinus rhythm...normal P axis, V-rate 60- 99 RBBB and LAFB...QRSd >120mS, axis(-40,240) no ST segment or T wave abnormalities to suggest occlusive IN
--- NOTE | 2023-11-10 04:35 | ED.GENADUL_ITS ---
HPI General Mode of arrival: ambulatory . Date/Time Provider Initiated Documentation: 11/10/23 04:34 . Limitations to Documentation: no limitations . Information obtained by: patient . HPI Narrative: 68yo M with hx of myelodysplastic syndrome, Tcell lymphoma, CKD, HLD, RA, presenting with cough and chest pain. Had had cough productive of yellowiish sputum for 6 weeks. For the past three days has also had intermittent dull sternal/substernal chest pain that does not radiate. This morning when he woke the pain was constant and slightly worse than usual. Worse when coughing, otherwise nothing seems to make it better or worse. Some shortness of breath with coughing, otherwise not short of breath. No pleuritic pain. Is seeing pulmonology outpatient regarding his cough. He is otherwise in his usual state of health with no fevers, chills, rash, nausea, vomiting, abdominal pain, LE edema, orthopnea, or other concerns. Related Data Home Medications Medication Instructions Recorded Confirmed cholecalciferol (vitamin D3) 25 1,000 unit PO DAILY 09/12/19 11/10/23 mcg (1,000 unit) capsule loratadine 10 mg tablet (Claritin) 10 mg PO DAILY PRN 07/08/20 11/10/23 Ac Carbamide PO ONCE 11/02/21 10/23/23 cyanocobalamin (vitamin B-12) 1,000 mcg PO DAILY 11/11/21 11/10/23 1,000 mcg capsule cetirizine 10 mg capsule (Zyrtec) 10 mg PO DAILY 02/14/23 11/10/23 albuterol sulfate 90 mcg/actuation 2 inh inhalation Q6H PRN shortness 10/17/23 11/10/23 breath activated powder inhaler of breath or wheezing #1 ea triamcinolone acetonide 55 mcg 2 spray intranasal DAILY #16.9 mL 10/23/23 11/10/23 nasal spray aerosol (Nasacort) albuterol 90 mcg-budesonide 80 2 inh inhalation ONCE #10.7 grams 11/05/23 11/10/23 mcg/actuation HFA aerosol inhaler (Airsupra) Previous Rx's Medication Instructions Recorded albuterol sulfate 90 mcg/actuation 2 inh inhalation Q6H PRN shortness 10/17/23 breath activated powder inhaler of breath or wheezing #1 ea triamcinolone acetonide 55 mcg 2 spray intranasal DAILY #16.9 mL 10/23/23 nasal spray aerosol (Nasacort) albuterol 90 mcg-budesonide 80 2 inh inhalation ONCE #10.7 grams 11/05/23 mcg/actuation HFA aerosol inhaler (Airsupra) Allergies Allergy/AdvReac Type Severity Reaction Status Date / Time methotrexate AdvReac Severe Myelodysplastic Verified 11/10/23 04:44 Syndrome General AFIA: 4 Review of Systems Narrative: see HPI Exam Narrative Exam Narrative: General: Alert, well appearing, well nourished, in no acute distress. Head: Normocephalic, atraumatic Neck: Trachea midline, ?Neck supple. ENT: ?MMM.? No oropharygeal lesions or exudate. Cardiac: ?RRR, no murmurs appreciated Resp: No respiratory distress. CTAB. Abd: ?Soft, non-distended, nontender : ?No suprapubic tenderness. No CVA tenderness. Extremities: ?No deformities.? No peripheral edema. Neurologic: GCS 15. ? Moves all extremities freely against gravity Medical Decision Making 68yo M with hx of myelodysplastic syndrome, Tcell lymphoma, CKD, HLD, RA, presenting with cough and chest pain. Had had cough productive of yellowiish sputum for 6 weeks. For the past three days has also had intermittent dull sternal/substernal chest pain that does not radiate. This morning when he woke the pain was constant and slightly worse than usual. Normal vital signs on arrival, physical exam benign with no increased work of breathing. Does have frequent cough productive of yellow sputum as described. No pleuritic pain, tachycardia, or hypoxia to suggest pulmonary embolism; would not further pursue with dimer or CT. EKG NSR, RBBB present on prior EKG in [facility] record review, no ST segment or T wave abnormalities to suggest occlusive MT. CXR with no focal pneumonia or pneumothorax on my view, agree with radiology read below. Labs reviewed as below, CBC with mild anemia (13.3), no leukocytosis. CMP reassuring, normal Cr, normal electrolytes, no LFT abnormalities. BNP normal. Initial troponin negative. Will send repeat troponin; if negative and remains clinically well with reassuring vital signs would discharge home to outpatient followup. Signed out to oncoming physician, plan as above. Imaging Data Radiologic Study: Imaging: X-Ray Radiologist's impression: IMPRESSION: No acute findings. Lab Data Lab results reviewed: Yes I reviewed the patient's lab results. Labs: Laboratory Tests Range/Units 11/10/23 04:45 WBC (4.4-10.8) 10^3/uL 5.45 RBC (4.36-5.78) 10^6/uL 4.23 L Hgb (13.5-17.5) g/dL 13.3 L Hct (40.0-50.0) % 40.7 MCV (80-95) fL 96 H MCH (27.0-33.0) pg 31.4 MCHC (32.0-36.0) % 32.7 RDW (11.8-14.1) % 12.8 Plt Count (130-400) 10^3/uL 239 MPV (8.0-11.0) fL 8.7 Immature Gran % 0.4 Neutrophils % 65.7 Lymphocytes % 20.6 Monocytes % 8.8 Eosinophils % 3.9 Basophils % 0.6 Nucleated RBC % (0.0-0.3) % 0.0 Absolute Neutrophils (1.2-6.7) 10^3/uL 3.59 Absolute Lymphocytes (1.2-3.4) 10^3/uL 1.12 L Absolute Monocytes (0.1-0.8) 10^3/uL 0.48 Absolute Eosinophils (0.0-0.7) 10^3/uL 0.21 Absolute Basophils (0.0-0.2) 10^3/uL 0.03 Sodium (136-145) mmol/L 140 Potassium (3.5-5.1) mmol/L 3.6 Chloride (98-107) mmol/L 102 Carbon Dioxide (21.0-32.0) mmol/L 28.2 Anion Gap (3-11) mmol/L 9.8 BUN (7-18) mg/dL 22 H Creatinine (0.70-1.30) mg/dL 1.2 Est GFR (CKD-EPI 2020) (mL/min/1.73m2) 65.46 Glucose (74-106) mg/dL 105 Calcium (8.5-10.1) mg/dL 9.9 Magnesium (1.8-2.4) mg/dL 2.1 Total Bilirubin (0.2-1.0) mg/dL 0.4 AST (15-37) U/L 22 ALT (16-63) U/L 25 Alkaline Phosphatase (46-116) U/L 63 Troponin I (< or =60) ng/L < 50 NT-Pro-B Natriuret Pep (<300) pg/mL 234 Total Protein (6.4-8.2) g/dL 8.8 H Albumin (3.4-5.0) g/dL 4.6 Quality:[facility] Health Related Social Needs: No Data to Display PFSH All Active Problems (Updated 10/22/23 @ 14:13 by Lulú Myers MD) Restrictive lung disease (Acute) Bronchiectasis (Acute) Cough (Acute) Postnasal drip (Acute) Osteoporosis (Acute 05/29/18) next Dexa due 07/2019, yearly Zometa per [facility] last dose 07/24/19 Anemia (Chronic) Due to low Epo, Aranaesp 200mcg q2w if HGB <[address] [facility] note dated 04/28/19 S/P colonoscopy (Acute ~09/22/19) Diverticulosis large intestine w/o perforation or abscess w/o bleeding (Acute) Pre-op evaluation (Acute) Bilateral cataracts (Acute) Immunodeficiency, unspecified (Acute) Dhmn Hem/Onc Myelodysplastic syndrome, unspecified (Chronic) [facility] [place]- stem cell transplant Cutaneous T-cell lymphoma, unspecified, 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 MACARIO (dyspnea on exertion) (Acute) Hypoxia (Acute) Acute bronchospasm (Acute) Aspiration pneumonitis (Acute) Discharge planning issues (Acute) Tubular adenoma of colon (Acute) Hyperplastic colon polyp (Acute) Tinnitus of both ears (Acute) Impaired hearing (Acute) Sensorineural hearing loss of both ears (Acute) Medical History Actinic keratosis Back pain 07/19/[address] 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 Dr. 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 Nocturia Rheumatoid arthritis (10/04/12) [facility] Rheum Sindy Molina MTX use Seborrheic keratosis Senile purpura Surgical History History of bone marrow transplant History of colonoscopy (~11/2021) History of tonsillectomy S/P emergency tracheotomy for assistance in breathing 1963 Stem Cell Transplant (10/18/16) Allogenic Bone Marrow Transplant [facility] for Myelodysplastic Syndrome and T-cell cutaneous lymphoma Family History Maternal Grandfather Stroke Mother Diabetes Colon cancer Father Diabetes Social History Smoking/Tobacco Use Status: Former Tobacco Use Quit Date: 10/08/85 Pack-years: 45 Tobacco: How many years used: 14 Smoking risk assessment performed?: Yes Alcohol Intake: current Alcohol Intake frequency: 0-2 drinks per day Alcohol type: hard liquor Counseling given: No Drug use: Never Substance use type: does not use Counseling given: No Caregiver/Support person: No Household members: spouse Housing: house Number of Children: 0 Communication Needs: None Education Level: high school 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 Current gender identity: male What is your relationship status?: How often do you talk on the phone with friends or family?: three or more times per week How often do you get together with friends or relatives?: three or more times per week Panel score (0-1 are the most socially isolated patients): 2 What type of physical activity do you participate in: regular exercise and other Details: bowling Frequency: daily Seatbelt use: always Helmet use: No Drive intox or ride w/intox transfer driver: No Water heater temp set <120 deg: Yes Working smoke detector in home: Yes Fire extinguisher in home: Yes Carbon monox detector in home: Yes Firearms in home: Yes Firearms unloaded and locked: Yes Do you feel safe at home: Yes Do you feel safe in your relationship?: Yes Sign Out Sign Out Data: Sign Out Comment: 64yo M productive cough x 6 weeks (seeing pulm), 3 days of intermittent substernal chest pain. Pain more constant this morning. Pending repeat troponin, if negative would dc to outpatient followup Last updated by Laila Pavon MD at 11/10/23 06:40 Discharge Plan Discharge Details Chief Complaint: Chest Pain Primary Care Provider: Berta Pritchard ED Provider: Nasreen Florez Home Meds and New Rx's Prescriptions: No Action loratadine [Claritin] 10 mg tablet 10 mg PO DAILY PRN Hold Instructions: Please start Zyrtec daily to see if this helps Ac Carbamide PO ONCE Zyrtec 10 mg capsule 10 mg PO DAILY albuterol sulfate 90 mcg/actuation aerosol powdr breath activated 2 inh inhalation Q6H PRN (Reason: shortness of breath or wheezing) Qty: 1 5RF cholecalciferol (vitamin D3) 1,000 unit capsule 1,000 unit PO DAILY triamcinolone acetonide [Nasacort] 55 mcg aerosol,spray 2 spray intranasal DAILY Qty: 16.9 5RF Rx Instructions: administer into each nostril cyanocobalamin (vitamin B-12) 1,000 mcg capsule 1,000 mcg PO DAILY Airsupra 90-80 mcg/actuation HFA aerosol inhaler 2 inh inhalation ONCE Qty: 10.7 12RF Rx Instructions: as a single dose; may repeat up to 6 doses per day (12 inhalations)
--- NOTE | 2023-11-10 04:45 | DI.RAD_ITS ---
Exam(s) XR CHEST 2V PA LATERAL EXAM: XR CHEST 2V PA LATERAL CLINICAL HISTORY: cough, chest pain. TECHNIQUE: 2D digital imaging was performed. COMPARISON: CR XR CHEST 2V PA LATERAL from 07/09/2023 FINDINGS: 2 views: Heart size is normal. The mediastinum is not widened. Lungs are clear. No infiltrates nor pleural effusions. IMPRESSION: No acute pulmonary findings. DATA REPOSITORY: RADIATION DOSE DELIVERED:
[2023-11-10 05:07] LABS: Abs Immature Grans 0.02 10^3/uL (0.0-0.06); Absolute Basophil Count 0.03 10^3/uL (0.0-0.2); Absolute Eosinophil Count 0.21 10^3/uL (0.0-0.7); Absolute Lymphocyte Count 1.12 10^3/uL (1.2-3.4); Absolute Monocyte Count 0.48 10^3/uL (0.1-0.8); Absolute Neutrophil Count 3.59 10^3/uL (1.2-6.7); Basophils % 0.6; Eosinophils % 3.9; HCT 40.7 % (40.0-50.0); HGB 13.3 g/dL (13.5-17.5); Immature Grans % 0.4; Lymphocytes % 20.6; MCH 31.4 pg (27.0-33.0); MCHC 32.7 % (32.0-36.0); MCV 96 fL (80-95); MPV 8.7 fL (8.0-11.0); Monocytes % 8.8; Neutrophils % 65.7; Platelet Count 239 10^3/uL (130-400); RBC 4.23 10^6/uL (4.36-5.78); RDW 12.8 % (11.8-14.1); RDW-SD 45.1 fL; WBC 5.45 10^3/uL (4.4-10.8)
--- NOTE | 2023-11-10 05:33 | DI.VRAD_ITS ---
PROCEDURE INFORMATION: Exam: XR Chest Exam date and time: 11/10/2023 5:12 AM Age: 68 years old Clinical indication: Cough; Chest wall pain TECHNIQUE: Imaging protocol: Radiologic exam of the chest. Views: 2 views. COMPARISON: CR XR CHEST 2V PA LATERAL 07/09/2023 3:00 PM FINDINGS: Lungs: Unremarkable. No consolidation. Pleural spaces: Unremarkable. No pleural effusion. No pneumothorax. Heart/Mediastinum: Unremarkable. No cardiomegaly. Bones/joints: Unremarkable. IMPRESSION: No acute findings. Dictated and Authenticated by: Aaron Harris MD. Ordering:TAMI Ulloa MD
[2023-11-10 05:38] LABS: ALT 25 U/L (16-63); AST 22 U/L (15-37); Albumin 4.6 g/dL (3.4-5.0); Alkaline Phosphatase 63 U/L (46-116); Anion Gap 9.8 mmol/L (3-11); BUN 22 mg/dL (7-18); Bilirubin, Total 0.4 mg/dL (0.2-1.0); CO2 28.2 mmol/L (21.0-32.0); CREATININE 1.2 mg/dL (0.70-1.30); Calcium 9.9 mg/dL (8.5-10.1); Chloride 102 mmol/L (98-107); Estimated GFR 65.46 (mL/min/1.73m2); Glucose 105 mg/dL (74-106); Magnesium 2.1 mg/dL (1.8-2.4); NT-proBNP 234 pg/mL (<300); Potassium 3.6 mmol/L (3.5-5.1); Sodium 140 mmol/L (136-145); Total Protein 8.8 g/dL (6.4-8.2); Troponin I < 50 ng/L (< or =60)
--- NOTE | 2023-11-10 07:35 | ED.PROG_ITS ---
Date of service: 11/10/23 Time of Service: 07:44 Medical Decision Making patient accepted in sign out. history of ILD, MDS followed by pulm for chronic cough presented for 3 days of chest pain EKG unremarkable for acute ischemic change. First trop negative. Dispo pending delta trop. Delta trop negative. On my eval, patient is stable, no chest pain. Stable for DC home. Has pulm follow up scheduled. Medical Records Medical records reviewed: Yes I reviewed the patient's medical records. Quality:[facility] Health Related Social Needs: No Data to Display Sign Out Sign Out Data: Sign Out Comment: 64yo M productive cough x 6 weeks (seeing pulm), 3 days of intermittent substernal chest pain. Pain more constant this morning. Pending repeat troponin, if negative would dc to outpatient followup Last updated by Laila Pavon MD at 11/10/23 06:40 Discharge Plan Disposition Patient Disposition: Home Condition: Stable Discharge Details Clinical Impression: Cough, Chest pain Primary Care Provider: Berta Pritchard ED Provider: Nasreen Florez Home Meds and New Rx's Prescriptions: No Action loratadine [Claritin] 10 mg tablet 10 mg PO DAILY PRN Hold Instructions: Please start Zyrtec daily to see if this helps Ac Carbamide PO ONCE Zyrtec 10 mg capsule 10 mg PO DAILY albuterol sulfate 90 mcg/actuation aerosol powdr breath activated 2 inh inhalation Q6H PRN (Reason: shortness of breath or wheezing) Qty: 1 5RF cholecalciferol (vitamin D3) 1,000 unit capsule 1,000 unit PO DAILY triamcinolone acetonide [Nasacort] 55 mcg aerosol,spray 2 spray intranasal DAILY Qty: 16.9 5RF Rx Instructions: administer into each nostril cyanocobalamin (vitamin B-12) 1,000 mcg capsule 1,000 mcg PO DAILY Airsupra 90-80 mcg/actuation HFA aerosol inhaler 2 inh inhalation ONCE Qty: 10.7 12RF Rx Instructions: as a single dose; may repeat up to 6 doses per day (12 inhalations) Discharge Instructions Instructions: Chest Pain (ED) Additional Instructions: please keep follow up appointments as scheduled follow up with your PCP for monitoring of chest pain and cough symptoms return to the ED with severe pain, any other concerning symptoms.
[2023-11-10 08:06] LABS: Troponin I < 50 ng/L (< or =60)
== END 2023-11-10 08:19 | disposition home or self-care (01) ==
PROVIDERS: Student in an Organized Health Care Education/Training Program; Emergency Provider Emergency Medicine; PCP Nurse Practitioner
DX: R05.1 Acute cough (principal); R07.89 Other chest pain; I10 Essential (primary) hypertension
CPT/HCPCS: 00123; 80053; 93005; 99283; 71046; 83735; 83880; 84484; 85025; 93010

== ENCOUNTER → 2023-11-16 01:44 | Outpatient (CLI) | payer MEDICARE, SELFPAY ==
--- NOTE | 2023-11-16 08:15 | DI.US_ITS ---
APPROVED REPORT EXAM: Comprehensive 2D, Doppler, and color-flow Echocardiogram Patient Location: Out-Patient Driver Education Instructor: Barbara Dia RDCS Indications: Dyspnea, systolic murmur. Other Information Study Quality: Excellent Conclusion The atria are mildly to moderately dilated, ventricles normal sizes Normal LV function,EF 60-65%. Normal RV functiopn. The trileaflet aortic valve is mildly to moderately sclerotic with a mean gradient of 22 mmHg which i s more MILD than moderate AORTIC STENOSIS. Mild AI present. Other valves are anatomically normal with mild MR.mild TR without phtn. No intracardiac shunt No pericardial effusion. Wall motion Left Ventricle The left ventricle is normal size. The left ventricular systolic function is normal. The left ventric ular ejection fraction is within the normal range. There is normal left ventricular wall thickness. T here is normal LV segmental wall motion. Diastolic indices are normal for age, no evidence of elevate d left-sided filling pressures. There is no ventricular septal defect visualized. LVEF is 60-65%. Right Ventricle The right ventricle is normal size. The right ventricular systolic function is normal. There is juanjose l right ventricular wall thickness. Moderator band is seen in the right ventricle. Atria The left atrium size is normal. The right atrium size is normal. Prominent Eustachian valve is noted in the right atrium. The interatrial septum is intact with no evidence for an atrial septal defect. Aortic Valve Aortic valve is probably trileaflet. Aortic valve leaflets are mild to moderately thickened. Moderate aortic stenosis. Peak aortic valve gradient is 37 mmHg, mean gradient is 22.6 mmHg. Calculated KYLIE by the continuity equation is 1.1 cm2. Mild aortic regurgitation. Mitral Valve Mitral valve leaflets are mildly thickened. No evidence of mitral valve stenosis. Trivial to mild elysia ral regurgitation. Tricuspid Valve The tricuspid valve is normal in structure. There is no tricuspid valve stenosis. Mild tricuspid regu rgitation. The RVSP is 26 mmHg. Pulmonic Valve The pulmonary valve is normal in structure. There is no pulmonic valvular stenosis. Trace pulmonic re gurgitation. Great Vessels Aortic root is normal in size. The pulmonary artery is normal. The ascending aorta is mildly dilated. Aortic arch is normal in caliber. IVC is normal in size and collapses >50% with inspiration. Pericardium There is no pericardial effusion.
--- NOTE | 2023-11-16 08:25 | DI.CT_ITS ---
Exam(s) CT CHEST HIGH RESOLUTION EXAM: CT CHEST HIGH RESOLUTION CLINICAL HISTORY: assess bronchiectasis progression,j47.9,DYSPNEA. TECHNIQUE: Multi planar reconstructions were performed. CONTRAST MATERIAL: None CT CT CHEST PE CTA from 03/18/2019 CR,XR XR CHEST 2V PA LATERAL from 11/10/2023 FINDINGS: CHEST: LUNGS: When compared to the most recent chest CT scan of 2019, the previously present patchy infiltra umang in the left upper lobe have mostly resolved only 2 small areas mild remaining increased markings, 1 in the subpleural anterior segment of the left upper lobe and the other adjacent to the major fiss ure in the apicoposterior segment of the left upper lobe. Both of these areas had larger infiltrates evident on the 2019 study. Remainder of the left upper lobe and lingular segment are clear. There are no significant focal findings in the left lower lobe. In the opposite-right lung there are mild benign-appearing increased markings in the lateral segment of the right middle lobe. Also mild benign-appearing subpleural increased markings in the posterior aspect of the right lower lobe. There is a small 2 millimeter nodular infiltrate in the right lower lobe lateral aspect of the posterior basal segment which appears smaller than previous. There are no new ominous nodules. There are no pleural effusions on either side. There are no findings in the trachea and mainstem bronchi. There is mild symmetrical prominence of t he peripheral bronchial tree which appears similar to previous. There is no asymmetric focal area of prominent perform nor saccular bronchiectasis MEDIASTINUM: There is no obvious hilar nor mediastinal adenopathy. Visualized thyroid unremarkable.No obvious axillary adenopathy CARDIAC: Heart size is normal. There is no pericardial effusion.Caliber of the thoracic aorta is wit hin normal limits. VISUALIZED UPPER ABDOMEN:No adrenal masses. OSSEOUS: No significant osseous lesions.There are healed fractures of the left 7th and 8th ribs now e vident. These were not evident on the 2019 CT scan. There are also compression fractures of T6 and T8 again noted without further height loss of these vertebral fractures and no new vertebral fracture s identified. IMPRESSION: 1. Compared to the most recent CT scan of March 2019 there has been significant improvement in the pre viously present infiltrates which were most prominent in the left upper lobe at that time. See amelia ls above. There are no new significant infiltrates and there are no pleural effusions nor intrathora cic adenopathy. 2. Stable appearance of T6 and T8 compression fractures. 3. There are healed left 7th and 8th rib fractures evident which were not present on the prior 2019 s tudy. RADIATION DOSE DELIVERED: 594.84mGy.cm Total DLP DATA REPOSITORY: All CT scans at this facility are submitted to the National Radiology Data Registry (NRDR) Dose Index Registry (DIR) with the [employer] (A[employer]). RADIATION OPTIMIZATION: All CT scans at this facility use at least one of these dose optimization te chniques: automated exposure control; mA and/or kV adjustment per patient size (includes targeted exa ms where dose is matched to clinical indication); or iterative reconstruction.
== END ==
PROVIDERS: PCP Nurse Practitioner; Visit Provider Student in an Organized Health Care Education/Training Program
DX: R06.00 Dyspnea, unspecified (principal); J47.9 Bronchiectasis, uncomplicated
CPT/HCPCS: 71250; 93306; 94060; 94070; 94726; 94729; J7674

== ENCOUNTER 2023-11-16 03:00 | Outpatient (CLI) | payer MEDICARE, SELFPAY ==
[2023-11-16] MEDS: Albuterol HFA 18 GM 200 PUFF INH IH (11:57)
[2023-11-16] MEDS: Methacholine 100 MG VIAL IH (11:57)
[2023-11-16] MEDS: Inhaler, Assist Device 1 EACH MC (11:57)
--- NOTE | 2023-11-19 07:51 | W.PFT ---
Date of service: 11/16/23 Time of Service: 10:05 Pulmonary Function Test Result Indications: Cough Interpretation Spirometry: There is no airway limitation. There was a 20% decrease in FEV1 with administration of 4.0mg/mL methacholine. Lung Volumes: Normal lung volumes. Diffusion Capacity: Mildly decreased diffusion. Airway Pressure: Normal airways resistance Impression A mildly decreased diffusion with a positive methacholine challenge. Clinical Correlation therefore is recommended.
== END 2023-11-16 03:01 | disposition home or self-care (01) ==
LOC: RT 03:00
PROVIDERS: PCP Nurse Practitioner; Visit Provider Student in an Organized Health Care Education/Training Program
DX: R05.9 Cough, unspecified (principal)
CPT/HCPCS: 94060; 94070; 94726; 94729; 94010; J7674

== ENCOUNTER → 2023-11-20 14:14 | Outpatient (BNVA) | payer MEDICARE, SELFPAY | PROVIDERS: PCP Nurse Practitioner; Referring Provider Nurse Practitioner; Visit Provider Student in an Organized Health Care Education/Training Program | DX: J47.9 Bronchiectasis, uncomplicated (principal); J45.909 Unspecified asthma, uncomplicated | CPT/HCPCS: 99214 ==

== ENCOUNTER 2023-11-21 03:46 | Outpatient (CLI) | payer MEDICARE, SELFPAY ==
[2023-11-21 07:12] LABS: Abs Immature Grans 0.03 10^3/uL (0.0-0.06); Absolute Basophil Count 0.05 10^3/uL (0.0-0.2); Absolute Eosinophil Count 0.18 10^3/uL (0.0-0.7); Absolute Lymphocyte Count 1.05 10^3/uL (1.2-3.4); Absolute Monocyte Count 0.44 10^3/uL (0.1-0.8); Absolute Neutrophil Count 4.17 10^3/uL (1.2-6.7); Basophils % 0.8; HCT 39.5 % (40.0-50.0); HGB 12.9 g/dL (13.5-17.5); Immature Grans % 0.5; Lymphocytes % 17.7; MCH 31.5 pg (27.0-33.0); MCHC 32.7 % (32.0-36.0); MCV 97 fL (80-95); Monocytes % 7.4; Neutrophils % 70.6; Platelet Count 173 10^3/uL (130-400); RBC 4.09 10^6/uL (4.36-5.78); RDW 12.8 % (11.8-14.1); RDW-SD 44.8 fL; WBC 5.92 10^3/uL (4.4-10.8)
[2023-11-21 09:21] LABS: ALT 21 U/L (16-63); AST 20 U/L (15-37); Albumin 4.2 g/dL (3.4-5.0); Alkaline Phosphatase 57 U/L (46-116); Anion Gap 8.2 mmol/L (3-11); BUN 21 mg/dL (7-18); Bilirubin, Total 0.5 mg/dL (0.2-1.0); CO2 28.8 mmol/L (21.0-32.0); CREATININE 1.1 mg/dL (0.70-1.30); Calcium 9.3 mg/dL (8.5-10.1); Calculated LDL 167 mg/dL (<100); Chloride 106 mmol/L (98-107); Cholesterol 256 mg/dL (<200); Estimated GFR 72.67 (mL/min/1.73m2); Glucose 92 mg/dL (74-106); HDL Cholesterol 68 mg/dL (40-60); Potassium 4.1 mmol/L (3.5-5.1); Sodium 143 mmol/L (136-145); Total Protein 7.6 g/dL (6.4-8.2); Triglyceride 106 mg/dL (<150); Vitamin B12 1148 pg/mL (193-986)
[2023-11-22 08:31] LABS: IgG 568 mg/dL (610-1616)
== END 2023-11-21 03:47 | disposition home or self-care (01) ==
LOC: LBO 03:46
PROVIDERS: Absent Provider Nurse Practitioner; PCP Nurse Practitioner; Referring Provider Nurse Practitioner; Visit Provider Nurse Practitioner
DX: D84.9 Immunodeficiency, unspecified (principal); D46.9 Myelodysplastic syndrome, unspecified; N18.9 Chronic kidney disease, unspecified; E78.5 Hyperlipidemia, unspecified; E53.8 Deficiency of other specified B group vitamins
CPT/HCPCS: 80053; 80061; 82784; 82607; 85025

== ENCOUNTER 2023-12-17 03:41 | Outpatient (CLI) | payer MEDICARE, SELFPAY ==
--- NOTE | 2023-12-17 16:15 | DI.RAD_ITS ---
Exam(s) XR CHEST 2V PA LATERAL EXAM: XR CHEST 2V PA LATERAL CLINICAL HISTORY: Acute bronchitis, J20.9, R/O infiltrate. TECHNIQUE: 2D digital imaging was performed. COMPARISON: CR,XR XR CHEST 2V PA LATERAL from 11/10/2023 FINDINGS: 2 views: Heart size is normal. The mediastinum is not widened. There are COPD findings. Mild subtle patchy infiltrates in the lower lobes noted. No pleural effusi ons. No pulmonary edema. No pneumothorax. IMPRESSION: Subtle infiltrates. No pleural effusions DATA REPOSITORY: RADIATION DOSE DELIVERED:
--- NOTE | 2023-12-17 16:49 | DI.VRAD_ITS ---
PROCEDURE INFORMATION: Exam: XR Chest Exam date and time: 12/17/2023 4:28 PM Age: 68 years old Clinical indication: Other: Acute bronchitis R/O infiltrate TECHNIQUE: Imaging protocol: Radiologic exam of the chest. Views: 2 views. COMPARISON: CT CHEST HIGH RESOLUTION 11/16/2023 8:13 AM FINDINGS: Lungs: 12 mm vague nodular opacity in the right lung apex appears new or significantly increased in size compared to the prior study of 11/10/2023. Mild patchy interstitial opacity in the right perihilar region and bilateral lower lungs also appears slightly increased. No prominent areas of consolidation evident. Lung volumes are normal. Pleural spaces: Unremarkable. No pleural effusion. No pneumothorax. Heart/Mediastinum: Unremarkable. No cardiomegaly. Bones/joints: Unremarkable. IMPRESSION: 12 mm right apical pulmonary nodule appears new or significantly increased in size. Mild increased interstitial markings in the bilateral lower lungs and right perihilar region concerning for new/progressing infiltrate. Dictated and Authenticated by: Eliu Armendariz MD. Ordering:JC Alejandro MD
[2023-12-17 17:28] LABS: D-Dimer 702 ng/mlFEU (<500)
== END 2023-12-17 03:42 | disposition home or self-care (01) ==
PROVIDERS: Family Medicine; Absent Provider Nurse Practitioner; PCP Nurse Practitioner; Visit Provider Nurse Practitioner
DX: J20.9 Acute bronchitis, unspecified (principal); R06.09 Other forms of dyspnea; J44.9 Chronic obstructive pulmonary disease, unspecified; R91.8 Other nonspecific abnormal finding of lung field; R79.1 Abnormal coagulation profile
CPT/HCPCS: 36415; 71046; 85379

== ENCOUNTER 2024-01-05 08:00 | Emergency (ER) | payer MEDICARE, SELFPAY ==
[2024-01-05 08:07] VITALS: BP 107/60; PULSE 89; RESP 18; TEMP 36.5; O2SAT 97
--- NOTE | 2024-01-05 08:23 | W.ED.GENAD ---
Discharge Plan Disposition Patient Disposition: Home Discharge Details Clinical Impression: Herpes zoster Primary Care Provider: Berta Pritchard ED Provider: Tenzin Jacob Home Meds and New Rx's Prescriptions: New valacyclovir 1 gram tablet 1,000 mg PO Q8H 7 Days Qty: 21 0RF prednisone 20 mg tablet 20 mg PO DAILY Qty: 4 0RF Continued Ac Carbamide PO ONCE Zyrtec 10 mg capsule 10 mg PO DAILY albuterol sulfate 90 mcg/actuation aerosol powdr breath activated 2 inh inhalation Q6H PRN (Reason: shortness of breath or wheezing) Qty: 1 5RF fluticasone propion-salmeterol [Advair HFA] 230-21 mcg/actuation HFA aerosol inhaler 2 puff inhalation BID Qty: 12 12RF cholecalciferol (vitamin D3) 1,000 unit capsule 1,000 unit PO DAILY triamcinolone acetonide [Nasacort] 55 mcg aerosol,spray 2 spray intranasal DAILY Qty: 16.9 5RF Rx Instructions: administer into each nostril cyanocobalamin (vitamin B-12) 1,000 mcg capsule 1,000 mcg PO DAILY Discharge Instructions Instructions: Shingles (ED) Additional Instructions: Continue to monitor rash and return for any new or significant change in symptoms. If Lidocaine patch helps with discomfort use over the counter Lidocaine 4% cream or patches. Follow up with Primary Care if not improving. Referrals: Berta Pritchard, [employer]GER [Primary Care Provider] - (as needed for reassessment) [facility] General Mode of arrival: ambulatory. Date/Time Provider Initiated Documentation: 01/05/24 08:02. Limitations to Documentation: no limitations. Information obtained by: patient and RN notes reviewed. History of Present Illness 68 year old M presents to the emergency department with the chief complaint of Rash, described as moderate, Quality is described as aching, and is localized to the buttocks and left. Patient started experiencing this hour(s) (2) and it has been constant. No relieving factors improve symptom(s), No exacerbating factors reported . Patient notes no other symptoms.. Patient did receive the following treatments prior to arrival, none Related Data Home Medications Medication Instructions Recorded Confirmed cholecalciferol (vitamin D3) 25 1,000 unit PO DAILY 09/12/19 01/05/24 mcg (1,000 unit) capsule Ac Carbamide PO ONCE 11/02/21 12/17/23 cyanocobalamin (vitamin B-12) 1,000 mcg PO DAILY 11/11/21 01/05/24 1,000 mcg capsule cetirizine 10 mg capsule (Zyrtec) 10 mg PO DAILY 02/14/23 01/05/24 albuterol sulfate 90 mcg/actuation 2 inh inhalation Q6H PRN shortness 10/17/23 01/05/24 breath activated powder inhaler of breath or wheezing #1 ea triamcinolone acetonide 55 mcg 2 spray intranasal DAILY #16.9 mL 10/23/23 01/05/24 nasal spray aerosol (Nasacort) fluticasone propionate 230 2 puff inhalation BID #12 grams 11/20/23 01/05/24 mcg-salmeterol 21 mcg/actuation HFA inhaler (Advair HFA) prednisone 20 mg tablet 20 mg PO DAILY #4 tabs 01/05/24 valacyclovir 1 gram tablet 1,000 mg PO Q8H 7 days #21 tabs 01/05/24 Previous Rx's Medication Instructions Recorded albuterol sulfate 90 mcg/actuation 2 inh inhalation Q6H PRN shortness 10/17/23 breath activated powder inhaler of breath or wheezing #1 ea triamcinolone acetonide 55 mcg 2 spray intranasal DAILY #16.9 mL 10/23/23 nasal spray aerosol (Nasacort) fluticasone propionate 230 2 puff inhalation BID #12 grams 11/20/23 mcg-salmeterol 21 mcg/actuation HFA inhaler (Advair HFA) prednisone 20 mg tablet 20 mg PO DAILY #4 tabs 01/05/24 valacyclovir 1 gram tablet 1,000 mg PO Q8H 7 days #21 tabs 01/05/24 Allergies Allergy/AdvReac Type Severity Reaction Status Date / Time methotrexate AdvReac Severe Myelodysplastic Verified 01/05/24 08:11 Syndrome General Stated Complaint: RashLesion AFIA: 4 Review of Systems Constitutional Constitutional: Denies chills and Denies fever(s) Integumentary/Breasts Skin/Breast: Reports as per HPI, Reports erythema and Reports skin pain Exam Const General: cooperative, no acute distress and not ill appearing Orientation: alert, awake and oriented x3 HENMT Mouth: moist mucous membranes Resp Effort & Inspection: normal respiratory effort, able to speak in complete sentences and no respiratory distress Skin Rashes: rashes noted vesicles left central buttock Neuro General: patient alert, patient awake, patient oriented x3, moves all extremities and no focal motor deficits Sensory Exam: no sensory deficits noted Course Vital Signs Vital signs: Vital Signs Temperature 36.5 C 01/05/24 08:07 Pulse 89 01/05/24 08:07 Respiratory Rate 18 01/05/24 08:07 Blood Pressure 107/60 01/05/24 08:07 Pulse Oximetry 97 01/05/24 08:07 Temperature 36.5 C 01/05/24 08:07 Temperature Source Temporal Artery Scan 01/05/24 08:07 Pulse 89 01/05/24 08:07 Respiratory Rate 18 01/05/24 08:07 Respiratory Effort Normal, Non-Labored 01/05/24 08:12 Blood Pressure 107/60 01/05/24 08:07 Blood Pressure Position Sitting 01/05/24 08:07 Pulse Oximetry 97 01/05/24 08:07 Oxygen Delivery Method Room Air 01/05/24 08:07 Oxygen Flow Rate 0 01/05/24 08:07 Medical Decision Making Patient presenting to the emergency department for rash that he noted this morning on his left buttock. Patient denies any other rash, denies fever chills, denies any other symptoms. Has not used any treatment to help with this yet. Physical exam consistent with herpes zoster with vesicular rash just on left buttock. No other worrisome findings noted not consistent with disseminated zoster, cellulitis. will treat patient with valacyclovir and short course of steroids. Did place lidocaine patch over area of discomfort and encouraged use of [id number] lidocaine as needed. After discussion of diagnosis and plan of care patient has no further needs, questions, or concerns and states clear understanding to return to the emergency department for any worsening symptoms. This documentation was generated using [employer] dictation system, please disregard any oddities of phrase or misspellings. Quality:SDOH Health Related Social Needs: No Data to Display PFSH All Active Problems Herpes zoster (Acute) Verruca vulgaris (Acute) Lit Derm 12/18/23 Acute bronchitis (Acute) Statin medication declined by patient (Acute) Asthma (Chronic) Restrictive lung disease (Acute) Bronchiectasis (Acute) Cough (Acute) Postnasal drip (Acute) Osteoporosis (Acute 05/29/18) next Dexa due 07/2019, yearly Zometa per [facility] dose 07/24/19 Anemia (Chronic) Due to low Epo, Aranaesp 200mcg q2w if HGB <11 [facility] note dated 04/28/19 S/P colonoscopy (Acute ~09/22/19) Diverticulosis large intestine w/o perforation or abscess w/o bleeding (Acute) Pre-op evaluation (Acute) Bilateral cataracts (Acute) Immunodeficiency, unspecified (Acute) [facility] Hem/Onc Myelodysplastic syndrome, unspecified (Chronic) [facility] [place]- stem cell transplant Cutaneous T-cell lymphoma, unspecified, 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 MACARIO (dyspnea on exertion) (Acute) Hypoxia (Acute) Acute bronchospasm (Acute) Aspiration pneumonitis (Acute) Discharge planning issues (Acute) Tubular adenoma of colon (Acute) Hyperplastic colon polyp (Acute) Tinnitus of both ears (Acute) Impaired hearing (Acute) Sensorineural hearing loss of both ears (Acute) Medical History Colorectal polyps Nocturia Multiple benign nevi Senile purpura Actinic keratosis Seborrheic keratosis CKD (chronic kidney disease) Hyperlipidemia Influenza A Back pain 07/19/18 ov [place] [facility] - compression fx identified on xray Rheumatoid arthritis (10/04/12) [facility] Rheum Sindy Molina MTX use 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 Family History Maternal Grandfather Stroke Mother Diabetes Colon cancer Father Diabetes Social History Smoking/Tobacco Use Status: Former Tobacco Use Quit Date: 10/08/85 Pack-years: 45 Tobacco: How many years used: 14 Smoking risk assessment performed?: Yes Alcohol Intake: current Alcohol Intake frequency: 0-2 drinks per day Alcohol type: hard liquor Counseling given: No Drug use: Never Substance use type: does not use Counseling given: No Caregiver/Support person: No Household members: spouse Housing: house Number of Children: 0 Communication Needs: None Education Level: high school 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 Current gender identity: male What is your relationship status?: How often do you talk on the phone with friends or family?: three or more times per week How often do you get together with friends or relatives?: three or more times per week Panel score (0-1 are the most socially isolated patients): 2 What type of physical activity do you participate in: regular exercise and other Details: bowling Frequency: daily Seatbelt use: always Helmet use: No Drive intox or ride w/intox light truck driver: No Water heater temp set <120 deg: Yes Working smoke detector in home: Yes Fire extinguisher in home: Yes Carbon monox detector in home: Yes Firearms in home: Yes Firearms unloaded and locked: Yes Do you feel safe at home: Yes Do you feel safe in your relationship?: Yes PAWSS Have you Been Recently Intoxicated or Drunk Within the Last 30 days?: No Have you Ever Experienced Previous Episodes of Alcohol Withdrawal?: No Have you ever Experienced Withdrawal Seizures?: No Have you ever Experienced Delirium Tremens(DT)s?: No Have you ever undergone Alcohol Rehabilitation Treatment (i.e, inpt ot outpatient treatment programs)?: No Have you ever Experienced Blackouts?: No Have you ever Combined Alcohol with other Downers within the last 90 days?: No Have you ever Combined Alcohol with any other Substance of Abuse during the last 90 days?: No Positive Blood Alcohol level on Presentation? [PCS.BAL]: No Evidence of Increased Autonomic Activity (i.e. HR>120, tremor, sweating, agitation, nausea)?: No Result: 0
[2024-01-05] MEDS: Lidocaine 5% Patch 1 PATCH TP (08:31)
== END 2024-01-05 08:40 | disposition home or self-care (01) ==
LOC: ER 08:31
PROVIDERS: Emergency Provider Nurse Practitioner Family; PCP Nurse Practitioner
DX: B02.9 Zoster without complications (principal); N18.9 Chronic kidney disease, unspecified; M06.9 Rheumatoid arthritis, unspecified; D46.C Myelodysplastic syndrome with isolated del(5q) chromosomal abnormality; Z94.81 Bone marrow transplant status; Z87.891 Personal history of nicotine dependence
CPT/HCPCS: 99283

== ENCOUNTER → 2024-02-11 14:46 | Outpatient (BNVA) | payer MEDICARE, SELFPAY | PROVIDERS: PCP Nurse Practitioner; Referring Provider Nurse Practitioner; Visit Provider Physician Assistant Surgical | DX: J47.9 Bronchiectasis, uncomplicated (principal); J45.909 Unspecified asthma, uncomplicated | CPT/HCPCS: 99214 ==

== ENCOUNTER 2024-03-08 07:56 | Emergency (ER) | payer MEDICARE, SELFPAY ==
[2024-03-08 07:57] VITALS: BP 148/64; PULSE 60; RESP 16; TEMP 36.1; O2SAT 98
--- NOTE | 2024-03-08 08:09 | W.ED.GENAD ---
Discharge Plan Disposition Patient Disposition: Home Condition: Stable Discharge Details Clinical Impression: Blood blister Primary Care Provider: Berta Pritchard ED Provider: Noah Carr Home Meds and New Rx's Prescriptions: Continued Zyrtec 10 mg capsule 10 mg PO DAILY albuterol sulfate 90 mcg/actuation aerosol powdr breath activated 2 inh inhalation Q6H PRN (Reason: shortness of breath or wheezing) Qty: 1 5RF fluticasone propion-salmeterol [Advair HFA] 230-21 mcg/actuation HFA aerosol inhaler 2 puff inhalation BID Qty: 12 12RF cholecalciferol (vitamin D3) 1,000 unit capsule 1,000 unit PO DAILY triamcinolone acetonide [Nasacort] 55 mcg aerosol,spray 2 spray intranasal DAILY Qty: 16.9 5RF Rx Instructions: administer into each nostril cyanocobalamin (vitamin B-12) 1,000 mcg capsule 1,000 mcg PO DAILY Discharge Instructions Additional Instructions: The blister should resolve on its own over the course of a week or 2. Using the light wrap on it can help decrease the time to it resolving If you feel more ill, have severe worsening pain or new symptoms such as high fevers return to the emergency department for reevaluation HPI General Mode of arrival: ambulatory. Date/Time Provider Initiated Documentation: 03/08/24 07:57. Limitations to Documentation: no limitations. Information obtained by: patient. History of Present Illness 68 year old M presents to the emergency department with the chief complaint of Blister on the left hand, described as moderate, Quality is described as burning, aching and sharp, and is localized to the left and upper extremity. Patient reports no radiation. Patient started experiencing this day(s) (1) and it has been constant. No relieving factors improve symptom(s), No exacerbating factors reported . Patient notes no other symptoms.. Patient did receive the following treatments prior to arrival, none Related Data Home Medications Medication Instructions Recorded Confirmed cholecalciferol (vitamin D3) 25 1,000 unit PO DAILY 09/12/19 03/08/24 mcg (1,000 unit) capsule cyanocobalamin (vitamin B-12) 1,000 mcg PO DAILY 11/11/21 03/08/24 1,000 mcg capsule cetirizine 10 mg capsule (Zyrtec) 10 mg PO DAILY 02/14/23 03/08/24 albuterol sulfate 90 mcg/actuation 2 inh inhalation Q6H PRN shortness 10/17/23 03/08/24 breath activated powder inhaler of breath or wheezing #1 ea triamcinolone acetonide 55 mcg 2 spray intranasal DAILY #16.9 mL 10/23/23 03/08/24 nasal spray aerosol (Nasacort) fluticasone propionate 230 2 puff inhalation BID #12 grams 11/20/23 03/08/24 mcg-salmeterol 21 mcg/actuation HFA inhaler (Advair HFA) Previous Rx's Medication Instructions Recorded albuterol sulfate 90 mcg/actuation 2 inh inhalation Q6H PRN shortness 10/17/23 breath activated powder inhaler of breath or wheezing #1 ea triamcinolone acetonide 55 mcg 2 spray intranasal DAILY #16.9 mL 10/23/23 nasal spray aerosol (Nasacort) fluticasone propionate 230 2 puff inhalation BID #12 grams 11/20/23 mcg-salmeterol 21 mcg/actuation HFA inhaler (Advair HFA) Allergies Allergy/AdvReac Type Severity Reaction Status Date / Time methotrexate AdvReac Severe Myelodysplastic Verified 03/08/24 08:02 Syndrome General Stated Complaint: RashLesion AFIA: 4 Review of Systems All systems reviewed & are unremarkable except as noted in HPI and below Constitutional Constitutional: Denies chills, Denies fever(s) and Denies weakness Cardiovascular Cardiovascular: Denies chest pain and Denies dyspnea Respiratory Respiratory: Denies dyspnea Gastrointestinal Gastrointestinal: Denies abdominal pain Musculoskeletal Musculoskeletal: Denies joint swelling Neurologic Neurologic: Denies weakness Exam Const General: no acute distress Orientation: alert [facility] Head: normal to inspection Ears: external ears normal General nose exam: external nose normal Mouth: moist mucous membranes Eyes General: appearance normal, both eyes and all related structures Neck Neck: normal visual inspection Resp Effort & Inspection: normal respiratory effort and able to speak in complete sentences Cardio Rate: regular rate Neuro General: patient alert and patient oriented x3 Extrem General: full ROM and capillary refill normal Psych Mental Status: mental status grossly normal Course Vital Signs Vital signs: Vital Signs Temperature 36.1 C L 03/08/24 07:57 Pulse 60 03/08/24 07:57 Respiratory Rate 16 03/08/24 07:57 Blood Pressure 148/64 H 03/08/24 07:57 Pulse Oximetry 98 03/08/24 07:57 Temperature 36.1 C L 03/08/24 07:57 Temperature Source Temporal Artery Scan 03/08/24 07:57 Pulse 60 03/08/24 07:57 Respiratory Rate 16 03/08/24 07:57 Respiratory Effort Normal, Non-Labored 03/08/24 08:02 Blood Pressure 148/64 H 03/08/24 07:57 Blood Pressure Position Sitting 03/08/24 07:57 Pulse Oximetry 98 03/08/24 07:57 Oxygen Delivery Method Room Air 03/08/24 07:57 Oxygen Flow Rate 0 03/08/24 07:57 Pain Level 0 03/08/24 07:57 Medical Decision Making 68-year-old male comes in with a blood blister on his left hand. He says he had a wart on his left posterior hand for the provider and developed a blister. No fevers or pain, was unsure if he needed anything before his upcoming for evaluation. He has a 1-1/2 by half centimeter blood-filled blister on the left mid posterior hand. There is no surrounding erythema, no pain, full range of motion of the hand with intact sensation and pulses. Advised this is a potential complication from the freezing but usually resolves on its own. Will provide a Apolinar wrap to provide some compression and advised to follow-up with his PCP if not improving within 1 to 2 weeks and return precautions given. Differential Diagnosis Differential Diagnosis: blood blister, hematoma Quality:SDOH Health Related Social Needs: No Data to Display PFSH All Active Problems (Updated 03/08/24 @ 08:10 by Noah Carr MD) Blood blister (Acute) Verruca vulgaris (Acute) Lit Derm 12/18/23 02/11/24 f/u with Dr Fu Acute bronchitis (Acute) Statin medication declined by patient (Acute) Asthma (Chronic) Restrictive lung disease (Acute) Bronchiectasis (Acute) Cough (Acute) Postnasal drip (Acute) Osteoporosis (Acute 05/29/18) next Dexa due 07/2019, [place] [facility] [place]/24/19 Anemia (Chronic) Due to low Epo, Aranaesp 200mcg q2w if HGB <11 [facility] [place] S/P colonoscopy (Acute ~09/22/19) Diverticulosis large intestine w/o perforation or abscess w/o bleeding (Acute) Pre-op evaluation (Acute) Bilateral cataracts (Acute) Immunodeficiency, unspecified (Acute) [facility] Hem/Onc Myelodysplastic syndrome, unspecified (Chronic) [facility] [place]- stem cell transplant Cutaneous T-cell lymphoma, unspecified, 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 MACARIO (dyspnea on exertion) (Acute) Hypoxia (Acute) Acute bronchospasm (Acute) Aspiration pneumonitis (Acute) Discharge planning issues (Acute) Tubular adenoma of colon (Acute) Hyperplastic colon polyp (Acute) Tinnitus of both ears (Acute) Impaired hearing (Acute) Sensorineural hearing loss of both ears (Acute) Medical History Colorectal polyps Nocturia Multiple benign nevi Senile purpura Actinic keratosis Seborrheic keratosis CKD (chronic kidney disease) Hyperlipidemia Influenza A Back pain 07/19/[place] [facility] [place] fx identified on xray Rheumatoid arthritis (10/04/12) [facility] [place]um Sindy Kenziebedeni MTX use 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) Surgical History History of colonoscopy (~11/2021) History of bone marrow transplant History of tonsillectomy S/P emergency tracheotomy for assistance in breathing 1963 Stem Cell Transplant (10/18/16) Allogenic Bone Marrow [place] [facility] [place] Myelodysplastic Syndrome and T-cell cutaneous lymphoma Family History Maternal Grandfather Stroke Mother Diabetes Colon cancer Father Diabetes Social History Smoking/Tobacco Use Status: Former Tobacco Use Quit Date: 10/08/85 Pack-years: 45 Tobacco: How many years used: 14 Smoking risk assessment performed?: Yes Alcohol Intake: current Alcohol Intake frequency: 0-2 drinks per day Alcohol type: hard liquor Counseling given: No Drug use: Never Substance use type: does not use Counseling given: No Caregiver/Support person: No Household members: spouse Housing: house Number of Children: 0 Communication Needs: None Education Level: high school 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 Current gender identity: male What is your relationship status?: How often do you talk on the phone with friends or family?: three or more times per week How often do you get together with friends or relatives?: three or more times per week Panel score (0-1 are the most socially isolated patients): 2 What type of physical activity do you participate in: regular exercise and other Details: bowling Frequency: daily Seatbelt use: always Helmet use: No Drive intox or ride w/intox regional refrigerated 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e, inpt ot outpatient treatment programs)?: No Have you ever Experienced Blackouts?: No Have you ever Combined Alcohol with other Downers within the last 90 days?: No Have you ever Combined Alcohol with any other Substance of Abuse during the last 90 days?: No Positive Blood Alcohol level on Presentation? [PCS.BAL]: No Evidence of Increased Autonomic Activity (i.e. HR>120, tremor, sweating, agitation, nausea)?: No Result: 0
[2024-03-08 08:13] VITALS: BP 148/64; PULSE 60; RESP 16; TEMP 36.1; O2SAT 98
== END 2024-03-08 08:15 | disposition home or self-care (01) ==
PROVIDERS: Emergency Provider Emergency Medicine; PCP Nurse Practitioner
DX: S60.522A Blister (nonthermal) of left hand, initial encounter (principal); X58.XXXA Exposure to other specified factors, initial encounter; Z98.890 Other specified postprocedural states
CPT/HCPCS: 99282; 99283

== ENCOUNTER → 2024-08-11 14:40 | Outpatient (BNVA) | payer MEDICARE, SELFPAY | PROVIDERS: PCP Nurse Practitioner; Referring Provider Nurse Practitioner; Visit Provider Physician Assistant Surgical | DX: J45.909 Unspecified asthma, uncomplicated (principal); J47.9 Bronchiectasis, uncomplicated; Z29.11 Encounter for prophylactic immunotherapy for respiratory syncytial virus (RSV) | CPT/HCPCS: 90679; 96380; 99214 ==

== ENCOUNTER 2024-10-06 13:14 | Outpatient (CLI) | payer MEDICARE, SELFPAY ==
[2024-10-07 11:15] LABS: IgG 552 mg/dL (610-1616)
== END 2024-10-06 13:15 | disposition home or self-care (01) ==
LOC: LBO 13:17
PROVIDERS: PCP Nurse Practitioner; Visit Provider Nurse Practitioner
DX: D46.9 Myelodysplastic syndrome, unspecified (principal)
CPT/HCPCS: 36415; 82784

== ENCOUNTER 2024-10-11 20:10 | Emergency (ER) | payer MEDICARE, SELFPAY ==
[2024-10-11] VITALS (32 sets, daily range): BP systolic 117–154; BP diastolic 64–97; PULSE 63–80; RESP 13–27; TEMP 36.2; O2SAT 90–98
--- NOTE | 2024-10-11 20:00 | RT.EKG_ITS ---
APPROVED REPORT Exam: Resting ECG Reason for Exam: chest pain Patient Location: E HR:71 bpm ECG Measurements Heart Rate 71 AXIS IL 180 P 51 QRSd 145 QRS -62 QT 441 T 50 QTc 480 Conclusion Sinus rhythm...normal P axis, V-rate 60- 99 RBBB and LAFB...QRSd >120mS, axis(-40,240) Probable left ventricular hypertrophy...(RaVL+SV3)xQRSd >280 Insert history normal sinus rhythm at a rate of 71. Bifascicular block. Subtle inferior ST segment elevations new compared to prior. Prior dated last year. No T wave inversions no ST segment depress ions.
[2024-10-11 20:24] LABS: Abs Immature Grans 0.05 10^3/uL (0.0-0.06); Absolute Basophil Count 0.04 10^3/uL (0.0-0.2); Absolute Eosinophil Count 0.06 10^3/uL (0.0-0.7); Absolute Monocyte Count 0.74 10^3/uL (0.1-0.8); Absolute Neutrophil Count 8.24 10^3/uL (1.2-6.7); Basophils % 0.4 %; Eosinophils % 0.6 %; HCT 41.2 % (40.0-50.0); HGB 13.6 g/dL (13.5-17.5); Immature Grans % 0.5 %; Lymphocytes % 13.3 %; MCH 32.6 pg (27.0-33.0); MCV 99 fL (80-95); MPV 8.5 fL (8.0-11.0); Neutrophils % 78.2 %; Platelet Count 181 10^3/uL (130-400); RBC 4.17 10^6/uL (4.36-5.78); RDW 12.4 % (11.8-14.1); WBC 10.53 10^3/uL (4.4-10.8)
--- NOTE | 2024-10-11 20:39 | W.ED.GENAD ---
Discharge Plan Disposition Patient Disposition: Home Discharge Details Clinical Impression: Chest tightness, Aortic stenosis Primary Care Provider: Berta Pritchard ED Provider: Nia Cortez Home Meds and New Rx's Prescriptions: No Action Zyrtec 10 mg capsule 10 mg PO DAILY albuterol sulfate 90 mcg/actuation aerosol powdr breath activated 2 inh inhalation Q6H PRN (Reason: shortness of breath or wheezing) Qty: 1 5RF fluticasone propion-salmeterol [Advair HFA] 230-21 mcg/actuation HFA aerosol inhaler 2 puff inhalation BID Qty: 12 12RF cholecalciferol (vitamin D3) 1,000 unit capsule 1,000 unit PO DAILY triamcinolone acetonide [Nasacort] 55 mcg aerosol,spray 2 spray intranasal DAILY Qty: 16.9 5RF Rx Instructions: administer into each nostril cyanocobalamin (vitamin B-12) 1,000 mcg capsule 1,000 mcg PO DAILY Discharge Instructions Additional Instructions: Please call [facility] first thing Sunday morning to schedule a follow-up appointment. I recommend that you discuss having an echo ordered to be done on an outpatient basis. Return to emergency care if you develop new chest pains, difficulty breathing, episodes of passing out, dizziness, or if you are very worried you need to be rechecked again immediate Referrals: Berta Pritchard, [employer] [Primary Care Provider] - Discharge Data Discharge Date/Time-TO BE ENTERED AT DEPARTURE: 10/11/24 22:53 HPI General Date/Time Provider Initiated Documentation: 10/11/24 20:13. HPI Narrative: Patrice is a 69 year old male who presents to the emergency department today for evaluation of chest tightness. He reports that he was standing and watching his grandsons hockey game when he felt onset of sternal chest tightness that occurred around 8 PM. He was initially rated 3 out of 10, has decreased to 1 out of 10. This was accompanied by mild shortness of breath and slight dizziness. He went home and thought to himself he should get checked out. He denies associated cough, heartburn, vision changes, weakness, diaphoresis, nausea/vomiting, radiation of pain, calf redness/swelling/tenderness. Says he has never had chest tightness like this before. Denies history of HTN, DM, cardiac disease, or HLD. No history of blood clots. Past medical history is significant for asthma and myelodysplastic syndrome in remission since 2017. Physical exam remarkable for 4 out of 6 murmur noted, most prominent along the right sternal border. Regular rate and rhythm. Easy work of breathing, lung sounds clear bilaterally. Abdomen soft, nondistended, nontender to palpation. No calf redness/swelling/tenderness with palpation. D/dx includes but is not limited to: Aortic stenosis, ACS, asthma exacerbation, GERD, pneumonia, pneumothorax I independently interpreted the following tests: EKG remarkable for subtle ST segment elevations compared to previous on 11/10/2023. CBC, CMP, and magnesium largely reassuring. Only slightly elevated creatinine to BUN ratio, 24:1.2. BNP unremarkable. Troponins flat, initial 5. Chest x-ray unremarkable, no obvious infiltrates, pneumothorax, or cardiomegaly. While in the emergency department, Patrice received aspirin upon arrival. He currently reports chest discomfort has fully resolved. I did review PCP and pulmonology notes from the last year, no mention of murmur. However, an echo has been performed within the last year on 11/16/23. Mild aortic stenosis noted, mean gradient of 22 mmHg. EF 60 to 65%. Overall cardiac workup today reassuring. Concern for worsening of aortic stenosis with new murmur and associated symptoms. No hemodynamic instability or red flags indicating need for admission for emergent testing. Recommend close follow-up with PCP and echo on an outpatient basis. Reviewed discharge instructions with patient, including symptomatic management, f/u with PCP and need for echo, and red flags indicating need for return to emergency care. Patient voices agreement with plan of care. Related Data Home Medications ?Medication ?Instructions ?Recorded ?Confirmed cholecalciferol (vitamin D3) 25 1,000 unit PO DAILY 09/12/19 10/11/24 mcg (1,000 unit) capsule cyanocobalamin (vitamin B-12) 1,000 mcg PO DAILY 11/11/21 10/11/24 1,000 mcg capsule cetirizine 10 mg capsule (Zyrtec) 10 mg PO DAILY 02/14/23 10/11/24 albuterol sulfate 90 mcg/actuation 2 inh inhalation Q6H PRN shortness 10/17/23 10/11/24 breath activated powder inhaler of breath or wheezing #1 ea triamcinolone acetonide 55 mcg 2 spray intranasal DAILY #16.9 mL 10/23/23 10/11/24 nasal spray aerosol (Nasacort) fluticasone propionate 230 2 puff inhalation BID #12 grams 11/20/23 10/11/24 mcg-salmeterol 21 mcg/actuation HFA inhaler (Advair HFA) Previous Rx's ?Medication ?Instructions ?Recorded albuterol sulfate 90 mcg/actuation 2 inh inhalation Q6H PRN shortness 10/17/23 breath activated powder inhaler of breath or wheezing #1 ea triamcinolone acetonide 55 mcg 2 spray intranasal DAILY #16.9 mL 10/23/23 nasal spray aerosol (Nasacort) fluticasone propionate 230 2 puff inhalation BID #12 grams 11/20/23 mcg-salmeterol 21 mcg/actuation HFA inhaler (Advair HFA) Allergies Allergy/AdvReac Type Severity Reaction Status Date / Time methotrexate AdvReac Severe Myelodysplastic Verified 10/11/24 20:19 Syndrome General Stated Complaint: Chest Pain AFIA: 3 Review of Systems Narrative: See HPI Exam Const General: cooperative, healthy appearing, comfortable, no acute distress, well developed and well groomed Nutritional Appearance: average body habitus and well nourished Orientation: alert and oriented x3 Eyes EOM: EOM intact bilaterally Neck Neck: normal visual inspection and no JVD Chest Chest: normal inspection of the chest Resp Effort & Inspection: normal respiratory effort and able to speak in complete sentences Auscultation: clear to auscultation bilaterally Cardio Jugular venous pressure: no JVD Rate: regular rate Rhythm: regular rhythm Heart Sounds: murmur Pulses: radial pulses present GI Inspection: normal to inspection Palpation: soft and nontender Neuro General: patient alert, patient oriented x3, tone normal and moves all extremities Speech: speech normal Motor: muscle tone normal throughout Extrem General: no pedal edema and no calf tenderness Course Vital Signs Vital signs: Vital Signs Temperature 36.2 C L 10/11/24 20:14 Pulse 80 10/11/24 20:14 Respiratory Rate 23 10/11/24 20:14 Blood Pressure 154/86 H 10/11/24 20:14 Pulse Oximetry 95 10/11/24 20:14 Temperature 36.2 C L 10/11/24 20:14 Temperature Source Temporal Artery Scan 10/11/24 20:14 Pulse 80 10/11/24 20:14 Respiratory Rate 23 10/11/24 20:14 Blood Pressure 154/86 H 10/11/24 20:14 Blood Pressure Position Supine 10/11/24 20:14 Pulse Oximetry 95 10/11/24 20:14 Oxygen Delivery Method Room Air 10/11/24 20:14 Oxygen Flow Rate 0 10/11/24 20:14 Pain Level 0 10/11/24 20:14 Lab/Test Results Lab/Test Results: Laboratory Tests Range/Units 10/11/24 20:20 WBC (4.4-10.8) 10^3/uL 10.53 RBC (4.36-5.78) 10^6/uL 4.17 L Hgb (13.5-17.5) g/dL 13.6 Hct (40.0-50.0) % 41.2 MCV (80-95) fL 99 H MCH (27.0-33.0) pg 32.6 MCHC (32.0-36.0) % 33.0 RDW (11.8-14.1) % 12.4 Plt Count (130-400) 10^3/uL 181 MPV (8.0-11.0) fL 8.5 Immature Gran % % 0.5 Neutrophils % % 78.2 Lymphocytes % % 13.3 Monocytes % % 7.0 Eosinophils % % 0.6 Basophils % % 0.4 Nucleated RBC % (0.0-0.3) % 0.0 Absolute Neutrophils (1.2-6.7) 10^3/uL 8.24 H Absolute Lymphocytes (1.2-3.4) 10^3/uL 1.40 Absolute Monocytes (0.1-0.8) 10^3/uL 0.74 Absolute Eosinophils (0.0-0.7) 10^3/uL 0.06 Absolute Basophils (0.0-0.2) 10^3/uL 0.04 Medical Decision Making Quality:SDOH Health Related Social Needs: No Data to Display PFSH All Active Problems (Updated 10/11/24 @ 22:37 by Nia Parr) Aortic stenosis (Chronic) Chest tightness (Acute) Verruca vulgaris (Acute) Lit Derm 12/18/23 02/11/24 f/u with Dr Fu 03/07/24 hand warts treated with LN x3 08/25/24 f/u with Dr Fu for post eletrodesciccation of 3 warts. Acute bronchitis (Acute) Statin medication declined by patient (Acute) Asthma (Chronic) Restrictive lung disease (Acute) Bronchiectasis (Acute) Cough (Acute) Postnasal drip (Acute) Osteoporosis (Acute 05/29/18) next Dexa due 07/2019, yearly Zometa per [facility] last dose 07/24/19 Anemia (Chronic) Due to low Epo, Aranaesp 200mcg q2w if HGB <11 [facility] note dated 04/28/19 S/P colonoscopy (Acute ~09/22/19) Diverticulosis large intestine w/o perforation or abscess w/o bleeding (Acute) Pre-op evaluation (Acute) Bilateral cataracts (Acute) Immunodeficiency, unspecified (Acute) [facility] Hem/Onc Myelodysplastic syndrome, unspecified (Chronic[place] [facility] [place] Cutaneous T-cell lymphoma, unspecified, 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 MACARIO (dyspnea on exertion) (Acute) Hypoxia (Acute) Acute bronchospasm (Acute) Aspiration pneumonitis (Acute) Discharge planning issues (Acute) Tubular adenoma of colon (Acute) Hyperplastic colon polyp (Acute) Tinnitus of both ears (Acute) Impaired hearing (Acute) Sensorineural hearing loss of both ears (Acute) Medical History Colorectal polyps Nocturia Multiple benign nevi Senile purpura Actinic keratosis Seborrheic keratosis CKD (chronic kidney disease) Hyperlipidemia Influenza A Back pain 07/19/18 ov at [facility] [place] - compression fx identified on xray Rheumatoid arthritis (10/04/12) [facility] Rheum Sindy Jesse MTX use 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) Surgical History History of colonoscopy (~11/2021) History of bone marrow transplant History of tonsillectomy S/P emergency tracheotomy for assistance in breathing 1963 Stem Cell Transplant (10/18/16) Allogenic Bone Marrow Transplant [facility] [place] for Myelodysplastic Syndrome and T-cell cutaneous lymphoma Family History Maternal Grandfather Stroke Mother Diabetes Colon cancer Father Diabetes Social History Smoking/Tobacco Use Status: Former Tobacco Use Quit Date: 10/08/85 Pack-years: 45 Tobacco: How many years used: 14 Smoking risk assessment performed?: Yes Alcohol Intake: current Alcohol Intake frequency: 0-2 drinks per day Alcohol type: hard liquor Counseling given: No Drug use: Never Substance use type: does not use Counseling given: No Caregiver/Support person: No Household members: spouse Housing: house Number of Children: 0 Communication Needs: None Education Level: high school 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 Current gender identity: male What is your relationship status?: How often do you talk on the phone with friends or family?: three or more times per week How often do you get together with friends or relatives?: three or more times per week Panel score (0-1 are the most socially isolated patients): 2 What type of physical activity do you participate in: regular exercise and other Details: bowling Frequency: daily Seatbelt use: always Helmet use: No Drive intox or ride w/intox flag car driver: No Water heater temp set <120 deg: Yes Working smoke detector in home: Yes Fire extinguisher in home: Yes Carbon monox detector in home: Yes Firearms in home: Yes Firearms unloaded and locked: Yes Do you feel safe at home: Yes Do you feel safe in your relationship?: Yes
--- NOTE | 2024-10-11 20:42 | W.EDPROG ---
Date of service: 10/11/24 Time of Service: 20:42 Medical Decision Making This is an overall well-appearing afebrile and not tachycardic 69-year-old male with known history of aortic stenosis valve area on most recent echo less than 1 year ago was 1.1 cm?. He received aspirin in the ED and will undergo troponin testing. Please see DOMITILA note for complete details. He had reassuring troponins in the ED and his symptoms improved. He was advised to return for syncope or shortness of breath. Quality:SDOH Health Related Social Needs: No Data to Display Discharge Plan Disposition Patient Disposition: Home Discharge Details Clinical Impression: Chest tightness, Aortic stenosis Primary Care Provider: Berta Pritchard ED Provider: Nia Cortez Home Meds and New Rx's Prescriptions: No Action Zyrtec 10 mg capsule 10 mg PO DAILY albuterol sulfate 90 mcg/actuation aerosol powdr breath activated 2 inh inhalation Q6H PRN (Reason: shortness of breath or wheezing) Qty: 1 5RF fluticasone propion-salmeterol [Advair HFA] 230-21 mcg/actuation HFA aerosol inhaler 2 puff inhalation BID Qty: 12 12RF cholecalciferol (vitamin D3) 1,000 unit capsule 1,000 unit PO DAILY triamcinolone acetonide [Nasacort] 55 mcg aerosol,spray 2 spray intranasal DAILY Qty: 16.9 5RF Rx Instructions: administer into each nostril cyanocobalamin (vitamin B-12) 1,000 mcg capsule 1,000 mcg PO DAILY Discharge Instructions Additional Instructions: Please call [facility] first thing Sunday morning to schedule a follow-up appointment. I recommend that you discuss having an echo ordered to be done on an outpatient basis. Return to emergency care if you develop new chest pains, difficulty breathing, episodes of passing out, dizziness, or if you are very worried you need to be rechecked again immediate Referrals: Berta Pritchard NP [Primary Care Provider] - Discharge Data Discharge Date/Time-TO BE ENTERED AT DEPARTURE: 10/11/24 22:53
[2024-10-11] MEDS: Aspirin 81 MG CHEW 324 MG CH (20:46)
[2024-10-11 20:49] LABS: ALT 78 U/L (16-63); AST 46 U/L (15-37); Albumin 4.4 g/dL (3.4-5.0); Alkaline Phosphatase 57 U/L (46-116); Anion Gap 4.5 mmol/L (3-11); BUN 24 mg/dL (7-18); Bilirubin, Total 0.28 mg/dL (0.2-1.0); CO2 31.5 mmol/L (21.0-32.0); CREATININE 1.4 mg/dL (0.70-1.30); Calcium 9.7 mg/dL (8.5-10.1); Chloride 105 mmol/L (98-107); Estimated GFR 54.07 (mL/min/1.73m2); Glucose 108 mg/dL (74-106); NT-proBNP 204 pg/mL (<300); Potassium 4.3 mmol/L (3.5-5.1); Sodium 141 mmol/L (136-145); Total Protein 7.8 g/dL (6.4-8.2); Troponin I 5 ng/L (<or=76)
--- NOTE | 2024-10-11 20:57 | DI.RAD_ITS ---
Exam(s) XR CHEST 2V PA LATERAL EXAM: XR CHEST 2V PA LATERAL CLINICAL HISTORY: chest tightness. TECHNIQUE: 2D digital imaging was performed. COMPARISON: CR,XR XR CHEST 2V PA LATERAL from 12/17/2023 FINDINGS: 2 views: Heart size is normal. The mediastinum is not widened. Lungs are clear. No infiltrates nor pleural effusions. IMPRESSION: No acute pulmonary findings. DATA REPOSITORY: RADIATION DOSE DELIVERED:
[2024-10-11 21:49] LABS: Troponin I 7 ng/L (<or=76)
--- NOTE | 2024-10-11 21:56 | NUR.NOTE ---
Nursing Note:Report and transfer of care given to Lobo Garcia RN
--- NOTE | 2024-10-11 22:29 | DI.VRAD_ITS ---
PROCEDURE INFORMATION: Exam: XR Chest Exam date and time: 10/11/2024 8:57 PM Age: 69 years old Clinical indication: Other: Chest tightness TECHNIQUE: Imaging protocol: Radiologic exam of the chest. Views: 2 views. COMPARISON: CR XR CHEST 2V PA LATERAL 12/17/2023 4:28 PM FINDINGS: Lungs: No focal pulmonary consolidation is seen. Pleural spaces: No pleural effusion or pneumothorax is demonstrated. Heart/Mediastinum: The heart appears normal in size. Bones/joints: The visualized bony structures appear grossly intact, as seen. IMPRESSION: No active disease is seen in the chest. Dictated and Authenticated by: Peterson Olmstead MD. Ordering:SUGEY Kramer MD
--- NOTE | 2024-10-12 07:54 | NUR.NOTE ---
Access chart to reconcile EKG orders with EKG's in [facility]. Duplicate order cancelled. Nursing Note:
== END 2024-10-11 22:53 | disposition home or self-care (01) ==
PROVIDERS: Emergency Provider Nurse Practitioner Family; PCP Nurse Practitioner
DX: R07.9 Chest pain, unspecified (principal); I35.0 Nonrheumatic aortic (valve) stenosis; E78.5 Hyperlipidemia, unspecified; N18.9 Chronic kidney disease, unspecified; D89.813 Graft-versus-host disease, unspecified; Z94.81 Bone marrow transplant status; Z87.891 Personal history of nicotine dependence
CPT/HCPCS: 00123; 36415; 80053; 93005; 99285; 71046; 83735; 83880; 84484; 85025; 93010

== ENCOUNTER 2024-10-27 01:26 | Outpatient (CLI) | payer MEDICARE, SELFPAY ==
--- NOTE | 2024-10-27 14:30 | DI.US_ITS ---
APPROVED REPORT EXAM: Comprehensive 2D, Doppler, and color-flow Echocardiogram Patient Location: Out-Patient Physical Therapist Clinic Director: Christine Cox RDCS (AE) Indications: f/u aortic stenosis, chest tightness Other Information Study Quality: Adequate Conclusion Normal left ventricular wall thickness and chamber size. Ejection fraction is 59%. Wall motion is n ormal Normal right ventricular size and function Both atria are normal in size Aortic valve is calcified. Number of aortic valve leaflets cannot be accurately determined. There i s mild aortic regurgitation. There is moderate aortic stenosis. Peak gradient is 36, mean 22 mmHg c alculated aortic valve area 0.9 to 1 cm?? Mitral annular calcification. Mild mitral regurgitation Ascending aorta measures 4.1 cm Wall motion Left Ventricle The left ventricle is normal size. The left ventricular systolic function is normal. The left ventric ular ejection fraction is within the normal range. There is normal left ventricular wall thickness. T here is normal LV segmental wall motion. There is no ventricular septal defect visualized. LVEF is 59 %. Right Ventricle The right ventricle is normal size. The right ventricular systolic function is normal. Atria The left atrium size is normal. The right atrium size is normal. The interatrial septum is intact wit h no evidence for an atrial septal defect. Aortic Valve Aortic valve is calcified. Number of aortic valve leaflets could not be assessed. Moderate aortic inés nosis. Peak aortic valve gradient is 36.17_mmHg. Highest mean aortic valve gradient is 21.83mmHg. Hamilton culated KYLIE by the continuity equation is .9_cm2. Mild aortic regurgitation. Mitral Valve Mild mitral annular calcification. No evidence of mitral valve stenosis. Mild mitral regurgitation. Tricuspid Valve The tricuspid valve is normal in structure. There is no tricuspid valve stenosis. Trace to mild tricu spid regurgitation. The RVSP is 23.1 mmHg. Pulmonic Valve The pulmonary valve is normal in structure. There is no pulmonic valvular stenosis. Trace pulmonic re gurgitation. Great Vessels The aortic root is normal in size. The ascending aorta is moderately dilated. Aortic arch is normal in caliber. IVC is normal in size and collapses >50% with inspiration. Pericardium There is no pericardial effusion. 2D Dimensions IVSD d PLAX 0.91 cm M: 0.6-1.2 Ao Root d 3.55 cm M: 3.1 - 3.7 LVPW d PLAX 0.90 cm M: 0.6 - 1.2 Ao Asc Diam d 4.09 cm M: 2.6 - 3.4 LVID d PLAX 5.30 cm M: 4.2 - 5.8 LVDs 3.68 cm M: 2.5 - 4.0 LV EF Teichholz 57.8 % FS 30.68 % LV EDV (Teich) 135.5 mL LV ESV (Teich) 57.2 mL M-Mode TAPSE 1.69 cm (M/F) >1.7 Auto EF LV EDV A4C 133.4 mL LV EDV A2C 184.6 mL LV EDV BP 162.7 mL LV ESV A4C 53.3 mL LV ESV A2C 76.9 mL LV ESV BP 65.9 mL LVEF(%) A4C 60.0 % LVEF(%) A2C 58.4 % LVEF(%) BP 59.5 % LV SV A4C 80.1 ml LV SV A2C 107.7 ml LV SV BP 96.8 ml LV CO A4C 5.1 L/min LV CO A2C 5.5 L/min LV CO BP 5.3 L/min HR A4C 64.18 BPM HR A2C 51.28 BPM LV EDV Index (BP) LA Volume LA Length A4C 6.1 cm LA Length A2C 5.4 cm LA Area A4C s 20.17 cm2 LA Area A2C s 18.12 cm2 LA Vol A4C A-L 56.85 mL LA Vol A2C A-L 51.65 mL LA Vol Biplane A-L 57.5 mL LA Vol/BSA A4C A-L LA Vol/BSA A2C A-L LA Vol/BSA BP A-L 28.0 mL/m2 LA Vol A4C MOD 52.5 mL LA Vol A2C MOD 49.7 mL LA Vol BP MOD 53.6 mL RA Volume RA Area A4C 13.4 cm2 RA ESV A4C (A-L) 30.3mL RA Vol/BSA A4C A-L RA Length A4C 5.0 cm RA ESV A4C (MOD) 28.9mL LV Diastology MV E' medial 0.062 (>0.07 m/s) MV E Vmax 0.46 (0.4-1.3 m/s) MV E/E' MED 7.41 (<14) MV A Vmax 0.75 (0.4-1.3 m/s) MV E' lateral 0.063 (>0.1 m/s) E/A Ratio 0.6 MV E/E' LAT 7.31 (<14) MV E' Average 0.063 m/s MV E/E'(average) 7.36 Aortic Valve AoV Vmax 3.01 m/s LVOT Vmax 0.90 m/s AoV Peak Grad 55.6 mmHg LVOT Peak Grad 3.3 mmHg AoV Area (Vmax) 0.98 cm2 LVOT VTI 0.217 m AoV VTI 0.768 m LVOT Mean Grad 2.1 mmHg AoV Mean Bridger. 2.27 m/s LVOT SV 70.69 mL AoV Mean Grad 21.8 mmHg LVOT Diam s 2.00 cm AoV Area (VTI) 0.92 cm2 AV Regurg Peak Gr. 36.17 mmHg Velocity Ratio 0.30 AR Decel Ford 2.0m/sec2 AR DT 2148 msec AR PHT 623 msec AR Vmax 4.33 m/s Mitral Valve MV DT 322 (160-240 msec) MV Vmax TIPS 0.74 m/s MV Mean Grad 0.7 (<2mmHg) MV VTI 0.273 m Pulmonary Valve PV Vmax 0.94 (0.5-1.5 m/s) RVOT Vmax 0.68 m/s PV Peak Grad 3.5 mmHg RVOT Peak Gr. 1.9 mmHg PV Mean Bridger 0.66 m/s RVOT VTI 0.159 m PV Mean Grad 2.0 mmHg RVOT Mean Gr. 0.9 mmHg Tricuspid Valve RA Pressure 3.00 mmHg TR Vmax 2.24 m/s TV S' 0.12 m/s TR Peak Grad 20.1 mmHg RVSP (TR) 23.1 mmHg
== END 2024-10-27 01:46 ==
LOC: DI 01:26
PROVIDERS: PCP Nurse Practitioner; Visit Provider Nurse Practitioner
DX: R07.89 Other chest pain (principal); I35.0 Nonrheumatic aortic (valve) stenosis
CPT/HCPCS: 93306

== ENCOUNTER 2024-11-11 08:39 | Outpatient (CLI) | payer MEDICARE, SELFPAY ==
--- NOTE | 2024-11-11 08:30 | RT.EKG_ITS ---
APPROVED REPORT Exam: Resting ECG Reason for Exam: MACARIO Patient Location: O HR:61 bpm ECG Measurements Heart Rate 61 AXIS OR 166 P 39 QRSd 152 QRS -58 QT 466 T 9 QTc 470 Conclusion Sinus rhythm...normal P axis, V-rate 50- 99 RBBB and LAFB...QRSd >120mS, axis(-40,240)
== END 2024-11-11 08:40 | disposition home or self-care (01) ==
LOC: DI.CARD 08:39
PROVIDERS: PCP Nurse Practitioner; Visit Provider Internal Medicine Cardiovascular Disease
DX: R06.09 Other forms of dyspnea (principal)
CPT/HCPCS: 93010

== ENCOUNTER → 2024-11-11 11:08 | Outpatient (BNVA) | payer MEDICARE, SELFPAY | PROVIDERS: PCP Nurse Practitioner; Referring Provider Nurse Practitioner; Visit Provider Internal Medicine Cardiovascular Disease | DX: R07.89 Other chest pain (principal); I35.0 Nonrheumatic aortic (valve) stenosis; I45.10 Unspecified right bundle-branch block | CPT/HCPCS: 93005; 99214 ==

== ENCOUNTER 2024-11-25 11:11 | Emergency (ER) | payer MEDICARE, SELFPAY ==
--- NOTE | 2024-11-25 11:00 | RT.EKG_ITS ---
APPROVED REPORT Exam: Resting ECG Reason for Exam: syncope Patient Location: E HR:57 bpm ECG Measurements Heart Rate 57 AXIS MD 183 P 59 QRSd 150 QRS -66 QT 509 T 19 QTc 494 Conclusion Sinus bradycardia 57 RBBB no stemi
[2024-11-25 11:09] VITALS: BP 129/72; PULSE 60; RESP 16; TEMP 36.3; O2SAT 96
[2024-11-25 11:14] VITALS: BP 129/72; PULSE 57; PULSE 60; RESP 11
[2024-11-25 11:15] VITALS: PULSE 60; RESP 9
[2024-11-25 11:16] VITALS: BP 115/84; BP 129/72; PULSE 53; PULSE 57; PULSE 60; RESP 16; TEMP 36.3; O2SAT 96
[2024-11-25 11:20] VITALS: PULSE 54; RESP 16; O2SAT 97
--- NOTE | 2024-11-25 11:28 | ED.GENADUL_ITS ---
Discharge Plan Disposition Patient Disposition: Home Condition: Stable Discharge Details Clinical Impression: Near syncope Primary Care Provider: Berta Pritchard ED Provider: Inder Michaud Home Meds and New Rx's Prescriptions: No Action Zyrtec 10 mg capsule 10 mg PO DAILY albuterol sulfate 90 mcg/actuation aerosol powdr breath activated 2 inh inhalation Q6H PRN (Reason: shortness of breath or wheezing) Qty: 1 5RF fluticasone propion-salmeterol [Advair HFA] 230-21 mcg/actuation HFA aerosol inhaler 2 puff inhalation BID Qty: 12 12RF aspirin [Adult Aspirin Regimen] 81 mg tablet,delayed release (DR/EC) 81 mg PO PRN PRN Patient Comments: 11/11/24 pt takes when he has chest pressure not daily RH cholecalciferol (vitamin D3) 1,000 unit capsule 1,000 unit PO DAILY triamcinolone acetonide [Nasacort] 55 mcg aerosol,spray 2 spray intranasal DAILY Qty: 16.9 5RF Rx Instructions: administer into each nostril cyanocobalamin (vitamin B-12) 1,000 mcg capsule 1,000 mcg PO DAILY Discharge Instructions Instructions: Near Fainting Additional Instructions: You were seen in the emergency department for your near fainting at home, you state you got dizzy and had trouble moving both your legs symmetrically, there is no evidence of stroke you are neuro intact here, laboratory workup shows no indication of a cardiac problem, shows no evidence of severe infection does show some mild dehydration with an elevated BUN, your thyroid-stimulating hormone was significantly more elevated than it has been in the past, please follow-up with your primary care provider in regards to this. I do believe that you have been mildly dehydrated from your diarrheal illness, please use [id number] Imodium, stay well-hydrated and nourished. Please return to the emergency department for any further episodes of dizziness, any new onset of chest pain, shortness of breath, please continue with your related treadmill stress test next . Referrals: Berta Pritchard, RADIOLOGY RESIDENT [Primary Care Provider] - Discharge Data Discharge Date/Time-TO BE ENTERED AT DEPARTURE: 11/25/24 15:18 HPI General Date/Time Provider Initiated Documentation: 11/25/24 11:16 . HPI Narrative: 69 year-old male presents to ED today by EMS with a chief complaint of dizziness, near syncope at home- per EMS the whole family has stomach bug/Norovirus with onset just prior to arrival. Quality described as felt weak in his legs, felt mildly dizzy and brought himself to the floor, states he had trouble getting up because of his legs being weak, this weakness was symmetric, no radiation to slurred speech, chest pain, palpitations, respiratory distress, active vomiting. Severity is described as moderate. Palliating factors include nothing specific attempted. Provoking factors include nothing specific. Events leading up to the incident/Associated Symptoms: Patient had been evaluated recently and has a stress test scheduled for with negative cardiac workup. Patient not anticoagulated. Related Data Home Medications ?Medication ?Instructions ?Recorded ?Confirmed cholecalciferol (vitamin D3) 25 1,000 unit PO DAILY 09/12/19 11/25/24 mcg (1,000 unit) capsule cyanocobalamin (vitamin B-12) 1,000 mcg PO DAILY 11/11/21 11/25/24 1,000 mcg capsule cetirizine 10 mg capsule (Zyrtec) 10 mg PO DAILY 02/14/23 11/25/24 albuterol sulfate 90 mcg/actuation 2 inh inhalation Q6H PRN shortness 10/17/23 11/25/24 breath activated powder inhaler of breath or wheezing #1 ea triamcinolone acetonide 55 mcg 2 spray intranasal DAILY #16.9 mL 10/23/23 11/25/24 nasal spray aerosol (Nasacort) fluticasone propionate 230 2 puff inhalation BID #12 grams 11/20/23 11/25/24 mcg-salmeterol 21 mcg/actuation HFA inhaler (Advair HFA) aspirin 81 mg tablet,delayed 81 mg PO PRN PRN 11/11/24 11/25/24 release (Adult Aspirin Regimen) Previous Rx's ?Medication ?Instructions ?Recorded albuterol sulfate 90 mcg/actuation 2 inh inhalation Q6H PRN shortness 10/17/23 breath activated powder inhaler of breath or wheezing #1 ea triamcinolone acetonide 55 mcg 2 spray intranasal DAILY #16.9 mL 10/23/23 nasal spray aerosol (Nasacort) fluticasone propionate 230 2 puff inhalation BID #12 grams 11/20/23 mcg-salmeterol 21 mcg/actuation HFA inhaler (Advair HFA) Allergies Allergy/AdvReac Type Severity Reaction Status Date / Time methotrexate AdvReac Severe Myelodysplastic Verified 11/11/24 11:19 Syndrome General Stated Complaint: GenMedical AFIA: 3 Review of Systems All systems reviewed & are unremarkable except as noted in HPI and below Exam Narrative Exam Narrative: GENERAL APPEARANCE: Well-nourished, non-toxic, awake and alert, atraumatic, no acute distress. SKIN: Warm, pink, dry, intact, without rashes/lesions/ulcerations. HEAD: Normocephalic, atraumatic, normal hair distribution for gender/age. EYES: Normal conjunctiva, no exudates on lids/lashes. ENT: Nares patent, no circumoral cyanosis, no facial swelling NECK: Supple, trachea midline, painless cervical ROM. LUNGS/CHEST: Lungs CTA bilaterally- no rhonchi/rales/wheezes, non-labored respirations, normal A/P diameter, symmetrical expansion, no chest wall deformity HEART (CV/PV): Regular rate and rhythm with murmur of , no peripheral edema, no JVD. ABDOMEN: Soft, non-distended, no guarding, no tenderness MSK: Normal ROM, no swelling/deformity to bilateral UEs or LEs, moving all extremities without weakness, no cyanosis, spine midline without tenderness, normal curvature. NEURO: Mental Status AAOx4 - alert to person, place, time, events No facial droop, no forehead involvement. Motor: No focal weakness - strength 5/5 in bilateral UEs and LEs, proximal and distal, symmetric. Sensory: sensation intact to light touch globally. Gait normal: patient ambulated without ataxia into ED room. PSYCH: euthymic, cooperative, pleasant, appropriate speech Course Vital Signs Vital signs: Vital Signs Temperature 36.3 C L 11/25/24 11:09 Pulse 60 11/25/24 11:09 Respiratory Rate 16 11/25/24 11:09 Blood Pressure 129/72 11/25/24 11:09 Pulse Oximetry 96 11/25/24 11:09 Temperature 36.3 C L 11/25/24 11:16 Pulse 54 L 11/25/24 11:20 Pulse 54 L 11/25/24 11:20 Respiratory Rate 16 11/25/24 11:20 Blood Pressure 115/84 11/25/24 11:16 Blood Pressure Mean 88 11/25/24 11:16 Pulse Oximetry 97 11/25/24 11:20 Pain Level 2 11/25/24 11:16 Medical Decision Making This dictation utilizes [id number] dictation software and may contain unedited grammatical errors. 69 year-old male presents to ED today by EMS with a chief complaint of dizziness, near syncope at home- per EMS the whole family has stomach bug/Norovirus with onset just prior to arrival. Quality described as felt weak in his legs, felt mildly dizzy and brought himself to the floor, states he had trouble getting up because of his legs being weak, this weakness was symmetric, no radiation to slurred speech, chest pain, palpitations, respiratory distress, active vomiting. Severity is described as moderate. Palliating factors include nothing specific attempted. Provoking factors include nothing specific. Events leading up to the incident/Associated Symptoms: Patient had been evaluated recently and has a stress test scheduled for with negative cardiac workup. Patients' medical history: Aortic stenosis, CKD, hyperlipidemia, [id number] disease, restrictive lung disease, bronchiectasis, MDS. Family and social history: Many close contacts have GI bug, denies EtOH and tobacco use. Pertinent exam findings / vital signs include hemodynamically stable throughout visit here today, afebrile, nontoxic, benign cardiac exam with known murmur of , neuro intact. Differential / pathologies of concern include near syncope, dehydration, gastroenteritis, ACS, electrolyte abnormality, vasovagal syncope. Diagnostic studies of: -CBC, CMP, magnesium, serial troponins, TSH, COVID/flu/RSV PCR, XR chest, CT head without contrast, EKG. -CBC shows no leukocytosis, no left shift -CMP shows no actionable abnormality -Serial troponins negative -His TSH is significantly elevated but T4 is normal -Magnesium is normal -COVID/flu/RSV PCR negative -XR chest is negative -CT head without contrast is benign -EKG shows sinus bradycardia 57 bpm with P waves followed by narrow complex QRS, right bundle branch block without ischemic changes, mildly prolonged QT Interventions of: -None. ED Course/Assessment/Plan: 69-year-old male presents with near syncope at home states he got a little dizzy and lightheaded and his legs were not working when he went to get up, the family has significant close contacts of norovirus in the home, he has reported vomiting and diarrhea, he denies complete loss of consciousness, he states that he has been feeling a little bit weak but feels better upon arrival to the ER. He had a previous chest pain workup and current negative cardiac workup, has planned follow-up this week with a moderate heart score, I did discuss possible telemetry ops for this patient but he would prefer to return home as he lives close and can call EMS if he needs to return for any symptoms. I recommend he follow-up with his stress test on , strict return criteria for any acute worsening or further episodes of syncope, he stated he needs to aggressively hydrate himself and encouraged good nutrition. Findings not consistent with ACS, intracranial abnormality, full syncope, electrolyte abnormality, profound dehydration, sepsis or severe infection. Disposition of Near Syncope. Patient verbalized understanding of the plan and return to ED criteria and engaged in shared decision making. Medical Records Medical records reviewed: Yes I reviewed the patient's medical records. Imaging Data Radiologic Study: Attestation: I personally reviewed and interpreted this imaging study as follows: Imaging: CT Scan Radiologist's impression: EXAM: CT HEAD WO CLINICAL HISTORY: ?syncope, dizziness. TECHNIQUE: Imaging Protocol: Axial computed tomography images with coronal and sagittal reformatted images were created and reviewed COMPARISON: No exams were available for comparison FINDINGS: There are no skull fractures. There is no fluid in the visualized paranasal sinuses. There is no evidence of intracranial hemorrhage, mass effect, or shift of midline structures. There are no extra-axial fluid collections. The ventricles are not enlarged or shifted and there is no blood within the ventricular system nor within the basal cisterns. IMPRESSION: No acute intracranial findings on this noninfused CT scan of the brain. Report called by myself to ER physician 11/25/2024 at 2:09 p.m. Radiologic Study #2: Attestation: I personally reviewed and interpreted this imaging study as follows: Imaging: X-Ray Radiologist's impression: EXAM: XR CHEST 2V PA LATERAL CLINICAL HISTORY: dizziness. TECHNIQUE: 2D digital imaging was performed. COMPARISON: CT CT CHEST PE CTA from 03/18/2019 FINDINGS: 2 views: Heart size is normal. The mediastinum is not widened. Lungs are clear. No infiltrates nor pleural effusions. There are wedge compression fractures of 2 mid level thoracic vertebrae again noted, unchanged. Involve T6 and T8. IMPRESSION: No acute pulmonary findings. T6 and T8 thoracic vertebral wedge compression fractures, unchanged from 10/11/2024. These were also evident on chest CT scan of March 2019. Lab Data Lab results reviewed: Yes I reviewed the patient's lab results. Labs: Laboratory Tests Range/Units 11/25/24 11/25/24 11/25/24 11:21 11:24 12:16 WBC (4.4-10.8) 10^3/uL 8.44 RBC (4.36-5.78) 10^6/uL 3.69 L Hgb (13.5-17.5) g/dL 12.1 L Hct (40.0-50.0) % 36.8 L MCV (80-95) fL 100 H MCH (27.0-33.0) pg 32.8 MCHC (32.0-36.0) % 32.9 RDW (11.8-14.1) % 12.8 Plt Count (130-400) 10^3/uL 152 MPV (8.0-11.0) fL 9.1 Immature Gran % % 0.4 Neutrophils % % 83.0 Lymphocytes % % 7.6 Monocytes % % 7.8 Eosinophils % % 0.8 Basophils % % 0.4 Nucleated RBC % (0.0-0.3) % 0.0 Absolute Neutrophils (1.2-6.7) 10^3/uL 7.01 H Absolute Lymphocytes (1.2-3.4) 10^3/uL 0.64 L Absolute Monocytes (0.1-0.8) 10^3/uL 0.66 Absolute Eosinophils (0.0-0.7) 10^3/uL 0.07 Absolute Basophils (0.0-0.2) 10^3/uL 0.03 Sodium (136-145) mmol/L 142 Potassium (3.5-5.1) mmol/L 4.4 Chloride (98-107) mmol/L 109 H Carbon Dioxide (21.0-32.0) mmol/L 25.0 Anion Gap (3-11) mmol/L 8.0 BUN (7-18) mg/dL 32 H Creatinine (0.70-1.30) mg/dL 1.3 Est GFR (CKD-EPI 2020) (mL/min/1.73m2) 59.10 Glucose (74-106) mg/dL 127 H Calcium (8.5-10.1) mg/dL 9.0 Magnesium (1.8-2.4) mg/dL 1.8 Total Bilirubin (0.2-1.0) mg/dL 0.59 AST (15-37) U/L 36 ALT (16-63) U/L 48 Alkaline Phosphatase (46-116) U/L 57 Troponin I (<or=76) ng/L 5 5 Total Protein (6.4-8.2) g/dL 7.4 Albumin (3.4-5.0) g/dL 3.9 TSH (0.36-3.74) uIU/mL 17.31 H Free T4 (0.76-1.46) ng/dL 0.94 COVID-19 Source Nasopharynx SARS-CoV-2 (PCR) (Negative) Negative Influenza Type A (PCR) (Negative) Negative Influenza Type B (PCR) (Negative) Negative RSV (PCR) (Negative) Negative Range/Units 11/25/24 14:24 WBC (4.4-10.8) 10^3/uL RBC (4.36-5.78) 10^6/uL Hgb (13.5-17.5) g/dL Hct (40.0-50.0) % MCV (80-95) fL MCH (27.0-33.0) pg MCHC (32.0-36.0) % RDW (11.8-14.1) % Plt Count (130-400) 10^3/uL MPV (8.0-11.0) fL Immature Gran % % Neutrophils % % Lymphocytes % % Monocytes % % Eosinophils % % Basophils % % Nucleated RBC % (0.0-0.3) % Absolute Neutrophils (1.2-6.7) 10^3/uL Absolute Lymphocytes (1.2-3.4) 10^3/uL Absolute Monocytes (0.1-0.8) 10^3/uL Absolute Eosinophils (0.0-0.7) 10^3/uL Absolute Basophils (0.0-0.2) 10^3/uL Sodium (136-145) mmol/L Potassium (3.5-5.1) mmol/L Chloride (98-107) mmol/L Carbon Dioxide (21.0-32.0) mmol/L Anion Gap (3-11) mmol/L BUN (7-18) mg/dL Creatinine (0.70-1.30) mg/dL Est GFR (CKD-EPI 2020) (mL/min/1.73m2) Glucose (74-106) mg/dL Calcium (8.5-10.1) mg/dL Magnesium (1.8-2.4) mg/dL Total Bilirubin (0.2-1.0) mg/dL AST (15-37) U/L ALT (16-63) U/L Alkaline Phosphatase (46-116) U/L Troponin I (<or=76) ng/L 4 Total Protein (6.4-8.2) g/dL Albumin (3.4-5.0) g/dL TSH (0.36-3.74) uIU/mL Free T4 (0.76-1.46) ng/dL COVID-19 Source SARS-CoV-2 (PCR) (Negative) Influenza Type A (PCR) (Negative) Influenza Type B (PCR) (Negative) RSV (PCR) (Negative) Quality:SDOH Health Related Social Needs: No Data to Display PFSH All Active Problems (Updated 11/25/24 @ 14:51 by ULI Rodas) Near syncope (Acute) Verruca vulgaris (Acute) Lit Derm 12/18/23 02/11/24 f/u with Dr Fu 03/07/24 hand warts treated with LN x3 08/25/24 f/u with Dr Fu for post eletrodesciccation of 3 warts. Acute bronchitis (Acute) Statin medication declined by patient (Acute) Asthma (Chronic) Restrictive lung disease (Acute) Bronchiectasis (Acute) Cough (Acute) Postnasal drip (Acute) Osteoporosis (Acute 05/29/18) next Dexa due 07/2019, yearly Zometa per [facility] last dose 07/24/19 Anemia (Chronic) Due to low Epo, Aranaesp 200mcg q2w if HGB <11 [facility] note dated 04/28/19 S/P colonoscopy (Acute ~09/22/19) Diverticulosis large intestine w/o perforation or abscess w/o bleeding (Acute) Pre-op evaluation (Acute) Bilateral cataracts (Acute) Immunodeficiency, unspecified (Acute) mn Hem/Onc Myelodysplastic syndrome, unspecified (Chronic) [facility]- stem cell transplant Cutaneous T-cell lymphoma, unspecified, 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 MACARIO (dyspnea on exertion) (Acute) Hypoxia (Acute) Acute bronchospasm (Acute) Aspiration pneumonitis (Acute) Discharge planning issues (Acute) Tubular adenoma of colon (Acute) Hyperplastic colon polyp (Acute) Tinnitus of both ears (Acute) Impaired hearing (Acute) Sensorineural hearing loss of both ears (Acute) Medical History (Updated 11/25/24 @ 14:51 by ULI Rodas) Aortic stenosis Colorectal polyps Nocturia Multiple benign nevi Senile purpura Actinic keratosis Seborrheic keratosis CKD (chronic kidney disease) Hyperlipidemia Influenza A Back pain 07/19/18 ov at [facility] - compression fx identified on xray Rheumatoid arthritis (10/04/12) [facility] Rheum Sindy Molina MTX use 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 Family History Maternal Grandfather Stroke Mother Diabetes Colon cancer Father Diabetes Social History Smoking/Tobacco Use Status: Former Tobacco Use Quit Date: 10/08/85 Pack-years: 45 Tobacco: How many years used: 14 Smoking risk assessment performed?: Yes Alcohol Intake: current Alcohol Intake frequency: 0-2 drinks per day Alcohol type: hard liquor Counseling given: No Drug use: Never Substance use type: does not use Counseling given: No Caregiver/Support person: No Household members: spouse Housing: house Number of Children: 0 Communication Needs: None Education Level: high school 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 Current gender identity: male What is your relationship status?: How often do you talk on the phone with friends or family?: three or more times per week How often do you get together with friends or relatives?: three or more times per week Panel score (0-1 are the most socially isolated patients): 2 What type of physical activity do you participate in: regular exercise and other Details: bowling Frequency: daily Seatbelt use: always Helmet use: No Drive intox or ride w/intox otr company driver: No Water heater temp set <120 deg: Yes Working smoke detector in home: Yes Fire extinguisher in home: Yes Carbon monox detector in home: Yes Firearms in home: Yes Firearms unloaded and locked: Yes Do you feel safe at home: Yes Do you feel safe in your relationship?: Yes
[2024-11-25 11:39] LABS: Abs Immature Grans 0.03 10^3/uL (0.0-0.06); Absolute Basophil Count 0.03 10^3/uL (0.0-0.2); Absolute Eosinophil Count 0.07 10^3/uL (0.0-0.7); Absolute Lymphocyte Count 0.64 10^3/uL (1.2-3.4); Absolute Monocyte Count 0.66 10^3/uL (0.1-0.8); Absolute Neutrophil Count 7.01 10^3/uL (1.2-6.7); Basophils % 0.4 %; Eosinophils % 0.8 %; HCT 36.8 % (40.0-50.0); HGB 12.1 g/dL (13.5-17.5); Immature Grans % 0.4 %; Lymphocytes % 7.6 %; MCH 32.8 pg (27.0-33.0); MCHC 32.9 % (32.0-36.0); MCV 100 fL (80-95); MPV 9.1 fL (8.0-11.0); Monocytes % 7.8 %; Platelet Count 152 10^3/uL (130-400); RBC 3.69 10^6/uL (4.36-5.78); RDW 12.8 % (11.8-14.1); RDW-SD 46.8 fL; WBC 8.44 10^3/uL (4.4-10.8)
[2024-11-25 12:02] LABS: COVID-19 PCR Negative (Negative); Influenza A PCR Negative (Negative); Influenza B PCR Negative (Negative); RSV PCR Negative (Negative)
[2024-11-25 12:03] LABS: Source Nasopharynx
[2024-11-25 12:27] LABS: ALT 48 U/L (16-63); AST 36 U/L (15-37); Albumin 3.9 g/dL (3.4-5.0); Alkaline Phosphatase 57 U/L (46-116); BUN 32 mg/dL (7-18); Bilirubin, Total 0.59 mg/dL (0.2-1.0); CREATININE 1.3 mg/dL (0.70-1.30); Chloride 109 mmol/L (98-107); Glucose 127 mg/dL (74-106); Magnesium 1.8 mg/dL (1.8-2.4); Potassium 4.4 mmol/L (3.5-5.1); Sodium 142 mmol/L (136-145); TSH (W/Ref FT4) 17.31 uIU/mL (0.36-3.74); Total Protein 7.4 g/dL (6.4-8.2); Troponin I 5 ng/L (<or=76)
--- NOTE | 2024-11-25 12:45 | DI.RAD_ITS ---
Exam(s) XR CHEST 2V PA LATERAL EXAM: XR CHEST 2V PA LATERAL CLINICAL HISTORY: dizziness. TECHNIQUE: 2D digital imaging was performed. COMPARISON: CT CT CHEST PE CTA from 03/18/2019 FINDINGS: 2 views: Heart size is normal. The mediastinum is not widened. Lungs are clear. No infiltrates nor pleural effusions. There are wedge compression fractures of 2 mid level thoracic vertebrae again noted, unchanged. Invo lve T6 and T8. IMPRESSION: No acute pulmonary findings. T6 and T8 thoracic vertebral wedge compression fractures, unchanged from 10/11/2024. These were also evident on chest CT scan of March 2019. DATA REPOSITORY: RADIATION DOSE DELIVERED:
[2024-11-25 12:48] LABS: FREE T4 0.94 ng/dL (0.76-1.46)
[2024-11-25 12:50] LABS: Troponin I 5 ng/L (<or=76)
--- NOTE | 2024-11-25 13:55 | DI.CT_ITS ---
Exam(s) CT HEAD WO EXAM: CT HEAD WO CLINICAL HISTORY: ?syncope, dizziness. TECHNIQUE: Imaging Protocol: Axial computed tomography images with coronal and sagittal reformatted images were created and reviewed COMPARISON: No exams were available for comparison FINDINGS: There are no skull fractures. There is no fluid in the visualized paranasal sinuses. There is no evidence of intracranial hemorrhage, mass effect, or shift of midline structures. There are no extra-axial fluid collections. The ventricles are not enlarged or shifted and there is no blo od within the ventricular system nor within the basal cisterns. IMPRESSION: No acute intracranial findings on this noninfused CT scan of the brain. Report called by myself to ER physician 11/25/2024 at 2:09 p.m. RADIATION DOSE DELIVERED: 854.66mGy.cm Total DLP DATA REPOSITORY: All CT scans at this facility are submitted to the National Radiology Data Registry (NRDR) Dose Index Registry (DIR) with the [employer] (ACR). RADIATION OPTIMIZATION: All CT scans at this facility use at least one of these dose optimization te chniques: automated exposure control; mA and/or kV adjustment per patient size (includes targeted exa ms where dose is matched to clinical indication); or iterative reconstruction.
[2024-11-25 14:44] LABS: Troponin I 4 ng/L (<or=76)
[2024-11-25 15:10] VITALS: BP 139/75; PULSE 64; RESP 16; O2SAT 97
== END 2024-11-25 15:18 | disposition home or self-care (01) ==
PROVIDERS: Emergency Provider Physician Assistant; PCP Nurse Practitioner
DX: R55 Syncope and collapse (principal); R00.1 Bradycardia, unspecified; N18.9 Chronic kidney disease, unspecified; E78.5 Hyperlipidemia, unspecified; D46.C Myelodysplastic syndrome with isolated del(5q) chromosomal abnormality; Z94.81 Bone marrow transplant status; Z79.82 Long term (current) use of aspirin; Z87.891 Personal history of nicotine dependence
CPT/HCPCS: 36415; 80053; 87637; 93005; 99285; 70450; 71046; 83735; 84439; 84443; 84484; 85025; 93010; 99284

== ENCOUNTER 2024-11-28 18:27 | Outpatient (REF) | payer MEDICARE, SELFPAY ==
[2024-11-28 19:57] LABS: Campylobacter PCR Negative (Negative); Salmonella PCR Negative (Negative); Shiga Toxin PCR Negative (Negative); Shigella/Enteroinvasive Ecoli Negative (Negative)
[2024-12-03 14:56] LABS: Cryptosporidium, F Negative (Negative); Giardia Ag, F Negative (Negative)
== END 2024-11-28 18:28 | disposition home or self-care (01) ==
LOC: LBN 18:27
PROVIDERS: PCP Nurse Practitioner; Visit Provider Physician Assistant
DX: R19.7 Diarrhea, unspecified (principal)
CPT/HCPCS: 87328; 87329; 87493; 87505; 83630; 87177

== ENCOUNTER 2024-11-29 12:05 | Outpatient (REF) | payer MEDICARE, SELFPAY | END 2024-11-29 12:06 | disposition home or self-care (01) | LOC: LBN 12:05 | PROVIDERS: PCP Nurse Practitioner; Visit Provider Physician Assistant | DX: R19.7 Diarrhea, unspecified (principal) | CPT/HCPCS: 87177 ==

== ENCOUNTER 2024-12-08 00:58 | Outpatient (CLI) | payer MEDICARE, SELFPAY ==
--- NOTE | 2024-12-08 06:45 | DI.NM_ITS ---
APPROVED REPORT Exam: Pharmacologic Patient Location: Out-Patient Room/Bed: Stress Nurse: Danielle Lara RN Ordering Provider:RADHA LAGUNAS, Contact Number: [phone] BMI: 23.48 Baseline Rhythm: Sinus Bradycardia. Comment: Right Bundle Branch Block and Left Anterior Fascicular Block. Indications: Chest Pain. Medical History Medical History: RBBB; LAFB; Asthma; CKD; Dyspnea on Exertion; HLD. Cardiac Medications: Albuterol Sulfate; Aspirin. Allergies: Methotrexate. Cardiac Risk Factors: Family Hx; HLD; Asthma; Former Smoker. Previous Cardiac Procedures: None. Pretest Chest Pain Characteristics: None. Exercise History: Indeterminate. Physical Disabilities: None. Lung Sounds: Clear bilaterally throughout, anterior and posterior. Heart Sounds: S1 and S2 auscultated. Stress Test Details Test: Pharmacologic stress was paired with low level exercise. Reason for pharmacologic stress test: RBBB; LAFB; ?LBBB.. Nuclear Acquisition: Rest Tc-99m/Stress Tc-99m 1 day Rest Isotope: Tc-99m Sestamibi. Dose: 10.9 Date: 12/08/2024 Injection Time: 0905 Stress Isotope: Tc-99m Sestamibi. Dose: 32.8 Date: 12/08/2024 Injection Time: 1050 HR Resting HR Supine: 48 bpm Max Heart Rate (APMHR): 150 bpm Resting HR Standin bpm Target HR (85% APMHR): 128 bpm Max HR Achieved: 103 bpm % of APMHR: 69 Recovery HR: 59 bpm BP Resting BP Supine: 130/70 mmHg Resting BP Standin/66 mmHg Max BP: 140/70 mmHg Recovery BP: 126/70 mmHg ECG Resting ECG: Sinus Bradycardia. Ectopy: None. Comment: Right Bundle Branch Block and Left Anterior Fascicular Block. Stress ECG: Sinus Tachycardia. ST Change: Nondiagnostic low heart rate. Arrhythmia: None. Comment: Right Bundle Branch Block and Left Anterior Fascicular Block. Recovery ECG: Sinus Bradycardia. Recovery ST Change: Nondiagnostic low heart rate. Recovery Arrhythmia: None. Comment: Right Bundle Branch Block and Left Anterior Fascicular Block. Clinical Stress Symptoms: Mild Shortness of Breath. Angina Score: None Rate Pressure Product: [id number] Stress ECG Conclusion 1. Resting electrocardiogram showed right bundle branch block and left anterior fascicular block 2. Patient underwent testing using pharmacologic stress with regadenoson 3. Peak heart rate achieved was 69% of maximal predicted for age 4. The electrocardiographic portion of the test was nondiagnostic 5. See MPI report Stress Test Summary STAGE HR BP SpO2 Symptoms NOTES Supine 48 130/70 93 Standing 62 122/66 93 1 min post Lexiscan injection 90 140/70 Pt. complaining of mild shortness of breath. 3 min post Lexiscan injection 74 130/60 100 Pt. complaining of minimal shortness of breath. 6 min post Lexiscan injection 59 126/70 93 Pt. denies any shortness of breath. Pt. is back to [facility]. Pt. conversing pleasantly with nursing staff upon leaving the Stress Lab. Pt. left ambulatory in no a pparent distress. MPI Conclusion Myocardial perfusion is normal. There is no ischemia or evidence of prior infarction Calculated EF is 45% without segmental wall motion abnormalities
[2024-12-08] MEDS: Regadenoson 0.4 MG/5 ML SYR IVP (10:49)
== END 2024-12-08 01:18 ==
LOC: DI 00:58
PROVIDERS: PCP Nurse Practitioner; Visit Provider Internal Medicine Cardiovascular Disease
DX: R07.9 Chest pain, unspecified (principal); I45.2 Bifascicular block
CPT/HCPCS: 36415; 78452; 80048; 80061; 93016; 93018; 84439; 84443; 85025; 93017; J2785

== ENCOUNTER 2024-12-08 11:18 | Outpatient (CLI) | payer MEDICARE, SELFPAY ==
[2024-12-08 07:48] LABS: Abs Immature Grans 0.04 10^3/uL (0.0-0.06); Absolute Basophil Count 0.03 10^3/uL (0.0-0.2); Absolute Eosinophil Count 0.12 10^3/uL (0.0-0.7); Absolute Lymphocyte Count 0.98 10^3/uL (1.2-3.4); Absolute Monocyte Count 0.48 10^3/uL (0.1-0.8); Absolute Neutrophil Count 4.19 10^3/uL (1.2-6.7); Basophils % 0.5 %; Eosinophils % 2.1 %; HCT 39.1 % (40.0-50.0); HGB 12.8 g/dL (13.5-17.5); Immature Grans % 0.7 %; Lymphocytes % 16.8 %; MCH 31.8 pg (27.0-33.0); MCHC 32.7 % (32.0-36.0); MCV 97 fL (80-95); Monocytes % 8.2 %; Neutrophils % 71.7 %; Platelet Count 204 10^3/uL (130-400); RBC 4.03 10^6/uL (4.36-5.78); RDW 12.5 % (11.8-14.1); RDW-SD 44.6 fL; WBC 5.84 10^3/uL (4.4-10.8)
[2024-12-08 08:47] LABS: Anion Gap 9.7 mmol/L (3-11); BUN 19 mg/dL (7-18); CO2 29.3 mmol/L (21.0-32.0); CREATININE 1.1 mg/dL (0.70-1.30); Calcium 9.4 mg/dL (8.5-10.1); Calculated LDL 145 mg/dL (<100); Chloride 105 mmol/L (98-107); Cholesterol 214 mg/dL (<200); Estimated GFR 72.22 (mL/min/1.73m2); Glucose 90 mg/dL (74-106); HDL Cholesterol 57 mg/dL (>or=40); Potassium 4.2 mmol/L (3.5-5.1); Sodium 144 mmol/L (136-145); TSH (W/Ref FT4) 6.49 uIU/mL (0.36-3.74); Triglyceride 61 mg/dL (<150)
[2024-12-08 18:17] LABS: T4, Free 1.1 ng/dL (0.8-2.2)
== END 2024-12-08 11:19 | disposition home or self-care (01) ==
LOC: LBO 11:19
PROVIDERS: PCP Nurse Practitioner; Visit Provider Nurse Practitioner
DX: R79.9 Abnormal finding of blood chemistry, unspecified (principal); R79.89 Other specified abnormal findings of blood chemistry; R53.83 Other fatigue
CPT/HCPCS: 36415; 80048; 80061; 84439; 84443; 85025

== ENCOUNTER → 2024-12-12 10:23 | Outpatient (BNVA) | payer MEDICARE, SELFPAY | PROVIDERS: PCP Nurse Practitioner; Referring Provider Nurse Practitioner; Visit Provider Internal Medicine Cardiovascular Disease | DX: I35.0 Nonrheumatic aortic (valve) stenosis (principal) | CPT/HCPCS: 99214 ==

== ENCOUNTER → 2025-02-09 12:36 | Outpatient (BNVA) | payer MEDICARE, SELFPAY | PROVIDERS: PCP Nurse Practitioner; Referring Provider Nurse Practitioner; Visit Provider Physician Assistant Surgical | DX: J47.9 Bronchiectasis, uncomplicated (principal); J45.909 Unspecified asthma, uncomplicated; Z98.890 Other specified postprocedural states | CPT/HCPCS: 99214; 94618; 99205 ==

== ENCOUNTER → 2025-08-10 12:32 | Outpatient (BNVA) | payer MEDICARE, SELFPAY | PROVIDERS: PCP Nurse Practitioner; Referring Provider Nurse Practitioner; Visit Provider Physician Assistant Surgical | DX: J47.9 Bronchiectasis, uncomplicated (principal); J45.909 Unspecified asthma, uncomplicated; Z87.891 Personal history of nicotine dependence; Z23 Encounter for immunization | CPT/HCPCS: 99214; 90471; 90684 ==